=== PATIENT | female | born 1950 | race Caucasian/White ===

== ENCOUNTER 2016-10-21 06:43 | Day surgery (SDC) | payer BC ==
--- NOTE | 2016-10-07 09:40 | PAT Medication Instructions ---
Service Date Oct 07, 2016. Current Home Medication List Acetaminophen (Tylenol), 500 MG PO BID Albuterol Hfa (Ventolin Hfa), 2-4 PUFFS INH Q6H PRN for Shortness of Breath Aspirin (Aspirin Ec), 81 MG PO QAM Atorvastatin (Lipitor), 40 MG PO HS Brimonidine Tartrate (Alphagan P), 1 DROPS OP BID Carvedilol (Coreg), 25 MG PO BID Cholecalciferol (Vitamin D), 1 TAB PO QAM Glimepiride (Glimepiride), 1 TAB PO QPM Hydralazine Hcl (Apresoline), 100 MG PO TID Latanoprost (Xalatan 0.005% Oph Samanta), 1 DROPS OP HS Loratadine (Claritin), 10 MG PO HS Tramadol (Ultram), 50 MG PO Q8H PRN for Pain [Nasonex], 1 SPRAY NA DAILY PRN for PRN Medication Instructions For Your Scheduled Surgery - Check with surgeon/public policy manager for instructions: Aspirin (Aspirin Ec), 81 MG PO QAM - Hold the following medications the morning of surgery: Loratadine (Claritin), 10 MG PO HS Cholecalciferol (Vitamin D), 1 TAB PO QAM - Take the following medications the morning of surgery with a sip of water: [Nasonex], 1 SPRAY NA DAILY PRN for PRN Hydralazine Hcl (Apresoline), 100 MG PO TID Carvedilol (Coreg), 25 MG PO BID Brimonidine Tartrate (Alphagan P), 1 DROPS OP BID Acetaminophen (Tylenol), 500 MG PO BID Albuterol Hfa (Ventolin Hfa), 2-4 PUFFS INH Q6H PRN for Shortness of Breath ( bring with you hospital the morning of surgery) Tramadol (Ultram), 50 MG PO Q8H PRN for Pain (okay to take up to 4 hours prior to surgery if needed) - Take the following medications as scheduled the night before surgery: [Nasonex], 1 SPRAY NA DAILY PRN for PRN Latanoprost (Xalatan 0.005% Oph Samanta), 1 DROPS OP HS Hydralazine Hcl (Apresoline), 100 MG PO TID Glimepiride (Glimepiride), 1 TAB PO QPM Carvedilol (Coreg), 25 MG PO BID Brimonidine Tartrate (Alphagan P), 1 DROPS OP BID Atorvastatin (Lipitor), 40 MG PO HS Acetaminophen (Tylenol), 500 MG PO BID Albuterol Hfa (Ventolin Hfa), 2-4 PUFFS INH Q6H PRN for Shortness of Breath Tramadol (Ultram), 50 MG PO Q8H PRN for Pain If you have any questions please call us at [phone] (Natalie Atkinson PA-C) or [phone] or [phone]
[2016-10-07 10:17] LABS: BASO % 0.7 %; BASO ABS # 0.04 K/uL (0-0.2); COMPLETE YES; HEMATOCRIT 30.8 % (37-47); IG% 0.4 %; LYMPH % 28.3 %; MEAN CELL VOLUME 91.1 fL (80-100); MEAN CORPUSCULAR HEMOGLOBIN 30.2 pg (25-34); MEAN CORPUSCULAR HGB CONC 33.1 g/dl (32-36); MEAN PLATELET VOLUME 9.6 fL (7.4-10.4); MONO % 8.3 %; NEUT % 59.3 %; PLATELET COUNT 251 K/uL (130-400); RED BLOOD COUNT 3.38 M/uL (4.2-5.4); WHITE BLOOD COUNT 5.66 K/uL (4.8-10.8)
--- NOTE | 2016-10-07 10:36 | DIAGNOSTIC IMAGING REPORT ---
CHEST PREADMISSION(PA/LAT) CLINICAL HISTORY: Preoperative evaluation. COMPARISON STUDY: No previous studies for comparison. FINDINGS: There are median sternotomy wires and clips from bypass grafting. There is mild cardiomegaly without evidence of pulmonary edema. No consolidation is identified. There is no pneumothorax or pleural effusion. IMPRESSION: 1. No acute cardiopulmonary findings. 2. Mild cardiomegaly. Electronically signed by: Paul Membreno M.D. 10/07/2016 10:33 AM Dictated Date/Time: 10/07/2016 10:33 AM
[2016-10-07 10:49] LABS: PROTHROMBIN TIME (PATIENT) 10.7 SECONDS (9.0-12.0)
[2016-10-07 11:41] LABS: BUN/CREATININE RATIO 13.6 (10-20); CALCIUM 9.1 mg/dl (8.5-10.1); CREATININE 3.4 mg/dl (0.60-1.20); POTASSIUM 5.7 mmol/L (3.5-5.1)
[~2016-10-21] VITALS: Ht 160 cm; Wt 78.2 kg
--- NOTE | 2016-10-21 06:02 | History and Physical ---
History & Physical Date of Service Oct 21, 2016. History & Physical CC: End stage renal disease HPI: Ms. Lu states she is not yet on hemodialysis; however, she was advised that she will likely need it within the next 3-6 months. She says she has had progressively decreasing kidney function for a long period of time due to multiple problems. She denies any real complaints at this time including headaches, fevers, chills, dizziness, chest pain, shortness of breath, abdominal pain, nausea, vomiting, diarrhea, constipation, dysuria, hematuria, rest pain, claudication, nonhealing wounds or ulcers or other complaints. ALLERGIES: AUGMENTIN. HOME MEDICATIONS: Reconciled on the chart and include the following: Aspirin, atorvastatin, brimonidine, carvedilol, Drisdol, glimepiride, hydralazine, latanoprost, loratadine, Nasonex, ProAir HFA, tramadol, and Tylenol. PAST MEDICAL HISTORY: Positive for allergic rhinitis, chronic kidney disease, coronary artery disease, type 2 diabetes mellitus, osteoarthritis, glaucoma, hypertension, hyperlipidemia, pseudophakia of right eye and vitamin D deficiency. PAST SURGICAL HISTORY: Positive for cataract extractions, section and coronary artery bypass graft x3 in 2009. FAMILY HISTORY: Positive for diabetes in her father and mother and heart disease in her mother. SOCIAL HISTORY: Positive for a past history of tobacco use. She previously smoked #1-1/2 packs per day for about 30 years and stopped at age 59, which was 7 years ago. The patient denies alcohol or drug use. REVIEW OF SYSTEMS: Negative for fatigue, fevers, sweats, weight loss, exercise intolerance, abnormal moles or rashes, vision changes or photophobia, ear pain, sinus problems, sore throat, cough, shortness of breath, hemoptysis or wheezing , chest pain, palpitations or syncope. She does admit to some mild edema of her lower extremities which waxes and wanes depending on how much she is on them. She denies abdominal pain, nausea, vomiting, diarrhea, constipation, muscle weakness, headaches, dizziness, numbness or seizures. PHYSICAL EXAMINATION: Her vital signs are as follows: Blood pressure of 160/ 68 in the right arm, 168/60 in the left, heart rate 58, oxygen 97% on room air. The patient is 160.02 cm tall and weighs 78.5 kilograms. Constitutional: In general, patient is a mildly chronically ill-appearing middle-aged female in no acute distress. She ambulates without assistance and is active, alert and oriented x4 with normal recent and remote memory. Head is normocephalic, atraumatic. Eyes are EOMI. ENMT exam demonstrates no hearing loss, rhinorrhea or pharyngeal erythema. Neck is supple, nontender with midline trachea without masses or crepitus. Lung exam demonstrates no dyspnea. They are decreased somewhat throughout but clear bilaterally. Cardiovascular exam demonstrates nondisplaced apical impulse with a regular rate and rhythm without murmurs, lifts, heaves, thrills or gallops. Peripheral pulses are full and equal in all extremities unless otherwise noted, specifically they are normal in her carotid , brachial, radial and femoral pulses. Bilateral extremity distal pulses are + 2. She has brisk capillary refill and no signs of distal ischemia. The patient demonstrates no bruits in her carotid, abdominal or femoral area. Abdomen is soft, nontender with normoactive bowel sounds in all 4 quadrants without guarding or rebound. There is no flank or CVA tenderness. There are no pulsatile masses appreciable. Bilateral upper extremities demonstrate no cyanosis, edema, clubbing, varicosities or ulcers. The patient's bilateral lower extremities demonstrate trace to 1+ pitting edema. This appears to be chronic; there are no ulcerations or other discoloration noted. Neurologically : Patient has grossly intact cranial nerves and grossly intact sensation. ASSESSMENT AND PLAN: End-stage renal disease, not on hemodialysis. PLAN: Patient is admitted for a left wrist possible antecubital cephalic vein av fistula creation. I have discussed the risks options and benefits of the procedure with the patient. The patient understands the risks options and benefits and agrees to the procedure.
[~2016-10-21 06:43] MED LIST: ACET-1256 PO; ALPPOPS5 OP; ASPI81TA28 PO; ATOR-24 PO; CARV25TA2 PO; CHOL1TAB42 PO; CLINDAMYCIN 600 MG/54 ML D5W IV SCH; CLR10 PO; GLIM4TAB2 PO; HYDR100T12 PO; LATA0.5S OP; NASONEX; SODIUM CHLORIDE 0.9% 1000ML 1,000 ML IV SCH; TRAM-10 PO; VNTHFA/IN INH
[2016-10-21] MEDS ORDERED: MIDAZOLAM HCL 1 MG/ML 2ML VIAL ONE ×2 (06:46→08:24)
[2016-10-21] MEDS ORDERED: PROPOFOL IV EMULSION 10 MG/ML 20 ML VIAL IV ONE ×2 (06:48→08:57)
[2016-10-21] MEDS ORDERED: FENTANYL CITRATE INJ 50 MCG/1 ML 2 ML VIAL ONE (06:49)
[2016-10-21] MEDS ORDERED: THROMBIN FOR SOLN 20000 UNIT KIT ONE (07:05)
[2016-10-21] MEDS ORDERED: BUPIVACAINE/EPINEPHRINE 0.5% MPF 1:200,000 30 ML VIAL ONE (07:06)
[2016-10-21] MEDS ORDERED: GELATIN SPONGE 12-7MM ONE (07:06)
[2016-10-21] MEDS ORDERED: LIDOCAINE HCL 1% 20 ML VIAL ONE (07:06)
[2016-10-21] MEDS ORDERED: HEPARIN SOD (PORCINE) 1000 UNIT/ML 10 ML VIAL ONE (07:06)
[2016-10-21 07:14] VITALS: BP 183/73; PULSE 72; TEMP 36.7; O2SAT 98; Ht 160 cm; Wt 78.2 kg
[2016-10-21] MEDS ORDERED: EpHEDrine SULFATE INJ 50 MG/ML AMP IV PRN (07:30)
[2016-10-21] MEDS ORDERED: ATROPINE SULFATE 0.1 MG/ML 5ML SYR IV PRN (07:30)
[2016-10-21] MEDS ORDERED: ONDANSETRON INJ 2 MG/ML 2 ML VIAL IV PRN (07:30)
[2016-10-21] MEDS ORDERED: FENTANYL CITRATE INJ 50 MCG/1 ML 2 ML VIAL IV PRN (07:30)
[2016-10-21 07:41] LABS: BUN/CREATININE RATIO 14.5 (10-20); CALCIUM 8.8 mg/dl (8.5-10.1); CREATININE 4.3 mg/dl (0.60-1.20); POTASSIUM 4.5 mmol/L (3.5-5.1)
--- NOTE | 2016-10-21 07:41 | History & Physical Bridge Note ---
H&P Re-Evaluation Bridge Note: I have examined the patient, reviewed the History & Physical and in the interval since the performance of the History & Physical I have noted the following changes of clinical significance: No changes noted
[2016-10-21] MEDS ORDERED: [UNRECOGNIZED DRUG - OTHER] PO (07:45)
[2016-10-21] MEDS ORDERED: EpHEDrine SULFATE 50MG/5ML SYR ONE (09:01)
--- NOTE | 2016-10-21 09:42 | [facility] Post Operative Brief Note ---
Immediate Operative Summary Operative Date Oct 21, 2016. Pre-Operative Diagnosis End stage renal disease Post-Operative Diagnosis End stage renal disease Procedure(s) Performed Left Wrist, Antecubital Cephalic Vein Arteriovenous Fistula Surgeon Dr. Bradley Solorzano Free Lance Artist Surgeon(s) Katie Lundberg PA-C Estimated Blood Loss 15 Findings Good thrill with doppler Specimens None per surgeon Anesthesia MAC Complication(s) None Disposition Recovery Room / PACU
[2016-10-21] MEDS ORDERED: OXYC-57 PO (09:43)
--- NOTE | 2016-10-21 09:44 | Discharge Instructions ---
Discharge Instructions Date of Service Oct 21, 2016. Visit Reason for Visit: End Stage Renal Disease Discharge Discharge Diagnosis / Problem: End stage renal disease Discharge Goals Goal(s): Therapeutic intervention Activity Recommendations Activity Limitations: per Instructions/Follow-up section Anesthesia . Post Anesthesia Instructions: If you have had General Anesthesia or IV Sedation: * Do not drive today. * Resume driving when surgeon permits. * Do not make important decisions or sign legal documents today. * Call surgeon for: 1. Temperature elevations greater than 101 degrees F. 2. Uncontrollable pain. 3. Excessive bleeding. 4. Persistent nausea and vomiting. 5. Medication intolerance (nausea, vomiting or rash). * For nausea and vomiting use only clear liquids such as: tea, soda, bouillon until nausea subsides, then gradually increase diet as tolerated. * If you have any concerns or questions, call your surgeon's office. If physician is unavailable and it is an emergency, call 911 or go to the nearest emergency room. . Instructions / Follow-Up Instructions / Follow-Up Call [phone] to schedule a follow up appointment if one not already scheduled. ACTIVITY RECOMMENDATIONS: See Above SPECIAL CARE INSTRUCTIONS: Call your doctor if: * Temperature above 101 degrees * Pain not relieved by pain medicine ordered * There is increased drainage or redness from any incision * You have any unanswered questions or concerns. Diet Recommendations Recommended Home Diet: resume previous diet Procedures Procedures Performed: Left Wrist, Arteriovenous Fistula Creation Pending Studies Studies pending at discharge: no Medical Emergencies . Who to Call and When: Medical Emergencies: If at any time you feel your situation is an emergency, please call 911 immediately. . Non-Emergent Contact Non-Emergency issues call your: Surgeon . . "Provider Documentation" section prepared by Bradley Solorzano. .
--- NOTE | 2016-10-21 10:08 | OPERATIVE REPORT ---
DATE OF OPERATION: 10/21/2016 PREOPERATIVE DIAGNOSIS: End-stage renal disease on hemodialysis. POSTOPERATIVE DIAGNOSIS: Same. PROCEDURE: Left wrist radiocephalic fistula creation. SURGEON: Dr. Bradley Solorzano. SPRING INSPECTOR: Dr. Katie Conde. ANESTHESIA: Local plus conscious sedation. ESTIMATED BLOOD LOSS: 15. FLUIDS: 400 mL crystalloid. URINE OUTPUT: Not recorded. COMPLICATIONS: None apparent. CONDITION: Stable to PACU. INDICATIONS: Ms. Lu is a 66-year-old female with end-stage renal disease in need of senior living hemodialysis access. She was advised of the risks and benefits of undergoing an AV fistula placement and agreed to undergo above procedure. PROCEDURE: The patient was brought into the operative suite. She was prepped and draped in the usual fashion. A timeout occurred. Her cephalic vein and her radial artery were identified. Local anesthetic was instilled between the 2 vessels. A small longitudinal incision was made with a 15 blade. The cephalic vein was dissected and divided. Attention was then turned to the artery. This was dissected out. This was found to be soft. An appropriate length of the artery was dissected out for fistula placement. The attention was then turned to the vein. This was initially dissected and swung over to the radial artery. A large venous branch was ligated. Proximal and distal control of the radial artery was obtained with bulldog clamps. An 11 blade was used to make an arteriotomy and this was extended with Stephens scissors. The artery was found to be thick-walled with small lumen. This was serially dilated up to 2.5 mm. There did not appear to be great outflow vessel. Then, the vein was cut to size and anastomosis was performed in an end-to-side fashion using 7-0 Prolene. Once the clamps were removed there was not adequate flow through the fistula. An arteriotomy was made distally in the radial artery and 2 Sherry balloon was passed proximally and withdrawn. There was no clot but afterwards there was brisk flow. There was good signal dopplered throughout the fistula. At this time, the arteriotomy was closed with interrupted 7-0 Prolene. Hemostasis was obtained. The wound was closed using 3-0 and 4-0 Vicryl. The patient tolerated the procedure well. Dr. Bradley Solorzano was present and scrubbed for the entirety of this case. I attest to the content of the Intraoperative Record and any orders documented therein. Any exceptions are noted below. I, Dr. Solorzano was present and scurbbed for the entire procedure. LANEY
--- NOTE | 2016-10-21 10:12 | Anesthesiology Progress Note ---
Anesthesia Post Op Note Date & Time Oct 21, 2016 at 10:11 Vital Signs Pain Intensity: 0 Vital Signs Past 12 Hours Date Time Temp Pulse Resp B/P Pulse Ox O2 Delivery O2 Flow Rate FiO2 10/21/16 10:10 72 16 141/63 100 Nasal Cannula 2 10/21/16 10:00 72 20 123/73 100 Mask 5 10/21/16 09:53 36.2 74 20 123/69 100 Mask 10 10/21/16 07:14 36.7 72 18 183/73 98 Room Air Notes Mental Status: alert / awake / arousable, participated in evaluation Pt Amnestic to Procedure: Yes Nausea / Vomiting: adequately controlled Pain: adequately controlled Airway Patency, RR, SpO2: stable & adequate BP & HR: stable & adequate Hydration State: stable & adequate Anesthetic Complications: no major complications apparent
[2016-10-21 10:20] VITALS: BP 168/74; PULSE 66; TEMP 36.6; O2SAT 100
[2016-10-21 10:50] VITALS: BP 171/76; PULSE 66; TEMP 36.4; O2SAT 99
[2016-10-21 11:20] VITALS: BP 175/70; PULSE 68; O2SAT 99
[2017-03-13] MEDS ORDERED: LVQ250 PO (11:22)
[2017-03-13] MEDS ORDERED: FLUT50SP45 NAE (12:50)
[2017-03-23] MEDS ORDERED: [UNRECOGNIZED DRUG - OTHER] PO (07:20)
== END 2016-10-21 11:25 | disposition home or self-care (01) ==
LOC: C.ACU 06:43
PROVIDERS: ATTEND Surgery Vascular Surgery
DX: N18.6 End stage renal disease (principal); I12.0 Hypertensive chronic kidney disease with stage 5 chronic kidney disease or end stage renal disease; I25.10 Atherosclerotic heart disease of native coronary artery without angina pectoris; E11.9 Type 2 diabetes mellitus without complications; M19.90 Unspecified osteoarthritis, unspecified site; H40.9 Unspecified glaucoma; E78.5 Hyperlipidemia, unspecified; E55.9 Vitamin D deficiency, unspecified; Z95.1 Presence of aortocoronary bypass graft; Z87.891 Personal history of nicotine dependence

== ENCOUNTER 2017-03-10 12:45 | Inpatient (IN) | payer BC ==
[~2017-03-10] VITALS: Ht 160 cm; Wt 78.8 kg
[~2017-03-10 12:45] MED LIST changes: -CLINDAMYCIN 600 MG/54 ML D5W IV SCH; +OXYC-57 PO; -SODIUM CHLORIDE 0.9% 1000ML 1,000 ML IV SCH; +[UNRECOGNIZED DRUG - OTHER] PO
[2017-03-10] MEDS ORDERED: SODIUM CHLORIDE 0.9% 1000ML 1,000 ML IV STA (13:19)
[2017-03-10] MEDS ORDERED: ALBUT/IPRATROP 3MG/0.5MG NEB 3 ML VIAL INH STA (13:19)
[2017-03-10] MEDS ORDERED: ONDANSETRON INJ 2 MG/ML 2 ML VIAL IV STA (13:19)
[2017-03-10] MEDS ORDERED: SODIUM CHLORIDE 0.9% 1000ML 500 ML IV STA (13:19)
[2017-03-10] MEDS ORDERED: FLUT50SP45 NAE (13:39)
[2017-03-10 14:11] LABS: BASO % 0.2 %; BASO ABS # 0.02 K/uL (0-0.2); COMPLETE YES; EOS % 0.7 %; HEMATOCRIT 26.7 % (37-47); IG% 0.5 %; LYMPH % 11.8 %; LYMPH ABS # 0.95 K/uL (1.2-3.4); MEAN CORPUSCULAR HEMOGLOBIN 30.3 pg (25-34); MEAN CORPUSCULAR HGB CONC 34.8 g/dl (32-36); MEAN PLATELET VOLUME 9.1 fL (7.4-10.4); MONO % 7.2 %; NEUT % 79.6 %; PLATELET COUNT 302 K/uL (130-400); RED BLOOD COUNT 3.07 M/uL (4.2-5.4); WHITE BLOOD COUNT 8.03 K/uL (4.8-10.8)
[2017-03-10 14:19] LABS: PARTIAL THROMBOPLASTIN RATIO 1.1; PROTHROMBIN TIME (PATIENT) 11.1 SECONDS (9.0-12.0)
[2017-03-10 14:31] LABS: BUN/CREATININE RATIO 12.5 (10-20); CREATININE 3.2 mg/dl (0.60-1.20); MAGNESIUM 1.7 mg/dl (1.8-2.4); POTASSIUM 4.5 mmol/L (3.5-5.1)
[2017-03-10 14:40] LABS: ALB/GLOB RATIO 0.7 (0.9-2); CKMB/CK RATIO 2.3 (0-3.0)
--- NOTE | 2017-03-10 15:14 | DIAGNOSTIC IMAGING REPORT ---
CHEST 2 VIEWS ROUTINE CLINICAL HISTORY: Cough. Congestion. COMPARISON STUDY: Chest radiograph October 07, 2016. FINDINGS: There are median sternotomy wires and clips from bypass grafting. No pneumothorax or pleural effusion is present. There is no evidence of pulmonary edema. Moderate cardiomegaly is noted. No consolidation is identified. IMPRESSION: 1. No acute cardiopulmonary findings. 2. Moderate cardiomegaly. Electronically signed by: Paul Membreno M.D. 03/10/2017 3:13 PM Dictated Date/Time: 03/10/2017 3:12 PM
[2017-03-10 15:18] LABS: URINE APPEARANCE CLEAR (CLEAR); URINE BILIRUBIN NEG (NEG); URINE COLOR YELLOW; URINE NITRITE NEG (NEG); URINE PH 5.5 (4.5-7.5); URINE SPECIFIC GRAVITY 1.016 (1.000-1.030); UROBILINOGEN NEG (NEG)
[2017-03-10] MEDS ORDERED: LEVAQUIN 500MG / 100ML D5W IV ONE (15:30)
[2017-03-10 16:08] LABS: MANUAL MICROSCOPIC REQUIRED? NO; REVIEW REQ? YES
[2017-03-10 16:32] LABS: URINE PATH CASTS 0-3 GRANULAR CASTS /lpf (0)
[2017-03-10] MEDS ORDERED: CARVEDILOL 25 MG TAB PO STA (16:36)
[2017-03-10] MEDS ORDERED: DEXTROSE 50% 50 ML SYR IV PRN (16:45)
[2017-03-10] MEDS ORDERED: ONDANSETRON INJ 2 MG/ML 2 ML VIAL IV PRN (16:45)
[2017-03-10] MEDS ORDERED: GLUCOSE 10 TABS/TUBE PO PRN (16:45)
[2017-03-10] MEDS ORDERED: ACETAMINOPHEN 325 MG TAB PO PRN (16:45)
[2017-03-10] MEDS ORDERED: GLUCOSE 40% GEL 15 GM TUBE PO PRN (16:45)
[2017-03-10] MEDS ORDERED: GLUCAGON FOR INJ 1 MG VIAL SQ PRN (16:45)
[2017-03-10] MEDS ORDERED: ACET-1257 PO (16:52)
[2017-03-10] MEDS ORDERED: CALC0.2510 PO (16:52)
[2017-03-10] MEDS ORDERED: ASPIRIN 81 MG ECTAB PO STA (17:06)
[2017-03-10] MEDS ORDERED: ALBUT/IPRATROP 3MG/0.5MG NEB 3 ML VIAL INH PRN (17:15)
[2017-03-10 17:50] VITALS: BP 159/115; PULSE 95; TEMP 36.5; O2SAT 92
[2017-03-10 18:03] VITALS: BP 159/115; PULSE 95; TEMP 36.5; Ht 160 cm; Wt 78.8 kg
[2017-03-10 19:00] VITALS: BP 120/57; PULSE 71
[2017-03-10] MEDS ORDERED: LEVOFLOXACIN CONSULT ACTIVE PRN (19:30)
[2017-03-10] MEDS: CALCITRIOL 0.25 MCG CAP PO SCH (19:51)
[2017-03-10] MEDS: ALBUT/IPRATROP 3MG/0.5MG NEB 3 ML VIAL INH SCH (19:55)
[2017-03-10 19:57] VITALS: BP 116/55; PULSE 68; PULSE 70; TEMP 36.8; O2SAT 93
[2017-03-10] MEDS ORDERED: MAGNESIUM CHLORIDE 64MG DELAYED REL TAB PO ONE (20:00)
[2017-03-10 20:13] LABS: INFLUENZA A PCR Neg for Influ A (NEG); INFLUENZA B PCR Neg for Influ B (NEG)
--- NOTE | 2017-03-10 20:52 | History and Physical ---
History & Physical Date & Time of Service: Mar 10, 2017 at 17:07 Chief Complaint: Flu Like Sx, Dizzy, Vomiting Primary Care Physician: Alan Francois M.D. History of Present Illness Source: patient, clinic records This is a 66 y/o female with PMH of CAD s/p CABG x 3, HTN, DM, ESRD not on dialysis, asthma, and other problems listed below who presents to the ED with productive cough. Patient states 9 days ago she developed sore throat, rhinorrhea, initially dry cough now productive of white sputum, chills, backache , FELIPE. Pt was seen at urgent care 2 days ago, had CXR which was negative, and was started on doxycycline. After starting doxycycline, patient developed N/V and diarrhea, therefore stopped taking the doxycycline. Nausea is now resolved. Last diarrhea yesterday; no BM today. For past 2 days has poor PO intake "tea and crackers". She did not take her medications this morning. Has been using albuterol inhaler 4x per day which helps with cough. Prior to this illness, patient had not been using her albuterol on a regular basis. She reports having mild substernal non-radiating chest pressure 2 days ago while ambulating, which resolved. No chest pain today. States she had similar discomfort with prior bronchitis/ asthma exacerbation. She reports edema to bilateral LE over past few days- improving today. Has felt lightheaded and tired. Denies fever, diaphoresis, ear ache, SOB, abdominal pain, dysuria, frequency, itching. No influenza vaccination yet this season. No specific sick contact. No recent hospitalization. Has LUE fistula which is not mature yet per patient. Past Medical/Surgical History Medical Problems: (1) Asthma Status: Chronic (3) Athscl Heart Disease Of [place] Coronary Artery W/O Ang Pctrs Status: Chronic (5) CKD (chronic kidney disease), stage V Status: Chronic (7) DM type 2 (diabetes mellitus, type 2) Status: Chronic (9) HTN (hypertension) Status: Chronic (10) Hyperlipidemia Status: Chronic (12) Obesity (BMI 30.0-34.9) Status: Chronic (13) Osteoarthritis Status: Chronic (14) Osteoporosis Status: Chronic (16) Vitamin D Deficiency, Unspecified Status: Chronic Surgical Problems: (1) AV fistula Status: Chronic (2) History of cataract surgery Status: Chronic (4) S/P CABG x 3 Permanent Comment: 2009, Andie Nuñez Status: Chronic (5) S/P section Status: Chronic Family History Cardiac disorder MOTHER Diabetes mellitus MOTHER SISTER FATHER Hypertension SISTER Social History Smoking Status: Former Smoker (prior 1.5 ppd x approx 10 years, quit May 2010) Alcohol Use: none Drug Use: none Housing status: lives alone Immunizations History of Influenza Vaccine: No Multi-Drug Resistant Organisms History of MDRO: No Allergies Coded Allergies: Amoxicillin (Verified Allergy, Mild, LIGHTHEADED, DIZZY AND NAUSEA, ) Clavulanic Acid (Verified Allergy, Mild, LIGHTHEADED, DIZZY AND NAUSEA, ) Home Medications Scheduled Aspirin (Aspirin Ec), 81 MG PO QAM Atorvastatin (Lipitor), 40 MG PO DAILY Calcitriol (Rocaltrol Cap), 0.25 MCG PO MWF Carvedilol (Coreg), 25 MG PO BIDM Cholecalciferol (Vitamin D), 1 TAB PO QAM Fluticasone Propionate (Nasal) (Allergy Nasal [place] [address]), 2 SPRAY JOE DAILY Glimepiride (Glimepiride), 1 TAB PO QAM Hydralazine Hcl (Apresoline), 100 MG PO TID Loratadine (Claritin), 10 MG PO DAILY Scheduled PRN Acetaminophen (Tylenol Extra Strength), 1 TAB PO Q6 PRN for Pain Albuterol Hfa (Ventolin Hfa), 2 PUFFS INH Q4H PRN for Wheezing Review of Systems Ten systems reviewed and negative except for pertinent positives and negatives noted in HPI. Physical Exam Vital Signs Date Time Temp Pulse Resp B/P (MAP) Pulse Ox O2 Delivery O2 Flow Rate FiO2 03/10/17 17:00 71 18 173/86 96 Room Air 03/10/17 15:02 76 18 173/86 96 Room Air 03/10/17 14:39 77 16 190/76 93 03/10/17 13:45 77 03/10/17 12:48 36.5 76 18 217/71 97 Room Air General Appearance: WD/WN, no apparent distress Head: normocephalic, atraumatic Eyes: normal inspection, sclerae normal ENT: normal ENT inspection, hearing grossly normal, TMs normal, pharynx normal Neck: supple, trachea midline Respiratory/Chest: lungs clear, normal breath sounds, no respiratory distress, no accessory muscle use, + pertinent finding (no longer wheezing after Duoneb in ER. coughs during exam. ) Cardiovascular: regular rate, rhythm, no murmur Abdomen/GI: normal bowel sounds, non tender, soft Extremities/Musculoskelatal: no calf tenderness, + pertinent finding (1+ pitting pretibial edema bilaterally. LUE fistula with thrill.) Neurologic/Psych: alert, normal mood/affect, oriented x 3 Skin: normal color, warm/dry Diagnostics Laboratory Results Results Past 24 Hours Test 03/10/17 13:58 03/10/17 14:05 03/10/17 17:03 Range/Units White Blood Count 8.03 4.8-10.8 K/uL Red Blood Count 3.07 4.2-5.4 M/uL Hemoglobin 9.3 12.0-16.0 g/dL Hematocrit 26.7 37-47 % Mean Corpuscular Volume 87.0 80-100 fL Mean Corpuscular Hemoglobin 30.3 25-34 pg Mean Corpuscular Hemoglobin Concent 34.8 32-36 g/dl Platelet Count 302 130-400 K/uL Mean Platelet Volume 9.1 7.4-10.4 fL Neutrophils (%) (Auto) 79.6 % Lymphocytes (%) (Auto) 11.8 % Monocytes (%) (Auto) 7.2 % Eosinophils (%) (Auto) 0.7 % Basophils (%) (Auto) 0.2 % Neutrophils # (Auto) 6.38 1.4-6.5 K/uL Lymphocytes # (Auto) 0.95 1.2-3.4 K/uL Monocytes # (Auto) 0.58 0.11-0.59 K/uL Eosinophils # (Auto) 0.06 0-0.5 K/uL Basophils # (Auto) 0.02 0-0.2 K/uL RDW Standard Deviation 40.2 36.4-46.3 fL RDW Coefficient of Variation 12.5 11.5-14.5 % Immature Granulocyte % (Auto) 0.5 % Immature Granulocyte # (Auto) 0.04 0.00-0.02 K/uL Prothrombin Time 11.1 9.0-12.0 SECONDS Prothromb Time International Ratio 1.0 0.9-1.1 Activated Partial Thromboplast Time 28.2 21.0-31.0 SECONDS Partial Thromboplastin Ratio 1.1 Sodium Level 122 136-145 mmol/L Potassium Level 4.5 3.5-5.1 mmol/L Chloride Level 91 98-107 mmol/L Carbon Dioxide Level 23 21-32 mmol/L Anion Gap 8.0 3-11 mmol/L Blood Urea Nitrogen 40 7-18 mg/dl Creatinine 3.20 0.60-1.20 mg/dl Est Creatinine Clear Calc Drug Dose 17.5 ml/min Estimated GFR () 16.7 Estimated GFR (Non- 14.4 BUN/Creatinine Ratio 12.5 10-20 Random Glucose 137 70-99 mg/dl Calcium Level 8.0 8.5-10.1 mg/dl Magnesium Level 1.7 1.8-2.4 mg/dl Total Bilirubin 0.5 0.2-1 mg/dl Aspartate Amino Transf (AST/SGOT) 38 15-37 U/L Alanine Aminotransferase (ALT/SGPT) 37 12-78 U/L Alkaline Phosphatase 64 45-117 U/L Total Creatine Kinase 704 26-192 U/L Creatine Kinase MB 16.2 0.5-3.6 ng/ml Creatine Kinase MB Ratio 2.3 0-3.0 Troponin I 0.054 0-0.045 ng/ml Total Protein 5.6 6.4-8.2 gm/dl Albumin 2.3 3.4-5.0 gm/dl Globulin 3.3 2.5-4.0 gm/dl Albumin/Globulin Ratio 0.7 0.9-2 Lipase 357 73-393 U/L Urine Color YELLOW Urine Appearance CLEAR CLEAR Urine pH 5.5 4.5-7.5 Urine Specific [place] 1.016 1.000-1.030 Urine Protein 3+ NEG Urine Glucose (UA) TRACE NEG Urine Ketones NEG NEG Urine Occult Blood TRACE NEG Urine Nitrite NEG NEG Urine Bilirubin NEG NEG Urine Urobilinogen NEG NEG Urine Leukocyte Esterase NEG NEG Urine WBC (Auto) 1-5 0-5 /hpf Urine RBC (Auto) 0-4 0-4 /hpf Urine Hyaline Casts (Auto) 1-5 0-5 /lpf Urine Epithelial Cells (Auto) 10-20 0-5 /lpf Urine Bacteria (Auto) NEG NEG Urine Pathogenic Casts 0-3 GRANULAR CASTS 0 /lpf Diagnostic Radiology CHEST 2 VIEWS ROUTINE CLINICAL HISTORY: Cough. Congestion. COMPARISON STUDY: Chest radiograph October 07, 2016. FINDINGS: There are median sternotomy wires and clips from bypass grafting. No pneumothorax or pleural effusion is present. There is no evidence of pulmonary edema. Moderate cardiomegaly is noted. No consolidation is identified. IMPRESSION: 1. No acute cardiopulmonary findings. 2. Moderate cardiomegaly. EKG Normal sinus rhythm, Possible Left atrial enlargement, Right axis deviation, Non -specific intra-ventricular conduction block, possible old Inferior infarct ( cited on or before 09-MAY-2006), when compared to prior EKG October 07, 2016, T wave inversion now evident in Inferior leads, QRS axis has shifted to the right , as confirmed by cardiology Impression Assessment and Plan ASTHMATIC BRONCHITIS Did not tolerate outpatient treatment with doxycycline due to GI upset CXR- no infiltrate Influenza PCR negative Treated with Levaquin and Duoneb in ER Continue nebs and Levaquin (renally dosed) HYPERTENSION BP severely elevated in ER, given missed home meds, now normotensive Continue home carvedilol and hydralazine Monitor BP MILDLY ELEVATED TROPONIN Troponin is 0.054 Likely secondary to ESRD; no chest pain today Hx CAD with CABG x 3 in 2009; continue her aspirin, statin, beta stephenie Trend serial cardiac enzymes ACUTE HYPONATREMIA Likely due to decreased PO solute "tea and crackers" Sodium was 122 -> received 1500 mL NSS in ER -> repeat sodium 124 Check PRP in am HYPOMAGNESEMIA Replace and monitor DM TYPE 2 Hold glimepiride Novolog sliding scale ESRD Creat is 3.2, stable from baseline Not on dialysis yet, has LUE fistula (not matured per patient) Follows with Dr. Peralta DVT PROPHYLAXIS Heparin SQ CODE STATUS Full code per my discussion with the patient Patient seen in collaboration with Dr. Johnson. Please see his addendum. Attending Addendum: The patient was seen and examined in ER Recent URI on Doxy -progressed to Nausea ,Vomiting and dehydration Cough,wheezing and weakness O/E Hemodynamically stable HEENT-unremarkable Chest-decreased breath sound with wheezing anteriorly Heart-regular Abdomen-benign Labs and Imaging studies were reviewed Has Asthmatic Bronchitis Hyponatremia Agree with the assessment and plan Dr Em Johnson VTE Prophylaxis VTE Risk Assessment Done? Y/N: Yes Risk Level: Moderate Given or contraindicated: Unfractionated heparin SQ
[2017-03-10] MEDS: INSULIN ASPART 100 UNITS/ML 3 ML PEN SC SCH (21:14)
[2017-03-10] MEDS: HEPARIN SOD 5000 UNIT/0.5 ML CARP SQ SCH (21:15)
[2017-03-10 21:27] VITALS: BP 146/69; PULSE 90
--- NOTE | 2017-03-10 23:09 | EMERGENCY ROOM VISIT NOTE ---
History First contact with patient: 13:02 Chief Complaint: FLU LIKE SX Stated Complaint: FLU LIKE SX, DIZZY, VOMITING History of Present Illness Patient is a 66-year-old white female with past medical history significant for asthma, coronary artery disease status post CABG, hypertension, dyslipidemia, diabetes, chronic kidney disease/end-stage renal disease, who presents to the emergency department for evaluation of upper respiratory symptoms, cough, nausea and diarrhea 10 days. Her symptoms started a week and a half ago with "flulike symptoms." She reports she developed a sore throat, dry, nonproductive cough and sinus and nasal congestion. She subsequently developed a headache. She began to experience some pain in her ribs and her back from coughing. She tried using [id number] medications including Coricidin and Robitussin. Her symptoms persisted, and she went to a [facility] facility on Wednesday, 2 days ago. She reportedly had a chest x-ray, and was given a prescription for doxycycline. Patient states that she had a total of 3 doses of the doxycycline, but it made her sick to her stomach, and she subsequently started vomiting Wednesday evening. She reports a total of 6 episodes of vomiting and 3-4 episodes of yellow, watery, nonbloody diarrhea over the last 36 hours. Her last episode of vomiting was earlier this morning, last diarrhea was last evening. She's not been able to take her routine medications for over 24 hours. She has only been able to keep down some soda crackers and lemon tea at home. Her cough is productive of white sputum and she notes some chest congestion, but no lucia, constant chest pain and no palpitations. She feels a little bit dizzy and short of breath with exertion. Her ribs are sore from coughing. She states she cannot lay flat because it will cause her to cough. She denies any abdominal pain, just feels some cramping with her dry heaves. She does have an albuterol inhaler which she has been using 2 puffs roughly 4 times per day. She called her cushion cover inspector, Dr. Peralta, who directed her to the emergency department for further care and evaluation. There has been no melena, hematochezia or hematemesis. She denies any urinary symptoms. She notes some swelling of her ankles and lower legs Review of Systems Review of systems as per HPI. All other systems reviewed were negative. 10 systems reviewed. Past Medical/Surgical History Medical Problems: (1) Asthma (2) Asthma (3) Athscl Heart Disease Of [place] Coronary Artery W/O Ang Pctrs (4) AV fistula (5) Bronchitis (6) CAD (coronary artery disease) (7) CKD (chronic kidney disease), stage V (8) Diab Neli Wo Compl, Type Ii Or Unspec Type, Not Uncntrld (9) DM type 2 (diabetes mellitus, type 2) (10) End Stage Renal Disease (11) HTN (hypertension) (12) Hyperlipidemia (13) Hyperlipidemia, Unspecified (14) Hyponatremia (15) Obesity (BMI 30.0-34.9) (16) Osteoarthritis (17) Osteoporosis (18) Type 2 Diabetes Mellitus Without Complications (19) Vitamin D Deficiency, Unspecified Surgical Problems: (1) AV fistula (2) History of cataract surgery (3) Presence Of Aortocoronary Bypass Graft (4) S/P CABG x 3 (5) S/P section Electronic medical records are reviewed and summarized as above/below. See Problem List. Social History Smoking Status: Former Smoker Alcohol Use: none Housing Status: lives alone Occupation Status: employed Current/Historical Medications Scheduled Aspirin (Aspirin Ec), 81 MG PO QAM Atorvastatin (Lipitor), 40 MG PO DAILY Calcitriol (Rocaltrol Cap), 0.25 MCG PO MWF Carvedilol (Coreg), 25 MG PO BIDM Cholecalciferol (Vitamin D), 1 TAB PO QAM Fluticasone Propionate (Nasal) (Allergy Nasal [place] 24 Ho), 2 SPRAY JOE DAILY Glimepiride (Glimepiride), 1 TAB PO QAM Hydralazine Hcl (Apresoline), 100 MG PO TID Loratadine (Claritin), 10 MG PO DAILY Scheduled PRN Acetaminophen (Tylenol Extra Strength), 1 TAB PO Q6 PRN for Pain Albuterol Hfa (Ventolin Hfa), 2 PUFFS INH Q4H PRN for Wheezing Physical Exam Vital Signs Date Time Temp Pulse Resp B/P (MAP) Pulse Ox O2 Delivery O2 Flow Rate FiO2 03/10/17 15:02 76 18 173/86 96 Room Air 03/10/17 14:39 77 16 190/76 93 03/10/17 13:45 77 03/10/17 12:48 36.5 76 18 217/71 97 Room Air Physical Exam CONSTITUTIONAL: Patient is an ill although nontoxic appearing 66-year-old white female who is awake and alert and in no acute distress. She is noted be hypertensive in triage blood pressure 217/71, rechecked after exam was 190/76. She is afebrile, oxygen saturation 97% on room air. EYES: Pupils equal, round, reactive to light and accommodation. EOMs intact without nystagmus. Sclera are anicteric. ENT: Tympanic membranes intact, with normal landmarks. External canals are clear. Oral and nasopharynx are clear. Mucous membranes are moist, no lesions , tongue and gums appear normal. NECK: No bruits auscultated. Supple without lymphadenopathy. No thyromegaly. No meningeal signs. Full active range of motion without discomfort. CARDIOVASCULAR: Regular rate and rhythm, soft systolic ejection murmur noted. No carotid bruits auscultated. No JVD. Peripheral pulses easy to palpable. RESPIRATORY: Breath diminished bilaterally, with coarse expiratory wheezes throughout left worse than right. Full and equal chest expansion without accessory muscle use or retractions. GI: Bowel sounds are present. Well-healed surgical scars are noted. Abdomen is soft, nontender, nondistended. No organomegaly. No pulsatile masses. No guarding or rebound. MUSCULOSKELETAL: Full range of motion of extremities x 4 with good strength. 2 + pitting edema noted to the mid shins bilaterally. No cyanosis, joint tenderness or swelling. No deformity. INTEGUMENTARY: No lesions or rash, normal skin turgor. NEUROLOGICAL: Alert, oriented, and cooperative. Cranial nerves, sensation and strength grossly intact. Pupils round, equal, and react to light, EOMs are full. LYMPH: No lymphadenopathy. Medical Decision & Procedures ER Provider Diagnostic Interpretation: CHEST 2 VIEWS ROUTINE CLINICAL HISTORY: Cough. Congestion. COMPARISON STUDY: Chest radiograph October 07, 2016. FINDINGS: There are median sternotomy wires and clips from bypass grafting. No pneumothorax or pleural effusion is present. There is no evidence of pulmonary edema. Moderate cardiomegaly is noted. No consolidation is identified. IMPRESSION: 1. No acute cardiopulmonary findings. 2. Moderate cardiomegaly. Laboratory Results 03/10/17 13:58 Red Blood Count 3.07, Mean Corpuscular Volume 87.0, Mean Corpuscular Hemoglobin 30.3, Mean Corpuscular Hemoglobin Concent 34.8, Mean Platelet Volume 9.1, Neutrophils (%) (Auto) 79.6, Lymphocytes (%) (Auto) 11.8, Monocytes (%) (Auto) 7.2, Eosinophils (%) (Auto) 0.7, Basophils (%) (Auto) 0.2, Neutrophils # (Auto) 6.38, Lymphocytes # (Auto) 0.95, Monocytes # (Auto) 0.58, Eosinophils # (Auto) 0.06, Basophils # (Auto) 0.02 03/10/17 13:58 Test 03/10/17 13:58 03/10/17 14:05 White Blood Count 8.03 K/uL (4.8-10.8) Red Blood Count 3.07 M/uL (4.2-5.4) Hemoglobin 9.3 g/dL (12.0-16.0) Hematocrit 26.7 % (37-47) Mean Corpuscular Volume 87.0 fL (80-100) Mean Corpuscular Hemoglobin 30.3 pg (25-34) Mean Corpuscular Hemoglobin Concent 34.8 g/dl (32-36) Platelet Count 302 K/uL (130-400) Mean Platelet Volume 9.1 fL (7.4-10.4) Neutrophils (%) (Auto) 79.6 % Lymphocytes (%) (Auto) 11.8 % Monocytes (%) (Auto) 7.2 % Eosinophils (%) (Auto) 0.7 % Basophils (%) (Auto) 0.2 % Neutrophils # (Auto) 6.38 K/uL (1.4-6.5) Lymphocytes # (Auto) 0.95 K/uL (1.2-3.4) Monocytes # (Auto) 0.58 K/uL (0.11-0.59) Eosinophils # (Auto) 0.06 K/uL (0-0.5) Basophils # (Auto) 0.02 K/uL (0-0.2) RDW Standard Deviation 40.2 fL (36.4-46.3) RDW Coefficient of Variation 12.5 % (11.5-14.5) Immature Granulocyte % (Auto) 0.5 % Immature Granulocyte # (Auto) 0.04 K/uL (0.00-0.02) Prothrombin Time 11.1 SECONDS (9.0-12.0) Prothromb Time International Ratio 1.0 (0.9-1.1) Activated Partial Thromboplast Time 28.2 SECONDS (21.0-31.0) Partial Thromboplastin Ratio 1.1 Anion Gap 8.0 mmol/L (3-11) Est Creatinine Clear Calc Drug Dose 17.5 ml/min Estimated GFR () 16.7 Estimated GFR (Non- 14.4 BUN/Creatinine Ratio 12.5 (10-20) Calcium Level 8.0 mg/dl (8.5-10.1) Magnesium Level 1.7 mg/dl (1.8-2.4) Total Bilirubin 0.5 mg/dl (0.2-1) Aspartate Amino Transf (AST/SGOT) 38 U/L (15-37) Alanine Aminotransferase (ALT/SGPT) 37 U/L (12-78) Alkaline Phosphatase 64 U/L (45-117) Total Protein 5.6 gm/dl (6.4-8.2) Albumin 2.3 gm/dl (3.4-5.0) Globulin 3.3 gm/dl (2.5-4.0) Albumin/Globulin Ratio 0.7 (0.9-2) Lipase 357 U/L (73-393) Urine Color YELLOW Urine Appearance CLEAR (CLEAR) Urine pH 5.5 (4.5-7.5) Urine Specific [place] 1.016 (1.000-1.030) Urine Protein 3+ (NEG) Urine Glucose (UA) TRACE (NEG) Urine Ketones NEG (NEG) Urine Occult Blood TRACE (NEG) Urine Nitrite NEG (NEG) Urine Bilirubin NEG (NEG) Urine Urobilinogen NEG (NEG) Urine Leukocyte Esterase NEG (NEG) Urine WBC (Auto) 1-5 /hpf (0-5) Urine RBC (Auto) 0-4 /hpf (0-4) Urine Hyaline Casts (Auto) 1-5 /lpf (0-5) Urine Epithelial Cells (Auto) 10-20 /lpf (0-5) Urine Bacteria (Auto) NEG (NEG) Urine Pathogenic Casts 0-3 GRANULAR CASTS /lpf (0) Medications Administered Medications (Trade) Dose Ordered Sig/Ewelina Route Start Time Stop Time Status Last Admin Dose Admin Sodium Chloride 500 ml @ 999 mls/hr Q31M STAT IV 03/10/17 13:19 03/10/17 13:49 DC 03/10/17 14:15 999 MLS/HR Sodium Chloride 1,000 ml @ 200 mls/hr Q5H STAT IV 03/10/17 13:19 03/10/17 18:18 DC 03/10/17 13:19 200 MLS/HR Ondansetron HCl (Zofran Inj) 4 mg NOW STAT IV 03/10/17 13:19 03/10/17 13:25 DC 03/10/17 14:14 4 MG Albuterol/ Ipratropium (Duoneb) 3 ml NOW STAT INH 03/10/17 13:19 03/10/17 13:25 DC 03/10/17 14:14 3 ML Levofloxacin (Levaquin / D5W) 500 mg NOW ONCE IV 03/10/17 15:30 03/10/17 15:31 DC 03/10/17 15:22 500 MG ECG Indication: SOB/dyspnea Rate (beats per minute): 80 Rhythm: normal sinus Findings: other (old infarct) Change: no significant change ED Course The patient was seen and assessed as above. Her old records were reviewed. manager imaging was able to obtain recent laboratory studies performed at [facility] for comparison. IV lock was initiated. EKG was performed and patient was placed on cardiac rehab nurse. Laboratory studies were collected including CBC with differential, coags, CMP, lipase, magnesium, and cardiac enzymes. Patient was hydrated with normal saline solution, and medicated with Zofran 4 mg IV for nausea and given a DuoNeb treatment. Laboratory studies noted a normal white count at 8000, no left shift noted. H& H 9.3 and 26.7, which is chronic and appears stable for the patient. Coags are normal. Chemistries noted hyponatremia with a sodium of 122, potassium 4.5, chloride 91, BUN 40 and creatinine 3.2. Review of her outpatient laboratory studies performed recently noted a creatinine of 4.1. Magnesium slightly low at 1.7. She has a slight elevation of her troponin at 0.054, likely related to her ESRD. Lipase was not indicative of acute pancreatitis. Patient did not provide a urine sample while in the emergency department for analysis. Chest x- ray did not demonstrate any acute infiltrate or consolidation. No evidence for failure. All laboratory and diagnostic imaging studies were reviewed with attending physician. She was given Levaquin 500 mg IV. She was reassessed after her DuoNeb treatment and had some clearing of her wheezes. She otherwise remained hemodynamically stable while in the emergency department. Patient presents to the emergency department with asthmatic bronchitis, after poorly tolerating oral doxycycline for 48 hours. She has associated hyponatremia, and has an elevation of her cardiac enzymes. Patient was noted to be hypertensive in the emergency department, which is likely related to her inability to tolerate her antihypertensive medications at home, could also be precipitated by the illness and the [id number] cold medications that she has been taking of late. Given this and her other comorbidities, it was felt that further care in the hospital was warranted. Patient was reviewed with the [facility] service for further care and management. Please refer to their admission orders and H&P for further information. Differential diagnoses entertained included bronchitis, bronchial asthma exacerbation, pneumonia, CHF, ACS, acute ME, cardiomyopathy, medication side effect, gastroenteritis, infectious versus inflammatory colitis, hypertensive urgency, electrolyte imbalance, among others. Medical Decision See Emergency Department course. Medication Reconcilliation Current Medication List: was personally reviewed by me Blood Pressure Screening Patient's blood pressure: Elevated blood pressure Blood pressure disposition: Referred to PCP Impression Primary Impression: Asthmatic bronchitis Additional Impressions: Hyponatremia Elevated troponin Departure Information Referrals Alan Francois M.D. (PCP) Patient Instructions [facility] Problem Qualifiers
[2017-03-10 23:19] LABS: CKMB/CK RATIO 2.3 (0-3.0)
[2017-03-11] VITALS (14 sets, daily range): BP systolic 126–197; BP diastolic 50–74; PULSE 63–89; TEMP 36.4–36.8; O2SAT 91–96
[2017-03-11 04:17] LABS: MEAN CORPUSCULAR HEMOGLOBIN 31.2 pg (25-34); MEAN CORPUSCULAR HGB CONC 35.8 g/dl (32-36); PLATELET COUNT 261 K/uL (130-400); RED BLOOD COUNT 2.76 M/uL (4.2-5.4); WHITE BLOOD COUNT 8.36 K/uL (4.8-10.8)
[2017-03-11 04:34] LABS: BUN/CREATININE RATIO 11.4 (10-20); CALCIUM 7.7 mg/dl (8.5-10.1); CREATININE 3.4 mg/dl (0.60-1.20); MAGNESIUM 1.7 mg/dl (1.8-2.4); POTASSIUM 4.5 mmol/L (3.5-5.1)
[2017-03-11 04:44] LABS: CKMB/CK RATIO 2.4 (0-3.0); PHOSPHORUS 3.7 mg/dl (2.5-4.9)
[2017-03-11] MEDS: HEPARIN SOD 5000 UNIT/0.5 ML CARP SQ SCH ×3 (06:06→21:15)
[2017-03-11] MEDS: LORATADINE 10 MG TAB PO SCH (08:07)
[2017-03-11] MEDS: FLUTICASONE PROPIONATE NA SPR 16 GM BTL NAE SCH (08:07)
[2017-03-11] MEDS: CARVEDILOL 25 MG TAB PO SCH ×2 (08:07→17:44)
[2017-03-11] MEDS: ASPIRIN 81 MG ECTAB PO SCH (08:07)
[2017-03-11] MEDS: ATORVASTATIN 40 MG TAB PO SCH (08:07)
[2017-03-11] MEDS: CHOLECALCIFEROL 1000 INTER.UNIT TAB PO SCH (08:08)
[2017-03-11] MEDS: INSULIN ASPART 100 UNITS/ML 3 ML PEN SC SCH ×4 (08:11→21:15)
[2017-03-11] MEDS: ALBUT/IPRATROP 3MG/0.5MG NEB 3 ML VIAL INH SCH ×4 (08:13→20:00)
[2017-03-11 12:54] LABS: BUN/CREATININE RATIO 11.4 (10-20); CALCIUM 8.4 mg/dl (8.5-10.1); CREATININE 3.3 mg/dl (0.60-1.20); POTASSIUM 4.4 mmol/L (3.5-5.1)
--- NOTE | 2017-03-11 17:09 | Progress Note ---
Internal Med Progress Note Date of Service: Mar 11, 2017. Provider Documentation: SUBJECTIVE: The patient was seen and examined Still has cough Denies any Pain,no fever or chills OBJECTIVE: Vital Signs-as noted below Exam: General-no distress at rest Eyes-normal ENT-normal Neck-supple Lungs-Decreased breath sound bilaterally Occasional wheezing anteriorly Heart-Regular,no murmur Abdomen-Benign,no masses,bowel sound present Extremities-NO edema Neuro-AAox3 Lab data as noted below. ASSESSMENT & PLAN: ACUTE HYPONATREMIA Likely due to decreased PO solute "tea and crackers" Sodium was 122 -> received 1500 mL NSS in ER -> repeat sodium 124 Check PRP in am-remains low at 123 Will consult Legal Receptionist ASTHMATIC BRONCHITIS Did not tolerate outpatient treatment with doxycycline due to GI upset CXR- no infiltrate Influenza PCR negative Treated with Levaquin and Duoneb in ER Continue nebs and Levaquin (renally dosed) Clinically improved Continue current medications HYPERTENSION BP severely elevated in ER, given missed home meds, now normotensive Continue home carvedilol and hydralazine Remains higher side Will monitor MILDLY ELEVATED TROPONIN Troponin is 0.054 Likely secondary to ESRD; no chest pain today Hx CAD with CABG x 3 in 2009; continue her aspirin, statin, beta stephenie Trend serial cardiac enzymes-doubt any ACS HYPOMAGNESEMIA Replace and monitor DM TYPE 2 Hold glimepiride Novolog sliding scale ESRD Creat is 3.2, stable from baseline Not on dialysis yet, has LUE fistula (not matured per patient) Appreciate Nephrology input DVT PROPHYLAXIS Heparin SQ CODE STATUS Full code per my discussion with the patient Vital Signs: Date Time Temp Pulse Resp B/P (MAP) Pulse Ox O2 Delivery O2 Flow Rate FiO2 03/11/17 15:38 36.8 70 18 163/70 (101) 96 03/11/17 12:00 Room Air 03/11/17 11:27 36.8 63 18 169/68 (101) 91 Room Air 03/11/17 11:18 68 16 96 Room Air 03/11/17 08:13 68 16 93 Room Air 03/11/17 08:00 Room Air 03/11/17 07:39 36.4 67 16 163/66 (98) 93 Room Air 03/11/17 05:46 36.7 72 19 154/50 (84) 93 Room Air 03/11/17 04:00 Room Air 03/11/17 00:02 36.6 89 18 178/67 (104) 92 Room Air 03/11/17 00:00 Room Air 03/10/17 21:27 90 146/69 (94) 03/10/17 20:00 Room Air 03/10/17 19:57 68 16 93 Room Air 03/10/17 19:57 36.8 70 18 116/55 (75) 93 Room Air 03/10/17 19:00 71 120/57 (78) 03/10/17 18:03 36.5 95 20 159/115 Room Air 03/10/17 17:50 36.5 95 20 159/115 (130) 92 Room Air 03/10/17 17:00 71 18 173/86 96 Room Air Lab Results: Results Past 24 Hours Test 03/10/17 18:05 03/10/17 19:02 03/10/17 20:30 03/10/17 21:45 Range/Units Influenza Type A (RT-PCR) Neg for Influ A NEG Influenza Type B (RT-PCR) Neg for Influ B NEG Sodium Level 124 136-145 mmol/L Bedside Glucose 241 70-90 mg/dl Total Creatine Kinase 735 26-192 U/L Creatine Kinase MB 17.2 0.5-3.6 ng/ml Creatine Kinase MB Ratio 2.3 0-3.0 Troponin I 0.069 0-0.045 ng/ml Test 03/11/17 03:48 03/11/17 07:58 03/11/17 11:38 03/11/17 11:52 Range/Units White Blood Count 8.36 4.8-10.8 K/uL Red Blood Count 2.76 4.2-5.4 M/uL Hemoglobin 8.6 12.0-16.0 g/dL Hematocrit 24.0 37-47 % Mean Corpuscular Volume 87.0 80-100 fL Mean Corpuscular Hemoglobin 31.2 25-34 pg Mean Corpuscular Hemoglobin Concent 35.8 32-36 g/dl RDW Standard Deviation 40.6 36.4-46.3 fL RDW Coefficient of Variation 12.7 11.5-14.5 % Platelet Count 261 130-400 K/uL Mean Platelet Volume 9.0 7.4-10.4 fL Sodium Level 123 123 136-145 mmol/L Potassium Level 4.5 4.4 3.5-5.1 mmol/L Chloride Level 93 93 98-107 mmol/L Carbon Dioxide Level 24 23 21-32 mmol/L Anion Gap 6.0 7.0 3-11 mmol/L Blood Urea Nitrogen 39 38 7-18 mg/dl Creatinine 3.40 3.30 0.60-1.20 mg/dl Est Creatinine Clear Calc Drug Dose 16.5 17.0 ml/min Estimated GFR () 15.5 16.1 Estimated GFR (Non- 13.4 13.9 BUN/Creatinine Ratio 11.4 11.4 10-20 Random Glucose 100 120 70-99 mg/dl Calcium Level 7.7 8.4 8.5-10.1 mg/dl Phosphorus Level 3.7 2.5-4.9 mg/dl Magnesium Level 1.7 1.8-2.4 mg/dl Total Creatine Kinase 841 26-192 U/L Creatine Kinase MB 20.1 0.5-3.6 ng/ml Creatine Kinase MB Ratio 2.4 0-3.0 Troponin I 0.068 0-0.045 ng/ml Bedside Glucose 105 132 70-90 mg/dl Osmolality 264 280-300 mOsm/kg Iron Level 32 35-150 mcg/dl Total Iron Binding Capacity 244 250-450 mcg/dl Transferrin 182 200-360 mg/dl Transferrin % Saturation 13 15-50 % Test 03/11/17 16:13 03/11/17 16:20 Range/Units Bedside Glucose 168 70-90 mg/dl
--- NOTE | 2017-03-11 17:43 | Nephrology Consultation ---
Nephrology Consultation Date of Consultation: Mar 11, 2017. Attending Physician: Dr Johnson Requesting Physician: Dr Johnson Reason for Consultation: SOB w/ advanced CKD History of Present Illness 66 year old female w/ CKD 4/5, maturing AVF admitted yesterday after ER eval recommended by Dr Peralta d/t edema, n/v/d which developed after starting doxycycline for respiratory illness about 2 days prior to admission. She stopped abtc prior to presentation d/t GI concerns; had poor po intake throughout this period however. Also w/ productive cough, chills, backache and occasional mild substernal exertional chest pressure. Some LE edema which had recently improved just prior to admission. Concern prompting admission was whether pt needed to start HD or whether her sx related more to respiratory infection. her outpt creatinine has been running about 4 since December; most recent labs mid January also remarkable for K 5.8. Noted on admission here yesterday to have sodium 122 w/ BG 130s, creatinine 3.2, K 4.5. She was hypertensive on presentation w/ SBP in 210s on presentation, improved to 170s by later in day. the pt had missed her home bp meds prior to presentation and for a few days prior d/t her GI sx. Denies any recent falls but does state that she felt dizzy and light headed at home. She ate full meals last evening and this am w/o N/V/ metallic tastes. Past Medical/Surgical History Medical Problems: (1) Asthma Status: Chronic (2) Asthmatic bronchitis Status: Acute (3) Athscl Heart Disease Of [place] Coronary Artery W/O Ang Pctrs Status: Chronic (4) Diab Neli Wo Compl, Type Ii Or Unspec Type, Not Uncntrld Status: Chronic (5) Elevated troponin Status: Acute (6) End Stage Renal Disease Status: Chronic (7) Hyperlipidemia, Unspecified Status: Chronic (8) Type 2 Diabetes Mellitus Without Complications Status: Chronic (9) Vitamin D Deficiency, Unspecified Status: Chronic Surgical Problems: (1) AV fistula Status: Chronic (2) Presence Of Aortocoronary Bypass Graft Status: Chronic -ckd 5 not yet on dialysis w/ AVF maturing/ placed by Dr Solorzano; follows w/ Dr. Peralta -CAD s/p 2009 3VCABG -DM2 -HTN -HL -reformed tobacco abuse (quit 2009; 15 pk yr hx) -asthma -osteoporosis -s/p C section, cataract surgery Family History Cardiac disorder MOTHER Diabetes mellitus MOTHER SISTER FATHER Hypertension SISTER Social History Smoking Status: Former Smoker Alcohol Use: none Drug Use: none Housing Status: lives alone Occupation Status: employed Allergies Coded Allergies: Amoxicillin (Verified Allergy, Mild, LIGHTHEADED, DIZZY AND NAUSEA, ) Clavulanic Acid (Verified Allergy, Mild, LIGHTHEADED, DIZZY AND NAUSEA, ) Medications Current Inpatient Medications Medications (Trade) Dose Ordered Sig/Ewelina Route Start Time Stop Time Status Last Admin Dose Admin Heparin Sodium (Porcine) (Heparin Sq 5000 Unit/0.5ml) 5,000 unit Q8 SQ 03/10/17 22:00 04/09/17 21:59 03/11/17 06:06 5,000 UNIT Acetaminophen (Tylenol Tab) 650 mg Q4H PRN PO 03/10/17 16:45 04/09/17 16:44 Ondansetron HCl (Zofran Inj) 4 mg Q6H PRN IV 03/10/17 16:45 04/09/17 16:44 Albuterol/ Ipratropium (Duoneb) 3 ml QIDR INH 03/10/17 20:00 04/09/17 19:59 03/11/17 08:13 3 ML Insulin Aspart (novoLOG ASPART) SLIDING SCALE If C... ACHS SC 03/10/17 21:00 04/09/17 20:59 03/11/17 08:11 3 UNITS Glucose (Glucose 40% Gel) 15-30 GRAMS 15 GRAMS... UD PRN PO 03/10/17 16:45 04/09/17 16:44 Glucose (Glucose Chew Tab) 4-8 Tablets 4 Tabl... UD PRN PO 03/10/17 16:45 04/09/17 16:44 Dextrose (Dextrose 50% 50ML Syringe) 25-50ML OF 50% DW IV FOR... UD PRN IV 03/10/17 16:45 04/09/17 16:44 Glucagon (Glucagon Inj) 1 mg UD PRN SQ 03/10/17 16:45 04/09/17 16:44 Aspirin (Ecotrin Tab) 81 mg QAM PO 9/14/17 09:00 04/10/17 08:59 03/11/17 08:07 81 MG Atorvastatin Calcium (Lipitor Tab) 40 mg DAILY PO 03/11/17 09:00 04/10/17 08:59 03/11/17 08:07 40 MG Calcitriol (Rocaltrol Cap) 0.25 mcg MoWeFr@0900 PO 03/10/17 19:00 04/09/17 18:59 03/10/17 19:51 0.25 MCG Carvedilol (Coreg Tab) 25 mg BIDM PO 03/11/17 09:00 04/10/17 08:59 03/11/17 08:07 25 MG Fluticasone Propionate (Flonase Nasal [place]) 2 sprays DAILY JOE 03/11/17 09:00 04/10/17 08:59 03/11/17 08:07 2 SPRAYS Hydralazine HCl (Apresoline Tab) 100 mg TID PO 03/10/17 21:00 04/09/17 20:59 03/11/17 08:08 100 MG Loratadine (Claritin Tab) 10 mg DAILY PO 03/11/17 09:00 04/10/17 08:59 03/11/17 08:07 10 MG Cholecalciferol (Vitamin D Tab) 5,000 inter.unit QAM PO 03/11/17 09:00 04/10/17 08:59 03/11/17 08:08 5,000 INTER.UNIT Albuterol/ Ipratropium (Duoneb) 3 ml Q2H PRN INH 03/10/17 17:15 04/09/17 17:14 Levofloxacin 250 mg/Prmx 50 ml @ 50 mls/hr Q48H IV 03/12/17 09:00 03/19/17 08:59 Levofloxacin (Consult) 1 ea UD PRN N/A 03/10/17 19:30 04/09/17 19:29 Home Meds and Scripts Medications Dose Route/Sig Max Daily Dose Days Date Category Tylenol Extra Strength (Acetaminophen) 500 Mg Tab 1 Tab PO Q6 PRN 03/10/17 Reported Rocaltrol Cap (Calcitriol) 0.25 Mcg Cap 0.25 Mcg PO MWF 03/10/17 Reported Allergy Nasal [place] 24 Ho (Fluticasone Propionate (Nasal)) 50 Mcg/Act Spr 2 [place] JOE DAILY 03/10/17 Reported Aspirin Ec (Aspirin) 81 Mg Tab 81 Mg PO QAM 10/07/16 Reported Claritin (Loratadine) 10 Mg Tab 10 Mg PO DAILY 10/07/16 Reported Ventolin Hfa (Albuterol) 200 Puffs/[id number] Mcg Aers 2 Puffs INH Q4H PRN 10/07/16 Reported Glimepiride 4 Mg Tab 1 Tab PO QAM 10/07/16 Reported Lipitor (Atorvastatin Calcium) 40 Mg Tab 40 Mg PO DAILY 10/07/16 Reported Vitamin D (Cholecalciferol) 5,000 Unit Tab 1 Tab PO QAM 10/07/16 Reported Apresoline (Hydralazine Hcl) 100 Mg Tab 100 Mg PO TID 10/07/16 Reported Coreg (Carvedilol) 25 Mg Tab 25 Mg PO BIDM 10/07/16 Reported Review of Systems Constitutional: + weakness, + fatigue, No fever, No weight loss Eyes: No worsening of vision ENT: No hearing loss Respiratory: + see HPI, + cough, + sputum, No shortness of breath Cardiac: + see HPI, + chest pain, + edema, No orthopnea Abdomen: + see HPI, + nausea, + vomiting, + diarrhea, No pain Musculoskeletal: No joint pain, No muscle pain Female : + problem reported (no change to chronic voiding habits and no c/o) Neuro: + weakness, + balance problems, No memory loss Psych: No depression symptoms, No anxiety Heme: No abnormal bleeding/bruising Endo: + fatigue Skin: No rash, No new/changing skin lesions Physical Exam Date Time Temp Pulse Resp B/P (MAP) Pulse Ox O2 Delivery O2 Flow Rate FiO2 03/11/17 08:13 68 16 93 Room Air 03/11/17 08:00 Room Air 03/11/17 07:39 36.4 67 16 163/66 (98) 93 Room Air 03/11/17 05:46 36.7 72 19 154/50 (84) 93 Room Air 03/11/17 04:00 Room Air 03/11/17 00:02 36.6 89 18 178/67 (104) 92 Room Air 03/11/17 00:00 Room Air 03/10/17 21:27 90 146/69 (94) 03/10/17 20:00 Room Air 03/10/17 19:57 68 16 93 Room Air 03/10/17 19:57 36.8 70 18 116/55 (75) 93 Room Air 03/10/17 19:00 71 120/57 (78) 03/10/17 18:03 36.5 95 20 159/115 Room Air 03/10/17 17:50 36.5 95 20 159/115 (130) 92 Room Air 03/10/17 17:00 71 18 173/86 96 Room Air 03/10/17 15:02 76 18 173/86 96 Room Air 03/10/17 14:39 77 16 190/76 93 03/10/17 13:45 77 03/10/17 12:48 36.5 76 18 217/71 97 Room Air General Appearance: WD/WN, no apparent distress, + pertinent finding (on RA, maneuvers readily for exam, occasional hacking thick cough in exam) Eyes: EOMI ENT: normal ENT inspection Neck: supple Respiratory/Chest: no respiratory distress, + decreased breath sounds, + crackles (bibasilar, fine) Cardiovascular: regular rate, rhythm, no edema Abdomen: normal bowel sounds, non tender, soft (no dodson) Extremities: no pedal edema, + pertinent finding (AVF L r-c + t/b) Neurologic/Psych: alert, normal mood/affect, oriented x 3, + pertinent finding (jacobs, fluent speech) Skin: no jaundice, warm/dry, no rash, + pallor Diagnostics Last 24 Hours Test 03/10/17 13:58 03/10/17 14:05 03/10/17 18:05 03/10/17 19:02 White Blood Count 8.03 K/uL Red Blood Count 3.07 M/uL Hemoglobin 9.3 g/dL Hematocrit 26.7 % Mean Corpuscular Volume 87.0 fL Mean Corpuscular Hemoglobin 30.3 pg Mean Corpuscular Hemoglobin Concent 34.8 g/dl Platelet Count 302 K/uL Mean Platelet Volume 9.1 fL Neutrophils (%) (Auto) 79.6 % Lymphocytes (%) (Auto) 11.8 % Monocytes (%) (Auto) 7.2 % Eosinophils (%) (Auto) 0.7 % Basophils (%) (Auto) 0.2 % Neutrophils # (Auto) 6.38 K/uL Lymphocytes # (Auto) 0.95 K/uL Monocytes # (Auto) 0.58 K/uL Eosinophils # (Auto) 0.06 K/uL Basophils # (Auto) 0.02 K/uL RDW Standard Deviation 40.2 fL RDW Coefficient of Variation 12.5 % Immature Granulocyte % (Auto) 0.5 % Immature Granulocyte # (Auto) 0.04 K/uL Prothrombin Time 11.1 SECONDS Prothromb Time International Ratio 1.0 Activated Partial Thromboplast Time 28.2 SECONDS Partial Thromboplastin Ratio 1.1 Sodium Level 122 mmol/L 124 mmol/L Potassium Level 4.5 mmol/L Chloride Level 91 mmol/L Carbon Dioxide Level 23 mmol/L Anion Gap 8.0 mmol/L Blood Urea Nitrogen 40 mg/dl Creatinine 3.20 mg/dl Est Creatinine Clear Calc Drug Dose 17.5 ml/min Estimated GFR () 16.7 Estimated GFR (Non- 14.4 BUN/Creatinine Ratio 12.5 Random Glucose 137 mg/dl Calcium Level 8.0 mg/dl Magnesium Level 1.7 mg/dl Total Bilirubin 0.5 mg/dl Aspartate Amino Transf (AST/SGOT) 38 U/L Alanine Aminotransferase (ALT/SGPT) 37 U/L Alkaline Phosphatase 64 U/L Total Creatine Kinase 704 U/L Creatine Kinase MB 16.2 ng/ml Creatine Kinase MB Ratio 2.3 Troponin I 0.054 ng/ml Total Protein 5.6 gm/dl Albumin 2.3 gm/dl Globulin 3.3 gm/dl Albumin/Globulin Ratio 0.7 Lipase 357 U/L Urine Color YELLOW Urine Appearance CLEAR Urine pH 5.5 Urine Specific [place] 1.016 Urine Protein 3+ Urine Glucose (UA) TRACE Urine Ketones NEG Urine Occult Blood TRACE Urine Nitrite NEG Urine Bilirubin NEG Urine Urobilinogen NEG Urine Leukocyte Esterase NEG Urine WBC (Auto) 1-5 /hpf Urine RBC (Auto) 0-4 /hpf Urine Hyaline Casts (Auto) 1-5 /lpf Urine Epithelial Cells (Auto) 10-20 /lpf Urine Bacteria (Auto) NEG Urine Pathogenic Casts 0-3 GRANULAR CASTS /lpf Influenza Type A (RT-PCR) Neg for Influ A Influenza Type B (RT-PCR) Neg for Influ B Test 03/10/17 20:30 03/10/17 21:45 03/11/17 03:48 03/11/17 07:58 Bedside Glucose 241 mg/dl 105 mg/dl Total Creatine Kinase 735 U/L 841 U/L Creatine Kinase MB 17.2 ng/ml 20.1 ng/ml Creatine Kinase MB Ratio 2.3 2.4 Troponin I 0.069 ng/ml 0.068 ng/ml White Blood Count 8.36 K/uL Red Blood Count 2.76 M/uL Hemoglobin 8.6 g/dL Hematocrit 24.0 % Mean Corpuscular Volume 87.0 fL Mean Corpuscular Hemoglobin 31.2 pg Mean Corpuscular Hemoglobin Concent 35.8 g/dl RDW Standard Deviation 40.6 fL RDW Coefficient of Variation 12.7 % Platelet Count 261 K/uL Mean Platelet Volume 9.0 fL Sodium Level 123 mmol/L Potassium Level 4.5 mmol/L Chloride Level 93 mmol/L Carbon Dioxide Level 24 mmol/L Anion Gap 6.0 mmol/L Blood Urea Nitrogen 39 mg/dl Creatinine 3.40 mg/dl Est Creatinine Clear Calc Drug Dose 16.5 ml/min Estimated GFR () 15.5 Estimated GFR (Non- 13.4 BUN/Creatinine Ratio 11.4 Random Glucose 100 mg/dl Calcium Level 7.7 mg/dl Phosphorus Level 3.7 mg/dl Magnesium Level 1.7 mg/dl Diagnostic Radiology: CXR> no acute cardiopulm findings, moderate cardiomegaly; no pulm edema EKG: ECG >> NSR w/ new T wave inversion and R axis shift Assessment & Plan complex 66 y/o F admitted with asthmatic bronchitis, uncontrolled HTN, asymptomatic (ie no confusion, no seizures, no falls) hyponatremia in the setting of advanced CKD 5 nearing need for dialysis. Asymptomatic hypotonic hyponatremia, presumed chronic: sodium 122 on presentation and 124 last evening, 123 this am she had 1.5L NS in ER; some volume overload on exam (LE edema though chest clear ); poor diet recently -check bmp q 6h urgent ordered; will with next labs get serum osm and urine studies to better clarify goals of therapy >> serum osm low and midday Na unchanged urine studies suggest large fluid intake and low solute diet >> pt endorses large water intake prior to admission -will limit fluid intake to 1.5 L daily starting today -do recommend strict I/O -will start low dose lasix -labs in am and again repeat urine studies in am -ordered boost HTN SBP in 150-160s this am which is for now acceptable; pt remains on RA and is chest pain free. SBP as outpt range 120-150s recently. Goal SBP is 150-160s today; 140s-150s after tomorrow -cont coreg, hydralazine <<>> this is her home regimen -will also give lasix 20 mg IV x 1 this afternoon Anemia of esrd -iron studies ordered and started IV iron -may benefit from starting procrit> will hold on that until BP better -daily hgb ESRD not yet on dialysis -no urgent indication for dialysis but may yet need to consult Dr Solorzano for TDC placement and start of chronic dialysis -daily bmp while in house--no indication yet for dialysis diet cough per primary service; no evidence of volume overload; on levaquin Appreciate consult; will follow with you.
[2017-03-11] MEDS ORDERED: FUROSEMIDE INJ 20 MG in SYRINGE 0 ML IV SCH (18:15)
[2017-03-11 18:59] LABS: BUN/CREATININE RATIO 12.5 (10-20); CALCIUM 8.1 mg/dl (8.5-10.1); CREATININE 3.4 mg/dl (0.60-1.20); POTASSIUM 4.4 mmol/L (3.5-5.1)
[2017-03-11] MEDS: BOOST GLUCOSE CONTROL PO SCH (19:06)
[2017-03-12] VITALS (20 sets, daily range): BP systolic 122–195; BP diastolic 66–82; PULSE 62–77; TEMP 36.5–37.1; O2SAT 90–96
[2017-03-12] MEDS ORDERED: CARVEDILOL 25 MG TAB PO ONE (04:42)
[2017-03-12] MEDS: HEPARIN SOD 5000 UNIT/0.5 ML CARP SQ SCH ×3 (05:14→20:58)
[2017-03-12 06:21] LABS: BUN/CREATININE RATIO 12.4 (10-20); CALCIUM 8.2 mg/dl (8.5-10.1); CREATININE 3.6 mg/dl (0.60-1.20); POTASSIUM 4.3 mmol/L (3.5-5.1)
--- NOTE | 2017-03-12 06:47 | Clinical Documentation Query ---
CLINICAL DOCUMENTATION QUERY Query #1/3 The medical record is conflictual in regards to patient's renal disease. Both CKD stage 5 and ESRD not on dialysis is being documented. A patient with ESRD w/o dialysis would be immanent and end of life care would be expected if patient was refusing. This clinician does not see that type of care being documented or performed. In your clinical opinion is this patient being managed for: ( ) End stage renal disease ( + ) CKD stage 4-5 not requiring dialysis yet but does have a LUE fistula No mature 66-y/o female with n/v, dizziness, and flu like symptoms. Query #2/3 In your clinical opinion is this patient being managed for: ( + ) "Acute" asthmatic brochitis treated with IV Levaquin and Duonebs ( ) Not Agree ( ) Other explanation of clinical findings (Please Explain) ( ) Unable to determine (Please Define) ( ) Need to Discuss The medical record reflects the following clinical findings, treatment, and risk factors. Clinical Indicators: Course wheezes throughout lung todd. Treatment: IV Levaquin, Duoneb Risk Factors: Age, bronchitis, asthma Query #3/3 At 1907 of 03/11 this patient received 1 dose of IV Lasix for what nephrology described as some volume overload by exam. Lung exam by nephrology noted + decreased breath sounds, + crackles (bibasilar, fine) In your clinical opinion is this patient being managed for: ( ) Acute Preserved EF CHF ( ) Not Agree ( ) Other explanation of clinical findings (Please Explain) ( +) Unable to determine (Please Define) ( ) Need to Discuss Has Fluid Overload.Not sure to make it as CHF The medical record reflects the following clinical findings, treatment, and risk factors. Clinical Indicators: As above. Treatment: IV Lasix, daily weights, I/O's, telemetry Risk Factors: Age, CKD, CAD, HTN, and large dietary fluid intake per patient and nephrology. Please clarify and document your clinical opinion in the progress notes and discharge summary. Terms such as "probable", "suspected", "likely", "questionable", "possible", or "still to be ruled out" are acceptable. IF IN AGREEMENT, YOU MUST DOCUMENT ABOVE DIAGNOSTIC STATEMENT IN DAILY PROGRESS NOTES AND DISCHARGE SUMMARY. This document is not part of the patient's record. Thank You, Anthony Grey RN [phone]
[2017-03-12] MEDS: ALBUT/IPRATROP 3MG/0.5MG NEB 3 ML VIAL INH SCH ×4 (07:44→20:03)
[2017-03-12] MEDS: ATORVASTATIN 40 MG TAB PO SCH (08:27)
[2017-03-12] MEDS: ASPIRIN 81 MG ECTAB PO SCH (08:27)
[2017-03-12] MEDS: LORATADINE 10 MG TAB PO SCH (08:27)
[2017-03-12] MEDS: CALCITRIOL 0.25 MCG CAP PO SCH (08:28)
[2017-03-12] MEDS: CHOLECALCIFEROL 1000 INTER.UNIT TAB PO SCH (08:28)
[2017-03-12] MEDS: FLUTICASONE PROPIONATE NA SPR 16 GM BTL NAE SCH (08:28)
[2017-03-12] MEDS: BOOST GLUCOSE CONTROL PO SCH ×2 (08:35→18:02)
[2017-03-12] MEDS: INSULIN ASPART 100 UNITS/ML 3 ML PEN SC SCH ×4 (08:35→20:55)
[2017-03-12] MEDS ORDERED: IRON SUCROSE INJ 100 MG in SODIUM CHLORIDE 0.9% 100ML 100 ML IV SCH (09:00)
[2017-03-12] MEDS ORDERED: LEVOFLOXACIN 250MG / D5W IV SCH (09:00)
[2017-03-12] MEDS ORDERED: LEVOFLOXACIN / D5W 500 MG in PREMIXED IN D5W 100 ML IV SCH (09:00)
[2017-03-12] MEDS ORDERED: FUROSEMIDE INJ 20 MG in SYRINGE 0 ML IV SCH (09:15)
--- NOTE | 2017-03-12 10:49 | Nephrology Progress Note ---
Nephrology Progress Note Date of Service: Mar 12, 2017. Subjective N yesterday x 1; very anxious for d/c; eating ok mostly; wants to walk; no voiding or diarrhea c/o Objective Date Time Temp Pulse Resp B/P (MAP) Pulse Ox O2 Delivery O2 Flow Rate FiO2 03/12/17 09:00 36.8 67 18 129/70 (89) 93 Room Air 03/12/17 08:48 36.8 66 18 122/68 (86) 94 Room Air 03/12/17 08:00 Room Air 03/12/17 07:44 71 16 96 Room Air 03/12/17 07:39 36.6 62 16 136/77 (96) 95 Room Air 03/12/17 05:34 74 165/74 (104) 03/12/17 04:06 77 164/67 (99) 03/12/17 04:00 36.5 72 18 195/82 (119) 95 Room Air 03/12/17 04:00 Room Air 03/12/17 00:43 68 161/69 (99) 03/12/17 00:00 Room Air 03/11/17 23:15 36.6 72 18 182/74 (110) 95 Room Air 03/11/17 21:00 78 16 93 Room Air 03/11/17 20:16 36.8 70 18 126/52 (76) 95 Room Air 03/11/17 20:00 96 Room Air 03/11/17 19:06 69 157/69 (98) 03/11/17 17:38 68 197/72 (113) 03/11/17 16:00 96 Room Air 03/11/17 15:38 36.8 70 18 163/70 (101) 96 03/11/17 12:00 Room Air 03/11/17 11:27 36.8 63 18 169/68 (101) 91 Room Air 03/11/17 11:18 68 16 96 Room Air Physical Exam: General Appearance: WD/WN, no apparent distress, + pertinent finding (on RA, maneuvers readily for exam, today no cough in exam) Eyes: EOMI ENT: normal ENT inspection Neck: supple Respiratory/Chest: no respiratory distress, + decreased breath sounds, + crackles (bibasilar, fine, end insp) Cardiovascular: regular rate, rhythm, no edema Abdomen: normal bowel sounds, non tender, soft (no dodson) Extremities: no pedal edema, + pertinent finding (AVF L r-c + t/b) Neurologic/Psych: alert, normal mood/affect, oriented x 3, + pertinent finding (jacobs, fluent speech) Skin: no jaundice, warm/dry, no rash, + pallor Current Inpatient Medications Medications (Trade) Dose Ordered Sig/Ewelina Route Start Time Stop Time Status Last Admin Dose Admin Heparin Sodium (Porcine) (Heparin Sq 5000 Unit/0.5ml) 5,000 unit Q8 SQ 03/10/17 22:00 04/09/17 21:59 03/12/17 05:14 5,000 UNIT Acetaminophen (Tylenol Tab) 650 mg Q4H PRN PO 03/10/17 16:45 04/09/17 16:44 Ondansetron HCl (Zofran Inj) 4 mg Q6H PRN IV 03/10/17 16:45 04/09/17 16:44 03/11/17 17:41 4 MG Albuterol/ Ipratropium (Duoneb) 3 ml QIDR INH 03/10/17 20:00 04/09/17 19:59 03/12/17 07:44 3 ML Insulin Aspart (novoLOG ASPART) SLIDING SCALE If C... ACHS SC 03/10/17 21:00 04/09/17 20:59 03/12/17 08:35 4 UNITS Glucose (Glucose 40% Gel) 15-30 GRAMS 15 GRAMS... UD PRN PO 03/10/17 16:45 04/09/17 16:44 Glucose (Glucose Chew Tab) 4-8 Tablets 4 Tabl... UD PRN PO 03/10/17 16:45 04/09/17 16:44 Dextrose (Dextrose 50% 50ML Syringe) 25-50ML OF 50% DW IV FOR... UD PRN IV 03/10/17 16:45 04/09/17 16:44 Glucagon (Glucagon Inj) 1 mg UD PRN SQ 03/10/17 16:45 04/09/17 16:44 Aspirin (Ecotrin Tab) 81 mg QAM PO 03/11/17 09:00 04/10/17 08:59 03/12/17 08:27 81 MG Atorvastatin Calcium (Lipitor Tab) 40 mg DAILY PO 03/11/17 09:00 04/10/17 08:59 03/12/17 08:27 40 MG Calcitriol (Rocaltrol Cap) 0.25 mcg MoWeFr@0900 PO 03/10/17 19:00 04/09/17 18:59 03/12/17 08:28 0.25 MCG Fluticasone Propionate (Flonase Nasal [place]) 2 sprays DAILY JOE 03/11/17 09:00 04/10/17 08:59 03/12/17 08:28 2 SPRAYS Hydralazine HCl (Apresoline Tab) 100 mg TID PO 03/10/17 21:00 04/09/17 20:59 03/12/17 08:28 100 MG Loratadine (Claritin Tab) 10 mg DAILY PO 03/11/17 09:00 04/10/17 08:59 03/12/17 08:27 10 MG Cholecalciferol (Vitamin D Tab) 5,000 inter.unit QAM PO 03/11/17 09:00 04/10/17 08:59 03/12/17 08:28 5,000 INTER.UNIT Albuterol/ Ipratropium (Duoneb) 3 ml Q2H PRN INH 03/10/17 17:15 04/09/17 17:14 Levofloxacin 250 mg/Prmx 50 ml @ 50 mls/hr Q48H IV 03/12/17 09:00 03/19/17 08:59 03/12/17 09:12 50 MLS/HR Levofloxacin (Consult) 1 ea UD PRN N/A 03/10/17 19:30 04/09/17 19:29 Iron Sucrose 100 mg/Sodium Chloride 105 ml @ 420 mls/hr DAILY IV 03/12/17 09:00 03/16/17 09:14 03/12/17 08:35 420 MLS/HR Enteral Nutritional Formula (Boost Glucose Control) 1 can BIDPC PO 03/11/17 18:00 04/10/17 17:59 03/12/17 08:35 1 CAN Carvedilol (Coreg Tab) 25 mg BIDM PO 03/12/17 17:00 04/10/17 16:59 Last 24 Hours Test 03/11/17 11:38 03/11/17 11:52 03/11/17 16:13 03/11/17 16:20 Bedside Glucose 132 mg/dl 168 mg/dl Sodium Level 123 mmol/L Potassium Level 4.4 mmol/L Chloride Level 93 mmol/L Carbon Dioxide Level 23 mmol/L Anion Gap 7.0 mmol/L Blood Urea Nitrogen 38 mg/dl Creatinine 3.30 mg/dl Est Creatinine Clear Calc Drug Dose 17.0 ml/min Estimated GFR () 16.1 Estimated GFR (Non- 13.9 BUN/Creatinine Ratio 11.4 Random Glucose 120 mg/dl Osmolality 264 mOsm/kg Calcium Level 8.4 mg/dl Iron Level 32 mcg/dl Total Iron Binding Capacity 244 mcg/dl Transferrin 182 mg/dl Transferrin % Saturation 13 % Urine Osmolality 126 mOms/kg Urine Random Sodium 16 mEq/L Test 03/11/17 18:16 03/11/17 20:32 03/12/17 05:13 03/12/17 05:40 Sodium Level 121 mmol/L 126 mmol/L Potassium Level 4.4 mmol/L 4.3 mmol/L Chloride Level 92 mmol/L 94 mmol/L Carbon Dioxide Level 22 mmol/L 25 mmol/L Anion Gap 7.0 mmol/L 7.0 mmol/L Blood Urea Nitrogen 43 mg/dl 45 mg/dl Creatinine 3.40 mg/dl 3.60 mg/dl Est Creatinine Clear Calc Drug Dose 16.5 ml/min 15.5 ml/min Estimated GFR () 15.5 14.4 Estimated GFR (Non- 13.4 12.5 BUN/Creatinine Ratio 12.5 12.4 Random Glucose 168 mg/dl 122 mg/dl Calcium Level 8.1 mg/dl 8.2 mg/dl Bedside Glucose 218 mg/dl Urine Osmolality 156 mOms/kg Urine Random Sodium 46 mEq/L Test 03/12/17 06:58 Bedside Glucose 128 mg/dl Assessment & Plan complex 66 y/o F admitted with asthmatic bronchitis, uncontrolled HTN, asymptomatic (ie no confusion, no seizures, no falls) hyponatremia in the setting of advanced CKD 5 nearing need for dialysis. Asymptomatic hypotonic hyponatremia, presumed chronic: polydipsia and low solute diet; urine studies suggest large fluid intake and low solute diet >> pt endorses large water intake prior to admission sodium 122 on presentation and 126 this am -recheck bmp 1700 urgent ordered -cont to limit fluid intake to 1.5 L daily -do recommend strict I/O -give more low dose lasix at 1330 (delayed b/c bp lower side today) -labs in am and again repeat urine studies in am -ordered boost -d/c fall precautions unless sNa <126 HTN SBP in 130s this am which is acceptable; pt remains on RA and is chest pain free. SBP as outpt range 120-150s recently. Goal SBP is 130-140s -cont coreg, hydralazine <<>> this is her home regimen -will also give lasix 20 mg IV x 1 this afternoon Anemia of esrd -started IV iron -hold on epo for now unless hgb lower -daily hgb ESRD not yet on dialysis -no urgent indication for dialysis ; has appt w/ Dr Solorzano later this month for AVF angioplasty -daily bmp while in house--no indication yet for dialysis diet cough per primary service; no evidence of volume overload; on levaquin Appreciate consult; will follow with you.
[2017-03-12] MEDS ORDERED: IRON SUCROSE INJ 200 MG in SODIUM CHLORIDE 0.9% 100ML 100 ML IV SCH (11:30)
[2017-03-12] MEDS: CARVEDILOL 25 MG TAB PO SCH (17:06)
[2017-03-12 17:50] LABS: BUN/CREATININE RATIO 13.2 (10-20); CALCIUM 8.5 mg/dl (8.5-10.1); CREATININE 3.9 mg/dl (0.60-1.20); POTASSIUM 4.1 mmol/L (3.5-5.1)
--- NOTE | 2017-03-12 18:45 | Progress Note ---
Internal Med Progress Note Date of Service: Mar 12, 2017. Provider Documentation: SUBJECTIVE: The patient was seen and examined Still has cough -diminished Denies any Pain,no fever or chills Denies any symptoms OBJECTIVE: Vital Signs-as noted below Exam: General-no distress at rest Eyes-normal ENT-normal Neck-supple Lungs-Decreased breath sound bilaterally Occasional wheezing anteriorly Heart-Regular,no murmur Abdomen-Benign,no masses,bowel sound present Extremities-NO edema Neuro-AAox3 Lab data as noted below. ASSESSMENT & PLAN: ACUTE HYPONATREMIA Likely due to decreased PO solute "tea and crackers" Sodium was 122 -> received 1500 mL NSS in ER -> repeat sodium 124 Check PRP in am-remains low at 123 Will consult [employer] -appreciate input IVF and Lasix Fluid restriction to 1500 mls Sodium 128 this afternoon ASTHMATIC BRONCHITIS Did not tolerate outpatient treatment with doxycycline due to GI upset CXR- no infiltrate Influenza PCR negative Treated with Levaquin and Duoneb in ER Continue nebs and Levaquin (renally dosed) Clinically improved Continue current medications-improving HYPERTENSION BP severely elevated in ER, given missed home meds, now normotensive Continue home carvedilol and hydralazine Remains higher side Will monitor -controlled MILDLY ELEVATED TROPONIN Troponin is 0.054 Likely secondary to ESRD; no chest pain today Hx CAD with CABG x 3 in 2009; continue her aspirin, statin, beta stephenie Trend serial cardiac enzymes-doubt any ACS HYPOMAGNESEMIA Replace and monitor DM TYPE 2 Hold glimepiride Novolog sliding scale ESRD Creat is 3.2, stable from baseline Not on dialysis yet, has LUE fistula (not matured per patient) Appreciate Nephrology input DVT PROPHYLAXIS Heparin SQ CODE STATUS Full code per my discussion with the patient Likely to discharge tomorrow Vital Signs: Date Time Temp Pulse Resp B/P (MAP) Pulse Ox O2 Delivery O2 Flow Rate FiO2 03/12/17 17:05 75 171/68 (102) 03/12/17 16:00 93 Room Air 03/12/17 15:30 36.8 75 16 166/66 (99) 93 Room Air 03/12/17 15:17 77 18 90 Room Air 03/12/17 12:01 37.1 75 16 157/72 (100) 94 Room Air 03/12/17 12:00 Room Air 03/12/17 11:20 73 18 92 Room Air 03/12/17 09:00 36.8 67 18 129/70 (89) 93 Room Air 03/12/17 08:48 36.8 66 18 122/68 (86) 94 Room Air 03/12/17 08:00 Room Air 03/12/17 07:44 71 16 96 Room Air 03/12/17 07:39 36.6 62 16 136/77 (96) 95 Room Air 03/12/17 05:34 74 165/74 (104) 03/12/17 04:06 77 164/67 (99) 03/12/17 04:00 36.5 72 18 195/82 (119) 95 Room Air 03/12/17 04:00 Room Air 03/12/17 00:43 68 161/69 (99) 03/12/17 00:00 Room Air 03/11/17 23:15 36.6 72 18 182/74 (110) 95 Room Air 03/11/17 21:00 78 16 93 Room Air 03/11/17 20:16 36.8 70 18 126/52 (76) 95 Room Air 03/11/17 20:00 96 Room Air 03/11/17 19:06 69 157/69 (98) Lab Results: Results Past 24 Hours Test 03/11/17 20:32 03/12/17 05:13 03/12/17 05:40 03/12/17 06:58 Range/Units Bedside Glucose 218 128 70-90 mg/dl Sodium Level 126 136-145 mmol/L Potassium Level 4.3 3.5-5.1 mmol/L Chloride Level 94 98-107 mmol/L Carbon Dioxide Level 25 21-32 mmol/L Anion Gap 7.0 3-11 mmol/L Blood Urea Nitrogen 45 7-18 mg/dl Creatinine 3.60 0.60-1.20 mg/dl Est Creatinine Clear Calc Drug Dose 15.5 ml/min Estimated GFR () 14.4 Estimated GFR (Non- 12.5 BUN/Creatinine Ratio 12.4 10-20 Random Glucose 122 70-99 mg/dl Calcium Level 8.2 8.5-10.1 mg/dl Urine Osmolality 156 500-800 mOms/kg Urine Random Sodium 46 mEq/L Test 03/12/17 11:42 03/12/17 16:22 03/12/17 17:14 Range/Units Bedside Glucose 181 191 70-90 mg/dl Sodium Level 128 136-145 mmol/L Potassium Level 4.1 3.5-5.1 mmol/L Chloride Level 94 98-107 mmol/L Carbon Dioxide Level 26 21-32 mmol/L Anion Gap 8.0 3-11 mmol/L Blood Urea Nitrogen 51 7-18 mg/dl Creatinine 3.90 0.60-1.20 mg/dl Est Creatinine Clear Calc Drug Dose 14.3 ml/min Estimated GFR () 13.1 Estimated GFR (Non- 11.3 BUN/Creatinine Ratio 13.2 10-20 Random Glucose 147 70-99 mg/dl Calcium Level 8.5 8.5-10.1 mg/dl
[2017-03-13] VITALS (7 sets, daily range): BP systolic 158–187; BP diastolic 67–75; PULSE 70–78; TEMP 36.6–36.9; O2SAT 90–100
[2017-03-13 06:09] LABS: HEMATOCRIT 27.1 % (37-47); MEAN CELL VOLUME 89.4 fL (80-100); MEAN CORPUSCULAR HGB CONC 34.7 g/dl (32-36); MEAN PLATELET VOLUME 8.8 fL (7.4-10.4); PLATELET COUNT 291 K/uL (130-400); RED BLOOD COUNT 3.03 M/uL (4.2-5.4); WHITE BLOOD COUNT 7.45 K/uL (4.8-10.8)
[2017-03-13] MEDS: HEPARIN SOD 5000 UNIT/0.5 ML CARP SQ SCH ×2 (06:26→12:23)
[2017-03-13 06:54] LABS: BUN/CREATININE RATIO 12.9 (10-20); CREATININE 4.3 mg/dl (0.60-1.20); MAGNESIUM 1.9 mg/dl (1.8-2.4); POTASSIUM 4.4 mmol/L (3.5-5.1)
[2017-03-13] MEDS: ALBUT/IPRATROP 3MG/0.5MG NEB 3 ML VIAL INH SCH ×2 (07:19→11:10)
[2017-03-13] MEDS: INSULIN ASPART 100 UNITS/ML 3 ML PEN SC SCH ×2 (07:54→12:23)
[2017-03-13] MEDS: BOOST GLUCOSE CONTROL PO SCH (08:12)
[2017-03-13] MEDS: CHOLECALCIFEROL 1000 INTER.UNIT TAB PO SCH (08:12)
[2017-03-13] MEDS: LORATADINE 10 MG TAB PO SCH (08:13)
[2017-03-13] MEDS: ATORVASTATIN 40 MG TAB PO SCH (08:13)
[2017-03-13] MEDS: ASPIRIN 81 MG ECTAB PO SCH (08:13)
[2017-03-13] MEDS: CARVEDILOL 25 MG TAB PO SCH (08:13)
[2017-03-13] MEDS: FLUTICASONE PROPIONATE NA SPR 16 GM BTL NAE SCH (08:14)
[2017-03-13] MEDS ORDERED: IRON SUCROSE INJ 300 MG in SODIUM CHLORIDE 0.9% 100ML 100 ML IV SCH (09:00)
--- NOTE | 2017-03-13 10:01 | Progress Note ---
Internal Med Progress Note Date of Service: Mar 13, 2017. Provider Documentation: SUBJECTIVE: The patient was seen and examined Still has cough -diminished BP was noted to be very high -says it has been like that at home Denies any symptoms and ready to go home OBJECTIVE: Vital Signs-as noted below Exam: General-no distress at rest Eyes-normal ENT-normal Neck-supple Lungs-Decreased breath sound bilaterally Occasional wheezing anteriorly Heart-Regular,no murmur Abdomen-Benign,no masses,bowel sound present Extremities-NO edema Neuro-AAox3 Lab data as noted below. ASSESSMENT & PLAN: ACUTE HYPONATREMIA Likely due to decreased PO solute "tea and crackers" Sodium was 122 -> received 1500 mL NSS in ER -> repeat sodium 124 Check PRP in am-remains low at 123 Will consult House Father -appreciate input IVF and Lasix Fluid restriction to 1500 mls Sodium 128 this afternoon Sodium is improved to 131 Will continue with fluid restriction ASTHMATIC BRONCHITIS Did not tolerate outpatient treatment with doxycycline due to GI upset CXR- no infiltrate Influenza PCR negative Treated with Levaquin and Duoneb in ER Continue nebs and Levaquin (renally dosed) Clinically improved a lot and no more cough HYPERTENSION BP severely elevated in ER, given missed home meds, now normotensive Continue home carvedilol and hydralazine Remains higher side Very high this AM Not controlled at home with wide fluctuation getting her usual dose of Hydralazine If reasonable -will discharge MILDLY ELEVATED TROPONIN Troponin is 0.054 Likely secondary to ESRD; no chest pain today Hx CAD with CABG x 3 in 2009; continue her aspirin, statin, beta stephenie Trend serial cardiac enzymes-doubt any ACS HYPOMAGNESEMIA Replace and monitor DM TYPE 2 Hold glimepiride Novolog sliding scale ESRD Creat is 3.2, stable from baseline Not on dialysis yet, has LUE fistula (not matured per patient) Appreciate Nephrology input DVT PROPHYLAXIS Heparin SQ CODE STATUS Full code per my discussion with the patient Likely to discharge today if Pressure is controlled Vital Signs: Date Time Temp Pulse Resp B/P (MAP) Pulse Ox O2 Delivery O2 Flow Rate FiO2 03/13/17 08:00 Room Air 03/13/17 07:31 36.7 72 16 184/71 (108) 92 Room Air 03/13/17 07:20 78 18 92 Room Air 03/13/17 04:00 Room Air 03/13/17 03:53 36.6 77 18 187/70 (109) 93 Room Air 03/12/17 23:59 92 Room Air 03/12/17 23:13 36.6 74 18 161/70 (100) 92 Room Air 03/12/17 20:53 70 157/69 (98) 03/12/17 20:13 77 18 90 Room Air 03/12/17 20:00 94 Room Air 03/12/17 19:23 37.1 69 16 149/70 (96) 94 Room Air 03/12/17 17:05 75 171/68 (102) 03/12/17 16:00 93 Room Air 03/12/17 15:30 36.8 75 16 166/66 (99) 93 Room Air 03/12/17 15:17 77 18 90 Room Air 03/12/17 12:01 37.1 75 16 157/72 (100) 94 Room Air 03/12/17 12:00 Room Air 03/12/17 11:20 73 18 92 Room Air Lab Results: Results Past 24 Hours Test 03/12/17 11:42 03/12/17 16:22 03/12/17 17:14 03/12/17 20:24 Range/Units Bedside Glucose 181 191 154 70-90 mg/dl Sodium Level 128 136-145 mmol/L Potassium Level 4.1 3.5-5.1 mmol/L Chloride Level 94 98-107 mmol/L Carbon Dioxide Level 26 21-32 mmol/L Anion Gap 8.0 3-11 mmol/L Blood Urea Nitrogen 51 7-18 mg/dl Creatinine 3.90 0.60-1.20 mg/dl Est Creatinine Clear Calc Drug Dose 14.3 ml/min Estimated GFR () 13.1 Estimated GFR (Non- 11.3 BUN/Creatinine Ratio 13.2 10-20 Random Glucose 147 70-99 mg/dl Calcium Level 8.5 8.5-10.1 mg/dl Test 03/13/17 05:54 03/13/17 07:34 Range/Units White Blood Count 7.45 4.8-10.8 K/uL Red Blood Count 3.03 4.2-5.4 M/uL Hemoglobin 9.4 12.0-16.0 g/dL Hematocrit 27.1 37-47 % Mean Corpuscular Volume 89.4 80-100 fL Mean Corpuscular Hemoglobin 31.0 25-34 pg Mean Corpuscular Hemoglobin Concent 34.7 32-36 g/dl RDW Standard Deviation 41.6 36.4-46.3 fL RDW Coefficient of Variation 12.8 11.5-14.5 % Platelet Count 291 130-400 K/uL Mean Platelet Volume 8.8 7.4-10.4 fL Sodium Level 131 136-145 mmol/L Potassium Level 4.4 3.5-5.1 mmol/L Chloride Level 97 98-107 mmol/L Carbon Dioxide Level 26 21-32 mmol/L Anion Gap 8.0 3-11 mmol/L Blood Urea Nitrogen 55 7-18 mg/dl Creatinine 4.30 0.60-1.20 mg/dl Est Creatinine Clear Calc Drug Dose 13.0 ml/min Estimated GFR () 11.7 Estimated GFR (Non- 10.1 BUN/Creatinine Ratio 12.9 10-20 Random Glucose 131 70-99 mg/dl Calcium Level 9.0 8.5-10.1 mg/dl Magnesium Level 1.9 1.8-2.4 mg/dl Bedside Glucose 149 70-90 mg/dl
--- NOTE | 2017-03-13 10:06 | Nephrology Progress Note ---
Nephrology Progress Note Date of Service: Mar 13, 2017. Subjective remains anxious for d/c; eating ok mostly; ambulating well and w/o sx; no sanchez chest pain dyspnea focal numbness/weakness; no voiding or diarrhea c/o Objective Date Time Temp Pulse Resp B/P (MAP) Pulse Ox O2 Delivery O2 Flow Rate FiO2 03/13/17 08:00 Room Air 03/13/17 07:31 36.7 72 16 184/71 (108) 92 Room Air 03/13/17 07:20 78 18 92 Room Air 03/13/17 04:00 Room Air 03/13/17 03:53 36.6 77 18 187/70 (109) 93 Room Air 03/12/17 23:59 92 Room Air 03/12/17 23:13 36.6 74 18 161/70 (100) 92 Room Air 03/12/17 20:53 70 157/69 (98) 03/12/17 20:13 77 18 90 Room Air 03/12/17 20:00 94 Room Air 03/12/17 19:23 37.1 69 16 149/70 (96) 94 Room Air 03/12/17 17:05 75 171/68 (102) 03/12/17 16:00 93 Room Air 03/12/17 15:30 36.8 75 16 166/66 (99) 93 Room Air 03/12/17 15:17 77 18 90 Room Air 03/12/17 12:01 37.1 75 16 157/72 (100) 94 Room Air 03/12/17 12:00 Room Air 03/12/17 11:20 73 18 92 Room Air Physical Exam: General Appearance: WD/WN, no apparent distress, + pertinent finding (on RA, maneuvers readily for exam, today no cough in exam) Eyes: EOMI ENT: normal ENT inspection Neck: supple Respiratory/Chest: no respiratory distress, + decreased breath sounds, rhoncherous today Cardiovascular: regular rate, rhythm, no edema Abdomen: normal bowel sounds, non tender, soft (no dodson) Extremities: no pedal edema, + pertinent finding (AVF L r-c + t/b) Neurologic/Psych: alert, normal mood/affect, oriented x 3, + pertinent finding (jacobs, fluent speech) Skin: no jaundice, warm/dry, no rash, + pallor Current Inpatient Medications Medications (Trade) Dose Ordered Sig/Ewelina Route Start Time Stop Time Status Last Admin Dose Admin Heparin Sodium (Porcine) (Heparin Sq 5000 Unit/0.5ml) 5,000 unit Q8 SQ 03/10/17 22:00 04/09/17 21:59 03/13/17 06:26 5,000 UNIT Acetaminophen (Tylenol Tab) 650 mg Q4H PRN PO 03/10/17 16:45 04/09/17 16:44 Ondansetron HCl (Zofran Inj) 4 mg Q6H PRN IV 03/10/17 16:45 04/09/17 16:44 03/11/17 17:41 4 MG Albuterol/ Ipratropium (Duoneb) 3 ml QIDR INH 03/10/17 20:00 04/09/17 19:59 03/13/17 07:19 3 ML Insulin Aspart (novoLOG ASPART) SLIDING SCALE If C... ACHS SC 03/10/17 21:00 04/09/17 20:59 03/13/17 07:54 6 UNITS Glucose (Glucose 40% Gel) 15-30 GRAMS 15 GRAMS... UD PRN PO 03/10/17 16:45 04/09/17 16:44 Glucose (Glucose Chew Tab) 4-8 Tablets 4 Tabl... UD PRN PO 03/10/17 16:45 04/09/17 16:44 Dextrose (Dextrose 50% 50ML Syringe) 25-50ML OF 50% DW IV FOR... UD PRN IV 03/10/17 16:45 04/09/17 16:44 Glucagon (Glucagon Inj) 1 mg UD PRN SQ 03/10/17 16:45 04/09/17 16:44 Aspirin (Ecotrin Tab) 81 mg QAM PO 03/11/17 09:00 04/10/17 08:59 03/13/17 08:13 81 MG Atorvastatin Calcium (Lipitor Tab) 40 mg DAILY PO 03/11/17 09:00 04/10/17 08:59 03/13/17 08:13 40 MG Calcitriol (Rocaltrol Cap) 0.25 mcg MoWeFr@0900 PO 03/10/17 19:00 04/09/17 18:59 03/12/17 08:28 0.25 MCG Fluticasone Propionate (Flonase Nasal Antonito) 2 sprays DAILY JOE 03/11/17 09:00 04/10/17 08:59 03/12/17 08:28 2 SPRAYS Hydralazine HCl (Apresoline Tab) 100 mg TID PO 03/10/17 21:00 04/09/17 20:59 03/13/17 08:13 100 MG Loratadine (Claritin Tab) 10 mg DAILY PO 03/11/17 09:00 04/10/17 08:59 03/13/17 08:13 10 MG Cholecalciferol (Vitamin D Tab) 5,000 inter.unit QAM PO 03/11/17 09:00 04/10/17 08:59 03/13/17 08:12 5,000 INTER.UNIT Albuterol/ Ipratropium (Duoneb) 3 ml Q2H PRN INH 03/10/17 17:15 04/09/17 17:14 Levofloxacin 250 mg/Prmx 50 ml @ 50 mls/hr Q48H IV 03/12/17 09:00 03/19/17 08:59 03/12/17 09:12 50 MLS/HR Levofloxacin (Consult) 1 ea UD PRN N/A 03/10/17 19:30 04/09/17 19:29 Enteral Nutritional Formula (Boost Glucose Control) 1 can BIDPC PO 03/11/17 18:00 04/10/17 17:59 03/13/17 08:12 1 CAN Carvedilol (Coreg Tab) 25 mg BIDM PO 03/12/17 17:00 04/10/17 16:59 03/13/17 08:13 25 MG Iron Sucrose 300 mg/Sodium Chloride 115 ml @ 115 mls/hr DAILY IV 03/13/17 09:00 03/14/17 09:59 03/13/17 08:19 115 MLS/HR Hydralazine HCl (Apresoline Tab) 50 mg TID PO 03/13/17 14:00 04/12/17 13:59 UNV Last 24 Hours Test 03/12/17 11:42 03/12/17 16:22 03/12/17 17:14 03/12/17 20:24 Bedside Glucose 181 mg/dl 191 mg/dl 154 mg/dl Sodium Level 128 mmol/L Potassium Level 4.1 mmol/L Chloride Level 94 mmol/L Carbon Dioxide Level 26 mmol/L Anion Gap 8.0 mmol/L Blood Urea Nitrogen 51 mg/dl Creatinine 3.90 mg/dl Est Creatinine Clear Calc Drug Dose 14.3 ml/min Estimated GFR () 13.1 Estimated GFR (Non- 11.3 BUN/Creatinine Ratio 13.2 Random Glucose 147 mg/dl Calcium Level 8.5 mg/dl Test 03/13/17 05:54 03/13/17 07:34 White Blood Count 7.45 K/uL Red Blood Count 3.03 M/uL Hemoglobin 9.4 g/dL Hematocrit 27.1 % Mean Corpuscular Volume 89.4 fL Mean Corpuscular Hemoglobin 31.0 pg Mean Corpuscular Hemoglobin Concent 34.7 g/dl RDW Standard Deviation 41.6 fL RDW Coefficient of Variation 12.8 % Platelet Count 291 K/uL Mean Platelet Volume 8.8 fL Sodium Level 131 mmol/L Potassium Level 4.4 mmol/L Chloride Level 97 mmol/L Carbon Dioxide Level 26 mmol/L Anion Gap 8.0 mmol/L Blood Urea Nitrogen 55 mg/dl Creatinine 4.30 mg/dl Est Creatinine Clear Calc Drug Dose 13.0 ml/min Estimated GFR () 11.7 Estimated GFR (Non- 10.1 BUN/Creatinine Ratio 12.9 Random Glucose 131 mg/dl Calcium Level 9.0 mg/dl Magnesium Level 1.9 mg/dl Bedside Glucose 149 mg/dl Assessment & Plan complex 66 y/o F admitted with asthmatic bronchitis, uncontrolled HTN, asymptomatic (ie no confusion, no seizures, no falls) hyponatremia in the setting of advanced CKD 5 nearing need for dialysis. From a renal standpoint, if her bp is controlled and she remains asymptomatic she could leave next 24 hrs for home; if we can't control bp, may need to look more seriously at getting TDC/starting HD this admission Asymptomatic hypotonic hyponatremia, presumed chronic: polydipsia and low solute diet; urine studies suggest large fluid intake and low solute diet >> pt endorses large water intake prior to admission sodium 122 on presentation and has corrected nicely to 131 this am -no further lasix indicated -cont to limit fluid intake to 1.5 L daily -do recommend strict I/O HTN SBP was controlled yesterday AM then high from midday through this am w/o sx; pt remains on RA and is chest pain free. SBP as outpt range 120-150s recently. Goal SBP is 130-140s -cont coreg -she was on hydralazine as outpt > will restart at 1/2 outpt dose and titrate upward as needed, possibly rapidly; dr johnson aware Anemia of esrd -started IV iron -hold on epo for now unless hgb lower -daily hgb ESRD not yet on dialysis -no urgent indication for dialysis ; has appt w/ Dr Solorzano later this month for AVF angioplasty -daily bmp while in house--no indication yet for dialysis diet cough per primary service; no evidence of volume overload; on levaquin Appreciate consult; will follow with you. Care coordinated w/ Dr Johnson
[2017-03-13] MEDS ORDERED: LVQ250 PO (11:22)
--- NOTE | 2017-03-13 11:25 | Discharge Instructions ---
Discharge Instructions Date of Service Mar 13, 2017. Admission Reason for Admission: Bronchitis, Hyponatremia Discharge Discharge Diagnosis / Problem: Bronchitis,ESRD not on Dialysis Discharge Goals Goal(s): Prevent Disease Progression Activity Recommendations Activity Limitations: resume your previous activity . Instructions / Follow-Up Instructions / Follow-Up Dr Francois on 03/19/17 at 9:45 AM Current Hospital Diet Patient's current hospital diet: Diabetes Type 2 Diet, AHA Diet (Heart Healthy) Discharge Diet Recommended Diet: AHA Diet (Heart Healthy), Diabetes Type 2 Diet Fluid Restriction: 1500 ml (6 cups) Pending Studies Studies pending at discharge: no Medical Emergencies . Who to Call and When: Medical Emergencies: If at any time you feel your situation is an emergency, please call 911 immediately. . Non-Emergent Contact Non-Emergency issues call your: Primary Care Provider . Past History Medical & Surgical History: (1) Asthmatic bronchitis (2) CKD (chronic kidney disease), stage V (3) DM type 2 (diabetes mellitus, type 2) (4) HTN (hypertension) (5) CAD (coronary artery disease) (6) AV fistula (7) Hyponatremia (8) Hyperlipidemia (9) Asthma (10) S/P section (11) S/P CABG x 3 (12) History of cataract surgery . "Provider Documentation" section prepared by Jeanmarie Johnson. . VTE Core Measure Inpt VTE Proph given/why not?: Unfractionated heparin SQ
--- NOTE | 2017-03-13 11:31 | Discharge Summary ---
Discharge Summary Date of Service Mar 13, 2017. Discharge Summary Admission Date: Mar 10, 2017 at 16:12 Discharge Date: Mar 13, 2017 Discharge Disposition: Home Principal Diagnosis: Bronchitis,ESRD not on Dialysis,HTN Secondary Diagnoses/Problems: Please see H&P and Hospital Progress note Consultations: Nephrology Medication Reconciliation New Medications: Levofloxacin (Levofloxacin) 250 Mg Tab 250 MG PO Q48H, #3 Continued Medications: Acetaminophen (Tylenol Extra Strength) 500 Mg Tab 1 TAB PO Q6 PRN for Pain Albuterol Hfa (Ventolin Hfa) 200 Puffs/19454 Mcg Aers 2 PUFFS INH Q4H PRN for Wheezing, #1 INHALER Aspirin (Aspirin Ec) 81 Mg Tab 81 MG PO QAM Atorvastatin (Lipitor) 40 Mg Tab 40 MG PO DAILY, TAB Calcitriol (Rocaltrol Cap) 0.25 Mcg Cap 0.25 MCG PO MWF, CAP Carvedilol (Coreg) 25 Mg Tab 25 MG PO BIDM, TAB Cholecalciferol (Vitamin D) 5,000 Unit Tab 1 TAB PO QAM Fluticasone Propionate (Nasal) (Allergy Nasal [place] 24 Ho) 50 Mcg/Act Spr 2 SPRAY JOE DAILY Glimepiride (Glimepiride) 4 Mg Tab 1 TAB PO QAM, TAB 3 Refills Hydralazine Hcl (Apresoline) 100 Mg Tab 100 MG PO TID, TAB Loratadine (Claritin) 10 Mg Tab 10 MG PO DAILY, TAB Admission Information HPI (per Admitting provider): This is a 66 y/o female with PMH of CAD s/p CABG x 3, HTN, DM, ESRD not on dialysis, asthma, and other problems listed below who presents to the ED with productive cough. Patient states 9 days ago she developed sore throat, rhinorrhea, initially dry cough now productive of white sputum, chills, backache , FELIPE. Pt was seen at urgent care 2 days ago, had CXR which was negative, and was started on doxycycline. After starting doxycycline, patient developed N/V and diarrhea, therefore stopped taking the doxycycline. Nausea is now resolved. Last diarrhea yesterday; no BM today. For past 2 days has poor PO intake "tea and crackers". She did not take her medications this morning. Has been using albuterol inhaler 4x per day which helps with cough. Prior to this illness, patient had not been using her albuterol on a regular basis. She reports having mild substernal non-radiating chest pressure 2 days ago while ambulating, which resolved. No chest pain today. States she had similar discomfort with prior bronchitis/ asthma exacerbation. She reports edema to bilateral LE over past few days- improving today. Has felt lightheaded and tired. Denies fever, diaphoresis, ear ache, SOB, abdominal pain, dysuria, frequency, itching. No influenza vaccination yet this season. No specific sick contact. No recent hospitalization. Has LUE fistula which is not mature yet per patient. Past Medical/Surgical History Medical Problems: (1) Asthma Status: Chronic (3) Athscl Heart Disease Of [place] Coronary Artery W/O Ang Pctrs Status: Chronic (5) CKD (chronic kidney disease), stage V Status: Chronic (7) DM type 2 (diabetes mellitus, type 2) Status: Chronic (9) HTN (hypertension) Status: Chronic (10) Hyperlipidemia Status: Chronic (12) Obesity (BMI 30.0-34.9) Status: Chronic (13) Osteoarthritis Status: Chronic (14) Osteoporosis Status: Chronic (16) Vitamin D Deficiency, Unspecified Status: Chronic Surgical Problems: (1) AV fistula Status: Chronic (2) History of cataract surgery Status: Chronic (4) S/P CABG x 3 Permanent Comment: 2010, Andie Nuñez Status: Chronic (5) S/P section Status: Chronic Family History Cardiac disorder MOTHER Diabetes mellitus MOTHER SISTER FATHER Hypertension SISTER Social History Smoking Status: Former Smoker (prior 1.5 ppd x approx 10 years, quit May 2010) Alcohol Use: none Drug Use: none Housing status: lives alone Immunizations History of Influenza Vaccine: No Multi-Drug Resistant Organisms History of MDRO: No Allergies Coded Allergies: Amoxicillin (Verified Allergy, Mild, LIGHTHEADED, DIZZY AND NAUSEA, ) Clavulanic Acid (Verified Allergy, Mild, LIGHTHEADED, DIZZY AND NAUSEA, ) Home Medications Scheduled Aspirin (Aspirin Ec), 81 MG PO QAM Atorvastatin (Lipitor), 40 MG PO DAILY Calcitriol (Rocaltrol Cap), 0.25 MCG PO MWF Carvedilol (Coreg), 25 MG PO BIDM Cholecalciferol (Vitamin D), 1 TAB PO QAM Fluticasone Propionate (Nasal) (Allergy Nasal [place] 24 Ho), 2 SPRAY JOE DAILY Glimepiride (Glimepiride), 1 TAB PO QAM Hydralazine Hcl (Apresoline), 100 MG PO TID Loratadine (Claritin), 10 MG PO DAILY Scheduled PRN Acetaminophen (Tylenol Extra Strength), 1 TAB PO Q6 PRN for Pain Albuterol Hfa (Ventolin Hfa), 2 PUFFS INH Q4H PRN for Wheezing Review of Systems Ten systems reviewed and negative except for pertinent positives and negatives noted in HPI. Physical Ex - H&P Physical Exam Vital Signs Date Time Temp Pulse Resp B/P (MAP) Pulse Ox O2 Delivery O2 Flow Rate FiO2 03/10/17 17:00 71 18 173/86 96 Room Air 03/10/17 15:02 76 18 173/86 96 Room Air 03/10/17 14:39 77 16 190/76 93 03/10/17 13:45 77 03/10/17 12:48 36.5 76 18 217/71 97 Room Air General Appearance: WD/WN, no apparent distress Head: normocephalic, atraumatic Eyes: normal inspection, sclerae normal ENT: normal ENT inspection, hearing grossly normal, TMs normal, pharynx normal Neck: supple, trachea midline Respiratory/Chest: lungs clear, normal breath sounds, no respiratory distress, no accessory muscle use, + pertinent finding (no longer wheezing after Duoneb in ER. coughs during exam. ) Cardiovascular: regular rate, rhythm, no murmur Abdomen/GI: normal bowel sounds, non tender, soft Extremities/Musculoskelatal: no calf tenderness, + pertinent finding (1+ pitting pretibial edema bilaterally. LUE fistula with thrill.) Neurologic/Psych: alert, normal mood/affect, oriented x 3 Skin: normal color, warm/dry Diagnostics - H&P Diagnostics Laboratory Results Results Past 24 Hours Test 03/10/17 13:58 03/10/17 14:05 03/10/17 17:03 Range/Units White Blood Count 8.03 4.8-10.8 K/uL Red Blood Count 3.07 4.2-5.4 M/uL Hemoglobin 9.3 12.0-16.0 g/dL Hematocrit 26.7 37-47 % Mean Corpuscular Volume 87.0 80-100 fL Mean Corpuscular Hemoglobin 30.3 25-34 pg Mean Corpuscular Hemoglobin Concent 34.8 32-36 g/dl Platelet Count 302 130-400 K/uL Mean Platelet Volume 9.1 7.4-10.4 fL Neutrophils (%) (Auto) 79.6 % Lymphocytes (%) (Auto) 11.8 % Monocytes (%) (Auto) 7.2 % Eosinophils (%) (Auto) 0.7 % Basophils (%) (Auto) 0.2 % Neutrophils # (Auto) 6.38 1.4-6.5 K/uL Lymphocytes # (Auto) 0.95 1.2-3.4 K/uL Monocytes # (Auto) 0.58 0.11-0.59 K/uL Eosinophils # (Auto) 0.06 0-0.5 K/uL Basophils # (Auto) 0.02 0-0.2 K/uL RDW Standard Deviation 40.2 36.4-46.3 fL RDW Coefficient of Variation 12.5 11.5-14.5 % Immature Granulocyte % (Auto) 0.5 % Immature Granulocyte # (Auto) 0.04 0.00-0.02 K/uL Prothrombin Time 11.1 9.0-12.0 SECONDS Prothromb Time International Ratio 1.0 0.9-1.1 Activated Partial Thromboplast Time 28.2 21.0-31.0 SECONDS Partial Thromboplastin Ratio 1.1 Sodium Level 122 136-145 mmol/L Potassium Level 4.5 3.5-5.1 mmol/L Chloride Level 91 98-107 mmol/L Carbon Dioxide Level 23 21-32 mmol/L Anion Gap 8.0 3-11 mmol/L Blood Urea Nitrogen 40 7-18 mg/dl Creatinine 3.20 0.60-1.20 mg/dl Est Creatinine Clear Calc Drug Dose 17.5 ml/min Estimated GFR () 16.7 Estimated GFR (Non- 14.4 BUN/Creatinine Ratio 12.5 10-20 Random Glucose 137 70-99 mg/dl Calcium Level 8.0 8.5-10.1 mg/dl Magnesium Level 1.7 1.8-2.4 mg/dl Total Bilirubin 0.5 0.2-1 mg/dl Aspartate Amino Transf (AST/SGOT) 38 15-37 U/L Alanine Aminotransferase (ALT/SGPT) 37 12-78 U/L Alkaline Phosphatase 64 45-117 U/L Total Creatine Kinase 704 26-192 U/L Creatine Kinase MB 16.2 0.5-3.6 ng/ml Creatine Kinase MB Ratio 2.3 0-3.0 Troponin I 0.054 0-0.045 ng/ml Total Protein 5.6 6.4-8.2 gm/dl Albumin 2.3 3.4-5.0 gm/dl Globulin 3.3 2.5-4.0 gm/dl Albumin/Globulin Ratio 0.7 0.9-2 Lipase 357 73-393 U/L Urine Color YELLOW Urine Appearance CLEAR CLEAR Urine pH 5.5 4.5-7.5 Urine Specific [place] 1.016 1.000-1.030 Urine Protein 3+ NEG Urine Glucose (UA) TRACE NEG Urine Ketones NEG NEG Urine Occult Blood TRACE NEG Urine Nitrite NEG NEG Urine Bilirubin NEG NEG Urine Urobilinogen NEG NEG Urine Leukocyte Esterase NEG NEG Urine WBC (Auto) 1-5 0-5 /hpf Urine RBC (Auto) 0-4 0-4 /hpf Urine Hyaline Casts (Auto) 1-5 0-5 /lpf Urine Epithelial Cells (Auto) 10-20 0-5 /lpf Urine Bacteria (Auto) NEG NEG Urine Pathogenic Casts 0-3 GRANULAR CASTS 0 /lpf Diagnostic Radiology CHEST 2 VIEWS ROUTINE CLINICAL HISTORY: Cough. Congestion. COMPARISON STUDY: Chest radiograph October 07, 2016. FINDINGS: There are median sternotomy wires and clips from bypass grafting. No pneumothorax or pleural effusion is present. There is no evidence of pulmonary edema. Moderate cardiomegaly is noted. No consolidation is identified. IMPRESSION: 1. No acute cardiopulmonary findings. 2. Moderate cardiomegaly. EKG Normal sinus rhythm, Possible Left atrial enlargement, Right axis deviation, Non -specific intra-ventricular conduction block, possible old Inferior infarct ( cited on or before 09-MAY-2006), when compared to prior EKG October 07, 2016, T wave inversion now evident in Inferior leads, QRS axis has shifted to the right , as confirmed by cardiology Impression - H&P Impression Assessment and Plan ASTHMATIC BRONCHITIS Did not tolerate outpatient treatment with doxycycline due to GI upset CXR- no infiltrate Influenza PCR negative Treated with Levaquin and Duoneb in ER Continue nebs and Levaquin (renally dosed) HYPERTENSION BP severely elevated in ER, given missed home meds, now normotensive Continue home carvedilol and hydralazine Monitor BP MILDLY ELEVATED TROPONIN Troponin is 0.054 Likely secondary to ESRD; no chest pain today Hx CAD with CABG x 3 in 2009; continue her aspirin, statin, beta stephenie Trend serial cardiac enzymes ACUTE HYPONATREMIA Likely due to decreased PO solute "tea and crackers" Sodium was 122 -> received 1500 mL NSS in ER -> repeat sodium 124 Check PRP in am HYPOMAGNESEMIA Replace and monitor DM TYPE 2 Hold glimepiride Novolog sliding scale ESRD Creat is 3.2, stable from baseline Not on dialysis yet, has LUE fistula (not matured per patient) Follows with Dr. Peralta DVT PROPHYLAXIS Heparin SQ CODE STATUS Full code per my discussion with the patient Patient seen in collaboration with Dr. Johnson. Please see his addendum. Attending Addendum: The patient was seen and examined in ER Recent URI on Doxy -progressed to Nausea ,Vomiting and dehydration Cough,wheezing and weakness O/E Hemodynamically stable HEENT-unremarkable Chest-decreased breath sound with wheezing anteriorly Heart-regular Abdomen-benign Labs and Imaging studies were reviewed Has Asthmatic Bronchitis Hyponatremia Agree with the assessment and plan Dr Em Johnson VTE Prophylaxis VTE Risk Assessment Done? Y/N: Yes Risk Level: Moderate Given or contraindicated: Unfractionated heparin SQ Physical Exam (per Admitting): General Appearance: WD/WN, no apparent distress Head: normocephalic, atraumatic Eyes: normal inspection, sclerae normal ENT: normal ENT inspection, hearing grossly normal, TMs normal, pharynx normal Neck: supple, trachea midline Respiratory/Chest: lungs clear, normal breath sounds, no respiratory distress, no accessory muscle use, + pertinent finding (no longer wheezing after Duoneb in ER. coughs during exam. ) Cardiovascular: regular rate, rhythm, no murmur Abdomen/GI: normal bowel sounds, non tender, soft Extremities/Musculoskelatal: no calf tenderness, + pertinent finding (1+ pitting pretibial edema bilaterally. LUE fistula with thrill.) Neurologic/Psych: alert, normal mood/affect, oriented x 3 Skin: normal color, warm/dry Hospital Course ACUTE HYPONATREMIA Likely due to decreased PO solute "tea and crackers" Sodium was 122 -> received 1500 mL NSS in ER -> repeat sodium 124 Check PRP in am-remains low at 123 Will consult [facility] -appreciate input IVF and Lasix Fluid restriction to 1500 mls Sodium 128 this afternoon Sodium is improved to 131 Will continue with fluid restriction ASTHMATIC BRONCHITIS Did not tolerate outpatient treatment with doxycycline due to GI upset CXR- no infiltrate Influenza PCR negative Treated with Levaquin and Duoneb in ER Continue nebs and Levaquin (renally dosed) Clinically improved a lot and no more cough HYPERTENSION BP severely elevated in ER, given missed home meds, now normotensive Continue home carvedilol and hydralazine Remains higher side Very high this AM Not controlled at home with wide fluctuation getting her usual dose of Hydralazine If reasonable -will discharge MILDLY ELEVATED TROPONIN Troponin is 0.054 Likely secondary to ESRD; no chest pain today Hx CAD with CABG x 3 in 2009; continue her aspirin, statin, beta stephenie Trend serial cardiac enzymes-doubt any ACS HYPOMAGNESEMIA Replace and monitor DM TYPE 2 Hold glimepiride Novolog sliding scale ESRD Creat is 3.2, stable from baseline Not on dialysis yet, has LUE fistula (not matured per patient) Appreciate Nephrology input DVT PROPHYLAXIS Heparin SQ CODE STATUS Full code per my discussion with the patient Likely to discharge today if Pressure is controlled Total time spent on discharge = 35 minutes This includes examination of the patient, discharge planning, medication reconciliation, and communication with other providers. Discharge Instructions Date of Service Mar 13, 2017. Admission Reason for Admission: Bronchitis, Hyponatremia Discharge Discharge Diagnosis / Problem: Bronchitis,ESRD not on Dialysis Discharge Goals Goal(s): Prevent Disease Progression Activity Recommendations Activity Limitations: resume your previous activity . Instructions / Follow-Up Instructions / Follow-Up Dr Francois on 03/19/17 at 9:45 AM Current Hospital Diet Patient's current hospital diet: Diabetes Type 2 Diet, AHA Diet (Heart Healthy) Discharge Diet Recommended Diet: AHA Diet (Heart Healthy), Diabetes Type 2 Diet Fluid Restriction: 1500 ml (6 cups) Pending Studies Studies pending at discharge: no Medical Emergencies . Who to Call and When: Medical Emergencies: If at any time you feel your situation is an emergency, please call 911 immediately. . Non-Emergent Contact Non-Emergency issues call your: Primary Care Provider . Past History Medical & Surgical History: (1) Asthmatic bronchitis (2) CKD (chronic kidney disease), stage V (3) DM type 2 (diabetes mellitus, type 2) (4) HTN (hypertension) (5) CAD (coronary artery disease) (6) AV fistula (7) Hyponatremia (8) Hyperlipidemia (9) Asthma (10) S/P section (11) S/P CABG x 3 (12) History of cataract surgery . "Provider Documentation" section prepared by Jeanmarie Johnson. . VTE Core Measure Inpt VTE Proph given/why not?: Unfractionated heparin SQ <Electronically signed by Jeanmarie Johnson M.D.> Signed: 03/13/17 1125 Signed: The status of this report is Signed * If report status is Draft, the document has not been finalized by the responsible provider. Additional Copies To Alan Francois M.D.
[2017-03-13] MEDS ORDERED: FLUT50SP45 NAE (12:50)
[2017-03-23] MEDS ORDERED: [UNRECOGNIZED DRUG - OTHER] PO (07:20)
== END 2017-03-13 14:02 | disposition home or self-care (01) | DRG 202 ==
LOC: C.EDB 12:46 → C.MED 16:12 → ENRESERV 17:00
PROVIDERS: ADMIT Internal Medicine; ATTEND Internal Medicine
DX: J45.909 Unspecified asthma, uncomplicated (principal); N18.6 End stage renal disease; I12.0 Hypertensive chronic kidney disease with stage 5 chronic kidney disease or end stage renal disease; E87.1 Hypo-osmolality and hyponatremia; I25.10 Atherosclerotic heart disease of native coronary artery without angina pectoris; E11.9 Type 2 diabetes mellitus without complications; E78.5 Hyperlipidemia, unspecified; E55.9 Vitamin D deficiency, unspecified; E66.9 Obesity, unspecified; M81.0 Age-related osteoporosis without current pathological fracture; Z87.891 Personal history of nicotine dependence; Z95.1 Presence of aortocoronary bypass graft; Z79.82 Long term (current) use of aspirin; Z68.30 Body mass index [BMI] 30.0-30.9, adult

== ENCOUNTER → 2017-03-23 | Day surgery (SDC) | payer BC ==
[~2017-03-23] VITALS: Ht 160 cm; Wt 78.2 kg
[~2017-03-23] MED LIST changes: -ACET-1256 PO; +ACET-1257 PO; -ALPPOPS5 OP; +CALC0.2510 PO; +CLINDAMYCIN 600 MG/54 ML D5W IV SCH; +D5W AND 1/4NSS 1000 ML IV SCH; +FENTANYL CITRATE INJ 50 MCG/1 ML 2 ML VIAL IV ONE; +FENTANYL CITRATE INJ 50 MCG/1 ML 2 ML VIAL ONE; +FLUT50SP45 NAE; -LATA0.5S OP; +LIDOCAINE HCL 1% 20 ML VIAL INJ ONE; +LVQ250 PO; +MIDAZOLAM HCL 1 MG/ML 2ML VIAL IV ONE; +MIDAZOLAM HCL 1 MG/ML 2ML VIAL ONE; -NASONEX; -OXYC-57 PO; -TRAM-10 PO; +VISIPAQUE IV ONE; +[UNRECOGNIZED DRUG - OTHER] PO; -[UNRECOGNIZED DRUG - OTHER] PO
[2017-03-23 07:25] VITALS: BP 171/84; PULSE 69; TEMP 36.5; O2SAT 97; Ht 160 cm; Wt 78.2 kg
--- NOTE | 2017-03-23 07:50 | Procedure Note ---
Pre-Mod Sedation Assessment General Date of Moderate Sedation: Mar 23, 2017. Vital Signs: Vital Signs Past 12 Hours Date Time Temp Pulse Resp B/P (MAP) Pulse Ox O2 Delivery O2 Flow Rate FiO2 03/23/17 07:25 36.5 69 20 171/84 (113) 97 Room Air Pre-Sedation Airway Assessment Oral Cavity: WNL Hx of Sleep Apnea: No Smoking Status: Former Smoker Mallampati Classification: Class I ASA Classification: Class III Notes The planned sedation has been discussed with the patient and consent obtained. I have identified the patient, determined the appropriateness of sedation and have assessed the patient immediately prior to the procedure. All medicine(s) and interventions are by my order.
--- NOTE | 2017-03-23 07:50 | History and Physical ---
History & Physical Date of Service Mar 23, 2017. History & Physical CC: End stage renal disease, non maturing av fistula HPI: Ms. Lu states she is not yet on hemodialysis; however, she was advised that she will likely need it within the next 3-6 months. She says she has had progressively decreasing kidney function for a long period of time due to multiple problems. She had a left arm fistula placed which has not matured that well. She denies any real complaints at this time including headaches, fevers, chills, dizziness, chest pain, shortness of breath, abdominal pain, nausea, vomiting, diarrhea, constipation, dysuria, hematuria, rest pain, claudication, nonhealing wounds or ulcers or other complaints. ALLERGIES: AUGMENTIN. HOME MEDICATIONS: Reconciled on the chart and include the following: Aspirin, atorvastatin, brimonidine, carvedilol, Drisdol, glimepiride, hydralazine, latanoprost, loratadine, Nasonex, ProAir HFA, tramadol, and Tylenol. PAST MEDICAL HISTORY: Positive for allergic rhinitis, chronic kidney disease, coronary artery disease, type 2 diabetes mellitus, osteoarthritis, glaucoma, hypertension, hyperlipidemia, pseudophakia of right eye and vitamin D deficiency. PAST SURGICAL HISTORY: Positive for cataract extractions, section and coronary artery bypass graft x3 in 2009. FAMILY HISTORY: Positive for diabetes in her father and mother and heart disease in her mother. SOCIAL HISTORY: Positive for a past history of tobacco use. She previously smoked #1-1/2 packs per day for about 30 years and stopped at age 59, which was 7 years ago. The patient denies alcohol or drug use. REVIEW OF SYSTEMS: Negative for fatigue, fevers, sweats, weight loss, exercise intolerance, abnormal moles or rashes, vision changes or photophobia, ear pain, sinus problems, sore throat, cough, shortness of breath, hemoptysis or wheezing , chest pain, palpitations or syncope. She does admit to some mild edema of her lower extremities which waxes and wanes depending on how much she is on them. She denies abdominal pain, nausea, vomiting, diarrhea, constipation, muscle weakness, headaches, dizziness, numbness or seizures. PHYSICAL EXAMINATION: Her vital signs are as follows: Blood pressure of 160/ 68 in the right arm, 168/60 in the left, heart rate 58, oxygen 97% on room air. The patient is 160.02 cm tall and weighs 78.5 kilograms. Constitutional: In general, patient is a mildly chronically ill-appearing middle-aged female in no acute distress. She ambulates without assistance and is active, alert and oriented x4 with normal recent and remote memory. Head is normocephalic, atraumatic. Eyes are EOMI. ENMT exam demonstrates no hearing loss, rhinorrhea or pharyngeal erythema. Neck is supple, nontender with midline trachea without masses or crepitus. Lung exam demonstrates no dyspnea. They are decreased somewhat throughout but clear bilaterally. Cardiovascular exam demonstrates nondisplaced apical impulse with a regular rate and rhythm without murmurs, lifts, heaves, thrills or gallops. Peripheral pulses are full and equal in all extremities unless otherwise noted, specifically they are normal in her carotid , brachial, radial and femoral pulses. Bilateral extremity distal pulses are + 2. She has brisk capillary refill and no signs of distal ischemia. The patient demonstrates no bruits in her carotid, abdominal or femoral area. Abdomen is soft, nontender with normoactive bowel sounds in all 4 quadrants without guarding or rebound. There is no flank or CVA tenderness. There are no pulsatile masses appreciable. Bilateral upper extremities demonstrate no cyanosis, edema, clubbing, varicosities or ulcers. There is a good thrill in the fistula. There is a large side branch present. The patient's bilateral lower extremities demonstrate trace to 1+ pitting edema. This appears to be chronic; there are no ulcerations or other discoloration noted. Neurologically : Patient has grossly intact cranial nerves and grossly intact sensation. ASSESSMENT AND PLAN: End-stage renal disease, not on hemodialysis. Non maturing fistula PLAN: Patient is admitted for fistulogram and possible intervention with ligation of side branch. I have discussed the risks options and benefits of the procedure with the patient. The patient understands the risks options and benefits and agrees to the procedure.
[2017-03-23 08:16] LABS: BUN/CREATININE RATIO 16.4 (10-20); CREATININE 3.9 mg/dl (0.60-1.20)
[2017-03-23 08:48] VITALS: BP 171/84; PULSE 69; TEMP 36.5; O2SAT 97
--- NOTE | 2017-03-23 09:48 | Procedure Note ---
Post-Moderate Sedation Plan General Date of Moderate Sedation Mar 23, 2017. Vital Signs: Vital Signs Past 12 Hours Date Time Temp Pulse Resp B/P (MAP) Pulse Ox O2 Delivery O2 Flow Rate FiO2 03/23/17 08:48 36.5 69 20 171/84 97 Room Air 03/23/17 07:25 36.5 69 20 171/84 (113) 97 Room Air Review - Discharge Plan Post Moderate Sedation Plan: On clinical assessment, the patient appears to have tolerated the conscious sedation without complications. Patient is recovering as anticipated. Patient will continue to be monitored by nursing and may be discharged when conscious sedation discharge criteria are met.
--- NOTE | 2017-03-23 09:50 | [facility] Operative Report ---
Operative Report Operative Date Mar 23, 2017. Pre-Operative Diagnosis End-stage renal disease, not on hemodialysis. Non maturing fistula Post-Operative Diagnosis Same Procedure(s) Performed Fistulogram Embolization of side branch Moderate Sedation [id number] Surgeon Jeanine Cooker Sulfite Surgeon(s) Dr. Conde, Fellow Estimated Blood Loss 3 Findings good thrill Specimens None Anesthesia Local with sedation Disposition Indications This is 66-year-old female has a left wrist AV fistula which is not maturing well. There was a large branch seen on exam. She is here for a fistulogram and possible embolization of the branch. I have discussed the risks options and benefits of the procedure with the patient. The patient understands the risks options and benefits and agrees to the procedure. Description of Procedure The patient was taken to the angiogram suite and placed in the supine position. The left arm was then prepped and draped in a sterile manner. Local anesthetic was administered and a percutaneous puncture was then made of the proximal portion of the left radiocephalic AV fistula using micropuncture technique. Micropuncture wire and sheath were then inserted. A fistulogram was then performed. The proximal anastomosis was patent, without hemodynamically significant stenosis. There was a large branch coming off approximately 5 cm from the proximal anastomosis. The remainder of the fistula was patent, draining into antecubital fossa and filling both the basilic and cephalic veins. These are open. The subclavian vein is open without any central venous stenosis. An angled glide wire was placed in the fistula and the micropuncture sheath was exchanged for a 4 [place] sheath. An angled glide catheter was placed over the wire and the branch in the proximal fistula was cannulated. Two 6 mm coils were placed in the branch. Fistulagram was performed showing decreased flow through the branch and the radio-cephalic fistula was patent. The sheath was then pulled and pressure was applied. Adequate hemostasis was obtained. The patient left the angiogram suite in good condition and tolerated the procedure well. I attest to the content of the Intraoperative Record and any orders documented therein. Any exceptions are noted below.
--- NOTE | 2017-03-23 09:53 | Discharge Instructions ---
Discharge Instructions Date of Service Mar 23, 2017. Visit Reason for Visit: Left Arm Arteriovenous Fistula Stenosis Discharge Discharge Diagnosis / Problem: Non maturing fistula Discharge Goals Goal(s): Therapeutic intervention Activity Recommendations Activity Limitations: resume your previous activity Anesthesia . Post Anesthesia Instructions: If you have had General Anesthesia or IV Sedation: * Do not drive today. * Resume driving when surgeon permits. * Do not make important decisions or sign legal documents today. * Call surgeon for: 1. Temperature elevations greater than 101 degrees F. 2. Uncontrollable pain. 3. Excessive bleeding. 4. Persistent nausea and vomiting. 5. Medication intolerance (nausea, vomiting or rash). * For nausea and vomiting use only clear liquids such as: tea, soda, bouillon until nausea subsides, then gradually increase diet as tolerated. * If you have any concerns or questions, call your surgeon's office. If physician is unavailable and it is an emergency, call 911 or go to the nearest emergency room. . Instructions / Follow-Up Instructions / Follow-Up Call [phone] to schedule a follow up appointment if one not already scheduled. SPECIAL CARE INSTRUCTIONS: Medications: * Continue to take your medications as directed. If you have been given a prescription for Plavix, please fill it immediately and take as directed. Incision Care: * Your puncture site may have some bruising and minor swelling for about one week. * You will have a small dressing covering your puncture site. You may remove the dressing after 24 hours and shower. You may let the warm soapy water run over it, but be sure to dry the puncture site well and keep it dry. * DO NOT IMMERSE THE INCISION IN A TUB/POOL/etc. UNTIL HEALED. * Puncture sites should be kept covered with a band-aid until it begins to heal. Restrictions: * Depending on whether you leg or arm was punctured to access the arteries, you will be required to lay flat, hold your arm still, or both, for about 4 hours after the procedure to prevent bleeding. * Limit your activity for the first 48 hours. You may walk and go up and down steps. Avoid excessive bending or movement at the puncture site. Possible Complications: * Excessive Swelling - after blood flow is improved you may notice increased swelling in the lower legs. This is a normal response. This usually depends on the amount of blockages in the leg, how long they have been there prior to your procedure and how much blood flow was restored. Elevating your legs will help to improve this. Please notify our office ([phone] ) if the swelling does not go away after lying in bed overnight. * Infection/Drainage/Bleeding - Drainage or bleeding from the puncture site should be minimal. If you have excessive bleeding or drainage, call our office ([phone]) right away. * Pain - You may experience some mild pain or soreness at your puncture site. If your pain does not improve, please contact our office ([phone]). Call your doctor and seek emergent treatment if you develop: * Temperature above 101 degrees * Any fever or chills * Any redness or purulent drainage from the puncture site * Any new dusky/blue colored toes or feet with coolness or sharp or aching pain. SKIN IRRITATION: * You may experience some redness and/or swelling in the area where radiation was administered. If any skin irritation occurs, please contact your family physician. FOLLOW UP VISIT: Keep any scheduled doctor appointments. Diet Recommendations Recommended Home Diet: resume previous diet Procedures Procedures Performed: Fistulogram Embolization of side branch Moderate Sedation [id number] Pending Studies Studies pending at discharge: no Medical Emergencies . Who to Call and When: Medical Emergencies: If at any time you feel your situation is an emergency, please call 911 immediately. . Non-Emergent Contact Non-Emergency issues call your: Surgeon . . "Provider Documentation" section prepared by Bradley Solorzano. .
[2017-03-23 10:00] VITALS: BP 171/85; PULSE 75; TEMP 36.3; O2SAT 98
[2017-03-23 10:30] VITALS: BP 137/76; PULSE 72; TEMP 36.3; O2SAT 99
== END | disposition home or self-care (01) ==
LOC: C.ACU 06:44
PROVIDERS: ATTEND Surgery Vascular Surgery
DX: T82.590A Other mechanical complication of surgically created arteriovenous fistula, initial encounter (principal); Y83.2 Surgical operation with anastomosis, bypass or graft as the cause of abnormal reaction of the patient, or of later complication, without mention of misadventure at the time of the procedure; N18.6 End stage renal disease; I25.10 Atherosclerotic heart disease of native coronary artery without angina pectoris; E11.9 Type 2 diabetes mellitus without complications; M19.90 Unspecified osteoarthritis, unspecified site; H40.9 Unspecified glaucoma; I10 Essential (primary) hypertension; E78.5 Hyperlipidemia, unspecified; E55.9 Vitamin D deficiency, unspecified; Z87.891 Personal history of nicotine dependence; Z95.1 Presence of aortocoronary bypass graft

== ENCOUNTER 2018-01-05 18:15 | Inpatient (IN) | payer BC, OTHER ==
[~2018-01-05] VITALS: Ht 154.9 cm; Wt 70.4 kg
[~2018-01-05 18:15] MED LIST changes: -CLINDAMYCIN 600 MG/54 ML D5W IV SCH; -CLR10 PO; -D5W AND 1/4NSS 1000 ML IV SCH; -FENTANYL CITRATE INJ 50 MCG/1 ML 2 ML VIAL IV ONE; -FENTANYL CITRATE INJ 50 MCG/1 ML 2 ML VIAL ONE; -LIDOCAINE HCL 1% 20 ML VIAL INJ ONE; -LVQ250 PO; -MIDAZOLAM HCL 1 MG/ML 2ML VIAL IV ONE; -MIDAZOLAM HCL 1 MG/ML 2ML VIAL ONE; -VISIPAQUE IV ONE
[2018-01-06] VITALS (11 sets, daily range): BP systolic 114–196; BP diastolic 64–72; PULSE 55–73; TEMP 36.4–36.8; O2SAT 94–98; BMI 31.1; BMI 31.4
[2018-01-06] MEDS ORDERED: HYDR100T3 PO (04:45)
[2018-01-06] MEDS ORDERED: HYDR-4383 PO (04:45)
[2018-01-06] MEDS ORDERED: LATA0.5S OP (04:45)
[2018-01-06] MEDS ORDERED: IV FLUIDS COMPLETED PRN (04:45)
[2018-01-06] MEDS ORDERED: ALBU18002 INH (04:45)
[2018-01-06] MEDS ORDERED: CLOP1TAB15 PO (04:45)
[2018-01-06] MEDS ORDERED: CRG25 PO (04:45)
[2018-01-06] MEDS ORDERED: GLIP5TAB11 PO (04:45)
[2018-01-06 05:06] LABS: BASO % 0.5 %; BASO ABS # 0.04 K/uL (0-0.2); EOS ABS # 0.17 K/uL (0-0.5); HEMATOCRIT 23.8 % (37-47); HEMOGLOBIN 7.9 g/dL (12.0-16.0); IG# 0.05 K/uL (0.00-0.02); LYMPH % 15.5 %; MEAN CELL VOLUME 91.9 fL (80-100); MEAN CORPUSCULAR HEMOGLOBIN 30.5 pg (25-34); MEAN CORPUSCULAR HGB CONC 33.2 g/dl (32-36); MEAN PLATELET VOLUME 9.3 fL (7.4-10.4); MONO % 9.6 %; NEUT % 71.8 %; NEUT ABS # 6.01 K/uL (1.4-6.5); PLATELET COUNT 228 K/uL (130-400); RED CELL DISTRIBUTION WIDTH CV 14.6 % (11.5-14.5); RED CELL DISTRIBUTION WIDTH SD 48.3 fL (36.4-46.3); WHITE BLOOD COUNT 8.37 K/uL (4.8-10.8)
[2018-01-06] MEDS: CLONIDINE HCL 0.1 MG TAB PO PRN ×2 (05:20→23:50)
[2018-01-06 05:36] LABS: ALBUMIN 2.2 gm/dl (3.4-5.0); CREATININE 5.84 mg/dl (0.60-1.20); POTASSIUM 5.6 mmol/L (3.5-5.1); TOTAL PROTEIN 5.4 gm/dl (6.4-8.2)
[2018-01-06] MEDS ORDERED: GLUCOSE 40% GEL 15 GM TUBE PO PRN (05:45)
[2018-01-06] MEDS ORDERED: GLUCAGON FOR INJ 1 MG VIAL SQ PRN (05:45)
[2018-01-06] MEDS ORDERED: CARBOHYDRATES FOR HYPOGLYCEMIA PO PRN (05:45)
[2018-01-06] MEDS ORDERED: ALBUTEROL HFA 8 GM INHALER INH PRN (05:45)
[2018-01-06] MEDS ORDERED: GLUCOSE 10 TABS/TUBE PO PRN (05:45)
[2018-01-06] MEDS ORDERED: DEXTROSE 50% 50 ML SYR IV PRN (05:45)
--- NOTE | 2018-01-06 05:56 | History and Physical ---
History & Physical Date & Time of Service: Jan 06, 2018 at 05:46 Chief Complaint: Anemia Primary Care Physician: Alan Francois M.D. History of Present Illness Source: patient, clinic records, hospital records Patient is a very pleasant 67-year-old female with history of coronary artery disease/CABG, diabetes type 2, hypertension, dyslipidemia, CKD stage V, Peripheral artery disease, glaucoma and diabetic retinopathy presenting with elevated creatinine and anemia based on lab work done in [place]. Patient follows with Dr. Peter and management clinic for nephrology. 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 Patient follows with Dr. Peralta for CKD stage V, and AV fistula has been placed on the left upper extremity last year. 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 She also underwent a left lower extremity angioplasty for peripheral artery disease January 04, 2018 at the [facility]. Hematoma of the left thigh and tenderness on the left groin was noted after the procedure. Also patient reports dizziness on discharge day. Yesterday January 05, 2018 patient supposed to receive her second dose of IV antibiotic for the left great toe osteomyelitis but upon evaluation of blood work, Hemoglobin was found to be 5.2 and creatinine was found to be 5.7. Patient was then referred to [place] emergency room for evaluation and treatment. Patient also reports intermittent melena for the past few weeks and apparently had an episode of black tarry stools in [place] yesterday. Yesterday. She received 2 units of packed RBCs with [facility] emergency room and was given Lasix IV as well. She was then transferred to [facility] after discussion with [facility] rn palliative Dr. Stafford for further evaluation and management of acute and chronic kidney disease. On my exam the patient is sitting up in bed, not in distress, comfortable. States she feels less dizzy when standing after blood transfusion. Denies active chest pain, shortness of breath, palpitations headache. Denies pain on the left thigh, tenderness of the left groin improving. Denies abdominal pain or back pain No other symptoms. Past Medical/Surgical History Medical Problems: (1) Anemia (2) Asthma (3) Asthma (4) Asthmatic bronchitis (5) [place]scl [facility] Disease [place] Coronary Artery W/O Ang Pctrs (6) AV fistula (7) Bronchitis (8) CAD (coronary artery disease) (9) CKD (chronic kidney disease), stage V (10) Diab Neli Wo Compl, Type Ii Or Unspec Type, Not Uncntrld (11) DM type 2 (diabetes mellitus, type 2) (12) Elevated troponin (13) End Stage Renal Disease (14) HTN (hypertension) (15) Hyperlipidemia (16) Hyperlipidemia, Unspecified (17) Hyponatremia (18) Obesity (BMI 30.0-34.9) (19) Osteoarthritis (20) Osteoporosis (21) Type 2 Diabetes Mellitus Without Complications (22) Vitamin D Deficiency, Unspecified Surgical Problems: (1) AV fistula (2) History of cataract surgery (3) Presence Of Aortocoronary Bypass Graft (4) S/P CABG x 3 (5) S/P section Family History Cardiac disorder MOTHER Diabetes mellitus MOTHER SISTER FATHER Hypertension SISTER Social History Smoking Status: Former Smoker Drug Use: none Housing status: lives alone Occupational Status: employed Immunizations History of Influenza Vaccine: No Allergies Coded Allergies: Amoxicillin (Verified Allergy, Mild, LIGHTHEADED, DIZZY AND NAUSEA, ) Clavulanic Acid (Verified Allergy, Mild, LIGHTHEADED, DIZZY AND NAUSEA, ) Home Medications Scheduled Albuterol Sulfate (Proair Respiclick), 90 MCG INH Q4H Aspirin (Aspirin Ec), 81 MG PO QAM Atorvastatin (Lipitor), 40 MG PO DAILY Calcitriol (Rocaltrol Cap), 0.25 MCG PO MWF Carvedilol (Carvedilol), PO DAILY Cholecalciferol (Vitamin D), 1 TAB PO QAM Clopidogrel (Plavix), 75 MG PO DAILY Fluticasone Propionate (Nasal) (Allergy Nasal [place] [address]), 2 SPRAY JOE DAILY Glimepiride (Glimepiride), 1 TAB PO QAM Glipizide (Glucotrol), 5 MG PO BID Hydralazine HCl (Hydralazine HCl), PO BID Latanoprost (Xalatan 0.005% Oph [place]), 1 DROPS OP HS [valtessa], 8.4 MG PO HS Scheduled PRN Acetaminophen (Tylenol Extra Strength), 1 TAB PO Q6 PRN for Pain Albuterol Hfa (Ventolin Hfa), 2 PUFFS INH Q4H PRN for Wheezing Hydrocodone/Acetaminophen ([place] 10/325 Tab), 1 TAB PO Q12 PRN for Pain Review of Systems Constitutional- no fever; no weight loss Eyes- no acute visual changes ENT- no sinus drainage; no pharyngitis Pulmonary- no cough, no wheezing, no shortness of breath Cardiac- no chest pain, no palpitations, no orthopnea, no dependent edema GI-positive melena as noted above - no dysuria, no hematuria Musculoskeletal- no arthralgias, no myalgias Derm- no rashes, no new skin lesions, no changing skin lesions Hematologic- no unusual bruising, no unusual bleeding Lymphatics- no adenopathy Endocrine- no polyuria or polydipsia; no heat or cold intolerance Neuro- no headaches, no focal neurologic symptoms Psych- no anxiety, no depression Physical Exam Vital Signs Date Time Temp Pulse Resp B/P (MAP) Pulse Ox O2 Delivery O2 Flow Rate FiO2 01/06/18 04:15 36.8 73 16 196/68 Room Air General Appearance: WD/WN, no apparent distress Head: normocephalic, atraumatic Eyes: normal inspection, PERRL, EOMI, sclerae normal, + pertinent finding ( Pale conjunctivae) ENT: normal ENT inspection, hearing grossly normal, pharynx normal Neck: supple, no adenopathy, thyroid normal, no JVD, trachea midline Respiratory/Chest: chest non-tender, lungs clear, normal breath sounds, no respiratory distress, no accessory muscle use Cardiovascular: regular rate, rhythm, no edema, no JVD, no murmur Abdomen/GI: normal bowel sounds, non tender, soft, + pertinent finding ( Positive tenderness on the left groin, mild edema of the left groin, no active bleeding in the insertion site of the catheter) Back: normal inspection, no CVA tenderness Extremities/Musculoskelatal: + pertinent finding (Positive for significant ecchymosis on the left thigh region extending to the lateral aspect of the left buttock) Neurologic/Psych: manager financial II-XII nml as tested, no motor/sensory deficits, alert, normal mood/affect, normal reflexes, oriented x 3 Skin: normal color, warm/dry, no rash Lymphatic: no adenopathy Diagnostics Laboratory Results Results Past 24 Hours Test 01/06/18 04:51 01/06/18 05:25 01/06/18 05:32 01/06/18 05:39 Range/Units White Blood Count 8.37 4.8-10.8 K/uL Red Blood Count 2.59 4.2-5.4 M/uL Hemoglobin 7.9 12.0-16.0 g/dL Hematocrit 23.8 37-47 % Mean Corpuscular Volume 91.9 80-100 fL Mean Corpuscular Hemoglobin 30.5 25-34 pg Mean Corpuscular Hemoglobin Concent 33.2 32-36 g/dl Platelet Count 228 130-400 K/uL Mean Platelet Volume 9.3 7.4-10.4 fL Neutrophils (%) (Auto) 71.8 % Lymphocytes (%) (Auto) 15.5 % Monocytes (%) (Auto) 9.6 % Eosinophils (%) (Auto) 2.0 % Basophils (%) (Auto) 0.5 % Neutrophils # (Auto) 6.01 1.4-6.5 K/uL Lymphocytes # (Auto) 1.30 1.2-3.4 K/uL Monocytes # (Auto) 0.80 0.11-0.59 K/uL Eosinophils # (Auto) 0.17 0-0.5 K/uL Basophils # (Auto) 0.04 0-0.2 K/uL RDW Standard Deviation 48.3 36.4-46.3 fL RDW Coefficient of Variation 14.6 11.5-14.5 % Immature Granulocyte % (Auto) 0.6 % Immature Granulocyte # (Auto) 0.05 0.00-0.02 K/uL Red Blood Cell Morphology Unremarkable Sodium Level 138 136-145 mmol/L Potassium Level 5.6 3.5-5.1 mmol/L Chloride Level 113 98-107 mmol/L Carbon Dioxide Level 17 21-32 mmol/L Anion Gap 8.0 3-11 mmol/L Blood Urea Nitrogen 63 7-18 mg/dl Creatinine 5.84 0.60-1.20 mg/dl Est Creatinine Clear Calc Drug Dose 8.6 ml/min Estimated GFR () 8.0 Estimated GFR (Non- 6.9 BUN/Creatinine Ratio 10.7 10-20 Random Glucose 110 70-99 mg/dl Calcium Level 8.0 8.5-10.1 mg/dl Phosphorus Level 5.0 2.5-4.9 mg/dl Magnesium Level 1.9 1.8-2.4 mg/dl Total Bilirubin 1.2 0.2-1 mg/dl Direct Bilirubin 0.3 0-0.2 mg/dl Aspartate Amino Transf (AST/SGOT) 20 15-37 U/L Alanine Aminotransferase (ALT/SGPT) 25 12-78 U/L Alkaline Phosphatase 54 45-117 U/L Total Protein 5.4 6.4-8.2 gm/dl Albumin 2.2 3.4-5.0 gm/dl Transferrin % Saturation 15-50 % Diagnostic Radiology Chest x-ray pending EKG EKG pending Impression Assessment and Plan Patient is a very pleasant 67-year-old female with history of coronary artery disease/CABG, diabetes type 2, hypertension, dyslipidemia, CKD stage V, Peripheral artery disease, glaucoma and diabetic retinopathy presenting with elevated creatinine and anemia based on lab work done in [place]. Profound, symptomatic anemia Possibly multifactorial from Significant ecchymosis of the left thigh, status post left lower extremity angioplasty Check CT scan of the abdomen and pelvis and left thigh to rule out hemorrhage /fluid collection Hold aspirin and Plavix at this time, but reevaluate closely due to history of CAD and PA Melena, rule out upper GI bleed Will place patient on Protonix drip N.p.o. for now GI consulted Acute on chronic kidney disease stage V Management as noted below Possible acute blood loss anemia on chronic anemia secondary to above Also has iron deficiency Baseline hemoglobin around 9, hemoglobin upon checked yesterday was 5. 2 Status post 2 units of packed RBCs at [place] Hemoglobin improved 7.9 1 more unit of packed RBCs ordered, hemoglobin goal above 8 Iron level checked at [facility] was 24 We will start p.o. iron supplement Anemia panel ordered Acute on chronic kidney disease stage V Status post AV fistula placement left upper extremity No signs of overt volume overload or uremia at this time Nephrology consulted Left big toe osteomyelitis Follows at [place] wound care center and podiatry Apparently diagnosed with osteomyelitis last week and has been started on IV antibiotics Records being obtained from [place] We will consult ID for antibiotic recommendations Peripheral artery disease Status post left lower extremity extremity angioplasty January 04, 2018 Hold aspirin Plavix at this time but reevaluate closely Records being obtained from [facility] CAD/CABG No cardiac symptoms Aspirin and Plavix on hold but reevaluate once active bleeding ruled out Continue atorvastatin and carvedilol Diabetes type 2 Hold glipizide Insulin sliding scale for now Hypertension BP elevated, but asymptomatic Patient missed evening blood pressure medications Start as needed clonidine Continue usual carvedilol and hydralazine Glaucoma Continue latanoprost DVT prophylaxis Anticoagulation contraindicated because of possible GI bleed, significant left hematoma SCDs contraindicated because of peripheral artery disease We will encourage early ambulation Full code as per patient Disposition Pending Lives at home We will order PT OT evaluation Advanced Directives Existing Living Will: No Existing Power of Pulley Mortiser Operator: No Resuscitation Status VTE Prophylaxis Will order VTE Prophylaxis: Yes Reason for no VTE drug order: Contraindicated Reason no Mechanical VTE Order: Contraindicated
[2018-01-06] MEDS ORDERED: PANTOprazole INJ 80 MG in DEXTROSE 5% 100ML IV SCH (06:00)
[2018-01-06 06:32] LABS: HEMOGLOBIN A1C 5.9 % (4.5-5.6)
[2018-01-06] MEDS: PANTOprazole INJ 40 MG in DEXTROSE 5% 100ML IV SCH ×4 (06:35→19:54)
--- NOTE | 2018-01-06 06:52 | DIAGNOSTIC IMAGING REPORT ---
L LOWER EXTREMITY WITHOUT CT DOSE: 1037.19 mGy.cm HISTORY: Pain. Edema. R/O BLOOD COLLECTION LEFT THIGH/GROIN TECHNIQUE: Multiaxial CT images of the left thigh were performed and reformatted in the sagittal and coronal plane without the use of contrast. A dose lowering technique was utilized adhering to the principles of ALARA. COMPARISON: None. FINDINGS: Diffuse generalized soft tissue edematous change throughout the left thigh. Considerable subcutaneous soft tissue edematous change. Moderate skin thickening. No evidence for a drainable collection or hematoma is no evidence for acute bony abnormality. IMPRESSION: 1. Diffuse soft tissue edematous change throughout the left thigh extending from the left inguinal region to the left knee. 2. No evidence for focal drainable abscess or collection. 3. No well-defined focal hematoma The above report was generated using voice recognition software. It may contain grammatical, syntax or spelling errors. Electronically signed by: Joaquin Lara M.D. 01/06/2018 6:51 AM Dictated Date/Time: 01/06/2018 6:47 AM
[2018-01-06] MEDS: INSULIN ASPART 100 UNITS/ML 3 ML PEN SC SCH ×4 (07:00→20:05)
[2018-01-06] MEDS ORDERED: SODIUM POLYST. SULF SUSP 15G/60ML PO STA (07:14)
--- NOTE | 2018-01-06 07:23 | DIAGNOSTIC IMAGING REPORT ---
CT SCAN OF THE ABDOMEN AND PELVIS WITHOUT IV CONTRAST CLINICAL HISTORY: Left groin bruising. Status post left lower extremity angioplasty. COMPARISON STUDY: No priors. TECHNIQUE: CT scan of the abdomen and pelvis is performed from the lung bases to the proximal femora. Images are reviewed in the axial, sagittal, and coronal planes. IV contrast was not administered for this examination as per the referring clinician. Note that the examination was performed in suboptimal fashion without IV contrast.. A dose lowering technique was utilized adhering to the principles of ALARA. FINDINGS: Lung bases: The patient is status post midline sternotomy. The heart is top normal in size and without pericardial effusion. The coronary arteries, mitral annulus, and aortic valve leaflets are densely calcified. There is elevation of the right hemidiaphragm. There is a trace left pleural effusion. The lung bases are otherwise clear noting minimal bibasilar atelectasis. A tiny hiatal hernia is noted. Liver: The unenhanced liver is normal in size, contour, and attenuation. There is no intrahepatic biliary ductal dilatation. Gallbladder: There are numerous calcified gallstones. There is no CT evidence of acute cholecystitis. Spleen: Normal in size and attenuation. Pancreas: The unenhanced pancreas is grossly unremarkable. Adrenal glands: Unremarkable. Kidneys: The unenhanced kidneys are atrophic and without hydronephrosis. There are renovascular calcifications. No renal calculi are identified. There is no evidence of contour deforming renal mass lesion. Abdominal vasculature: The abdominal aorta is normal in course and caliber noting advanced atherosclerotic calcification. Bowel: There is moderate sigmoid diverticulosis without CT evidence of acute diverticulitis. Mild/moderate colonic fecal retention is observed. No bowel obstruction is seen. The appendix is well-visualized and normal. Peritoneum: There is no intraperitoneal free air or abdominal ascites. Lymphadenopathy: None. Pelvic viscera: The bladder, uterus, and adnexa are normal as visualized. Skeletal structures: The skeletal structures are osteopenic. There is mild to moderate lumbosacral spondylosis. Large posterior disc osteophyte complexes are seen at L3-L4, L4-L5, and L5-S1. No lytic or blastic lesions are seen. Healed left-sided rib fractures are noted. Soft tissues: There is diffuse subcutaneous soft tissue edema identified throughout the lower back, the buttocks, and overlying the hips. This is greater on the left than the right. There is trace hyperdense fluid identified in the soft tissues of the anterior left upper thigh seen on image #[id number]. This likely represents hematoma, and this measures up to 4 x 1.5 cm in maximum dimension. No intramuscular or intrapelvic hematoma is identified. IMPRESSION: 1. There are no acute infectious or inflammatory findings in the abdomen or pelvis. 2. There is significant subcutaneous soft tissue edema identified in the lower back, the buttocks, and the upper thighs. This is greater on the left than the right. 3. There are blood products/a small hematoma identified in the anterior left upper thigh superficial to the quadriceps musculature as detailed above. If there is concern for a pseudoaneurysm then ultrasound should be considered. 4. Cholelithiasis. 5. Moderate sigmoid diverticulosis without CT evidence of acute diverticulitis. 6. Trace left pleural effusion. 7. Additional findings as above. Electronically signed by: Marito Khoury M.D. 01/06/2018 7:22 AM Dictated Date/Time: 01/06/2018 7:14 AM
--- NOTE | 2018-01-06 07:23 | DIAGNOSTIC IMAGING REPORT ---
CHEST ONE VIEW PORTABLE HISTORY: 67 years-old Female R/O CHF acute shortness of breath COMPARISON: Chest radiograph 03/10/2017 TECHNIQUE: Portable AP view of the chest FINDINGS: The cardiac silhouette is mildly enlarged. Prior median sternotomy. The two Inferior sternotomy wires are fractured. No evidence of sternal dehiscence. Surgical clips project over the left heart border suggesting prior CABG. Atherosclerosis of the aorta. There is no pneumothorax, large pleural effusion or overt pulmonary edema. Mild right hemidiaphragmatic elevation. Subsegmental left basilar opacities suggest atelectasis. Degenerative changes of the shoulders and spine. IMPRESSION: 1. Cardiomegaly without overt pulmonary edema. 2. Mild right hemidiaphragmatic elevation with subsegmental left basilar atelectasis. The above report was generated using voice recognition software. It may contain grammatical, syntax or spelling errors. Electronically signed by: Williams Walsh M.D. 01/06/2018 7:22 AM Dictated Date/Time: 01/06/2018 7:20 AM
[2018-01-06] MEDS: FERROUS SULFATE 325 MG TAB PO SCH ×2 (07:30→16:45)
[2018-01-06] MEDS: FLUTICASONE PROPIONATE NA SPR 16 GM BTL NAE SCH (08:29)
[2018-01-06] MEDS: CARVEDILOL 25 MG TAB PO SCH ×2 (08:30→19:54)
[2018-01-06] MEDS ORDERED: FUROSEMIDE INJ 40 MG in SYRINGE 0 ML IV ONE (08:30)
[2018-01-06 08:49] LABS: HEMATOCRIT 22.4 % (37-47); HEMOGLOBIN 7.5 g/dL (12.0-16.0)
[2018-01-06] MEDS: ATORVASTATIN 20 MG TAB PO SCH (09:00)
[2018-01-06] MEDS: CHOLECALCIFEROL 1000 INTER.UNIT TAB PO SCH (09:00)
[2018-01-06] MEDS: HYDROCODONE/ACETAMI 10/325 TAB PO PRN ×2 (09:14→19:53)
--- NOTE | 2018-01-06 09:59 | Gastrointestinal Consultation ---
Gastrointestinal Consultation Date of Consultation: Jan 06, 2018 Attending Physician: Reba Fernandez MD Consulting Physician: Zelda Landeros MD Reason for Consultation: severe anemia History of Present Illness Patient is a 67 year old female with a hx of DM, HTN, CAD, PAD, Osteomyelitis, Asthma, CKD-V, on Plavix, s/p LLE angioplasty on 01/04/[address] [facility]. She was sent to the ED at [facility] due to a low blood count of 5.2, found on outpatient labs. She was transfused 2 units of pRBCs, and sent here for further work up/admission. On arrival, blood work shows a Hgb of 7.9, repeated at 7.[address] scan was non-acute, but did show significant soft tissue edema of the low back, buttocks and upper thighs. Cholelithiasis and diverticulosis were noted as well. She has a large hematoma in the left groin area. She does report a few week hx of intermittent melena, occurring about once weekly. Bowels move about once every other day. She denies any abdominal pain, n/v. She does have occasional heartburn based on diet, using TUMS as needed. She has never had endoscopic evaluation. Denies NSAID use. Past Medical/Surgical History Medical Problems: (1) Asthma Status: Chronic (2) Asthmatic bronchitis Status: Acute (3) Athscl Heart Disease Of [place] Coronary Artery W/O Ang Pctrs Status: Chronic (4) Diab Neli Wo Compl, Type Ii Or Unspec Type, Not Uncntrld Status: Chronic (5) Elevated troponin Status: Acute (6) End Stage Renal Disease Status: Chronic (7) Hyperlipidemia, Unspecified Status: Chronic (8) Type 2 Diabetes Mellitus Without Complications Status: Chronic (9) Vitamin D Deficiency, Unspecified Status: Chronic Surgical Problems: (1) AV fistula Status: Chronic (2) Presence Of Aortocoronary Bypass Graft Status: Chronic Past Medical History: CAD, DM, HTN, Dyslipidemia, CKD-V, PAD, Glaucoma, Osteomyelitis, Asthma Past Surgical History: Fistula, Cataract removal, CABG, Family History Cardiac disorder MOTHER Diabetes mellitus MOTHER SISTER FATHER Hypertension SISTER Social History Smoking Status: Former Smoker Alcohol Use: none Drug Use: none Housing Status: lives alone Occupation Status: employed Allergies Coded Allergies: Amoxicillin (Verified Allergy, Mild, LIGHTHEADED, DIZZY AND NAUSEA, 9/26/ 17) Clavulanic Acid (Verified Allergy, Mild, LIGHTHEADED, DIZZY AND NAUSEA, ) Current Medications Home Meds and Scripts Medications Dose Route/Sig Max Daily Dose Days Date Category Proair Respiclick (Albuterol Sulfate) 108 Mcg/Act Aer 90 Mcg INH Q4H 01/06/18 Reported Xalatan 0.005% Oph Samanta (Latanoprost) 0.005 % Samanta 1 Drops OP HS 01/06/18 Reported Plavix (Clopidogrel Bisulfate) 75 Mg Tab 75 Mg PO DAILY 01/06/18 Reported [place] 10/325 Tab (Acetaminophen/Hydrocodone Bitart) 1 Tab Tab 1 Tab PO Q12 PRN 01/06/18 Reported Glucotrol (Glipizide) 5 Mg Tab 5 Mg PO BID 01/06/18 Reported Carvedilol 25 Mg Tab PO DAILY 01/06/18 Reported Hydralazine HCl 100 Mg Tab PO BID 01/06/18 Reported [valtessa] 8.4 Mg PO HS 03/23/17 Reported Allergy Nasal [place] 24 Ho (Fluticasone Propionate (Nasal)) 50 Mcg/Act Spr 2 [place] JOE DAILY 30 03/13/17 Rx Tylenol Extra Strength (Acetaminophen) 500 Mg Tab 1 Tab PO Q6 PRN 03/10/17 Reported Rocaltrol Cap (Calcitriol) 0.25 Mcg Cap 0.25 Mcg PO MWF 03/10/17 Reported Aspirin Ec (Aspirin) 81 Mg Tab 81 Mg PO QAM 10/07/16 Reported Ventolin Hfa (Albuterol) 200 Puffs/62453 Mcg Aers 2 Puffs INH Q4H PRN 10/07/16 Reported Glimepiride 4 Mg Tab 1 Tab PO QAM 10/07/16 Reported Lipitor (Atorvastatin Calcium) 40 Mg Tab 40 Mg PO DAILY 10/07/16 Reported Vitamin D (Cholecalciferol) 5,000 Unit Tab 1 Tab PO QAM 10/07/16 Reported Review of Systems Constitutional: No fever, No chills Eyes: No worsening of vision ENT: No hearing loss, No sore throat Respiratory: No cough, No wheezing, No shortness of breath Cardiac: No chest pain Abdomen: + see HPI Musculoskeletal: + problem reported (left groin pain) Female : No dysuria Neuro: No problem reported Psych: No problem reported Heme: + see HPI Endo: No excessive thirst, No excessive urination Skin: No rash, No itch Physical Exam Date Time Temp Pulse Resp B/P (MAP) Pulse Ox O2 Delivery O2 Flow Rate FiO2 01/06/18 07:30 Room Air 01/06/18 07:11 36.6 66 18 150/65 (93) 97 Room Air 01/06/18 04:15 36.8 73 16 196/68 Room Air General Appearance: no apparent distress Eyes: normal inspection ENT: hearing grossly normal Neck: supple Respiratory/Chest: lungs clear, normal breath sounds, no respiratory distress Cardiovascular: regular rate, rhythm, no edema Abdomen: normal bowel sounds, non tender, soft, no organomegaly Extremities: non-tender, + pertinent finding (Left great toe discoloration/ ulceration) Neurologic/Psych: alert Skin: normal color Laboratory Results Last 24 Hours Test 01/06/18 04:51 01/06/18 05:39 01/06/18 07:15 01/06/18 08:37 White Blood Count 8.37 K/uL Red Blood Count 2.59 M/uL Hemoglobin 7.9 g/dL 7.5 g/dL Hematocrit 23.8 % 22.4 % Mean Corpuscular Volume 91.9 fL Mean Corpuscular Hemoglobin 30.5 pg Mean Corpuscular Hemoglobin Concent 33.2 g/dl Platelet Count 228 K/uL Mean Platelet Volume 9.3 fL Neutrophils (%) (Auto) 71.8 % Lymphocytes (%) (Auto) 15.5 % Monocytes (%) (Auto) 9.6 % Eosinophils (%) (Auto) 2.0 % Basophils (%) (Auto) 0.5 % Neutrophils # (Auto) 6.01 K/uL Lymphocytes # (Auto) 1.30 K/uL Monocytes # (Auto) 0.80 K/uL Eosinophils # (Auto) 0.17 K/uL Basophils # (Auto) 0.04 K/uL RDW Standard Deviation 48.3 fL RDW Coefficient of Variation 14.6 % Immature Granulocyte % (Auto) 0.6 % Immature Granulocyte # (Auto) 0.05 K/uL Red Blood Cell Morphology Unremarkable Sodium Level 138 mmol/L Potassium Level 5.6 mmol/L Chloride Level 113 mmol/L Carbon Dioxide Level 17 mmol/L Anion Gap 8.0 mmol/L Blood Urea Nitrogen 63 mg/dl Creatinine 5.84 mg/dl Est Creatinine Clear Calc Drug Dose 8.6 ml/min Estimated GFR () 8.0 Estimated GFR (Non- 6.9 BUN/Creatinine Ratio 10.7 Random Glucose 110 mg/dl Calcium Level 8.0 mg/dl Phosphorus Level 5.0 mg/dl Magnesium Level 1.9 mg/dl Total Bilirubin 1.2 mg/dl Direct Bilirubin 0.3 mg/dl Aspartate Amino Transf (AST/SGOT) 20 U/L Alanine Aminotransferase (ALT/SGPT) 25 U/L Alkaline Phosphatase 54 U/L Total Protein 5.4 gm/dl Albumin 2.2 gm/dl Estimated Average Glucose 123 mg/dl Hemoglobin A1c 5.9 % Iron Level 224 mcg/dl Transferrin 178 mg/dl Transferrin % Saturation 89 % Ferritin 65.1 ng/ml Folate 5.38 ng/mL Bedside Glucose 133 mg/dl Impression Patient is a 67 year old female with a hx of CAD/PAD/CABG s/p recent angioplasty /on Plavix, admitted with severe anemia Plan -Keep NPO -Plan for EGD today to rule out a possible upper GI source of blood loss Attg add: I interviewed and examined pt, reviewed chart and labs. Pt with anemia, large groin hematoma, ? dark stool. Suspect anemia related to hematoma , will proceed with EGD to r/o UGI source of bleed.
--- NOTE | 2018-01-06 10:54 | Medical Consult ---
Consultation Date of Consultation: Jan 06, 2018. Attending Physician: Reba Fernandez D.O. Reason for Consultation: Left great toe osteomyelitis History of Present Illness 67-year-old female with diabetes mellitus associated with severe peripheral arterial disease, who has been followed at [facility] for left great toe osteomyelitis in the setting of arterial insufficiency. She has recently been started on IV dalvabancin, and tolerated her 1st dose without apparent difficulty. She recently underwent vascular intervention involving her left leg , and now admitted with severe anemia and marked ecchymoses involving her left thigh and groin. She has had CT scan of the abdomen and leg showing evidence soft tissue blood, but no discrete hematoma or other drainable collection. She has not had recent fever or chills. No obvious change in her left great toe infection. Has had low-grade fevers. Past Medical/Surgical History Medical Problems: (1) Asthma Status: Chronic (2) Asthmatic bronchitis Status: Acute (3) Athscl Heart Disease Of [place] Coronary Artery W/O Ang Pctrs Status: Chronic (4) Diab Neli Wo Compl, Type Ii Or Unspec Type, Not Uncntrld Status: Chronic (5) Elevated troponin Status: Acute (6) End Stage Renal Disease Status: Chronic (7) Hyperlipidemia, Unspecified Status: Chronic (8) Type 2 Diabetes Mellitus Without Complications Status: Chronic (9) Vitamin D Deficiency, Unspecified Status: Chronic Surgical Problems: (1) AV fistula Status: Chronic (2) Presence Of Aortocoronary Bypass Graft Status: Chronic Medical Problems: (1) Anemia (2) Asthma (3) Asthma (4) Athscl Heart Disease Of [place] Coronary Artery W/O Ang Pctrs (5) AV fistula (6) Bronchitis (7) CAD (coronary artery disease) (8) CKD (chronic kidney disease), stage V (9) Diab Neli Wo Compl, Type Ii Or Unspec Type, Not Uncntrld (10) DM type 2 (diabetes mellitus, type 2) (11) End Stage Renal Disease (12) HTN (hypertension) (13) Hyperlipidemia (14) Hyperlipidemia, Unspecified (15) Hyponatremia (16) Obesity (BMI 30.0-34.9) (17) Osteoarthritis (18) Osteoporosis (19) Type 2 Diabetes Mellitus Without Complications (20) Vitamin D Deficiency, Unspecified Surgical Problems: (1) AV fistula (2) History of cataract surgery (3) Presence Of Aortocoronary Bypass Graft (4) S/P CABG x 3 (5) S/P section Family History Cardiac disorder MOTHER Diabetes mellitus MOTHER SISTER FATHER Hypertension SISTER Social History Smoking Status: Former Smoker Drug Use: none Housing Status: lives alone Occupation Status: employed Allergies Coded Allergies: Amoxicillin (Verified Allergy, Mild, LIGHTHEADED, DIZZY AND NAUSEA, ) Clavulanic Acid (Verified Allergy, Mild, LIGHTHEADED, DIZZY AND NAUSEA, ) Current Inpatient Medications Current Inpatient Medications Medications (Trade) Dose Ordered Sig/[place] Route Start Time Stop Time Status Last Admin Dose Admin Acetaminophen (Tylenol Tab) 650 mg Q4H PRN PO 01/06/18 04:45 02/05/18 04:44 Miscellaneous (Iv Fluids Completed) 1 ea PRN PRN N/A 01/06/18 04:45 01/06/19 04:44 Clonidine HCl (Catapres Tab) 0.1 mg Q6H PRN PO 01/06/18 05:00 02/05/18 04:59 01/06/18 05:20 0.1 MG Ferrous Sulfate (Feosol Tab) 325 mg BIDM PO 01/06/18 07:30 02/05/18 07:29 Insulin Aspart (novoLOG ASPART) SLIDING SCALE If C... ACHS SC 01/06/18 07:00 02/05/18 06:59 Glucose (Glucose 40% Gel) 15-30 GRAMS 15 GRAMS... UD PRN PO 01/06/18 05:45 02/05/18 05:44 Glucose (Glucose Chew Tab) 4-8 Tablets 4 Tabl... UD PRN PO 01/06/18 05:45 02/05/18 05:44 Dextrose (Dextrose 50% 50ML Syringe) 25-50ML 25ML FOR ... UD PRN IV 01/06/18 05:45 02/05/18 05:44 Glucagon (Glucagon Inj) 1 mg UD PRN SQ 01/06/18 05:45 02/05/18 05:44 Carbohydrates (Carbohydrates For Hypoglycemia) 15-30 GRAMS 15 grams if BSG 54-69... UD PRN PO 01/06/18 05:45 02/05/18 05:44 Albuterol (Ventolin Hfa Inhaler) 2 puffs Q4H PRN INH 01/06/18 05:45 02/05/18 05:44 Atorvastatin Calcium (Lipitor Tab) 40 mg DAILY PO 01/06/18 09:00 02/05/18 08:59 Calcitriol (Rocaltrol Cap) 0.25 mcg MoWeFr@0900 PO 01/07/18 09:00 02/06/18 08:59 Carvedilol (Coreg Tab) 25 mg BID PO 01/06/18 09:00 02/05/18 08:59 01/06/18 08:30 25 MG Fluticasone Propionate (Flonase Nasal [place]) 1 sprays DAILY JOE 01/06/18 09:00 02/05/18 08:59 01/06/18 08:29 1 SPRAYS Latanoprost (Xalatan Oph Soln) 1 drops HS OP 01/06/18 21:00 02/05/18 20:59 Cholecalciferol (Vitamin D Tab) 5,000 inter.unit QAM PO 01/06/18 09:00 02/05/18 08:59 Hydralazine HCl (Apresoline Tab) 100 mg BID PO 01/06/18 09:00 02/05/18 08:59 01/06/18 08:30 100 MG Miscellaneous Information (Order Awaiting Action) 1 ea QS N/A 01/06/18 08:00 02/05/18 07:59 01/06/18 08:27 1 EA Pantoprazole Sodium 40 mg/ Dextrose 100 ml @ 20 mls/hr Q5H IV 01/06/18 06:15 02/05/18 06:14 01/06/18 06:35 20 MLS/HR Acetaminophen/ Hydrocodone Bitart ([place] 10/325 Tab) 1 tab Q12 PRN PO 01/06/18 09:00 01/20/18 08:59 01/06/18 09:14 1 TAB Review of Systems All systems were reviewed and are negative except as per HPI Physical Exam Date Time Temp Pulse Resp B/P (MAP) Pulse Ox O2 Delivery O2 Flow Rate FiO2 01/06/18 10:47 36.6 60 20 116/67 97 01/06/18 10:13 36.8 55 20 114/72 97 01/06/18 09:56 36.7 55 20 116/66 94 01/06/18 09:47 36.5 56 20 120/64 96 0.0 01/06/18 07:30 Room Air 01/06/18 07:11 36.6 66 18 150/65 (93) 97 Room Air 01/06/18 04:15 36.8 73 16 196/68 Room Air General Appearance: WD/WN, no apparent distress Head: normocephalic, atraumatic Eyes: normal inspection, EOMI, sclerae normal ENT: normal ENT inspection, hearing grossly normal, pharynx normal Neck: supple, no adenopathy, thyroid normal, trachea midline Respiratory/Chest: chest non-tender, lungs clear, normal breath sounds, no respiratory distress Cardiovascular: regular rate, rhythm, no gallop, no murmur Abdomen/GI: normal bowel sounds, non tender, soft, no organomegaly Back: normal inspection, no CVA tenderness Extremities/Musculoskelatal: no calf tenderness, + slow capillary refill, + pertinent finding (Significant ecchymoses of the left thigh and groin) Neurologic/Psych: alert, normal mood/affect, oriented x 3 Skin: normal color, no rash, + pertinent finding (Left great toe ulceration, minimal erythema and swelling of the toe, ecchymoses left upper leg and groin) Lymphatic: no adenopathy Laboratory Results Last 24 Hours Test 01/06/18 04:51 01/06/18 05:39 01/06/18 07:15 01/06/18 08:37 White Blood Count 8.37 K/uL Red Blood Count 2.59 M/uL Hemoglobin 7.9 g/dL 7.5 g/dL Hematocrit 23.8 % 22.4 % Mean Corpuscular Volume 91.9 fL Mean Corpuscular Hemoglobin 30.5 pg Mean Corpuscular Hemoglobin Concent 33.2 g/dl Platelet Count 228 K/uL Mean Platelet Volume 9.3 fL Neutrophils (%) (Auto) 71.8 % Lymphocytes (%) (Auto) 15.5 % Monocytes (%) (Auto) 9.6 % Eosinophils (%) (Auto) 2.0 % Basophils (%) (Auto) 0.5 % Neutrophils # (Auto) 6.01 K/uL Lymphocytes # (Auto) 1.30 K/uL Monocytes # (Auto) 0.80 K/uL Eosinophils # (Auto) 0.17 K/uL Basophils # (Auto) 0.04 K/uL RDW Standard Deviation 48.3 fL RDW Coefficient of Variation 14.6 % Immature Granulocyte % (Auto) 0.6 % Immature Granulocyte # (Auto) 0.05 K/uL Red Blood Cell Morphology Unremarkable Sodium Level 138 mmol/L Potassium Level 5.6 mmol/L Chloride Level 113 mmol/L Carbon Dioxide Level 17 mmol/L Anion Gap 8.0 mmol/L Blood Urea Nitrogen 63 mg/dl Creatinine 5.84 mg/dl Est Creatinine Clear Calc Drug Dose 8.6 ml/min Estimated GFR () 8.0 Estimated GFR (Non- 6.9 BUN/Creatinine Ratio 10.7 Random Glucose 110 mg/dl Calcium Level 8.0 mg/dl Phosphorus Level 5.0 mg/dl Magnesium Level 1.9 mg/dl Total Bilirubin 1.2 mg/dl Direct Bilirubin 0.3 mg/dl Aspartate Amino Transf (AST/SGOT) 20 U/L Alanine Aminotransferase (ALT/SGPT) 25 U/L Alkaline Phosphatase 54 U/L Total Protein 5.4 gm/dl Albumin 2.2 gm/dl Estimated Average Glucose 123 mg/dl Hemoglobin A1c 5.9 % Iron Level 224 mcg/dl Transferrin 178 mg/dl Transferrin % Saturation 89 % Ferritin 65.1 ng/ml Folate 5.38 ng/mL Bedside Glucose 133 mg/dl Patient Name: VIDHYA PERRY Unit Number: [id number] Dictated: 01/06/18713 Transcribed: 01/06/18713 EV Printed Date/Time: [~ rep prt dt]/[~ rep prt tm] [~ rep ct labl] - [~ rep ct ivnm] [facility] [place] [address] Dictated: 01/06/18713 Transcribed: 01/06/18713 EV Printed Date/Time: [~ rep prt dt]/[~ rep prt tm] [~ rep ct labl] - [~ rep ct ivnm] [~ rep ct add3]] CT SCAN OF THE ABDOMEN AND PELVIS WITHOUT IV CONTRAST CLINICAL HISTORY: Left groin bruising. Status post left lower extremity angioplasty. COMPARISON STUDY: No priors. TECHNIQUE: CT scan of the abdomen and pelvis is performed from the lung bases to the proximal femora. Images are reviewed in the axial, sagittal, and coronal planes. IV contrast was not administered for this examination as per the referring clinician. Note that the examination was performed in suboptimal fashion without IV contrast.. A dose lowering technique was utilized adhering to the principles of ALARA. FINDINGS: Lung bases: The patient is status post midline sternotomy. The heart is top normal in size and without pericardial effusion. The coronary arteries, mitral annulus, and aortic valve leaflets are densely calcified. There is elevation of the right hemidiaphragm. There is a trace left pleural effusion. The lung bases are otherwise clear noting minimal bibasilar atelectasis. A tiny hiatal hernia is noted. Liver: The unenhanced liver is normal in size, contour, and attenuation. There is no intrahepatic biliary ductal dilatation. Gallbladder: There are numerous calcified gallstones. There is no CT evidence of acute cholecystitis. Spleen: Normal in size and attenuation. Pancreas: The unenhanced pancreas is grossly unremarkable. Adrenal glands: Unremarkable. Kidneys: The unenhanced kidneys are atrophic and without hydronephrosis. There are renovascular calcifications. No renal calculi are identified. There is no evidence of contour deforming renal mass lesion. Abdominal vasculature: The abdominal aorta is normal in course and caliber noting advanced atherosclerotic calcification. Bowel: There is moderate sigmoid diverticulosis without CT evidence of acute diverticulitis. Mild/moderate colonic fecal retention is observed. No bowel obstruction is seen. The appendix is well-visualized and normal. Peritoneum: There is no intraperitoneal free air or abdominal ascites. Lymphadenopathy: None. Pelvic viscera: The bladder, uterus, and adnexa are normal as visualized. Skeletal structures: The skeletal structures are osteopenic. There is mild to moderate lumbosacral spondylosis. Large posterior disc osteophyte complexes are seen at L3-L4, L4-L5, and L5-S1. No lytic or blastic lesions are seen. Healed left-sided rib fractures are noted. Soft tissues: There is diffuse subcutaneous soft tissue edema identified throughout the lower back, the buttocks, and overlying the hips. This is greater on the left than the right. There is trace hyperdense fluid identified in the soft tissues of the anterior left upper thigh seen on image #[id number]. This likely represents hematoma, and this measures up to 4 x 1.5 cm in maximum dimension. No intramuscular or intrapelvic hematoma is identified. IMPRESSION: 1. There are no acute infectious or inflammatory findings in the abdomen or pelvis. 2. There is significant subcutaneous soft tissue edema identified in the lower back, the buttocks, and the upper thighs. This is greater on the left than the right. 3. There are blood products/a small hematoma identified in the anterior left upper thigh superficial to the quadriceps musculature as detailed above. If there is concern for a pseudoaneurysm then ultrasound should be considered. 4. Cholelithiasis. 5. Moderate sigmoid diverticulosis without CT evidence of acute diverticulitis. 6. Trace left pleural effusion. 7. Additional findings as above. Electronically signed by: Marito Khoury M.D. 01/06/2018 7:22 AM Dictated Date/Time: 01/06/2018 7:14 AM The status of this report is Signed. Draft = Not yet reviewed or approved by Radiologist. Signed = Reviewed and approved by Radiologist. <AttendingPhy>Unruly Olsen M.D.</AttendingPhy> <FamilyPhy>Alan Francois M.D.</FamilyPhy> <PrimaryPhy>Alan Francois M.D.</PrimaryPhy> <UnitNumber> [id number]</UnitNumber> <VisitNumber>[id number]</VisitNumber> <PatientName> VIDHYA PERRY</PatientName> <DateOfBirth>1950</DateOfBirth> <Location>[facility] </Location> <ServiceDate></ServiceDate> <MNE>ESINDI</MNE> <OrderingPhy>Sebastian Cortez MD</OrderingPhy> <OrderingPhyMNE>f rep ord dr dinh</OrderingPhyMNE> < DictatingPhyMNE>f rep dict dr dinh</DictatingPhyMNE> <CCListMNE>f rep ct fabrizio</ CCListMNE> <AdmittingPhyMNE>f pt admit dr dinh</AdmittingPhyMNE> <AttendingPhyMNE >f pt attend dr dinh</AttendingPhyMNE> <ConsultingPhyMNE>f pt consult dr dinh</ConsultingPhyMNE> <FamilyPhyMNE>f pt fam dr dinh</FamilyPhyMNE> <OtherPhyMNE>f pt other dr dinh</OtherPhyMNE> < PrimaryPhyMNE>f pt prim care dr dinh</PrimaryPhyMNE> <ReferringPhyMNE>f pt referring dr dinh</ReferringPhyMNE> Assessment & Plan 67-year-old female with diabetes, peripheral arterial disease, renal failure on dialysis, with chronic osteomyelitis of the left great toe, currently under treatment with IV dalvabancin. Patient should be treated with vancomycin while in hospital, will try to obtain culture results from her [facility]. Suspect she will need partial amputation of the toe in the near future for control of infection. Will discuss with all involved. Will follow.
--- NOTE | 2018-01-06 13:33 | DIAGNOSTIC IMAGING REPORT ---
L ART DOP DUPLEX LWR EXT UNI CLINICAL HISTORY: Rule out pseudoaneurysm, recent angioplasty pain TECHNIQUE: Ultrasound COMPARISON STUDY: None FINDINGS: No evidence for pseudoaneurysm. Hematoma within the left inguinal region measuring 3.5 x 2.0 x 4.0 cm. Moderate soft tissue edematous change. No evidence for drainable abscess or collection. IMPRESSION: 1. No evidence for pseudoaneurysm. 2. Left groin hematoma with dimensions as noted. 3. Mild generalized local soft tissue edematous change 4. No evidence for drainable abscess or collection. The above report was generated using voice recognition software. It may contain grammatical, syntax or spelling errors. Electronically signed by: Joaquin Lara M.D. 01/06/2018 1:32 PM Dictated Date/Time: 01/06/2018 1:30 PM
[2018-01-06 14:02] LABS: HEMATOCRIT 26.8 % (37-47); HEMOGLOBIN 8.9 g/dL (12.0-16.0)
[2018-01-06 14:53] LABS: CALCIUM 8.3 mg/dl (8.5-10.1); POTASSIUM 5.6 mmol/L (3.5-5.1)
[2018-01-06] MEDS ORDERED: LIDOCAINE HCL 2% 2 ML VIAL (20MG/ML) ONE (15:29)
[2018-01-06] MEDS ORDERED: PROPOFOL IV EMULSION 10 MG/ML 20 ML VIAL ONE (15:29)
[2018-01-06] MEDS ORDERED: CONSULT PHARMACY STA (15:52)
[2018-01-06] MEDS ORDERED: PATI1POW PO (16:21)
--- NOTE | 2018-01-06 16:27 | Anesthesiology Progress Note ---
Anesthesia Post Op Note Date & Time Jan 06, 2018 at 16:27 Vital Signs Pain Intensity: 0.0 Vital Signs Past 12 Hours Date Time Temp Pulse Resp B/P (MAP) Pulse Ox O2 Delivery O2 Flow Rate FiO2 01/06/18 16:21 36.0 59 16 108/45 (66) 100 Room Air 01/06/18 16:01 36.4 60 18 156/66 (96) 98 Room Air 01/06/18 15:41 36.4 65 18 170/77 (108) 99 Room Air 01/06/18 15:00 Room Air 01/06/18 11:30 36.8 62 20 114/68 96 01/06/18 10:47 36.6 60 20 116/67 97 01/06/18 10:13 36.8 55 20 114/72 97 01/06/18 09:56 36.7 55 20 116/66 94 01/06/18 09:47 36.5 56 20 120/64 96 0.0 01/06/18 07:30 Room Air 01/06/18 07:11 36.6 66 18 150/65 (93) 97 Room Air Notes Mental Status: alert / awake / arousable, participated in evaluation Pt Amnestic to Procedure: Yes Nausea / Vomiting: adequately controlled Pain: adequately controlled Airway Patency, RR, SpO2: stable & adequate BP & HR: stable & adequate Hydration State: stable & adequate Anesthetic Complications: no major complications apparent
[2018-01-06] MEDS ORDERED: VANCOMYCIN IV 1,750 MG in SODIUM CHLORIDE 0.9% 500ML 500 ML IV ONE (16:30)
[2018-01-06] MEDS ORDERED: VANCOMYCIN TROUGH ONE (16:30)
[2018-01-06] MEDS ORDERED: VANCOMYCIN CONSULT ACTIVE PRN (17:30)
--- NOTE | 2018-01-06 17:39 | Nephrology Consultation ---
Nephrology Consultation Date of Consultation: Jan 06, 2018. Attending Physician: Dr Olsen Requesting Physician: Dr Cortez Reason for Consultation: TRU on CKD5 History of Present Illness 67 year old female transferred from [facility] yesterday w/ concerns about worsening renal function and melena, acute anemia. She had been sent there from wound clinic d/t hgb 5.2 after she presented w/ presyncopal sx and hypotension. Follows in wound clinic for mgt of recently diagnosed L great toe osteomyelitis; has been receiving unspecified abtx for this IV. Also s/p LLE angioplasty [facility] 01/04/18 c/b L thigh hematoma and groin tenderness. Her baseline creatinine is about 5 since late 2016; on presentation yesterday was 5.7 to OSH per ER physician w/ whom I spoke yesterday; also w/ hgb 5.5 and melena. She had 2 units pRBC in ER at [place]; for another unit here. On arrival here, hgb 7.9, K 5.6, creatinine 5.8. She recently had work done on her AVF at [facility]. Past Medical/Surgical History Medical Problems: see below -ckd 5 not yet on dialysis w/ baseline creatinine about 5; 9 gm proteinuria; has AVF placed by Dr Solorzano; followed in past w/ Dr. Peralta (now w/ me) -s/p recent AVF intervention 11/2017 [facility]-further details unavailable -PAD s/p LLE angioplasty 01/04/18 at [facility] -CAD s/p 2009 3VCABG -DM2 > 30 years -HTN -HL -reformed tobacco abuse (quit 2009; 15 pk yr hx) -asthma -osteoporosis -s/p C section, cataract surgery -L great toe osteomyelitis; h/o toe infection 06/2017; follows w/ wound center in [place] Family History Cardiac disorder MOTHER Diabetes mellitus MOTHER SISTER FATHER Hypertension SISTER Social History Smoking Status: Former Smoker Alcohol Use: none Drug Use: none Housing Status: lives alone Occupation Status: employed Allergies Coded Allergies: Amoxicillin (Verified Allergy, Mild, LIGHTHEADED, DIZZY AND NAUSEA, ) Clavulanic Acid (Verified Allergy, Mild, LIGHTHEADED, DIZZY AND NAUSEA, ) Medications Current Inpatient Medications Medications (Trade) Dose Ordered Sig/Ewelina Route Start Time Stop Time Status Last Admin Dose Admin Acetaminophen (Tylenol Tab) 650 mg Q4H PRN PO 01/06/18 04:45 02/05/18 04:44 Miscellaneous (Iv Fluids Completed) 1 ea PRN PRN N/A 01/06/18 04:45 01/06/19 04:44 Clonidine HCl (Catapres Tab) 0.1 mg Q6H PRN PO 01/06/18 05:00 02/05/18 04:59 01/06/18 05:20 0.1 MG Ferrous Sulfate (Feosol Tab) 325 mg BIDM PO 01/06/18 07:30 02/05/18 07:29 Insulin Aspart (novoLOG ASPART) SLIDING SCALE If C... ACHS SC 01/06/18 07:00 02/05/18 06:59 Glucose (Glucose 40% Gel) 15-30 GRAMS 15 GRAMS... UD PRN PO 01/06/18 05:45 02/05/18 05:44 Glucose (Glucose Chew Tab) 4-8 Tablets 4 Tabl... UD PRN PO 01/06/18 05:45 02/05/18 05:44 Dextrose (Dextrose 50% 50ML Syringe) 25-50ML 25ML FOR ... UD PRN IV 01/06/18 05:45 02/05/18 05:44 Glucagon (Glucagon Inj) 1 mg UD PRN SQ 01/06/18 05:45 02/05/18 05:44 Carbohydrates (Carbohydrates For Hypoglycemia) 15-30 GRAMS 15 grams if BSG 54-69... UD PRN PO 01/06/18 05:45 02/05/18 05:44 Albuterol (Ventolin Hfa Inhaler) 2 puffs Q4H PRN INH 01/06/18 05:45 02/05/18 05:44 Atorvastatin Calcium (Lipitor Tab) 40 mg DAILY PO 01/06/18 09:00 02/05/18 08:59 Calcitriol (Rocaltrol Cap) 0.25 mcg MoWeFr@0900 PO 01/07/18 09:00 02/06/18 08:59 Carvedilol (Coreg Tab) 25 mg BID PO 01/06/18 09:00 02/05/18 08:59 Fluticasone Propionate (Flonase Nasal [place]) 1 sprays DAILY JOE 01/06/18 09:00 02/05/18 08:59 Latanoprost (Xalatan Oph Soln) 1 drops HS OP 01/06/18 21:00 02/05/18 20:59 Cholecalciferol (Vitamin D Tab) 5,000 inter.unit QAM PO 01/06/18 09:00 02/05/18 08:59 Hydralazine HCl (Apresoline Tab) 100 mg BID PO 01/06/18 09:00 02/05/18 08:59 Miscellaneous Information (Order Awaiting Action) 1 ea QS N/A 01/06/18 08:00 02/05/18 07:59 Pantoprazole Sodium 40 mg/ Dextrose 100 ml @ 20 mls/hr Q5H IV 01/06/18 06:15 02/05/18 06:14 01/06/18 06:35 20 MLS/HR Home Meds and Scripts Medications Dose Route/Sig Max Daily Dose Days Date Category Proair Respiclick (Albuterol Sulfate) 108 Mcg/Act Aer 90 Mcg INH Q4H 01/06/18 Reported Xalatan 0.005% Oph Samanta (Latanoprost) 0.005 % Samanta 1 Drops OP HS 01/06/18 Reported Plavix (Clopidogrel Bisulfate) 75 Mg Tab 75 Mg PO DAILY 01/06/18 Reported Mcdaniel 10/325 Tab (Acetaminophen/Hydrocodone Bitart) 1 Tab Tab 1 Tab PO Q12 PRN 01/06/18 Reported Glucotrol (Glipizide) 5 Mg Tab 5 Mg PO BID 01/06/18 Reported Carvedilol 25 Mg Tab PO DAILY 01/06/18 Reported Hydralazine HCl 100 Mg Tab PO BID 01/06/18 Reported [valtessa] 8.4 Mg PO HS 03/23/17 Reported Allergy Nasal Maple 24 Ho (Fluticasone Propionate (Nasal)) 50 Mcg/Act Spr 2 Maple JOE DAILY 30 03/13/17 Rx Tylenol Extra Strength (Acetaminophen) 500 Mg Tab 1 Tab PO Q6 PRN 03/10/17 Reported Rocaltrol Cap (Calcitriol) 0.25 Mcg Cap 0.25 Mcg PO MWF 03/10/17 Reported Aspirin Ec (Aspirin) 81 Mg Tab 81 Mg PO QAM 10/07/16 Reported Ventolin Hfa (Albuterol) 200 Puffs/32232 Mcg Aers 2 Puffs INH Q4H PRN 10/07/16 Reported Glimepiride 4 Mg Tab 1 Tab PO QAM 10/07/16 Reported Lipitor (Atorvastatin Calcium) 40 Mg Tab 40 Mg PO DAILY 10/07/16 Reported Vitamin D (Cholecalciferol) 5,000 Unit Tab 1 Tab PO QAM 10/07/16 Reported Review of Systems Constitutional: + weakness, + fatigue, No fever, No chills Eyes: No worsening of vision ENT: No hearing loss Respiratory: No cough, No shortness of breath Cardiac: No chest pain, No edema, No palpitations Abdomen: No pain, No nausea, No vomiting, No diarrhea, No constipation Musculoskeletal: + muscle pain (L thigh), + swelling (L thigh), No joint pain Neuro: + weakness, + balance problems, No memory loss Psych: + anxiety, No depression symptoms Heme: + abnormal bleeding/bruising Endo: + fatigue Skin: No rash, No itch Physical Exam Date Time Temp Pulse Resp B/P (MAP) Pulse Ox O2 Delivery O2 Flow Rate FiO2 01/06/18 07:11 36.6 66 18 150/65 (93) 97 Room Air 01/06/18 04:15 36.8 73 16 196/68 Room Air General Appearance: WD/WN, no apparent distress, + pertinent finding (on ra, maneuvers readily for exam) Eyes: EOMI ENT: hearing grossly normal Neck: supple Respiratory/Chest: lungs clear Cardiovascular: regular rate, rhythm, no edema Abdomen: normal bowel sounds, non tender, soft, + pertinent finding (no dodson) Extremities: + swelling (L thigh/groin) Neurologic/Psych: alert, normal mood/affect, oriented x 3 Skin: + pertinent finding (extensive L groin ecchymosis) Diagnostics Last 24 Hours Test 01/06/18 04:51 01/06/18 05:39 01/06/18 07:15 White Blood Count 8.37 K/uL Red Blood Count 2.59 M/uL Hemoglobin 7.9 g/dL Hematocrit 23.8 % Mean Corpuscular Volume 91.9 fL Mean Corpuscular Hemoglobin 30.5 pg Mean Corpuscular Hemoglobin Concent 33.2 g/dl Platelet Count 228 K/uL Mean Platelet Volume 9.3 fL Neutrophils (%) (Auto) 71.8 % Lymphocytes (%) (Auto) 15.5 % Monocytes (%) (Auto) 9.6 % Eosinophils (%) (Auto) 2.0 % Basophils (%) (Auto) 0.5 % Neutrophils # (Auto) 6.01 K/uL Lymphocytes # (Auto) 1.30 K/uL Monocytes # (Auto) 0.80 K/uL Eosinophils # (Auto) 0.17 K/uL Basophils # (Auto) 0.04 K/uL RDW Standard Deviation 48.3 fL RDW Coefficient of Variation 14.6 % Immature Granulocyte % (Auto) 0.6 % Immature Granulocyte # (Auto) 0.05 K/uL Red Blood Cell Morphology Unremarkable Sodium Level 138 mmol/L Potassium Level 5.6 mmol/L Chloride Level 113 mmol/L Carbon Dioxide Level 17 mmol/L Anion Gap 8.0 mmol/L Blood Urea Nitrogen 63 mg/dl Creatinine 5.84 mg/dl Est Creatinine Clear Calc Drug Dose 8.6 ml/min Estimated GFR () 8.0 Estimated GFR (Non- 6.9 BUN/Creatinine Ratio 10.7 Random Glucose 110 mg/dl Calcium Level 8.0 mg/dl Phosphorus Level 5.0 mg/dl Magnesium Level 1.9 mg/dl Total Bilirubin 1.2 mg/dl Direct Bilirubin 0.3 mg/dl Aspartate Amino Transf (AST/SGOT) 20 U/L Alanine Aminotransferase (ALT/SGPT) 25 U/L Alkaline Phosphatase 54 U/L Total Protein 5.4 gm/dl Albumin 2.2 gm/dl Estimated Average Glucose 123 mg/dl Hemoglobin A1c 5.9 % Iron Level 224 mcg/dl Transferrin 178 mg/dl Transferrin % Saturation 89 % Ferritin 65.1 ng/ml Bedside Glucose 133 mg/dl Diagnostic Radiology: cxr>1. Cardiomegaly without overt pulmonary edema. 2. Mild right hemidiaphragmatic elevation with subsegmental left basilar atelectasis. CT abd/pelvis non con 1. There are no acute infectious or inflammatory findings in the abdomen or pelvis. 2. There is significant subcutaneous soft tissue edema identified in the lower back, the buttocks, and the upper thighs. This is greater on the left than the right. 3. There are blood products/a small hematoma identified in the anterior left upper thigh superficial to the quadriceps musculature as detailed above. If there is concern for a pseudoaneurysm then ultrasound should be considered. 4. Cholelithiasis. 5. Moderate sigmoid diverticulosis without CT evidence of acute diverticulitis. 6. Trace left pleural effusion. CT LLE non con 1. Diffuse soft tissue edematous change throughout the left thigh extending from the left inguinal region to the left knee. 2. No evidence for focal drainable abscess or collection. 3. No well-defined focal hematoma EKG: NSR w/ no acute changes Assessment & Plan 67 y/o F w/ CKD 5 not on dialysis, 01/04/18 LLE angioplasty at OSH, DM, CAD, HTN , on IV abtx for L great toe ostemyelitis transferred 01/06 from [facility] ER where she presented w/ hgb 5.2 and creatinine 5.7. She is receiving 3rd unit pRBC; she has a L groin hematoma and c/o few weeks of intermittent [employer] melena. ESRD not on dialysis w/ recently worsened renal function>> had previously had creatinine about 5 since late 2016 -will ask dialysis nurses to check AVF for readiness to use>>nurses feel they could use this access w/ very small needles; that is hopeful but no guarantee of functional access -so far volume status acceptable though could change very suddenly; no indication for emergent dialysis; has historically refused to start -cont D3/calcitriol -? role for osteomyelitis and recent iv abtx Hyperkalemia -likely multifactorial >> esrd, transfusions, ? abtcs -low K diet even if on liquids -continuous cardiac monitoring -will give lasix 40 mg IV x 1; recheck at 1400 >> still high >> doubled her veltassa dose; gave more lasix HTN -pls ensure her meds have hold parameters Acute anemia -f/u GI recs; on protonix gtt -iron studies difficult to interpret after recent pRBC Recent LLE angioplasty -r/o aneurysm > consider u/s per imaging report; consider vasc surgery consult appreciate consult; will follow with you
--- NOTE | 2018-01-06 17:49 | Progress Note ---
Medicine Progress Note Date & Time of Visit: Jan 06, 2018 at 17:47. Subjective Please refer to H&P from this AM for more details. Patient was seen and examined this AM. Was scheduled to undergo EGD this afternoon. Complains of some tenderness and soreness of the left thigh and groin but not feeling as tight/restricted as it did a couple days ago. Complains she did not sleep well last night. No events on tele. Objective Last 8 Hrs Date Time Temp Pulse Resp B/P (MAP) Pulse Ox O2 Delivery O2 Flow Rate FiO2 01/06/18 17:00 Room Air 01/06/18 16:36 62 18 161/85 (110) 98 Room Air 01/06/18 16:21 36.0 59 16 108/45 (66) 100 Room Air 01/06/18 16:01 36.4 60 18 156/66 (96) 98 Room Air 01/06/18 15:41 36.4 65 18 170/77 (108) 99 Room Air 01/06/18 15:00 Room Air 01/06/18 11:30 36.8 62 20 114/68 96 01/06/18 10:47 36.6 60 20 116/67 97 01/06/18 10:13 36.8 55 20 114/72 97 01/06/18 09:56 36.7 55 20 116/66 94 Physical Exam: GENERAL: Patient is in no acute distress. HEENT: No acute trauma, normocephalic, mucous membranes moist, no nasal congestion, no scleral icterus. NECK: No stridor, trachea is midline. LUNGS: CTA bilaterally, no wheeze, no rhonchi, breath sounds equal. HEART: Without murmurs gallops or rubs, regular rate and rhythm. ABDOMEN: Soft, nontender, bowel sounds positive, no hernias, no peritonitis. EXTREMITIES: No cyanosis; B/L LE edema, able to move all extremities without pain or difficulty, large ecchymosis on left thigh, hip, buttock NEUROLOGIC: Oriented x 3, no acute motor or sensory deficits, no focal weakness. SKIN: No rash, no jaundice, no diaphoresis. Laboratory Results: Last 24 Hours Test 01/06/18 04:51 01/06/18 05:39 01/06/18 07:15 01/06/18 08:37 White Blood Count 8.37 K/uL Red Blood Count 2.59 M/uL Hemoglobin 7.9 g/dL 7.5 g/dL Hematocrit 23.8 % 22.4 % Mean Corpuscular Volume 91.9 fL Mean Corpuscular Hemoglobin 30.5 pg Mean Corpuscular Hemoglobin Concent 33.2 g/dl Platelet Count 228 K/uL Mean Platelet Volume 9.3 fL Neutrophils (%) (Auto) 71.8 % Lymphocytes (%) (Auto) 15.5 % Monocytes (%) (Auto) 9.6 % Eosinophils (%) (Auto) 2.0 % Basophils (%) (Auto) 0.5 % Neutrophils # (Auto) 6.01 K/uL Lymphocytes # (Auto) 1.30 K/uL Monocytes # (Auto) 0.80 K/uL Eosinophils # (Auto) 0.17 K/uL Basophils # (Auto) 0.04 K/uL RDW Standard Deviation 48.3 fL RDW Coefficient of Variation 14.6 % Immature Granulocyte % (Auto) 0.6 % Immature Granulocyte # (Auto) 0.05 K/uL Red Blood Cell Morphology Unremarkable Sodium Level 138 mmol/L Potassium Level 5.6 mmol/L Chloride Level 113 mmol/L Carbon Dioxide Level 17 mmol/L Anion Gap 8.0 mmol/L Blood Urea Nitrogen 63 mg/dl Creatinine 5.84 mg/dl Est Creatinine Clear Calc Drug Dose 8.6 ml/min Estimated GFR () 8.0 Estimated GFR (Non- 6.9 BUN/Creatinine Ratio 10.7 Random Glucose 110 mg/dl Calcium Level 8.0 mg/dl Phosphorus Level 5.0 mg/dl Magnesium Level 1.9 mg/dl Total Bilirubin 1.2 mg/dl Direct Bilirubin 0.3 mg/dl Aspartate Amino Transf (AST/SGOT) 20 U/L Alanine Aminotransferase (ALT/SGPT) 25 U/L Alkaline Phosphatase 54 U/L Total Protein 5.4 gm/dl Albumin 2.2 gm/dl Estimated Average Glucose 123 mg/dl Hemoglobin A1c 5.9 % Iron Level 224 mcg/dl Transferrin 178 mg/dl Transferrin % Saturation 89 % Ferritin 65.1 ng/ml Folate 5.38 ng/mL Bedside Glucose 133 mg/dl Test 01/06/18 11:18 01/06/18 13:48 01/06/18 17:08 Bedside Glucose 138 mg/dl 149 mg/dl Hemoglobin 8.9 g/dL Hematocrit 26.8 % Sodium Level 139 mmol/L Potassium Level 5.6 mmol/L Chloride Level 112 mmol/L Carbon Dioxide Level 20 mmol/L Anion Gap 8.0 mmol/L Blood Urea Nitrogen 64 mg/dl Creatinine 6.00 mg/dl Est Creatinine Clear Calc Drug Dose 8.4 ml/min Estimated GFR () 7.7 Estimated GFR (Non- 6.7 BUN/Creatinine Ratio 10.6 Random Glucose 115 mg/dl Calcium Level 8.3 mg/dl Assessment & Plan From H&P this AM by Dr. Cortez Profound, symptomatic anemia Possibly multifactorial from Significant ecchymosis of the left thigh, status post left lower extremity angioplasty Check CT scan of the abdomen and pelvis and left thigh to rule out hemorrhage /fluid collection Hold aspirin and Plavix at this time, but reevaluate closely due to history of CAD and PA Melena, rule out upper GI bleed Will place patient on Protonix drip N.p.o. for now GI consulted Acute on chronic kidney disease stage V Management as noted below Possible acute blood loss anemia on chronic anemia secondary to above Also has iron deficiency Baseline hemoglobin around 9, hemoglobin upon checked yesterday was 5. 2 Status post 2 units of packed RBCs at [facility] Hemoglobin improved 7.9 1 more unit of packed RBCs ordered, hemoglobin goal above 8 Iron level checked at [facility] was 24 We will start p.o. iron supplement Anemia panel ordered Acute on chronic kidney disease stage V Status post AV fistula placement left upper extremity No signs of overt volume overload or uremia at this time Nephrology consulted Left big toe osteomyelitis Follows at [place] [facility] and podiatry Apparently diagnosed with osteomyelitis last week and has been started on IV antibiotics Records being obtained from [facility] We will consult ID for antibiotic recommendations Peripheral artery disease Status post left lower extremity extremity angioplasty January 04, 2018 Hold aspirin Plavix at this time but reevaluate closely Records being obtained from [facility] CAD/CABG No cardiac symptoms Aspirin and Plavix on hold but reevaluate once active bleeding ruled out Continue atorvastatin and carvedilol Diabetes type 2 Hold glipizide Insulin sliding scale for now Hypertension BP elevated, but asymptomatic Patient missed evening blood pressure medications Start as needed clonidine Continue usual carvedilol and hydralazine Glaucoma Continue latanoprost Current Inpatient Medications: Current Inpatient Medications Medications (Trade) Dose Ordered Sig/Ewelina Route Start Time Stop Time Status Last Admin Dose Admin Acetaminophen (Tylenol Tab) 650 mg Q4H PRN PO 01/06/18 04:45 02/05/18 04:44 Miscellaneous (Iv Fluids Completed) 1 ea PRN PRN N/A 01/06/18 04:45 01/06/19 04:44 Clonidine HCl (Catapres Tab) 0.1 mg Q6H PRN PO 01/06/18 05:00 02/05/18 04:59 01/06/18 05:20 0.1 MG Ferrous Sulfate (Feosol Tab) 325 mg BIDM PO 01/06/18 07:30 02/05/18 07:29 Insulin Aspart (novoLOG ASPART) SLIDING SCALE If C... ACHS SC 01/06/18 07:00 02/05/18 06:59 Glucose (Glucose 40% Gel) 15-30 GRAMS 15 GRAMS... UD PRN PO 01/06/18 05:45 02/05/18 05:44 Glucose (Glucose Chew Tab) 4-8 Tablets 4 Tabl... UD PRN PO 01/06/18 05:45 02/05/18 05:44 Dextrose (Dextrose 50% 50ML Syringe) 25-50ML 25ML FOR ... UD PRN IV 01/06/18 05:45 02/05/18 05:44 Glucagon (Glucagon Inj) 1 mg UD PRN SQ 01/06/18 05:45 02/05/18 05:44 Carbohydrates (Carbohydrates For Hypoglycemia) 15-30 GRAMS 15 grams if BSG 54-69... UD PRN PO 01/06/18 05:45 02/05/18 05:44 Albuterol (Ventolin Hfa Inhaler) 2 puffs Q4H PRN INH 01/06/18 05:45 02/05/18 05:44 Atorvastatin Calcium (Lipitor Tab) 40 mg DAILY PO 01/06/18 09:00 02/05/18 08:59 Calcitriol (Rocaltrol Cap) 0.25 mcg MoWeFr@0900 PO 01/07/18 09:00 02/06/18 08:59 Carvedilol (Coreg Tab) 25 mg BID PO 01/06/18 09:00 02/05/18 08:59 7/12/18 08:30 25 MG Fluticasone Propionate (Flonase Nasal [place]) 1 sprays DAILY JOE 01/06/18 09:00 02/05/18 08:59 01/06/18 08:29 1 SPRAYS Latanoprost (Xalatan Oph Soln) 1 drops HS OP 01/06/18 21:00 02/05/18 20:59 Cholecalciferol (Vitamin D Tab) 5,000 inter.unit QAM PO 01/06/18 09:00 02/05/18 08:59 Hydralazine HCl (Apresoline Tab) 100 mg BID PO 01/06/18 09:00 02/05/18 08:59 01/06/18 08:30 100 MG Pantoprazole Sodium 40 mg/ Dextrose 100 ml @ 20 mls/hr Q5H IV 01/06/18 06:15 02/05/18 06:14 01/06/18 17:32 20 MLS/HR Acetaminophen/ Hydrocodone Bitart (Ferriday 10/325 Tab) 1 tab Q12 PRN PO 01/06/18 09:00 01/20/18 08:59 01/06/18 09:14 1 TAB Vancomycin HCl 1750 mg/Sodium Chloride 535 ml @ 200 mls/hr TODAY@1630 ONCE IV 01/06/18 16:30 01/06/18 19:10 01/06/18 17:33 200 MLS/HR Patiromer (Veltassa) 16.8 gm BID PO 01/06/18 21:00 02/05/18 20:59 UNV Vancomycin HCl (Consult) 1 ea UD PRN N/A 01/06/18 17:30 02/05/18 17:29 Furosemide 20 mg/ Syringe 2 ml @ 4 mls/min ONE IV 01/06/18 17:45 02/05/18 17:44 UNV
[2018-01-06] MEDS ORDERED: FUROSEMIDE INJ 20 MG in SYRINGE 0 ML IV ONE (18:30)
[2018-01-06] MEDS: PATIROMER PO SCH (19:51)
[2018-01-06] MEDS: LATANOPROST 0.005% OP SOLN 2.5 ML BTL OP SCH (19:52)
[2018-01-06] MEDS ORDERED: PATIROMER PO SCH (21:00)
[2018-01-06 21:43] LABS: HEMATOCRIT 25.3 % (37-47); HEMOGLOBIN 8.4 g/dL (12.0-16.0)
[2018-01-06] MEDS: ACETAMINOPHEN 325 MG TAB PO PRN (23:52)
[2018-01-07] VITALS (9 sets, daily range): BP systolic 134–189; BP diastolic 62–72; PULSE 56–66; TEMP 36.6–37.1; O2SAT 95–98
[2018-01-07] MEDS: PANTOprazole INJ 40 MG in DEXTROSE 5% 100ML IV SCH ×4 (02:58→17:01)
[2018-01-07 03:24] LABS: BASO % 0.3 %; BASO ABS # 0.02 K/uL (0-0.2); EOS % 2.7 %; EOS ABS # 0.18 K/uL (0-0.5); HEMATOCRIT 24.9 % (37-47); HEMOGLOBIN 8.3 g/dL (12.0-16.0); IG# 0.03 K/uL (0.00-0.02); LYMPH % 17.1 %; LYMPH ABS # 1.15 K/uL (1.2-3.4); MEAN CELL VOLUME 90.9 fL (80-100); MEAN CORPUSCULAR HEMOGLOBIN 30.3 pg (25-34); MEAN CORPUSCULAR HGB CONC 33.3 g/dl (32-36); MEAN PLATELET VOLUME 9.4 fL (7.4-10.4); MONO % 13.7 %; MONO ABS # 0.92 K/uL (0.11-0.59); NEUT % 65.8 %; NEUT ABS # 4.43 K/uL (1.4-6.5); PLATELET COUNT 198 K/uL (130-400); RED CELL DISTRIBUTION WIDTH CV 16.3 % (11.5-14.5); RED CELL DISTRIBUTION WIDTH SD 53.1 fL (36.4-46.3); WHITE BLOOD COUNT 6.73 K/uL (4.8-10.8)
[2018-01-07 04:11] LABS: CALCIUM 7.8 mg/dl (8.5-10.1); CREATININE 6.53 mg/dl (0.60-1.20); PHOSPHORUS 5.4 mg/dl (2.5-4.9); POTASSIUM 5.2 mmol/L (3.5-5.1)
[2018-01-07] MEDS: PATIROMER PO SCH ×2 (08:29→16:56)
[2018-01-07] MEDS: FLUTICASONE PROPIONATE NA SPR 16 GM BTL NAE SCH (08:31)
[2018-01-07] MEDS: ATORVASTATIN 20 MG TAB PO SCH (08:32)
[2018-01-07] MEDS: CALCITRIOL 0.25 MCG CAP PO SCH (08:32)
[2018-01-07] MEDS: FERROUS SULFATE 325 MG TAB PO SCH ×2 (08:32→16:45)
[2018-01-07] MEDS: CARVEDILOL 25 MG TAB PO SCH ×2 (08:33→20:53)
[2018-01-07] MEDS: CHOLECALCIFEROL 1000 INTER.UNIT TAB PO SCH (08:33)
[2018-01-07] MEDS: INSULIN ASPART 100 UNITS/ML 3 ML PEN SC SCH ×4 (08:37→20:54)
--- NOTE | 2018-01-07 09:13 | GI REPORT ---
Patient Name: Tayla Lu Procedure Date: 01/06/2018 3:42 PM Date of : 1950 Admit Type: Inpatient Age: 67 Gender: Female Attending MD: Zelda Landeros MD Procedure: Upper GI endoscopy Providers: Zelda Landeros MD Referring MD: Reba Fernandez Indications: Acute post hemorrhagic anemia Medicines: See the Anesthesia note for documentation of the administered medications Complications: No immediate complications. Estimated Blood Loss: Estimated blood loss: none. Procedure: Pre-Anesthesia Assessment: - ASA Grade Assessment: IV - A patient with severe systemic disease that is a constant threat to life. After obtaining informed consent, the endoscope was passed under direct vision. Throughout the procedure, the patient's blood pressure, pulse, and oxygen saturations were monitored continuously. The scope was introduced through the mouth, and advanced to the second part of duodenum. The upper GI endoscopy was accomplished without difficulty. The patient tolerated the procedure well. Findings: The examined esophagus was normal. Few small erosions in antrum; otherwise the stomach was normal. The examined duodenum was normal. Impression: - Normal esophagus. - Mild antral gastritis. - - Normal examined duodenum. - No specimens collected. Recommendation: - Discharge patient to floor. Anemia is likely due to groin hematoma; would not pursue further GI w/u. Diet as tolerated. Will sign off, please call with questions. Zelda Landeros M.D. Zelda Landeros MD 01/06/2018 4:25:23 PM This report has been signed electronically. Note Initiated On: 01/06/2018 3:42 PM Number of Addenda: 0 I attest to the content of the Intraoperative Record and orders documented therein, exceptions below {[id number]}
--- NOTE | 2018-01-07 10:02 | Clinical Documentation Query ---
Dr. RENE,SANDY : CLINICAL DOCUMENTATION QUERIES QUERY 1 OF 2 Patient is a 67 year old female accepted in transfer from [facility] for evaluation of elevated creatinine and anemia. Noted to have undergone a LLE angioplasty 01/04/18 at [facility]. Hematoma of the left thigh and tenderness on the left groin was noted after the procedure. She received 2 units of packed RBCs with [facility] emergency [facility] and has been transfused an additional unit here as well. In your clinical opinion is this patient being managed for: ( x ) Postprocedural hematoma of left thigh with profound anemia requiring readmission and transfusion, a complication of care ( ) Not Agree ( ) Other explanation of clinical findings (No explanation is considered a No Response) ( ) Unable to determine ( ) Need to Discuss (Phone CDS or qliq) (No discussion is considered a No Response) The medical record reflects the following clinical findings, treatment, and risk factors. Clinical Indicators: As above Treatment: Transfusion of PRBC's, telemetry, radiology, hold ASA and Plavix Risk Factors: Angioplasty 01/04/18 QUERY 2 OF 2 Documentation includes "Acute on chronic kidney disease stage V". This literally translates to acute kidney disease on chronic kidney disease stage V. The former of which indexes to an unspecified disorder of the kidney, and is not synonymous in coding language with TRU/acute renal failure. If this was the intent of this statement, please clarify as suggested below. Thank you. In your clinical opinion is this patient being managed for: ( ) TRU on CKD stage V ( x ) Not Agree ( ) Other explanation of clinical findings (No explanation is considered a No Response) ( ) Unable to determine ( ) Need to Discuss (Phone CDS or qliq) (No discussion is considered a No Response) The medical record reflects the following clinical findings, treatment, and risk factors. Clinical Indicators: As above Treatment: Serial chemistries, nephrology consultation Risk Factors: Age, PVD, DM type 2, hypertension Please clarify and document your clinical opinion in the progress notes and discharge summary. Terms such as "probable", "suspected", "likely", "questionable", "possible", or "still to be ruled out" are acceptable. IF IN AGREEMENT, YOU MUST DOCUMENT ABOVE DIAGNOSTIC STATEMENT IN DAILY PROGRESS NOTES AND DISCHARGE SUMMARY. This document is not part of the patient's record. Thank You, Van Aidan, RN [phone]
--- NOTE | 2018-01-07 13:28 | NEPHROLOGY PROGRESS NOTE ---
DATE: 01/07/2018 REASON FOR CONSULT: Acute renal failure on CKD stage V with severe anemia. HISTORY OF PRESENT ILLNESS: Patient feels overall better. She had multiple units of blood transfusion yesterday. Endoscopy was done and did not reveal a source of severe anemia. No new symptoms. PHYSICAL EXAMINATION: VITAL SIGNS: Blood pressure 134/66, 96% on room air, pulse rate 56, temperature 36.7. HEENT: Mucous membranes are moist. NECK: Supple. No jugular venous distension. CHEST: Bilateral clear to auscultation. CARDIOVASCULAR: S1 and S2 regular. ABDOMEN: Soft and nontender. EXTREMITIES: Show trace edema. SKIN: She has a big hematoma/bruise in her left upper thigh which is most likely the source of her anemia. LABORATORY TESTS: From this morning, hemoglobin is up to 8.3, WBC count 6.7, platelet count 198, BUN 65, creatinine 6.53, sodium 137, potassium 5.2. Creatinine yesterday was 5.84. ASSESSMENT AND PLAN: A 67-year-old female with chronic kidney disease stage V, not on dialysis, peripheral vascular disease who had a left lower extremity angioplasty on 01/04/2018 and then developed big hematoma in her left groin which caused her to have significant anemia. 1. Acute renal failure on background chronic kidney disease V, creatinine still rising and is now up to 6.5. She already has an arteriovenous fistula. When asked about dialysis, she says she is very, very hesitant to do dialysis but if she is absolutely emergent and she has to have dialysis, she will agree to it. At this point of time, she does not have an indication for emergent dialysis, although the creatinine is still rising. 2. Hyperkalemia. This is not unusual for her. She is already taking Veltassa at home. She is currently getting Veltassa twice daily, which I will continue. Will use Lasix as needed if the potassium gets more than 5.5. 3. Anemia, gastrointestinal bleeding has been ruled out so at this time we have to assume this is from severe hematoma. LANEY
[2018-01-07] MEDS ORDERED: VANCOMYCIN IV 1,000 MG in SODIUM CHLORIDE 0.9% 250ML 250 ML IV ONE (14:00)
--- NOTE | 2018-01-07 14:13 | Pharmacy Progress Note ---
Pharmacy Abx Initial Consult Date of Service Jan 07, 2018. Pharmacy Dosing Scope Date of Consult: 01/07/18 Consultation requested by: Dr. Fernandez Pharmacy is consulted to initiate Vancomycin IV dosing therapy, order appropriate labs and adjust drug dose/frequency. Subjective The patient is a 67 year old female admitted on Jan 06, 2018 at 07:31. Objective Height (Feet): 5 Height (Inches): 1.00 Weight (Kilograms): 74.900 Vital Signs (Past 12Hrs) Vital Signs Past 12 Hours Date Time Temp Pulse Resp B/P (MAP) Pulse Ox O2 Delivery O2 Flow Rate FiO2 01/07/18 12:00 36.7 56 18 134/66 (88) 96 Room Air 01/07/18 08:00 Room Air 01/07/18 07:01 36.6 59 15 165/67 (99) 97 Room Air 01/07/18 02:59 36.8 61 19 153/64 (93) 96 Room Air Lab Results (24Hrs) Laboratory Tests (24 Hours) Item Value Date Time Creatinine 6.53 mg/dl *H # 01/07/18 0257 Est Creatinine Clear Calc Drug Dose 7.8 ml/min 01/07/18 0257 Creatinine 6.00 mg/dl *H 01/06/18 1348 Est Creatinine Clear Calc Drug Dose 8.4 ml/min 01/06/18 1348 Test 01/07/18 02:57 White Blood Count 6.73 K/uL (4.8-10.8) Red Blood Count 2.74 M/uL (4.2-5.4) L Hemoglobin 8.3 g/dL (12.0-16.0) L Hematocrit 24.9 % (37-47) L Mean Corpuscular Volume 90.9 fL (80-100) Mean Corpuscular Hemoglobin 30.3 pg (25-34) Mean Corpuscular Hemoglobin Concent 33.3 g/dl (32-36) Platelet Count 198 K/uL (130-400) Mean Platelet Volume 9.4 fL (7.4-10.4) Neutrophils (%) (Auto) 65.8 % Lymphocytes (%) (Auto) 17.1 % Monocytes (%) (Auto) 13.7 % Eosinophils (%) (Auto) 2.7 % Basophils (%) (Auto) 0.3 % Neutrophils # (Auto) 4.43 K/uL (1.4-6.5) Lymphocytes # (Auto) 1.15 K/uL (1.2-3.4) L Monocytes # (Auto) 0.92 K/uL (0.11-0.59) H Eosinophils # (Auto) 0.18 K/uL (0-0.5) Basophils # (Auto) 0.02 K/uL (0-0.2) Risk Factors for Resistance * Antimicrobial use within the last 90 days: patient received one dose of Dalbavancin IV one week ago Assessment & Plan Assessment 67 year old female presenting yesterday with Hgb of 5.2 and SCr of 5.7. A week ago, patient was found to have osteomyelitis of the left great toe by wound care in [facility], and was started on IV Dalbavancin prescribed once a week. When she showed up yesterday for her second dose of antibiotic, she was found to have a low Hgb and a high SCr. Patient will have a scope done to look for the source of her bleed, and will be treated with Vancomycin for her osteomyelitis. Patient has CKD stage V, with continuously worsening renal function. She currently has AV fistula placed on left upper extremity. At this time, patient does not want dialysis, but has agreed to do it if emergent. Current SCr is 6.53. ID is consulted. Plan Vancomycin for treatment of Osteomyelitis in toe. Vancomycin IV * Loading dose: 1750 mg (23.2 mg/kg) * Maintenance dose: 1000 mg IV (13 mg/kg) X 1 dose * Dosing according to levels, due to patient's worsening kidney function * Goal trough level for Osteomyelitis : 15 to 20 mcg/mL * Random level ordered for 01/08/18 with AM labs Pharmacy will continue to follow and will adjust dose/frequency as necessary. Thank you.
[2018-01-07] MEDS: HYDROCODONE/ACETAMI 10/325 TAB PO PRN ×2 (14:19→23:16)
[2018-01-07 16:54] LABS: HEMATOCRIT 23.2 % (37-47); HEMOGLOBIN 7.6 g/dL (12.0-16.0)
[2018-01-07] MEDS ORDERED: NURSING VERBAL MED ORDER ONE (17:30)
[2018-01-07] MEDS ORDERED: ACETAMINOPHEN 325 MG TAB PO STA (19:45)
--- NOTE | 2018-01-07 20:01 | Progress Note ---
Medicine Progress Note Date & Time of Visit: Jan 07, 2018 at 19:43. Subjective Patient feels better overall, states her thigh pain is decreasing and does not feel as swollen or tense as it did before. No other complaints noted. No overnight events. Tolerating PO. States she does not have any melena or blood in stool. Objective Last 8 Hrs Date Time Temp Pulse Resp B/P (MAP) Pulse Ox O2 Delivery O2 Flow Rate FiO2 01/07/18 19:13 36.6 66 18 152/68 (96) 95 Room Air 01/07/18 16:00 Room Air 01/07/18 15:13 36.6 65 18 178/71 (106) 98 01/07/18 12:00 36.7 56 18 134/66 (88) 96 Room Air Physical Exam: GENERAL: Patient is in no acute distress. HEENT: No acute trauma, normocephalic, mucous membranes moist, no nasal congestion, no scleral icterus. NECK: No stridor, trachea is midline. LUNGS: CTA bilaterally, no wheeze, no rhonchi, breath sounds equal. HEART: Without murmurs gallops or rubs, regular rate and rhythm. ABDOMEN: Soft, nontender, bowel sounds positive EXTREMITIES: No cyanosis; B/L LE edema, able to move all extremities without pain or difficulty, large ecchymosis on left thigh, hip, buttock NEUROLOGIC: Oriented x 3, no acute motor or sensory deficits, no focal weakness. SKIN: No rash, no jaundice, no diaphoresis. Laboratory Results: Last 24 Hours Test 01/06/18 19:56 01/06/18 21:09 01/07/18 02:57 01/07/18 07:31 Bedside Glucose 147 mg/dl 132 mg/dl Hemoglobin 8.4 g/dL 8.3 g/dL Hematocrit 25.3 % 24.9 % White Blood Count 6.73 K/uL Red Blood Count 2.74 M/uL Mean Corpuscular Volume 90.9 fL Mean Corpuscular Hemoglobin 30.3 pg Mean Corpuscular Hemoglobin Concent 33.3 g/dl Platelet Count 198 K/uL Mean Platelet Volume 9.4 fL Neutrophils (%) (Auto) 65.8 % Lymphocytes (%) (Auto) 17.1 % Monocytes (%) (Auto) 13.7 % Eosinophils (%) (Auto) 2.7 % Basophils (%) (Auto) 0.3 % Neutrophils # (Auto) 4.43 K/uL Lymphocytes # (Auto) 1.15 K/uL Monocytes # (Auto) 0.92 K/uL Eosinophils # (Auto) 0.18 K/uL Basophils # (Auto) 0.02 K/uL RDW Standard Deviation 53.1 fL RDW Coefficient of Variation 16.3 % Immature Granulocyte % (Auto) 0.4 % Immature Granulocyte # (Auto) 0.03 K/uL Red Blood Cell Morphology Unremarkable Sodium Level 137 mmol/L Potassium Level 5.2 mmol/L Chloride Level 111 mmol/L Carbon Dioxide Level 19 mmol/L Anion Gap 7.0 mmol/L Blood Urea Nitrogen 65 mg/dl Creatinine 6.53 mg/dl Est Creatinine Clear Calc Drug Dose 7.8 ml/min Estimated GFR () 7.0 Estimated GFR (Non- 6.0 BUN/Creatinine Ratio 9.9 Random Glucose 137 mg/dl Calcium Level 7.8 mg/dl Phosphorus Level 5.4 mg/dl Magnesium Level 1.7 mg/dl Vitamin B12 Level 368 pg/mL Random Vancomycin Level 23.6 mcg/ml Test 01/07/18 11:20 01/07/18 11:51 01/07/18 16:00 01/07/18 16:42 Bedside Glucose 161 mg/dl 150 mg/dl Random Vancomycin Level 19.0 mcg/ml Hemoglobin 7.6 g/dL Hematocrit 23.2 % Assessment & Plan ACUTE BLOOD LOSS ANEMIA: likely secondary to left groin hematoma and underlying chronic anemia from ESRD and iron deficiency -symptomatic anemia -anemia profile unlikely reliable given multiple blood transfusions Baseline hemoglobin around 9; was 5.2 at [facility] the night of admission -has significant ecchymosis of the left thigh, status post left lower extremity angioplasty -CT scan of the abdomen and pelvis and left thigh did not reveal a large or drainable hematoma or fluid collection -continue to hold aspirin and Plavix at this time, but reevaluate closely due to history of CAD and PAD -Melena, GI consulted, EGD done and no source of bleeding, Protonix drip stopped -monitor H&H -patient has received transfusion with 3 units thus far, will transfuse with an additional unit tonight as Hb 7.3 TRU ON CKD STAGE V: -has a dialysis fistula LUE -Nephrology consulted -avoid nephrotoxins when able -no signs of overt volume overload or uremia at this time LEFT BIG TOE OSTEOMYELITIS: -was followed at [facility] and podiatry -diagnosed with osteomyelitis 2 weeks ago -was started on IV antibiotics as an outpatient; abx switched to vanco on admission -Records being obtained from [facility] -ID consulted, recommendations appreciated; continue vanco and referral for toe amputation in near future PAD/CAD: -prior hx of CABG -s/p left lower extremity extremity angioplasty January 04, 2018 -holding aspirin & Plavix at this time but reevaluate daily given extensive vascular hx -records obtained from [facility] -no cardiac symptoms -continue atorvastatin and carvedilol DM TYPE II: -hold glipizide while admitted -Insulin sliding scale for now HTN: -BP elevated, but asymptomatic -as needed clonidine -continue usual carvedilol and hydralazine GLAUCOMA: Continue latanoprost Current Inpatient Medications: Current Inpatient Medications Medications (Trade) Dose Ordered Sig/Ewelina Route Start Time Stop Time Status Last Admin Dose Admin Acetaminophen (Tylenol Tab) 650 mg Q4H PRN PO 01/06/18 04:45 02/05/18 04:44 01/06/18 23:52 650 MG Miscellaneous (Iv Fluids Completed) 1 ea PRN PRN N/A 01/06/18 04:45 01/06/19 04:44 Clonidine HCl (Catapres Tab) 0.1 mg Q6H PRN PO 01/06/18 05:00 02/05/18 04:59 01/06/18 23:50 0.1 MG Ferrous Sulfate (Feosol Tab) 325 mg BIDM PO 01/06/18 07:30 02/05/18 07:29 01/07/18 08:32 325 MG Insulin Aspart (novoLOG ASPART) SLIDING SCALE If C... ACHS SC 01/06/18 07:00 02/05/18 06:59 01/07/18 16:59 2 UNITS Glucose (Glucose 40% Gel) 15-30 GRAMS 15 GRAMS... UD PRN PO 01/06/18 05:45 02/05/18 05:44 Glucose (Glucose Chew Tab) 4-8 Tablets 4 Tabl... UD PRN PO 01/06/18 05:45 02/05/18 05:44 Dextrose (Dextrose 50% 50ML Syringe) 25-50ML 25ML FOR ... UD PRN IV 01/06/18 05:45 02/05/18 05:44 Glucagon (Glucagon Inj) 1 mg UD PRN SQ 01/06/18 05:45 02/05/18 05:44 Carbohydrates (Carbohydrates For Hypoglycemia) 15-30 GRAMS 15 grams if BSG 54-69... UD PRN PO 01/06/18 05:45 02/05/18 05:44 Albuterol (Ventolin Hfa Inhaler) 2 puffs Q4H PRN INH 01/06/18 05:45 02/05/18 05:44 Atorvastatin Calcium (Lipitor Tab) 40 mg DAILY PO 01/06/18 09:00 02/05/18 08:59 01/07/18 08:32 40 MG Calcitriol (Rocaltrol Cap) 0.25 mcg MoWeFr@0900 PO 01/07/18 09:00 02/06/18 08:59 01/07/18 08:32 0.25 MCG Carvedilol (Coreg Tab) 25 mg BID PO 01/06/18 09:00 02/05/18 08:59 01/07/18 08:33 25 MG Fluticasone Propionate (Flonase Nasal [place]) 1 sprays DAILY JOE 01/06/18 09:00 02/05/18 08:59 01/07/18 08:31 1 SPRAYS Latanoprost (Xalatan Oph Soln) 1 drops HS OP 01/06/18 21:00 02/05/18 20:59 01/06/18 19:52 1 DROPS Cholecalciferol (Vitamin D Tab) 5,000 inter.unit QAM PO 01/06/18 09:00 02/05/18 08:59 01/07/18 08:33 5,000 INTER.UNIT Hydralazine HCl (Apresoline Tab) 100 mg BID PO 01/06/18 09:00 02/05/18 08:59 01/07/18 08:32 100 MG Acetaminophen/ Hydrocodone Bitart ([place] 10/325 Tab) 1 tab Q12 PRN PO 01/06/18 09:00 01/20/18 08:59 01/07/18 14:19 1 TAB Patiromer (Veltassa) 16.8 gm BID PO 01/06/18 21:00 02/05/18 20:59 01/07/18 16:56 16.8 GM Vancomycin HCl (Consult) 1 ea UD PRN N/A 01/06/18 17:30 02/05/18 17:29
--- NOTE | 2018-01-07 20:31 | Infectious Disease Progress Nt ---
Progress Note Date of Service Jan 07, 2018. Subjective Pt evaluation today including: conversation w/ patient, physical exam, chart review, lab review, review of studies, conversation w/ wallpaper consultant, review of inpatient medication list Patient feeling better today with less pain in her left leg. Remains afebrile. Offers no new complaints. All Other Systems: Reviewed and Negative Medications Current Inpatient Medications Medications (Trade) Dose Ordered Sig/Ewelina Route Start Time Stop Time Status Last Admin Dose Admin Acetaminophen (Tylenol Tab) 650 mg Q4H PRN PO 01/06/18 04:45 02/05/18 04:44 01/06/18 23:52 650 MG Miscellaneous (Iv Fluids Completed) 1 ea PRN PRN N/A 01/06/18 04:45 01/06/19 04:44 Clonidine HCl (Catapres Tab) 0.1 mg Q6H PRN PO 01/06/18 05:00 02/05/18 04:59 01/06/18 23:50 0.1 MG Ferrous Sulfate (Feosol Tab) 325 mg BIDM PO 01/06/18 07:30 02/05/18 07:29 01/07/18 08:32 325 MG Insulin Aspart (novoLOG ASPART) SLIDING SCALE If C... ACHS SC 01/06/18 07:00 02/05/18 06:59 01/07/18 16:59 2 UNITS Glucose (Glucose 40% Gel) 15-30 GRAMS 15 GRAMS... UD PRN PO 01/06/18 05:45 02/05/18 05:44 Glucose (Glucose Chew Tab) 4-8 Tablets 4 Tabl... UD PRN PO 01/06/18 05:45 02/05/18 05:44 Dextrose (Dextrose 50% 50ML Syringe) 25-50ML 25ML FOR ... UD PRN IV 01/06/18 05:45 02/05/18 05:44 Glucagon (Glucagon Inj) 1 mg UD PRN SQ 01/06/18 05:45 02/05/18 05:44 Carbohydrates (Carbohydrates For Hypoglycemia) 15-30 GRAMS 15 grams if BSG 54-69... UD PRN PO 01/06/18 05:45 02/05/18 05:44 Albuterol (Ventolin Hfa Inhaler) 2 puffs Q4H PRN INH 01/06/18 05:45 02/05/18 05:44 Atorvastatin Calcium (Lipitor Tab) 40 mg DAILY PO 01/06/18 09:00 02/05/18 08:59 01/07/18 08:32 40 MG Calcitriol (Rocaltrol Cap) 0.25 mcg MoWeFr@0900 PO 01/07/18 09:00 02/06/18 08:59 01/07/18 08:32 0.25 MCG Carvedilol (Coreg Tab) 25 mg BID PO 01/06/18 09:00 02/05/18 08:59 01/07/18 08:33 25 MG Fluticasone Propionate (Flonase Nasal Mildred) 1 sprays DAILY JOE 01/06/18 09:00 02/05/18 08:59 01/07/18 08:31 1 SPRAYS Latanoprost (Xalatan Oph Soln) 1 drops HS OP 01/06/18 21:00 02/05/18 20:59 01/06/18 19:52 1 DROPS Cholecalciferol (Vitamin D Tab) 5,000 inter.unit QAM PO 01/06/18 09:00 02/05/18 08:59 01/07/18 08:33 5,000 INTER.UNIT Hydralazine HCl (Apresoline Tab) 100 mg BID PO 01/06/18 09:00 02/05/18 08:59 01/07/18 08:32 100 MG Acetaminophen/ Hydrocodone Bitart ([place] 10/325 Tab) 1 tab Q12 PRN PO 01/06/18 09:00 01/20/18 08:59 01/07/18 14:19 1 TAB Patiromer (Veltassa) 16.8 gm BID PO 01/06/18 21:00 02/05/18 20:59 01/07/18 16:56 16.8 GM Vancomycin HCl (Consult) 1 ea UD PRN N/A 01/06/18 17:30 02/05/18 17:29 Furosemide 20 mg/ Syringe 2 ml @ 4 mls/min ONE ONCE IV 01/08/18 07:00 01/08/18 07:01 Objective Vital Signs Date Time Temp Pulse Resp B/P (MAP) Pulse Ox O2 Delivery O2 Flow Rate FiO2 01/07/18 19:13 36.6 66 18 152/68 (96) 95 Room Air 01/07/18 16:00 Room Air 01/07/18 15:13 36.6 65 18 178/71 (106) 98 01/07/18 12:00 36.7 56 18 134/66 (88) 96 Room Air 01/07/18 08:00 Room Air 01/07/18 07:01 36.6 59 15 165/67 (99) 97 Room Air 01/07/18 02:59 36.8 61 19 153/64 (93) 96 Room Air 01/06/18 23:46 36.7 67 21 169/68 (101) 96 Room Air Physical Exam General Appearance: WD/WN, no apparent distress Eyes: normal inspection, EOMI, sclerae normal ENT: normal ENT inspection, pharynx normal Neck: supple, no adenopathy, thyroid normal, trachea midline Respiratory/Chest: chest non-tender, lungs clear, normal breath sounds, no respiratory distress Cardiovascular: regular rate, rhythm, no gallop, no murmur Abdomen: normal bowel sounds, non tender Extremities: no calf tenderness, + pertinent finding (Left upper leg ecchymosis ) Neurologic/Psychiatric: alert, oriented x 3 Skin: normal color, no rash, + pertinent finding (Left leg ecchymosis likely in ) Lymphatic: no adenopathy Laboratory Results Last 24 Hours Test 01/06/18 21:09 01/07/18 02:57 01/07/18 07:31 01/07/18 11:20 Hemoglobin 8.4 g/dL 8.3 g/dL Hematocrit 25.3 % 24.9 % White Blood Count 6.73 K/uL Red Blood Count 2.74 M/uL Mean Corpuscular Volume 90.9 fL Mean Corpuscular Hemoglobin 30.3 pg Mean Corpuscular Hemoglobin Concent 33.3 g/dl Platelet Count 198 K/uL Mean Platelet Volume 9.4 fL Neutrophils (%) (Auto) 65.8 % Lymphocytes (%) (Auto) 17.1 % Monocytes (%) (Auto) 13.7 % Eosinophils (%) (Auto) 2.7 % Basophils (%) (Auto) 0.3 % Neutrophils # (Auto) 4.43 K/uL Lymphocytes # (Auto) 1.15 K/uL Monocytes # (Auto) 0.92 K/uL Eosinophils # (Auto) 0.18 K/uL Basophils # (Auto) 0.02 K/uL RDW Standard Deviation 53.1 fL RDW Coefficient of Variation 16.3 % Immature Granulocyte % (Auto) 0.4 % Immature Granulocyte # (Auto) 0.03 K/uL Red Blood Cell Morphology Unremarkable Sodium Level 137 mmol/L Potassium Level 5.2 mmol/L Chloride Level 111 mmol/L Carbon Dioxide Level 19 mmol/L Anion Gap 7.0 mmol/L Blood Urea Nitrogen 65 mg/dl Creatinine 6.53 mg/dl Est Creatinine Clear Calc Drug Dose 7.8 ml/min Estimated GFR () 7.0 Estimated GFR (Non- 6.0 BUN/Creatinine Ratio 9.9 Random Glucose 137 mg/dl Calcium Level 7.8 mg/dl Phosphorus Level 5.4 mg/dl Magnesium Level 1.7 mg/dl Vitamin B12 Level 368 pg/mL Random Vancomycin Level 23.6 mcg/ml Bedside Glucose 132 mg/dl 161 mg/dl Test 01/07/18 11:51 01/07/18 16:00 01/07/18 16:42 01/07/18 20:07 Random Vancomycin Level 19.0 mcg/ml Bedside Glucose 150 mg/dl 129 mg/dl Hemoglobin 7.6 g/dL Hematocrit 23.2 % Assessment and Plan 67-year-old female with diabetes, peripheral arterial disease, renal failure on dialysis, with chronic osteomyelitis of the left great toe, currently under treatment with IV dalvabancin. Patient should be treated with vancomycin while in hospital, Will follow.
[2018-01-07] MEDS: LATANOPROST 0.005% OP SOLN 2.5 ML BTL OP SCH (20:52)
[2018-01-08] VITALS (7 sets, daily range): BP systolic 115–193; BP diastolic 63–71; PULSE 60–68; TEMP 36.4–37.3; O2SAT 91–98
[2018-01-08 06:52] LABS: BASO % 0.3 %; BASO ABS # 0.02 K/uL (0-0.2); EOS ABS # 0.13 K/uL (0-0.5); HEMATOCRIT 28.6 % (37-47); HEMOGLOBIN 9.5 g/dL (12.0-16.0); IG# 0.03 K/uL (0.00-0.02); LYMPH % 18.7 %; MEAN CELL VOLUME 91.1 fL (80-100); MEAN CORPUSCULAR HEMOGLOBIN 30.3 pg (25-34); MEAN CORPUSCULAR HGB CONC 33.2 g/dl (32-36); MEAN PLATELET VOLUME 9.4 fL (7.4-10.4); MONO % 14.5 %; MONO ABS # 0.93 K/uL (0.11-0.59); PLATELET COUNT 191 K/uL (130-400); RED CELL DISTRIBUTION WIDTH CV 15.4 % (11.5-14.5); RED CELL DISTRIBUTION WIDTH SD 50.6 fL (36.4-46.3); WHITE BLOOD COUNT 6.41 K/uL (4.8-10.8)
[2018-01-08] MEDS ORDERED: FUROSEMIDE INJ 20 MG in SYRINGE 0 ML IV ONE (07:00)
[2018-01-08] MEDS: FERROUS SULFATE 325 MG TAB PO SCH ×2 (07:30→16:45)
[2018-01-08 07:36] LABS: CALCIUM 8.2 mg/dl (8.5-10.1); CREATININE 6.52 mg/dl (0.60-1.20); PHOSPHORUS 5.2 mg/dl (2.5-4.9); POTASSIUM 4.9 mmol/L (3.5-5.1)
[2018-01-08] MEDS: INSULIN ASPART 100 UNITS/ML 3 ML PEN SC SCH ×4 (07:53→20:43)
[2018-01-08] MEDS: CARVEDILOL 25 MG TAB PO SCH ×2 (07:54→20:43)
[2018-01-08] MEDS: FLUTICASONE PROPIONATE NA SPR 16 GM BTL NAE SCH (07:54)
[2018-01-08] MEDS: ATORVASTATIN 20 MG TAB PO SCH (07:55)
[2018-01-08] MEDS: CHOLECALCIFEROL 1000 INTER.UNIT TAB PO SCH (07:56)
[2018-01-08] MEDS: PATIROMER PO SCH ×2 (09:00→17:13)
[2018-01-08] MEDS: HYDROCODONE/ACETAMI 10/325 TAB PO PRN ×2 (09:23→22:50)
[2018-01-08] MEDS ORDERED: DAPTOMYCIN CONSULT ACTIVE PRN (10:15)
--- NOTE | 2018-01-08 10:41 | Orthopedic Consultation ---
Orthopedic Consultation Date of Consultation: Jan 08, 2018. Attending Physician: Reba Fernandez D.O. Reason for Consultation: Left great toe osteomyelitis History of Present Illness Ms. Lu is a 67-year-old female with a history of coronary artery disease, peripheral vascular disease, diabetes, and chronic kidney disease who developed a necrotic area in the tip of her left great toe. She is followed by wound care at the [facility]. About 2 weeks ago, she said that she had an ingrown toenail and he an infection spread from there. It sounds like he started her on oral antibiotics roughly 2 weeks ago, and then switched her to IV antibiotics. She says that she was diagnosed with osteomyelitis by x-ray at the [facility], but no x-rays are available here. She also recently underwent a left lower extremity angioplasty on January 04 at [facility]. It sounds like this procedure went awry, and she developed a large hematoma in the left groin and thigh, with significant resultant swelling and ecchymosis. She was admitted here to [facility] after routine blood work prior to an IV antibiotic administration dose revealed a hemoglobin of 5.2 and creatinine of 5.7. She says that over the past 2 weeks, her toe is looked progressively worse. She has a black area on the tip of her toe, and the lateral side of the great toe is quite painful. She has not noticed any drainage from the area. Past Medical/Surgical History Medical Problems: (1) Asthma Status: Chronic (2) Asthmatic bronchitis Status: Acute (3) Athscl Heart Disease Of [place] Coronary Artery W/O Ang Pctrs Status: Chronic (4) Diab Neli Wo Compl, Type Ii Or Unspec Type, Not Uncntrld Status: Chronic (5) Elevated troponin Status: Acute (6) End Stage Renal Disease Status: Chronic (7) Hyperlipidemia, Unspecified Status: Chronic (8) Type 2 Diabetes Mellitus Without Complications Status: Chronic (9) Vitamin D Deficiency, Unspecified Status: Chronic Surgical Problems: (1) AV fistula Status: Chronic (2) Presence Of Aortocoronary Bypass Graft Status: Chronic Family History Cardiac disorder MOTHER Diabetes mellitus MOTHER SISTER FATHER Hypertension SISTER Social History Smoking Status: Former Smoker Drug Use: none Housing Status: lives alone Occupation Status: employed Allergies Coded Allergies: Amoxicillin (Verified Allergy, Mild, LIGHTHEADED, DIZZY AND NAUSEA, ) Clavulanic Acid (Verified Allergy, Mild, LIGHTHEADED, DIZZY AND NAUSEA, ) Home Medications Scheduled Albuterol Sulfate (Proair Respiclick), 90 MCG INH Q4H Aspirin (Aspirin Ec), 81 MG PO QAM Atorvastatin (Lipitor), 40 MG PO DAILY Calcitriol (Rocaltrol Cap), 0.25 MCG PO MWF Carvedilol (Carvedilol), PO DAILY Cholecalciferol (Vitamin D), 1 TAB PO QAM Clopidogrel (Plavix), 75 MG PO DAILY Fluticasone Propionate (Nasal) (Allergy Nasal [place] [address] Ho), 2 SPRAY JOE DAILY Glimepiride (Glimepiride), 1 TAB PO QAM Glipizide (Glucotrol), 5 MG PO BID Hydralazine HCl (Hydralazine HCl), PO BID Latanoprost (Xalatan 0.005% Oph [place]), 1 DROPS OP HS Patiromer Sorbitex Calcium (Veltassa), 8.4 GM PO BID Scheduled PRN Acetaminophen (Tylenol Extra Strength), 1 TAB PO Q6 PRN for Pain Albuterol Hfa (Ventolin Hfa), 2 PUFFS INH Q4H PRN for Wheezing Hydrocodone/Acetaminophen ([place] 10/325 Tab), 1 TAB PO Q12 PRN for Pain Current Inpatient Medications Current Inpatient Medications Medications (Trade) Dose Ordered Sig/Ewelina Route Start Time Stop Time Status Last Admin Dose Admin Acetaminophen (Tylenol Tab) 650 mg Q4H PRN PO 01/06/18 04:45 02/05/18 04:44 01/06/18 23:52 650 MG Miscellaneous (Iv Fluids Completed) 1 ea PRN PRN N/A 01/06/18 04:45 01/06/19 04:44 Clonidine HCl (Catapres Tab) 0.1 mg Q6H PRN PO 01/06/18 05:00 02/05/18 04:59 01/06/18 23:50 0.1 MG Ferrous Sulfate (Feosol Tab) 325 mg BIDM PO 01/06/18 07:30 02/05/18 07:29 01/07/18 08:32 325 MG Insulin Aspart (novoLOG ASPART) SLIDING SCALE If C... ACHS SC 01/06/18 07:00 02/05/18 06:59 01/08/18 07:53 1 UNITS Glucose (Glucose 40% Gel) 15-30 GRAMS 15 GRAMS... UD PRN PO 01/06/18 05:45 02/05/18 05:44 Glucose (Glucose Chew Tab) 4-8 Tablets 4 Tabl... UD PRN PO 01/06/18 05:45 02/05/18 05:44 Dextrose (Dextrose 50% 50ML Syringe) 25-50ML 25ML FOR ... UD PRN IV 01/06/18 05:45 02/05/18 05:44 Glucagon (Glucagon Inj) 1 mg UD PRN SQ 01/06/18 05:45 02/05/18 05:44 Carbohydrates (Carbohydrates For Hypoglycemia) 15-30 GRAMS 15 grams if BSG 54-69... UD PRN PO 01/06/18 05:45 02/05/18 05:44 Albuterol (Ventolin Hfa Inhaler) 2 puffs Q4H PRN INH 01/06/18 05:45 02/05/18 05:44 Atorvastatin Calcium (Lipitor Tab) 40 mg DAILY PO 01/06/18 09:00 02/05/18 08:59 01/08/18 07:55 40 MG Calcitriol (Rocaltrol Cap) 0.25 mcg MoWeFr@0900 PO 01/07/18 09:00 02/06/18 08:59 01/07/18 08:32 0.25 MCG Carvedilol (Coreg Tab) 25 mg BID PO 01/06/18 09:00 02/05/18 08:59 01/08/18 07:54 25 MG Fluticasone Propionate (Flonase Nasal [place]) 1 sprays DAILY JOE 01/06/18 09:00 02/05/18 08:59 01/08/18 07:54 1 SPRAYS Latanoprost (Xalatan Oph Soln) 1 drops HS OP 01/06/18 21:00 02/05/18 20:59 01/06/18 19:52 1 DROPS Cholecalciferol (Vitamin D Tab) 5,000 inter.unit QAM PO 01/06/18 09:00 02/05/18 08:59 01/08/18 07:56 5,000 INTER.UNIT Hydralazine HCl (Apresoline Tab) 100 mg BID PO 01/06/18 09:00 02/05/18 08:59 01/08/18 07:55 100 MG Acetaminophen/ Hydrocodone Bitart ([place] 10/325 Tab) 1 tab Q12 PRN PO 01/06/18 09:00 01/20/18 08:59 01/08/18 09:23 1 TAB Patiromer (Veltassa) 16.8 gm BID PO 01/06/18 21:00 02/05/18 20:59 01/07/18 16:56 16.8 GM Vancomycin HCl (Consult) 1 ea UD PRN N/A 01/06/18 17:30 02/05/18 17:29 Physical Exam Date Time Temp Pulse Resp B/P (MAP) Pulse Ox O2 Delivery O2 Flow Rate FiO2 01/08/18 08:23 Room Air 01/08/18 04:00 36.5 68 22 148/63 (91) 96 Room Air 01/08/18 00:11 36.6 62 20 183/69 97 01/07/18 22:51 37.1 61 186/72 97 01/07/18 22:13 36.8 62 18 179/62 96 01/07/18 21:50 36.8 62 16 189/64 98 01/07/18 20:34 98 Room Air 01/07/18 19:13 36.6 66 18 152/68 (96) 95 Room Air 01/07/18 16:00 Room Air 01/07/18 15:13 36.6 65 18 178/71 (106) 98 01/07/18 12:00 36.7 56 18 134/66 (88) 96 Room Air Left leg: Examination of her left foot reveals an approximately 1.5 cm diameter black necrotic area at the tip of the great toe. It is tender to palpation, mostly along the medial side distally. She has surrounding erythema extending to about the level of the IP joint. No erythema spreading past the MTP joint into the foot. No drainage from the wound. Her foot and lesser toes feel warm, but the entire great toe feels cool. I cannot palpate any dorsalis pedis or posterior tibial pulse, but these are faintly dopplerable. Sensation is intact to light touch all around her foot, including the great toe out to the necrotic tip. Laboratory Results Last 24 Hours Test 7/13/18 11:20 01/07/18 11:51 01/07/18 16:00 01/07/18 16:42 Bedside Glucose 161 mg/dl 150 mg/dl Random Vancomycin Level 19.0 mcg/ml Hemoglobin 7.6 g/dL Hematocrit 23.2 % Test 01/07/18 20:07 01/08/18 06:06 01/08/18 07:11 Bedside Glucose 129 mg/dl 115 mg/dl White Blood Count 6.41 K/uL Red Blood Count 3.14 M/uL Hemoglobin 9.5 g/dL Hematocrit 28.6 % Mean Corpuscular Volume 91.1 fL Mean Corpuscular Hemoglobin 30.3 pg Mean Corpuscular Hemoglobin Concent 33.2 g/dl Platelet Count 191 K/uL Mean Platelet Volume 9.4 fL Neutrophils (%) (Auto) 64.0 % Lymphocytes (%) (Auto) 18.7 % Monocytes (%) (Auto) 14.5 % Eosinophils (%) (Auto) 2.0 % Basophils (%) (Auto) 0.3 % Neutrophils # (Auto) 4.10 K/uL Lymphocytes # (Auto) 1.20 K/uL Monocytes # (Auto) 0.93 K/uL Eosinophils # (Auto) 0.13 K/uL Basophils # (Auto) 0.02 K/uL RDW Standard Deviation 50.6 fL RDW Coefficient of Variation 15.4 % Immature Granulocyte % (Auto) 0.5 % Immature Granulocyte # (Auto) 0.03 K/uL Sodium Level 136 mmol/L Potassium Level 4.9 mmol/L Chloride Level 106 mmol/L Carbon Dioxide Level 19 mmol/L Anion Gap 11.0 mmol/L Blood Urea Nitrogen 76 mg/dl Creatinine 6.52 mg/dl Est Creatinine Clear Calc Drug Dose 7.8 ml/min Estimated GFR () 7.0 Estimated GFR (Non- 6.0 BUN/Creatinine Ratio 11.6 Random Glucose 111 mg/dl Calcium Level 8.2 mg/dl Phosphorus Level 5.2 mg/dl Magnesium Level 1.7 mg/dl Random Vancomycin Level 23.9 mcg/ml Radiology: No foot x-rays are available for review in our system. Assessment & Plan (1) Necrosis of toe Assessment & Plan: She has a 1.5 cm black necrotic eschar on the tip of her left great toe. She reportedly had evidence of osteomyelitis on x-ray at an outside facility, but no x-rays are available here. I will order new foot x- rays today. She just recently had a left lower extremity angioplasty 4 days ago at the [facility], but reportedly went awry, resulting in a significant left thigh hematoma, swelling, and ecchymosis. She does not have any palpable pulses in her foot, and her pulses are only faintly dopplerable. Her great toe feels quite cool. Fortunately, she does not have significant evidence of spread of any infection more proximal than about the great toe IP joint. At this point, I do not think urgent orthopedic surgical intervention is required. I would recommend a vascular surgery consultation to see if her lower leg can be reperfused; this may assist with healing of this great toe wound, or at least assist with healing of an amputation wound if required in the future. I would also recommend wound care for the necrotic area on the tip of her toe. I am covering Orthopedic Surgery call for Dr. Verduzco, who is unavailable. Deejay Canas MD
[2018-01-08] MEDS: DAPTOmycin IV 300 MG in SYRINGE 0 ML IV SCH (10:48)
--- NOTE | 2018-01-08 11:46 | DIAGNOSTIC IMAGING REPORT ---
L FOOT MIN 3 VIEWS ROUTINE CLINICAL HISTORY: 67 years-old Female presenting with Left great toe wound/ulcer, clinical concern for osteomyelitis. TECHNIQUE: Frontal, oblique, and lateral views of the left foot were obtained. COMPARISON: None. FINDINGS: Osteopenia. This limits evaluation for nondisplaced fracture and osteomyelitis. Soft tissue defect at the distal aspect of the left first toe. There is no convincing evidence of osseous erosion of the tuft of the distal phalanx of the first toe. No acute fracture or malalignment. Prominent enthesophyte at the origin of the plantar fascia. Atherosclerosis. No soft tissue emphysema. IMPRESSION: 1. Allowing for osteopenia, no evidence of acute osseous injury or radiographic evidence of osteomyelitis. 2. Soft tissue defect at the distal left first toe consistent with the given history of ulcer. Electronically signed by: Adelso Douglas M.D. 01/08/2018 11:45 AM Dictated Date/Time: 01/08/2018 11:43 AM
[2018-01-08] MEDS: ACETAMINOPHEN 325 MG TAB PO PRN (15:54)
--- NOTE | 2018-01-08 19:37 | Progress Note ---
Medicine Progress Note Date & Time of Visit: Jan 08, 2018 at 19:37. Subjective Patient reports feeling better overall; her left thigh is less tender; she has been ambulating more. She denies any CP or SOB. No overnight events noted. Received the blood transfusion late last night. States she continues to produce adequate urine. No other complaints at this time. Objective Last 8 Hrs Date Time Temp Pulse Resp B/P (MAP) Pulse Ox O2 Delivery O2 Flow Rate FiO2 01/08/18 19:24 36.7 62 20 193/71 (111) 96 Room Air 01/08/18 16:00 Room Air 01/08/18 15:25 36.6 61 20 178/71 (106) 96 Room Air 01/08/18 11:48 36.4 60 18 162/68 (99) 96 Room Air Physical Exam: GENERAL: Patient is in no acute distress. HEENT: No acute trauma, normocephalic, mucous membranes moist, no nasal congestion, no scleral icterus. NECK: No stridor, trachea is midline. LUNGS: CTA bilaterally, no wheeze, no rhonchi, breath sounds equal. HEART: Without murmurs gallops or rubs, regular rate and rhythm. ABDOMEN: Soft, nontender, bowel sounds positive EXTREMITIES: No cyanosis; B/L LE edema, able to move all extremities without pain or difficulty, large ecchymosis on left thigh, hip, buttock NEUROLOGIC: Oriented x 3, no acute motor or sensory deficits, no focal weakness. SKIN: No rash, no jaundice, no diaphoresis. Laboratory Results: Last 24 Hours Test 01/07/18 20:07 01/08/18 06:06 01/08/18 07:11 01/08/18 11:36 Bedside Glucose 129 mg/dl 115 mg/dl 173 mg/dl White Blood Count 6.41 K/uL Red Blood Count 3.14 M/uL Hemoglobin 9.5 g/dL Hematocrit 28.6 % Mean Corpuscular Volume 91.1 fL Mean Corpuscular Hemoglobin 30.3 pg Mean Corpuscular Hemoglobin Concent 33.2 g/dl Platelet Count 191 K/uL Mean Platelet Volume 9.4 fL Neutrophils (%) (Auto) 64.0 % Lymphocytes (%) (Auto) 18.7 % Monocytes (%) (Auto) 14.5 % Eosinophils (%) (Auto) 2.0 % Basophils (%) (Auto) 0.3 % Neutrophils # (Auto) 4.10 K/uL Lymphocytes # (Auto) 1.20 K/uL Monocytes # (Auto) 0.93 K/uL Eosinophils # (Auto) 0.13 K/uL Basophils # (Auto) 0.02 K/uL RDW Standard Deviation 50.6 fL RDW Coefficient of Variation 15.4 % Immature Granulocyte % (Auto) 0.5 % Immature Granulocyte # (Auto) 0.03 K/uL Erythrocyte Sedimentation Rate 26 mm/hr Sodium Level 136 mmol/L Potassium Level 4.9 mmol/L Chloride Level 106 mmol/L Carbon Dioxide Level 19 mmol/L Anion Gap 11.0 mmol/L Blood Urea Nitrogen 76 mg/dl Creatinine 6.52 mg/dl Est Creatinine Clear Calc Drug Dose 7.8 ml/min Estimated GFR () 7.0 Estimated GFR (Non- 6.0 BUN/Creatinine Ratio 11.6 Random Glucose 111 mg/dl Calcium Level 8.2 mg/dl Phosphorus Level 5.2 mg/dl Magnesium Level 1.7 mg/dl C-Reactive Protein 2.81 mg/dl Random Vancomycin Level 23.9 mcg/ml Test 01/08/18 16:36 Bedside Glucose 137 mg/dl Assessment & Plan ACUTE BLOOD LOSS ANEMIA: likely secondary to left groin hematoma and underlying chronic anemia from ESRD and iron deficiency -symptomatic anemia -anemia profile unlikely reliable given multiple blood transfusions Baseline hemoglobin around 9; was 5.2 at [facility] the night of admission -has significant ecchymosis of the left thigh, status post left lower extremity angioplasty -CT scan of the abdomen and pelvis and left thigh did not reveal a large or drainable hematoma or fluid collection -continue to hold aspirin and Plavix at this time, but reevaluate closely due to history of CAD and PAD -Melena, GI consulted, EGD done and no source of bleeding, Protonix drip stopped -monitor H&H -patient has received transfusion with 4 units thus far, Hb now 9.5 TRU ON CKD STAGE V: -has a dialysis fistula LUE -Nephrology consulted -avoid nephrotoxins when able -no signs of overt volume overload or uremia at this time LEFT BIG TOE OSTEOMYELITIS: -was followed at [facility] and podiatry -diagnosed with osteomyelitis 2 weeks ago -was started on IV antibiotics as an outpatient; abx switched to vanco on admission -Records being obtained from [facility] -ID consulted, recommendations appreciated; continue vanco and referral for toe amputation in near future -consult to Ortho regarding the big toe wound/amputation in future -Vascular consulted regarding reperfusion PAD/CAD: -prior hx of CABG -s/p left lower extremity extremity angioplasty January 04, 2018 -holding aspirin & Plavix at this time but reevaluate daily given extensive vascular hx -records obtained from [facility] -no cardiac symptoms -continue atorvastatin and carvedilol -resume ASA and plavix once Hb stabilizes DM TYPE II: -hold glipizide while admitted -Insulin sliding scale for now HTN: -BP elevated, but asymptomatic -as needed clonidine -continue usual carvedilol and hydralazine GLAUCOMA: -continue latanoprost Current Inpatient Medications: Current Inpatient Medications Medications (Trade) Dose Ordered Sig/Ewelina Route Start Time Stop Time Status Last Admin Dose Admin Acetaminophen (Tylenol Tab) 650 mg Q4H PRN PO 01/06/18 04:45 02/05/18 04:44 01/08/18 15:54 650 MG Miscellaneous (Iv Fluids Completed) 1 ea PRN PRN N/A 01/06/18 04:45 01/06/19 04:44 Clonidine HCl (Catapres Tab) 0.1 mg Q6H PRN PO 01/06/18 05:00 02/05/18 04:59 01/06/18 23:50 0.1 MG Insulin Aspart (novoLOG ASPART) SLIDING SCALE If C... ACHS SC 01/06/18 07:00 02/05/18 06:59 01/08/18 17:18 1 UNITS Glucose (Glucose 40% Gel) 15-30 GRAMS 15 GRAMS... UD PRN PO 01/06/18 05:45 02/05/18 05:44 Glucose (Glucose Chew Tab) 4-8 Tablets 4 Tabl... UD PRN PO 01/06/18 05:45 02/05/18 05:44 Dextrose (Dextrose 50% 50ML Syringe) 25-50ML 25ML FOR ... UD PRN IV 01/06/18 05:45 02/05/18 05:44 Glucagon (Glucagon Inj) 1 mg UD PRN SQ 01/06/18 05:45 02/05/18 05:44 Carbohydrates (Carbohydrates For Hypoglycemia) 15-30 GRAMS 15 grams if BSG 54-69... UD PRN PO 01/06/18 05:45 02/05/18 05:44 Albuterol (Ventolin Hfa Inhaler) 2 puffs Q4H PRN INH 01/06/18 05:45 02/05/18 05:44 Atorvastatin Calcium (Lipitor Tab) 40 mg DAILY PO 01/06/18 09:00 02/05/18 08:59 01/08/18 07:55 40 MG Calcitriol (Rocaltrol Cap) 0.25 mcg MoWeFr@0900 PO 01/07/18 09:00 02/06/18 08:59 01/07/18 08:32 0.25 MCG Carvedilol (Coreg Tab) 25 mg BID PO 01/06/18 09:00 02/05/18 08:59 01/08/18 07:54 25 MG Fluticasone Propionate (Flonase Nasal [place]) 1 sprays DAILY JOE 01/06/18 09:00 02/05/18 08:59 01/08/18 07:54 1 SPRAYS Latanoprost (Xalatan Oph Soln) 1 drops HS OP 01/06/18 21:00 02/05/18 20:59 01/06/18 19:52 1 DROPS Cholecalciferol (Vitamin D Tab) 5,000 inter.unit QAM PO 01/06/18 09:00 02/05/18 08:59 01/08/18 07:56 5,000 INTER.UNIT Hydralazine HCl (Apresoline Tab) 100 mg BID PO 01/06/18 09:00 02/05/18 08:59 01/08/18 07:55 100 MG Acetaminophen/ Hydrocodone Bitart ([place] 10/325 Tab) 1 tab Q12 PRN PO 01/06/18 09:00 01/20/18 08:59 01/08/18 09:23 1 TAB Patiromer (Veltassa) 16.8 gm BID PO 01/06/18 21:00 02/05/18 20:59 01/08/18 17:13 8.4 GM Daptomycin 300 mg/ Syringe 6 ml @ 3 mls/min Q48H IV 01/08/18 10:30 8/25/18 10:29 01/08/18 10:48 3 MLS/MIN Daptomycin (Consult) 1 ea UD PRN N/A 01/08/18 10:15 02/07/18 10:14 Polyethylene (Miralax Powder Packet) 17 gm BID PO 01/08/18 21:00 02/07/18 20:59 Docusate Sodium (coLACE CAP) 100 mg BID PO 01/08/18 21:00 02/07/18 20:59 Ferrous Gluconate (Ferrous Gluconate Tab) 324 mg BIDM PO 01/09/18 07:30 02/08/18 07:29
[2018-01-08] MEDS: LATANOPROST 0.005% OP SOLN 2.5 ML BTL OP SCH (20:42)
[2018-01-08] MEDS: POLYETHYLENE (MIRALAX) 17 GM PACK PO SCH (20:43)
[2018-01-08] MEDS: DOCUSATE SODIUM 100 MG CAP PO SCH (20:43)
[2018-01-09] VITALS (7 sets, daily range): BP systolic 145–178; BP diastolic 57–71; PULSE 58–69; TEMP 36.5–37.1; O2SAT 94–96
[2018-01-09 06:41] LABS: BASO % 0.5 %; BASO ABS # 0.03 K/uL (0-0.2); EOS % 2.3 %; EOS ABS # 0.15 K/uL (0-0.5); HEMATOCRIT 29.3 % (37-47); HEMOGLOBIN 9.9 g/dL (12.0-16.0); IG# 0.02 K/uL (0.00-0.02); LYMPH % 16.9 %; MEAN CELL VOLUME 90.7 fL (80-100); MEAN CORPUSCULAR HEMOGLOBIN 30.7 pg (25-34); MEAN CORPUSCULAR HGB CONC 33.8 g/dl (32-36); MEAN PLATELET VOLUME 9.5 fL (7.4-10.4); MONO % 16.2 %; MONO ABS # 1.05 K/uL (0.11-0.59); NEUT % 63.8 %; NEUT ABS # 4.14 K/uL (1.4-6.5); PLATELET COUNT 205 K/uL (130-400); RED CELL DISTRIBUTION WIDTH SD 49.3 fL (36.4-46.3); WHITE BLOOD COUNT 6.49 K/uL (4.8-10.8)
[2018-01-09 07:26] LABS: CALCIUM 8.6 mg/dl (8.5-10.1); CREATININE 6.96 mg/dl (0.60-1.20); PHOSPHORUS 5.7 mg/dl (2.5-4.9); POTASSIUM 4.8 mmol/L (3.5-5.1)
[2018-01-09] MEDS: CHOLECALCIFEROL 1000 INTER.UNIT TAB PO SCH (08:33)
[2018-01-09] MEDS: CARVEDILOL 25 MG TAB PO SCH ×2 (08:34→21:51)
[2018-01-09] MEDS: FERROUS GLUCONATE 324 MG TAB PO SCH ×2 (08:34→16:55)
[2018-01-09] MEDS: DOCUSATE SODIUM 100 MG CAP PO SCH ×2 (08:34→21:00)
[2018-01-09] MEDS: FLUTICASONE PROPIONATE NA SPR 16 GM BTL NAE SCH (08:35)
[2018-01-09] MEDS: POLYETHYLENE (MIRALAX) 17 GM PACK PO SCH ×2 (08:36→21:00)
[2018-01-09] MEDS: PATIROMER PO SCH ×2 (08:36→16:54)
[2018-01-09] MEDS: ATORVASTATIN 20 MG TAB PO SCH (08:36)
[2018-01-09] MEDS: ACETAMINOPHEN 325 MG TAB PO PRN ×2 (08:38→21:53)
[2018-01-09] MEDS: INSULIN ASPART 100 UNITS/ML 3 ML PEN SC SCH ×4 (08:40→21:00)
--- NOTE | 2018-01-09 09:09 | Orthopedic Progress Note ---
Orthopedic Progress Note Date of Service Jan 09, 2018. Subjective Additional Notes: Patient had an ingrown toenail on the left medial great toe which was excised by podiatry in [place], [place]. She states after the procedure, the wound did not heal and she has been being treated for a left great toe ulceration/ nonhealing wound since that time. She recently had a procedure in [place] by a vascular surgeon and subsequently had bleeding into her left thigh which resulted in acute blood loss anemia and an admission to [facility] before being transferred to [facility]. Overall, the great toe is stable but the distal tip of the great toe still will not heal. Objective calves soft nontender, A&O x3, toes mobile Left foot: Examination of her left foot reveals an approximately 1.5 cm diameter black necrotic area at the tip of the great toe. It is tender to palpation, mostly along the medial side distally. She has surrounding erythema extending to about the level of the IP joint. No erythema spreading past the MTP joint into the foot. No drainage from the wound. Her foot and lesser toes feel warm, but the entire great toe feels cool. I cannot palpate any dorsalis pedis or posterior tibial pulse, but these are faintly dopplerable. Sensation is intact to light touch all around her foot, including the great toe out to the necrotic tip. Overall no change since yesterday. Radiology: Left foot X-rays reviewed: Soft tissue changes at the tip of the great toe. No obvious bony destruction or evidence of chronic osteomyelitis. Date Time Temp Pulse Resp B/P (MAP) Pulse Ox O2 Delivery O2 Flow Rate FiO2 01/09/18 07:58 36.6 64 18 173/67 (102) 94 Room Air 01/09/18 05:01 37.0 64 18 171/69 (103) 94 Room Air 01/09/18 00:31 37.1 69 19 170/69 (102) 94 Room Air 01/08/18 20:14 98 Room Air 01/08/18 19:24 36.7 62 20 193/71 (111) 96 Room Air 01/08/18 16:00 Room Air 01/08/18 15:25 36.6 61 20 178/71 (106) 96 Room Air 01/08/18 11:48 36.4 60 18 162/68 (99) 96 Room Air Laboratory Results 24 Hours: Test 01/09/18 06:27 White Blood Count 6.49 K/uL Red Blood Count 3.23 M/uL Hemoglobin 9.9 g/dL Hematocrit 29.3 % Mean Corpuscular Volume 90.7 fL Mean Corpuscular Hemoglobin 30.7 pg Mean Corpuscular Hemoglobin Concent 33.8 g/dl Platelet Count 205 K/uL Mean Platelet Volume 9.5 fL Neutrophils (%) (Auto) 63.8 % Lymphocytes (%) (Auto) 16.9 % Monocytes (%) (Auto) 16.2 % Eosinophils (%) (Auto) 2.3 % Basophils (%) (Auto) 0.5 % Neutrophils # (Auto) 4.14 K/uL Lymphocytes # (Auto) 1.10 K/uL Monocytes # (Auto) 1.05 K/uL Eosinophils # (Auto) 0.15 K/uL Basophils # (Auto) 0.03 K/uL Assessment & Plan Assessment: left great toe ischemia, r/o osteomyelitis distal phalanx great toe. LLE PVD Plan: Foot Xrays reassuring, but will order a left foot MRI to eval for early osteomyelitis of the great toe distal phalanx. Will await vascular input for possible improvement in the blood flow to the patient's left foot prior to any possible surgical procedure. (1) Necrosis of toe She has a 1.5 cm black necrotic eschar on the tip of her left great toe. She reportedly had evidence of osteomyelitis on x-ray at an outside facility, but x- rays here are unremarkable. We will order an MRI to eval for early osteomyelitis not evident on Xray. She just recently had a left lower extremity angioplasty 5 days ago at the [facility], but reportedly went awry, resulting in a significant left thigh hematoma, swelling, and ecchymosis. She does not have any palpable pulses in her foot, and her pulses are only faintly dopplerable. Her great toe feels quite cool. Fortunately, she does not have significant evidence of spread of any infection more proximal than about the great toe IP joint. No change in the appearance of the toe over the last 24 hours. At this point, I do not think urgent orthopedic surgical intervention is required. I would recommend a vascular surgery consultation to see if her lower leg can be reperfused; this may assist with healing of this great toe wound, or at least assist with healing of an amputation wound if required in the future. I would also recommend wound care for the necrotic area on the tip of her toe. I have seen and examined the patient, and agree with GRACIE Heard's assessment and plan. I am covering Orthopedic Surgery call for Dr. Verduzco, who is unavailable. Deejay Canas MD
--- NOTE | 2018-01-09 12:58 | DIAGNOSTIC IMAGING REPORT ---
LOWER EXT NONJOINT WITHOUT CLINICAL HISTORY: left great to ulceration pain. Edema. TECHNIQUE: Multiaxial MRI acquisition COMPARISON STUDY: None FINDINGS: Findings consistent with soft tissue cellulitis-type change throughout the mid and distal aspect of the foot. Bone marrow signal characteristics are in general unremarkable. There is suggestion of early bone marrow replacement involving the distal aspect distal phalanx right great toe. This shows a moderate increase in signal on the inversion recovery sequence. No evidence for drainable abscess or collection. Moderate degenerative change of the joint spaces throughout. No evidence for drainable abscess or collection. IMPRESSION: 1. Somewhat limited study due to the absence of contrast enhanced sequences. 2. Mild generalized cellulitis. 3. A potential early osteomyelitis tuft distal phalanx great toe. 4. No evidence for drainable abscess or collection. The above report was generated using voice recognition software. It may contain grammatical, syntax or spelling errors. Electronically signed by: Joaquin Lara M.D. 01/09/2018 12:56 PM Dictated Date/Time: 01/09/2018 12:52 PM
[2018-01-09] MEDS: HYDROCODONE/ACETAMI 10/325 TAB PO PRN ×2 (13:05→23:38)
[2018-01-09] MEDS: CLONIDINE HCL 0.1 MG TAB PO PRN ×2 (13:26→21:53)
--- NOTE | 2018-01-09 19:43 | Progress Note ---
Medicine Progress Note Date & Time of Visit: Jan 09, 2018 at 19:43. Subjective Patient is feeling ok, states that her pain is not well controlled and that her big toe wound is where most of the pain is; she denies any left thigh pain and states she has been ambulating without difficulty. No overnight events noted. Tolerating PO. Patient is getting frustrated about everything and is stressed about being on the verge of starting dialysis, and close to having a toe amputated, and concern for her PAD. Objective Last 8 Hrs Date Time Temp Pulse Resp B/P (MAP) Pulse Ox O2 Delivery O2 Flow Rate FiO2 01/09/18 16:00 Room Air 01/09/18 15:06 36.5 58 16 145/57 (86) 96 Room Air Physical Exam: GENERAL: Patient is in no acute distress. HEENT: No acute trauma, normocephalic, mucous membranes moist, no nasal congestion, no scleral icterus. NECK: No stridor, trachea is midline. LUNGS: CTA bilaterally, no wheeze, no rhonchi, breath sounds equal. HEART: Without murmurs gallops or rubs, regular rate and rhythm. ABDOMEN: Soft, nontender, bowel sounds positive EXTREMITIES: No cyanosis; mild B/L LE edema, able to move all extremities without pain or difficulty, large ecchymosis on left thigh, hip, buttock resolving NEUROLOGIC: Oriented x 3, no acute motor or sensory deficits, no focal weakness. SKIN: No rash, no jaundice, no diaphoresis. Laboratory Results: Last 24 Hours Test 01/08/18 20:23 01/08/18 21:58 01/09/18 06:27 01/09/18 07:24 Bedside Glucose 150 mg/dl 119 mg/dl Stool Occult Blood NEGATIVE White Blood Count 6.49 K/uL Red Blood Count 3.23 M/uL Hemoglobin 9.9 g/dL Hematocrit 29.3 % Mean Corpuscular Volume 90.7 fL Mean Corpuscular Hemoglobin 30.7 pg Mean Corpuscular Hemoglobin Concent 33.8 g/dl Platelet Count 205 K/uL Mean Platelet Volume 9.5 fL Neutrophils (%) (Auto) 63.8 % Lymphocytes (%) (Auto) 16.9 % Monocytes (%) (Auto) 16.2 % Eosinophils (%) (Auto) 2.3 % Basophils (%) (Auto) 0.5 % Neutrophils # (Auto) 4.14 K/uL Lymphocytes # (Auto) 1.10 K/uL Monocytes # (Auto) 1.05 K/uL Eosinophils # (Auto) 0.15 K/uL Basophils # (Auto) 0.03 K/uL RDW Standard Deviation 49.3 fL RDW Coefficient of Variation 15.0 % Immature Granulocyte % (Auto) 0.3 % Immature Granulocyte # (Auto) 0.02 K/uL Sodium Level 136 mmol/L Potassium Level 4.8 mmol/L Chloride Level 106 mmol/L Carbon Dioxide Level 19 mmol/L Anion Gap 11.0 mmol/L Blood Urea Nitrogen 88 mg/dl Creatinine 6.96 mg/dl Est Creatinine Clear Calc Drug Dose 7.3 ml/min Estimated GFR () 6.5 Estimated GFR (Non- 5.6 BUN/Creatinine Ratio 12.5 Random Glucose 124 mg/dl Calcium Level 8.6 mg/dl Phosphorus Level 5.7 mg/dl Magnesium Level 1.9 mg/dl Test 01/09/18 11:21 01/09/18 16:11 Bedside Glucose 182 mg/dl 132 mg/dl Assessment & Plan ACUTE BLOOD LOSS ANEMIA: likely secondary to left groin hematoma and underlying chronic anemia from ESRD and iron deficiency -symptomatic anemia -anemia profile unlikely reliable given multiple blood transfusions Baseline hemoglobin around 9; was 5.2 at [facility] the night of admission -has significant ecchymosis of the left thigh, status post left lower extremity angioplasty -CT scan of the abdomen and pelvis and left thigh did not reveal a large or drainable hematoma or fluid collection -continue to hold aspirin and Plavix at this time, but reevaluate closely due to history of CAD and PAD -Melena, GI consulted, EGD done and no source of bleeding, Protonix drip stopped -monitor H&H -patient has received transfusion with 4 units thus far, Hb post transfusion was 9.5-->9.9 today TRU ON CKD STAGE V: -has a dialysis fistula LUE -Nephrology consulted -avoid nephrotoxins when able -no signs of overt volume overload or uremia at this time LEFT BIG TOE OSTEOMYELITIS: -was followed at [facility] and podiatry -diagnosed with osteomyelitis 2 weeks ago -was started on IV antibiotics as an outpatient; abx switched to vanco on admission -Records obtained from [facility] -ID consulted, recommendations appreciated; continue vanco and referral for toe amputation in near future -consult to Ortho regarding the big toe wound/amputation in future -Vascular surgery consulted regarding reperfusion possibility PAD/CAD: -prior hx of CABG -s/p left lower extremity extremity angioplasty January 04, 2018 -holding aspirin & Plavix at this time but reevaluate daily given extensive vascular hx -records obtained from [facility] -no cardiac symptoms -continue atorvastatin and carvedilol -resume ASA and plavix once Hb stabilizes DM TYPE II: -hold glipizide while admitted -Insulin sliding scale for now HTN: -BP elevated, but asymptomatic -as needed clonidine -continue usual carvedilol and hydralazine GLAUCOMA: -continue latanoprost Current Inpatient Medications: Current Inpatient Medications Medications (Trade) Dose Ordered Sig/Ewelina Route Start Time Stop Time Status Last Admin Dose Admin Acetaminophen (Tylenol Tab) 650 mg Q4H PRN PO 01/06/18 04:45 02/05/18 04:44 01/09/18 08:38 650 MG Miscellaneous (Iv Fluids Completed) 1 ea PRN PRN N/A 01/06/18 04:45 01/06/19 04:44 Clonidine HCl (Catapres Tab) 0.1 mg Q6H PRN PO 01/06/18 05:00 02/05/18 04:59 01/09/18 13:26 0.1 MG Insulin Aspart (novoLOG ASPART) SLIDING SCALE If C... ACHS SC 01/06/18 07:00 02/05/18 06:59 01/09/18 13:28 3 UNITS Glucose (Glucose 40% Gel) 15-30 GRAMS 15 GRAMS... UD PRN PO 01/06/18 05:45 02/05/18 05:44 Glucose (Glucose Chew Tab) 4-8 Tablets 4 Tabl... UD PRN PO 01/06/18 05:45 02/05/18 05:44 Dextrose (Dextrose 50% 50ML Syringe) 25-50ML 25ML FOR ... UD PRN IV 01/06/18 05:45 02/05/18 05:44 Glucagon (Glucagon Inj) 1 mg UD PRN SQ 01/06/18 05:45 02/05/18 05:44 Carbohydrates (Carbohydrates For Hypoglycemia) 15-30 GRAMS 15 grams if BSG 54-69... UD PRN PO 01/06/18 05:45 02/05/18 05:44 Albuterol (Ventolin Hfa Inhaler) 2 puffs Q4H PRN INH 01/06/18 05:45 02/05/18 05:44 Atorvastatin Calcium (Lipitor Tab) 40 mg DAILY PO 01/06/18 09:00 02/05/18 08:59 01/09/18 08:36 40 MG Calcitriol (Rocaltrol Cap) 0.25 mcg MoWeFr@0900 PO 01/07/18 09:00 02/06/18 08:59 01/07/18 08:32 0.25 MCG Carvedilol (Coreg Tab) 25 mg BID PO 01/06/18 09:00 02/05/18 08:59 01/09/18 08:34 25 MG Fluticasone Propionate (Flonase Nasal [place]) 1 sprays DAILY JOE 01/06/18 09:00 02/05/18 08:59 01/09/18 08:35 1 SPRAYS Latanoprost (Xalatan Oph Soln) 1 drops HS OP 01/06/18 21:00 02/05/18 20:59 01/06/18 19:52 1 DROPS Cholecalciferol (Vitamin D Tab) 5,000 inter.unit QAM PO 01/06/18 09:00 02/05/18 08:59 01/09/18 08:33 5,000 INTER.UNIT Hydralazine HCl (Apresoline Tab) 100 mg BID PO 01/06/18 09:00 02/05/18 08:59 01/09/18 08:34 100 MG Acetaminophen/ Hydrocodone Bitart ([place] 10/325 Tab) 1 tab Q12 PRN PO 01/06/18 09:00 01/20/18 08:59 01/09/18 13:05 1 TAB Patiromer (Veltassa) 16.8 gm BID PO 01/06/18 21:00 02/05/18 20:59 01/09/18 16:54 8.4 GM Daptomycin 300 mg/ Syringe 6 ml @ 3 mls/min Q48H IV 01/08/18 10:30 02/19/18 10:29 01/08/18 10:48 3 MLS/MIN Daptomycin (Consult) 1 ea UD PRN N/A 01/08/18 10:15 02/07/18 10:14 Polyethylene (Miralax Powder Packet) 17 gm BID PO 01/08/18 21:00 02/07/18 20:59 Docusate Sodium (coLACE CAP) 100 mg BID PO 01/08/18 21:00 02/07/18 20:59 01/09/18 08:34 100 MG Ferrous Gluconate (Ferrous Gluconate Tab) 324 mg BIDM PO 01/09/18 07:30 02/08/18 07:29 01/09/18 16:55 324 MG
--- NOTE | 2018-01-09 19:52 | PROGRESS NOTE ---
DATE: 01/09/2018 REASON FOR CONSULT: Acute renal failure and chronic kidney disease stage V with severe anemia. SUBJECTIVE: The patient feels overall better. She denies having any nausea, vomiting, chest pain, shortness of breath, orthopnea, PND. She does have some lower extremity edema. She is not having any drop in her hemoglobin. Most recent hemoglobin this morning was actually much better at 9.9. However, her kidney labs are getting worse every day. PHYSICAL EXAMINATION: VITAL SIGNS: Blood pressure 145/57, 96% on room air, pulse rate 58, temperature 36.5. HEENT: Mucous membrane is moist. NECK: Supple. No jugular venous distention. CHEST: Bilateral clear to auscultation. CARDIOVASCULAR: S1 and S2, regular. ABDOMEN: Soft, nontender. EXTREMITIES: Shows 1+ edema bilaterally. SKIN: She has a big hematoma bruise in her left upper thigh, which is most likely the source of her anemia. LABORATORY TESTS: From this morning shows BUN is now up to 88, creatinine 6.96. Both BUN and creatinine has been going up steadily for the last four days. Sodium 136, potassium 4.8. ASSESSMENT AND PLAN: A 67-year-old female with chronic kidney disease stage V, not on dialysis, peripheral vascular disease who had a left lower extremity angioplasty on 01/04/2018 and then developed big hematoma in her left groin, which caused her to have significant anemia. 1. Acute renal failure and background chronic kidney disease V. At this time, both BUN and creatinine are still rising, which is not unexpected as she has a big hematoma and had severe anemia. Both these things can cause BUN and creatinine to rise. She is not ready yet for dialysis, although she says she would agree to dialysis if it is absolutely emergent. I did tell her that when the BUN gets close to 100 and creatinine is more than 7, it is time to do dialysis. She did not give me answers one way or other. 2. Hyperkalemia. Potassium now is normal. Continue Veltassa. We will use Lasix if the potassium is more than 5.5. Ideally, she needs to be on some Lasix for both edema control as well as potassium control. 3 anemia. This has been much better now at 9.9 hemoglobin. GI bleeding has been ruled out, so at this time, we have to assume the anemia was from the severe hematoma. [facility]
[2018-01-09] MEDS: LATANOPROST 0.005% OP SOLN 2.5 ML BTL OP SCH ×2 (21:00→21:50)
[2018-01-10] VITALS (8 sets, daily range): BP systolic 148–196; BP diastolic 54–73; PULSE 53–94; TEMP 36.4–36.7; O2SAT 95–99
[2018-01-10 07:00] LABS: BASO % 0.3 %; BASO ABS # 0.02 K/uL (0-0.2); EOS % 3.1 %; EOS ABS # 0.19 K/uL (0-0.5); HEMATOCRIT 29.4 % (37-47); HEMOGLOBIN 9.7 g/dL (12.0-16.0); IG# 0.02 K/uL (0.00-0.02); LYMPH % 22.6 %; LYMPH ABS # 1.37 K/uL (1.2-3.4); MEAN PLATELET VOLUME 9.6 fL (7.4-10.4); MONO % 12.9 %; MONO ABS # 0.78 K/uL (0.11-0.59); NEUT % 60.8 %; NEUT ABS # 3.69 K/uL (1.4-6.5); PLATELET COUNT 220 K/uL (130-400); RED CELL DISTRIBUTION WIDTH CV 14.7 % (11.5-14.5); RED CELL DISTRIBUTION WIDTH SD 48.5 fL (36.4-46.3); WHITE BLOOD COUNT 6.07 K/uL (4.8-10.8)
[2018-01-10 08:00] LABS: CALCIUM 8.7 mg/dl (8.5-10.1); CREATININE 7.26 mg/dl (0.60-1.20); PHOSPHORUS 5.5 mg/dl (2.5-4.9); POTASSIUM 5.1 mmol/L (3.5-5.1)
[2018-01-10] MEDS: INSULIN ASPART 100 UNITS/ML 3 ML PEN SC SCH ×4 (08:18→21:00)
[2018-01-10] MEDS: FERROUS GLUCONATE 324 MG TAB PO SCH ×2 (08:20→17:15)
[2018-01-10] MEDS: FLUTICASONE PROPIONATE NA SPR 16 GM BTL NAE SCH (08:20)
[2018-01-10] MEDS: DOCUSATE SODIUM 100 MG CAP PO SCH ×2 (08:21→20:18)
[2018-01-10] MEDS: CARVEDILOL 25 MG TAB PO SCH ×2 (08:22→20:19)
[2018-01-10] MEDS: ATORVASTATIN 20 MG TAB PO SCH (08:22)
[2018-01-10] MEDS: CALCITRIOL 0.25 MCG CAP PO SCH (08:23)
[2018-01-10] MEDS: POLYETHYLENE (MIRALAX) 17 GM PACK PO SCH ×2 (08:23→20:20)
[2018-01-10] MEDS: CHOLECALCIFEROL 1000 INTER.UNIT TAB PO SCH (08:24)
[2018-01-10] MEDS: PATIROMER PO SCH ×2 (09:00→20:20)
[2018-01-10] MEDS: HYDROCODONE/ACETAMI 10/325 TAB PO PRN ×2 (09:10→20:19)
--- NOTE | 2018-01-10 09:30 | Surgery Consultation ---
Consultation Date of Service Jan 10, 2018. Chief Complaint PAD, L toe ulcer History of Present Illness The patient is a 67 year old female with multiple medical problems, including ESRD, HTN, PAD, known to Dr Solorzano for L radiocephalic AVF creation in past, seen in consultation today for PAD. Pt states she has had L toe ulceration since an ingrown toenail in 06/2017, and it just continued to get worse. 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 Pt also c/o severely limiting RLE calf claudication, but no ulcerations or wounds. Has not yet started HD. Transferred here from [facility] d/t severe anemia and possible need to start HD. Pt admits severe pain in L great toe, but states it is no longer a sharp pain, just a dull ache. Denies FELIPE, fever, chills, chest pain, SOB, abd pain, N/V, other complaints. No arterial US results available. No imaging of HD access available. MRI indicates possible osteomyelitis of L great toe tuft. Information not yet available from [facility] regarding her procedure. Vitals Vital Signs Past 12 Hours Date Time Temp Pulse Resp B/P (MAP) Pulse Ox O2 Delivery O2 Flow Rate FiO2 01/10/18 07:59 36.6 55 18 158/69 (98) 95 Room Air 01/10/18 03:52 36.5 94 20 149/67 (94) 97 Room Air 01/09/18 22:59 36.7 59 20 161/67 (98) 95 Room Air Allergies Coded Allergies: Amoxicillin (Verified Allergy, Mild, LIGHTHEADED, DIZZY AND NAUSEA, ) Clavulanic Acid (Verified Allergy, Mild, LIGHTHEADED, DIZZY AND NAUSEA, ) Home Medications Scheduled Albuterol Sulfate (Proair Respiclick), 90 MCG INH Q4H Aspirin (Aspirin Ec), 81 MG PO QAM Atorvastatin (Lipitor), 40 MG PO DAILY Calcitriol (Rocaltrol Cap), 0.25 MCG PO MWF Carvedilol (Carvedilol), PO DAILY Cholecalciferol (Vitamin D), 1 TAB PO QAM Clopidogrel (Plavix), 75 MG PO DAILY Fluticasone Propionate (Nasal) (Allergy Nasal [place] [address] Ho), 2 SPRAY JOE DAILY Glimepiride (Glimepiride), 1 TAB PO QAM Glipizide (Glucotrol), 5 MG PO BID Hydralazine HCl (Hydralazine HCl), PO BID Latanoprost (Xalatan 0.005% Oph [place]), 1 DROPS OP HS Patiromer Sorbitex Calcium (Veltassa), 8.4 GM PO BID Scheduled PRN Acetaminophen (Tylenol Extra Strength), 1 TAB PO Q6 PRN for Pain Albuterol Hfa (Ventolin Hfa), 2 PUFFS INH Q4H PRN for Wheezing Hydrocodone/Acetaminophen ([place] 10/325 Tab), 1 TAB PO Q12 PRN for Pain Problem List Medical Problems: (1) Anemia (2) Asthma (3) Asthma (4) [place] [place] Coronary Artery W/O Ang Pctrs (5) AV fistula (6) Bronchitis (7) CAD (coronary artery disease) (8) CKD (chronic kidney disease), stage V (9) Diab Neli Wo Compl, Type Ii Or Unspec Type, Not Uncntrld (10) DM type 2 (diabetes mellitus, type 2) (11) End Stage Renal Disease (12) HTN (hypertension) (13) Hyperlipidemia (14) Hyperlipidemia, Unspecified (15) Hyponatremia (16) Obesity (BMI 30.0-34.9) (17) Osteoarthritis (18) Osteoporosis (19) Type 2 Diabetes Mellitus Without Complications (20) Vitamin D Deficiency, Unspecified Surgical Problems: (1) AV fistula (2) History of cataract surgery (3) Presence Of Aortocoronary Bypass Graft (4) S/P CABG x 3 (5) S/P section Surgical / Medical History Hx Cardiac Surgery: Yes Hx Abdominal Surgery: No Hx Cancer Surgery: No Hx Thoracic Surgery: No Hx Orthopedic: No Hx Urinary Tract Surgery: No HX Other Surgery: Yes (catarac) Past Medical/Surgical History: Diabetes, High Cholesterol, Hypertension, Kidney Disease Family History Cardiac disorder MOTHER Diabetes mellitus MOTHER SISTER FATHER Hypertension SISTER Social History Smoking Status: Former Smoker Hx Tobacco Use In Past Year?: No (QUIT 2009) Hx Alcohol Use - Type & Amnt: No Hx Substance Use -Type & Amnt: No Review of Systems Constitutional: No chills, No fever, No malaise Eyes: No visual changes ENMT: No sore throat Respiratory: No cough, No MASTERS, No short of breath Cardiovascular: + intermittent claudication, No chest pain, No palpitations, No syncope, No edema Gastrointestinal: No abdominal pain, No nausea, No vomiting Genitourinary - Female: No dysuria, No hematuria Neurologic: No dizziness, No headache, No numbness, No tingling Physical Exam Constitutional: General Apperance: well-nourished, well-developed Level of Distress: NAD, chronically ill Psychiatric: Mental Status: active & alert, normal mood, normal affect Orientation: oriented except where noted, to time, to place, to person Memory: recent memory normal, remote memory normal Head: normocephalic, atraumatic Eyes: EOM: EOMI ENMT: normal ENT inspection, hearing grossly normal Neck: supple, trachea midline Lungs: Respiratory effort: no dyspnea Auscultation: no rales/crackles, no rhonchi Cardiovascular: Apical Impulse: not displaced Heart Auscultation: RRR, no rubs, no gallops Peripheral Pulses: Pulses: full and equal, in all extremities except if noted Bruits: none appreciated Carotid Pulse: normal on the left, normal on the right Brachial Pulses: normal on the left, normal on the right Radial Pulse: normal on the right, pertinent finding (LUE radiocephalic AVF with + thrill/bruit, weaker distally. ) Femoral Pulse: normal on the left, normal on the right Posterior Tibialis Pulse: doppler (LLE good signal, RLE no signal) Dorsalis Pedis Pulse: doppler (LLE faint signal, RLE no signal), pertinent finding (RLE peroneal good signal) Abdomen: Bowel Sounds: normal Inspection & Palpation: soft, non-distended, no tenderness, guarding & rebound Musculoskeletal: normal strength (5/5 throughout), normal tone Extremities: Upper Right: no cyanosis, no edema, no varicosities Upper Left: no cyanosis, no edema, pertinent finding (AVF) Lower Right: no cyanosis, no edema, no varicosities Lower Left: ulcers (L great toe tip, + erythema and tenderness. Dry black eschar noted. ) Neurologic: Cranial Nerves: grossly intact Sensation: grossly intact Assessment and Plan ASSESSMENT and PLAN: PAD with LLE nonhealing ulcer and RLE claudication ESRD Pt's LUE may benefit from US eval to determine whether blood flow is adequate for HD. LLE toe ulceration only 6 days post op from angioplasty, would recommend local care, unless definite osteo identified. RLE will likely require angio d/t severe claudication, however, pt not yet on HD, so would recommend keeping dye load to minimum. Attempting to obtain records from [facility] to see exactly what was done.
[2018-01-10] MEDS: DAPTOmycin IV 300 MG in SYRINGE 0 ML IV SCH (11:58)
--- NOTE | 2018-01-10 12:51 | Orthopedic Progress Note ---
Orthopedic Progress Note Date of Service Jan 10, 2018. Subjective Reports: feeling well, pain controlled w PO medications, Denies: complaints, chest pain, SOB, nausea / vomiting, light headedness, calf pain Objective calves soft nontender, capillary refill less than 2 sec., dressing C/D/I, A&O x3 Left great toe w necrotic looking skin, dorsal pedal pulse faint. No drainage, + tenderness, little ROM. Date Time Temp Pulse Resp B/P (MAP) Pulse Ox O2 Delivery O2 Flow Rate FiO2 01/10/18 11:46 36.4 55 18 150/66 (94) 99 Room Air 01/10/18 08:00 95 Room Air 01/10/18 07:59 36.6 55 18 158/69 (98) 95 Room Air 01/10/18 03:52 36.5 94 20 149/67 (94) 97 Room Air 01/09/18 22:59 36.7 59 20 161/67 (98) 95 Room Air 01/09/18 20:04 Room Air 01/09/18 19:35 36.8 64 20 170/63 (98) 94 Room Air 01/09/18 16:00 Room Air 01/09/18 15:06 36.5 58 16 145/57 (86) 96 Room Air Laboratory Results 24 Hours: Test 01/10/18 06:18 White Blood Count 6.07 K/uL Red Blood Count 3.23 M/uL Hemoglobin 9.7 g/dL Hematocrit 29.4 % Mean Corpuscular Volume 91.0 fL Mean Corpuscular Hemoglobin 30.0 pg Mean Corpuscular Hemoglobin Concent 33.0 g/dl Platelet Count 220 K/uL Mean Platelet Volume 9.6 fL Neutrophils (%) (Auto) 60.8 % Lymphocytes (%) (Auto) 22.6 % Monocytes (%) (Auto) 12.9 % Eosinophils (%) (Auto) 3.1 % Basophils (%) (Auto) 0.3 % Neutrophils # (Auto) 3.69 K/uL Lymphocytes # (Auto) 1.37 K/uL Monocytes # (Auto) 0.78 K/uL Eosinophils # (Auto) 0.19 K/uL Basophils # (Auto) 0.02 K/uL Assessment & Plan Assessment: left great toe ischemia- MRI no fluid or abscess, poss osteo. LLE PVD Plan: Will await vascular input for possible improvement in the blood flow to the patient's left foot prior to any possible surgical procedure. Will have Dr. Kelsi julian for potential amputation in conjunction with vascular recommendation. (1) Necrosis of toe
--- NOTE | 2018-01-10 13:41 | DIAGNOSTIC IMAGING REPORT ---
ADDENDUM DUPLEX HEMODIALYSIS ACCESS CLINICAL HISTORY: 67 years-old Female presenting with LUE AVF. TECHNIQUE: Real-time grayscale Doppler ultrasound imaging of the left upper extremity fistula was performed for a focused evaluation at the site of clinical concern. Color and spectral Doppler ultrasound imaging was also performed. COMPARISON: 01/06/2018. FINDINGS: As mentioned on yesterday's report, the left upper extremity arteriovenous fistula located at the level of the patient's distal forearm is patent. Arterial inflow is normal with low resistance high flow waveforms. The arterial inflow has a peak systolic velocity of 181 cm/s and end-diastolic velocity of 77 cm/s. The fistula itself is mildly ectatic, which is expected, and patent. The venous outflow is also patent with low resistance high velocity waveforms. The venous outflow has a peak systolic velocity of 232 cm/s and end diastolic velocity of 77 cm/s. More superiorly, the veins of the left forearm, antecubital fossa, and upper arm were evaluated including the cephalic vein and basilic vein. The superficial veins are patent with a minimum diameter of the cephalic vein below the elbow measuring 4 mm and maximum diameter of 6 mm. Above the elbow minimum cephalic diameter is 4 mm and maximum 4 mm. The basilic vein above the elbow has a minimum diameter of 5 mm and maximum diameter of 6 mm. These are all less than 1 cm from the surface of the skin. IMPRESSION: 1. Patent arteriovenous fistula with expected low resistance high velocity waveforms both at the arterial inflow and venous outflow. 2. Draining veins in the forearm, elbow, and upper arm were evaluated and are patent. Maximum and minimum diameters as above. Electronically signed by: Adelso Douglas M.D. 01/11/2018 3:52 PM Dictated Date/Time: 01/11/2018 3:46 PM ORIGINAL REPORT DUPLEX HEMODIALYSIS ACCESS HISTORY: 67 years-old Female LUE AVF 80 fistula of the left upper extremity. COMPARISON: None available TECHNIQUE: Multiple real-time significant images of the left upper extremity vascular structures were obtained assessing grayscale appearance, color and spectral flow FINDINGS: Arterial venous fistula of the left mid forearm is noted interposed between the cephalic vein and ulnar artery which appears patent without thrombus. Phasic flow is noted within the fistula with peak systolic velocities measuring up to 207 cm/s. IMPRESSION: Patent arteriovenous fistula. The above report was generated using voice recognition software. It may contain grammatical, syntax or spelling errors. Electronically signed by: Williams Walsh M.D. 01/10/2018 1:40 PM Dictated Date/Time: 01/10/2018 1:37 PM
--- NOTE | 2018-01-10 17:26 | Nephrology Progress Note ---
Nephrology Progress Note Date of Service: Jan 10, 2018. Subjective Patient feels well today denied any shortness of breath or lower extremity edema. She reported occasional skin itching. Appetite is good. She denied metallic taste on nausea. Objective Date Time Temp Pulse Resp B/P (MAP) Pulse Ox O2 Delivery O2 Flow Rate FiO2 01/10/18 15:12 36.6 53 19 148/64 (92) 96 Room Air 01/10/18 11:46 36.4 55 18 150/66 (94) 99 Room Air 01/10/18 08:00 95 Room Air 01/10/18 07:59 36.6 55 18 158/69 (98) 95 Room Air 01/10/18 03:52 36.5 94 20 149/67 (94) 97 Room Air 01/09/18 22:59 36.7 59 20 161/67 (98) 95 Room Air 01/09/18 20:04 Room Air 01/09/18 19:35 36.8 64 20 170/63 (98) 94 Room Air Physical Exam: [id number], no acute distress Eyes-pupils equal and reactive to light ENT-throat is normal on inspection Neck-neck is supple no JVD Lungs-bilateral crackles Heart-S1 and S2 regular rate and rhythm, no murmurs Abdomen-soft nondistended bowel sounds are present Extremities-1+ edema, left forearm AV fistula with good thrill and bruit Neuro-oriented 3, no focal neurological deficits Current Inpatient Medications Medications (Trade) Dose Ordered Sig/Ewelina Route Start Time Stop Time Status Last Admin Dose Admin Acetaminophen (Tylenol Tab) 650 mg Q4H PRN PO 01/06/18 04:45 02/05/18 04:44 01/09/18 21:53 650 MG Miscellaneous (Iv Fluids Completed) 1 ea PRN PRN N/A 01/06/18 04:45 01/06/19 04:44 Clonidine HCl (Catapres Tab) 0.1 mg Q6H PRN PO 01/06/18 05:00 02/05/18 04:59 01/09/18 21:53 0.1 MG Insulin Aspart (novoLOG ASPART) SLIDING SCALE If C... ACHS SC 01/06/18 07:00 02/05/18 06:59 01/10/18 17:15 1 UNITS Glucose (Glucose 40% Gel) 15-30 GRAMS 15 GRAMS... UD PRN PO 01/06/18 05:45 02/05/18 05:44 Glucose (Glucose Chew Tab) 4-8 Tablets 4 Tabl... UD PRN PO 01/06/18 05:45 02/05/18 05:44 Dextrose (Dextrose 50% 50ML Syringe) 25-50ML 25ML FOR ... UD PRN IV 01/06/18 05:45 02/05/18 05:44 Glucagon (Glucagon Inj) 1 mg UD PRN SQ 01/06/18 05:45 02/05/18 05:44 Carbohydrates (Carbohydrates For Hypoglycemia) 15-30 GRAMS 15 grams if BSG 54-69... UD PRN PO 01/06/18 05:45 02/05/18 05:44 Albuterol (Ventolin Hfa Inhaler) 2 puffs Q4H PRN INH 01/06/18 05:45 02/05/18 05:44 Atorvastatin Calcium (Lipitor Tab) 40 mg DAILY PO 01/06/18 09:00 02/05/18 08:59 01/10/18 08:22 40 MG Calcitriol (Rocaltrol Cap) 0.25 mcg MoWeFr@0900 PO 01/07/18 09:00 02/06/18 08:59 01/10/18 08:23 0.25 MCG Carvedilol (Coreg Tab) 25 mg BID PO 01/06/18 09:00 02/05/18 08:59 01/10/18 08:22 25 MG Fluticasone Propionate (Flonase Nasal [place]) 1 sprays DAILY JOE 01/06/18 09:00 02/05/18 08:59 01/10/18 08:20 1 SPRAYS Latanoprost (Xalatan Oph Soln) 1 drops HS OP 01/06/18 21:00 02/05/18 20:59 01/06/18 19:52 1 DROPS Cholecalciferol (Vitamin D Tab) 5,000 inter.unit QAM PO 01/06/18 09:00 02/05/18 08:59 01/10/18 08:24 5,000 INTER.UNIT Hydralazine HCl (Apresoline Tab) 100 mg BID PO 01/06/18 09:00 02/05/18 08:59 01/10/18 08:21 100 MG Patiromer (Veltassa) 16.8 gm BID PO 01/06/18 21:00 02/05/18 20:59 01/09/18 16:54 8.4 GM Daptomycin 300 mg/ Syringe 6 ml @ 3 mls/min Q48H IV 01/08/18 10:30 02/19/18 10:29 01/10/18 11:58 3 MLS/MIN Daptomycin (Consult) 1 ea UD PRN N/A 01/08/18 10:15 02/07/18 10:14 Polyethylene (Miralax Powder Packet) 17 gm BID PO 01/08/18 21:00 02/07/18 20:59 01/10/18 08:23 17 GM Docusate Sodium (coLACE CAP) 100 mg BID PO 01/08/18 21:00 02/07/18 20:59 01/10/18 08:21 100 MG Ferrous Gluconate (Ferrous Gluconate Tab) 324 mg BIDM PO 01/09/18 07:30 02/08/18 07:29 01/10/18 17:15 324 MG Acetaminophen/ Hydrocodone Bitart ([place] 10/325 Tab) 1 tab Q8H PRN PO 01/09/18 23:15 01/20/18 08:59 01/10/18 09:10 1 TAB Last 24 Hours Test 01/09/18 20:29 01/10/18 06:18 01/10/18 07:13 01/10/18 11:42 Bedside Glucose 155 mg/dl 124 mg/dl 142 mg/dl White Blood Count 6.07 K/uL Red Blood Count 3.23 M/uL Hemoglobin 9.7 g/dL Hematocrit 29.4 % Mean Corpuscular Volume 91.0 fL Mean Corpuscular Hemoglobin 30.0 pg Mean Corpuscular Hemoglobin Concent 33.0 g/dl Platelet Count 220 K/uL Mean Platelet Volume 9.6 fL Neutrophils (%) (Auto) 60.8 % Lymphocytes (%) (Auto) 22.6 % Monocytes (%) (Auto) 12.9 % Eosinophils (%) (Auto) 3.1 % Basophils (%) (Auto) 0.3 % Neutrophils # (Auto) 3.69 K/uL Lymphocytes # (Auto) 1.37 K/uL Monocytes # (Auto) 0.78 K/uL Eosinophils # (Auto) 0.19 K/uL Basophils # (Auto) 0.02 K/uL RDW Standard Deviation 48.5 fL RDW Coefficient of Variation 14.7 % Immature Granulocyte % (Auto) 0.3 % Immature Granulocyte # (Auto) 0.02 K/uL Sodium Level 137 mmol/L Potassium Level 5.1 mmol/L Chloride Level 108 mmol/L Carbon Dioxide Level 19 mmol/L Anion Gap 10.0 mmol/L Blood Urea Nitrogen 97 mg/dl Creatinine 7.26 mg/dl Est Creatinine Clear Calc Drug Dose 6.9 ml/min Estimated GFR () 6.1 Estimated GFR (Non- 5.3 BUN/Creatinine Ratio 13.3 Random Glucose 113 mg/dl Calcium Level 8.7 mg/dl Phosphorus Level 5.5 mg/dl Magnesium Level 1.9 mg/dl Test 01/10/18 16:12 Bedside Glucose 139 mg/dl Assessment & Plan This is a 67-year-old female with CKD stage V, peripheral vascular disease who was admitted with acute blood loss anemia secondary to left groin hematoma. 1. CKD stage V: Patient has a functional left forearm AV fistula but has not needed dialysis at this point. Her renal function is worsening with a creatinine up to 7.2 today. There is no indication for urgent hemodialysis but does not is close to needing dialysis. I discussed with the patient that she is very close to needing dialysis. Patient's main concern is that she continues to walk 4 days a week and starting dialysis might be a lifestyle change for her which might make her lose her job. She would like to be discharged and continue dialysis planning as an outpatient. I think this is reasonable unless hyperkalemia gets worse which I do not anticipate. If I hemoglobin is stable I think she can be discharged and will do dialysis planning as an outpatient. 2. Hyperkalemia continue Patiromer and ensure patient is on a low potassium diet. 3. Anemia: Multifactorial including chronic kidney disease and acute blood loss in setting of hematoma. Monitor and transfuse as needed. She will likely need Neupogen as an outpatient.
--- NOTE | 2018-01-10 20:09 | Progress Note ---
Medicine Progress Note Date & Time of Visit: Jan 10, 2018 at 20:09. Subjective Patient reports she is worried about everything and is tired of "waiting for everything to start", referring to HD and plan for her left toe wound. No overnight changes. Tolerating PO. Ambulates in her room but not further due to claudication symptoms. Objective Last 8 Hrs Date Time Temp Pulse Resp B/P (MAP) Pulse Ox O2 Delivery O2 Flow Rate FiO2 01/10/18 19:26 36.7 60 19 196/73 (114) 96 Room Air 01/10/18 15:12 36.6 53 19 148/64 (92) 96 Room Air Physical Exam: GENERAL: Patient is in no acute distress. HEENT: No acute trauma, normocephalic, mucous membranes moist, no nasal congestion, no scleral icterus. NECK: No stridor, trachea is midline. LUNGS: CTA bilaterally, no wheeze, no rhonchi, breath sounds equal. HEART: Without murmurs gallops or rubs, regular rate and rhythm. ABDOMEN: Soft, nontender, bowel sounds positive EXTREMITIES: No cyanosis; mild B/L LE edema, able to move all extremities without pain or difficulty, large ecchymosis on left thigh, hip, buttock resolving NEUROLOGIC: Oriented x 3, no acute motor or sensory deficits, no focal weakness. SKIN: No rash, no jaundice, no diaphoresis. Left big toe distal portion with a necrotic wound Laboratory Results: Last 24 Hours Test 01/09/18 20:29 01/10/18 06:18 01/10/18 07:13 01/10/18 11:42 Bedside Glucose 155 mg/dl 124 mg/dl 142 mg/dl White Blood Count 6.07 K/uL Red Blood Count 3.23 M/uL Hemoglobin 9.7 g/dL Hematocrit 29.4 % Mean Corpuscular Volume 91.0 fL Mean Corpuscular Hemoglobin 30.0 pg Mean Corpuscular Hemoglobin Concent 33.0 g/dl Platelet Count 220 K/uL Mean Platelet Volume 9.6 fL Neutrophils (%) (Auto) 60.8 % Lymphocytes (%) (Auto) 22.6 % Monocytes (%) (Auto) 12.9 % Eosinophils (%) (Auto) 3.1 % Basophils (%) (Auto) 0.3 % Neutrophils # (Auto) 3.69 K/uL Lymphocytes # (Auto) 1.37 K/uL Monocytes # (Auto) 0.78 K/uL Eosinophils # (Auto) 0.19 K/uL Basophils # (Auto) 0.02 K/uL RDW Standard Deviation 48.5 fL RDW Coefficient of Variation 14.7 % Immature Granulocyte % (Auto) 0.3 % Immature Granulocyte # (Auto) 0.02 K/uL Sodium Level 137 mmol/L Potassium Level 5.1 mmol/L Chloride Level 108 mmol/L Carbon Dioxide Level 19 mmol/L Anion Gap 10.0 mmol/L Blood Urea Nitrogen 97 mg/dl Creatinine 7.26 mg/dl Est Creatinine Clear Calc Drug Dose 6.9 ml/min Estimated GFR () 6.1 Estimated GFR (Non- 5.3 BUN/Creatinine Ratio 13.3 Random Glucose 113 mg/dl Calcium Level 8.7 mg/dl Phosphorus Level 5.5 mg/dl Magnesium Level 1.9 mg/dl Test 01/10/18 16:12 Bedside Glucose 139 mg/dl Assessment & Plan ACUTE BLOOD LOSS ANEMIA: likely secondary to left groin hematoma and underlying chronic anemia from ESRD and iron deficiency -symptomatic anemia -anemia profile unlikely reliable given multiple blood transfusions Baseline hemoglobin around 9; was 5.2 at [facility] the night of admission -has significant ecchymosis of the left thigh, status post left lower extremity angioplasty -CT scan of the abdomen and pelvis and left thigh did not reveal a large or drainable hematoma or fluid collection -continue to hold aspirin and Plavix at this time, but reevaluate closely due to history of CAD and PAD -Melena, GI consulted, EGD done and no source of bleeding, Protonix drip stopped -monitor H&H -patient has received transfusion with 4 units thus far, Hb post transfusion was 9.5-->9.9-->9.7 today TRU ON CKD STAGE V: -has a dialysis fistula LUE; Vascular ordered US today which shows a patent AV fistula -Nephrology consulted, monitoring, no urgent need for dialysis -avoid nephrotoxins when able -no signs of overt volume overload or uremia at this time LEFT BIG TOE OSTEOMYELITIS: -was followed at [facility] and podiatry -diagnosed with osteomyelitis 2 weeks ago -was started on IV antibiotics as an outpatient; abx switched to vanco on admission -Records obtained from [facility] -ID consulted, recommendations appreciated; continue vanco and referral for toe amputation in near future -consult to Ortho regarding the big toe wound/amputation in future -Vascular surgery consulted regarding reperfusion possibility, records from [facility] were requested PAD/CAD: -prior hx of CABG -s/p left lower extremity extremity angioplasty January 04, 2018 -holding aspirin & Plavix at this time but reevaluate daily given extensive vascular hx -records obtained from [facility] -no cardiac symptoms -continue atorvastatin and carvedilol -resume ASA and plavix once Hb stabilizes DM TYPE II: -hold glipizide while admitted -Insulin sliding scale for now HTN: -BP elevated, but asymptomatic -as needed clonidine -continue usual carvedilol and hydralazine GLAUCOMA: -continue latanoprost Current Inpatient Medications: Current Inpatient Medications Medications (Trade) Dose Ordered Sig/Ewelina Route Start Time Stop Time Status Last Admin Dose Admin Acetaminophen (Tylenol Tab) 650 mg Q4H PRN PO 01/06/18 04:45 02/05/18 04:44 01/09/18 21:53 650 MG Miscellaneous (Iv Fluids Completed) 1 ea PRN PRN N/A 01/06/18 04:45 01/06/19 04:44 Clonidine HCl (Catapres Tab) 0.1 mg Q6H PRN PO 01/06/18 05:00 02/05/18 04:59 01/09/18 21:53 0.1 MG Insulin Aspart (novoLOG ASPART) SLIDING SCALE If C... ACHS SC 01/06/18 07:00 02/05/18 06:59 01/10/18 17:15 1 UNITS Glucose (Glucose 40% Gel) 15-30 GRAMS 15 GRAMS... UD PRN PO 01/06/18 05:45 02/05/18 05:44 Glucose (Glucose Chew Tab) 4-8 Tablets 4 Tabl... UD PRN PO 01/06/18 05:45 02/05/18 05:44 Dextrose (Dextrose 50% 50ML Syringe) 25-50ML 25ML FOR ... UD PRN IV 01/06/18 05:45 02/05/18 05:44 Glucagon (Glucagon Inj) 1 mg UD PRN SQ 01/06/18 05:45 02/05/18 05:44 Carbohydrates (Carbohydrates For Hypoglycemia) 15-30 GRAMS 15 grams if BSG 54-69... UD PRN PO 01/06/18 05:45 02/05/18 05:44 Albuterol (Ventolin Hfa Inhaler) 2 puffs Q4H PRN INH 01/06/18 05:45 02/05/18 05:44 Atorvastatin Calcium (Lipitor Tab) 40 mg DAILY PO 01/06/18 09:00 02/05/18 08:59 01/10/18 08:22 40 MG Calcitriol (Rocaltrol Cap) 0.25 mcg MoWeFr@0900 PO 01/07/18 09:00 02/06/18 08:59 01/10/18 08:23 0.25 MCG Carvedilol (Coreg Tab) 25 mg BID PO 01/06/18 09:00 02/05/18 08:59 01/10/18 08:22 25 MG Fluticasone Propionate (Flonase Nasal [place]) 1 sprays DAILY JOE 01/06/18 09:00 02/05/18 08:59 01/10/18 08:20 1 SPRAYS Latanoprost (Xalatan Oph Soln) 1 drops HS OP 01/06/18 21:00 02/05/18 20:59 01/06/18 19:52 1 DROPS Cholecalciferol (Vitamin D Tab) 5,000 inter.unit QAM PO 01/06/18 09:00 02/05/18 08:59 01/10/18 08:24 5,000 INTER.UNIT Hydralazine HCl (Apresoline Tab) 100 mg BID PO 01/06/18 09:00 02/05/18 08:59 01/10/18 08:21 100 MG Patiromer (Veltassa) 16.8 gm BID PO 01/06/18 21:00 02/05/18 20:59 01/09/18 16:54 8.4 GM Daptomycin 300 mg/ Syringe 6 ml @ 3 mls/min Q48H IV 01/08/18 10:30 02/19/18 10:29 01/10/18 11:58 3 MLS/MIN Daptomycin (Consult) 1 ea UD PRN N/A 01/08/18 10:15 02/07/18 10:14 Polyethylene (Miralax Powder Packet) 17 gm BID PO 01/08/18 21:00 02/07/18 20:59 01/10/18 08:23 17 GM Docusate Sodium (coLACE CAP) 100 mg BID PO 01/08/18 21:00 02/07/18 20:59 01/10/18 08:21 100 MG Ferrous Gluconate (Ferrous Gluconate Tab) 324 mg BIDM PO 01/09/18 07:30 02/08/18 07:29 01/10/18 17:15 324 MG Acetaminophen/ Hydrocodone Bitart ([place] 10/325 Tab) 1 tab Q8H PRN PO 01/09/18 23:15 01/20/18 08:59 01/10/18 09:10 1 TAB
[2018-01-10] MEDS: LATANOPROST 0.005% OP SOLN 2.5 ML BTL OP SCH (20:19)
--- NOTE | 2018-01-10 20:41 | Infectious Disease Progress Nt ---
Progress Note Date of Service Jan 10, 2018. Subjective Pt evaluation today including: conversation w/ patient, physical exam, chart review, lab review, review of studies, conversation w/ internal control consultant, review of inpatient medication list Patient offering no new complaints today. Pain in left leg has improved. Remains afebrile. Vascular consultation noted. All Other Systems: Reviewed and Negative Medications Current Inpatient Medications Medications (Trade) Dose Ordered Sig/Ewelina Route Start Time Stop Time Status Last Admin Dose Admin Acetaminophen (Tylenol Tab) 650 mg Q4H PRN PO 01/06/18 04:45 02/05/18 04:44 01/09/18 21:53 650 MG Miscellaneous (Iv Fluids Completed) 1 ea PRN PRN N/A 01/06/18 04:45 01/06/19 04:44 Clonidine HCl (Catapres Tab) 0.1 mg Q6H PRN PO 01/06/18 05:00 02/05/18 04:59 01/09/18 21:53 0.1 MG Insulin Aspart (novoLOG ASPART) SLIDING SCALE If C... ACHS SC 01/06/18 07:00 02/05/18 06:59 01/10/18 17:15 1 UNITS Glucose (Glucose 40% Gel) 15-30 GRAMS 15 GRAMS... UD PRN PO 01/06/18 05:45 02/05/18 05:44 Glucose (Glucose Chew Tab) 4-8 Tablets 4 Tabl... UD PRN PO 01/06/18 05:45 02/05/18 05:44 Dextrose (Dextrose 50% 50ML Syringe) 25-50ML 25ML FOR ... UD PRN IV 01/06/18 05:45 02/05/18 05:44 Glucagon (Glucagon Inj) 1 mg UD PRN SQ 01/06/18 05:45 02/05/18 05:44 Carbohydrates (Carbohydrates For Hypoglycemia) 15-30 GRAMS 15 grams if BSG 54-69... UD PRN PO 01/06/18 05:45 02/05/18 05:44 Albuterol (Ventolin Hfa Inhaler) 2 puffs Q4H PRN INH 01/06/18 05:45 02/05/18 05:44 Atorvastatin Calcium (Lipitor Tab) 40 mg DAILY PO 01/06/18 09:00 02/05/18 08:59 01/10/18 08:22 40 MG Calcitriol (Rocaltrol Cap) 0.25 mcg MoWeFr@0900 PO 01/07/18 09:00 02/06/18 08:59 01/10/18 08:23 0.25 MCG Carvedilol (Coreg Tab) 25 mg BID PO 01/06/18 09:00 02/05/18 08:59 01/10/18 20:19 25 MG Fluticasone Propionate (Flonase Nasal [place]) 1 sprays DAILY JOE 01/06/18 09:00 02/05/18 08:59 01/10/18 08:20 1 SPRAYS Latanoprost (Xalatan Oph Soln) 1 drops HS OP 01/06/18 21:00 02/05/18 20:59 01/10/18 20:19 1 DROPS Cholecalciferol (Vitamin D Tab) 5,000 inter.unit QAM PO 01/06/18 09:00 02/05/18 08:59 01/10/18 08:24 5,000 INTER.UNIT Hydralazine HCl (Apresoline Tab) 100 mg BID PO 01/06/18 09:00 02/05/18 08:59 01/10/18 20:18 100 MG Patiromer (Veltassa) 16.8 gm BID PO 01/06/18 21:00 02/05/18 20:59 01/09/18 16:54 8.4 GM Daptomycin 300 mg/ Syringe 6 ml @ 3 mls/min Q48H IV 01/08/18 10:30 02/19/18 10:29 01/10/18 11:58 3 MLS/MIN Daptomycin (Consult) 1 ea UD PRN N/A 01/08/18 10:15 02/07/18 10:14 Polyethylene (Miralax Powder Packet) 17 gm BID PO 01/08/18 21:00 02/07/18 20:59 01/10/18 08:23 17 GM Docusate Sodium (coLACE CAP) 100 mg BID PO 01/08/18 21:00 02/07/18 20:59 01/10/18 20:18 100 MG Ferrous Gluconate (Ferrous Gluconate Tab) 324 mg BIDM PO 01/09/18 07:30 02/08/18 07:29 01/10/18 17:15 324 MG Acetaminophen/ Hydrocodone Bitart ([place] 10/325 Tab) 1 tab Q8H PRN PO 01/09/18 23:15 01/20/18 08:59 01/10/18 20:19 1 TAB Objective Vital Signs Date Time Temp Pulse Resp B/P (MAP) Pulse Ox O2 Delivery O2 Flow Rate FiO2 01/10/18 19:26 36.7 60 19 196/73 (114) 96 Room Air 01/10/18 15:12 36.6 53 19 148/64 (92) 96 Room Air 01/10/18 11:46 36.4 55 18 150/66 (94) 99 Room Air 01/10/18 08:00 95 Room Air 01/10/18 07:59 36.6 55 18 158/69 (98) 95 Room Air 01/10/18 03:52 36.5 94 20 149/67 (94) 97 Room Air 01/09/18 22:59 36.7 59 20 161/67 (98) 95 Room Air Physical Exam General Appearance: WD/WN, no apparent distress Eyes: normal inspection, EOMI, sclerae normal ENT: normal ENT inspection, hearing grossly normal, pharynx normal Neck: supple, no adenopathy, thyroid normal, trachea midline Respiratory/Chest: chest non-tender, lungs clear, normal breath sounds, no respiratory distress Cardiovascular: regular rate, rhythm, no gallop, no murmur Abdomen: normal bowel sounds, non tender, soft, no organomegaly Extremities: non-tender, no calf tenderness, + pertinent finding ( Improving left leg ecchymosis) Neurologic/Psychiatric: alert, normal mood/affect, oriented x 3 Skin: normal color, no rash, + pertinent finding ( improving left leg ecchymosis, no change in left great toe) Lymphatic: no adenopathy Laboratory Results Last 24 Hours Test 01/10/18 06:18 01/10/18 07:13 01/10/18 11:42 01/10/18 16:12 White Blood Count 6.07 K/uL Red Blood Count 3.23 M/uL Hemoglobin 9.7 g/dL Hematocrit 29.4 % Mean Corpuscular Volume 91.0 fL Mean Corpuscular Hemoglobin 30.0 pg Mean Corpuscular Hemoglobin Concent 33.0 g/dl Platelet Count 220 K/uL Mean Platelet Volume 9.6 fL Neutrophils (%) (Auto) 60.8 % Lymphocytes (%) (Auto) 22.6 % Monocytes (%) (Auto) 12.9 % Eosinophils (%) (Auto) 3.1 % Basophils (%) (Auto) 0.3 % Neutrophils # (Auto) 3.69 K/uL Lymphocytes # (Auto) 1.37 K/uL Monocytes # (Auto) 0.78 K/uL Eosinophils # (Auto) 0.19 K/uL Basophils # (Auto) 0.02 K/uL RDW Standard Deviation 48.5 fL RDW Coefficient of Variation 14.7 % Immature Granulocyte % (Auto) 0.3 % Immature Granulocyte # (Auto) 0.02 K/uL Sodium Level 137 mmol/L Potassium Level 5.1 mmol/L Chloride Level 108 mmol/L Carbon Dioxide Level 19 mmol/L Anion Gap 10.0 mmol/L Blood Urea Nitrogen 97 mg/dl Creatinine 7.26 mg/dl Est Creatinine Clear Calc Drug Dose 6.9 ml/min Estimated GFR () 6.1 Estimated GFR (Non- 5.3 BUN/Creatinine Ratio 13.3 Random Glucose 113 mg/dl Calcium Level 8.7 mg/dl Phosphorus Level 5.5 mg/dl Magnesium Level 1.9 mg/dl Bedside Glucose 124 mg/dl 142 mg/dl 139 mg/dl Assessment and Plan (1) Necrosis of toe Status: Acute 67-year-old female with diabetes, peripheral arterial disease, renal failure on dialysis, with chronic osteomyelitis of the left great toe, currently under treatment with IV dalvabancin. Patient should be treated with vancomycin while in hospital, we will arrange outpatient therapy prior to discharge.Will follow.
[2018-01-10] MEDS ORDERED: NURSING DECISION MEDICATION ORDER SCH (21:30)
[2018-01-10] MEDS ORDERED: COUGH DROP (SUGAR FREE) LOZ 24 LOZ/1 BOX LOZ PRN (22:00)
[2018-01-11] VITALS (9 sets, daily range): BP systolic 151–192; BP diastolic 60–92; PULSE 51–69; TEMP 36.6–37; O2SAT 94–96
[2018-01-11] MEDS: ACETAMINOPHEN 325 MG TAB PO PRN (02:02)
[2018-01-11] MEDS: HYDROCODONE/ACETAMI 10/325 TAB PO PRN ×3 (06:21→21:12)
[2018-01-11 07:05] LABS: BASO % 0.6 %; BASO ABS # 0.04 K/uL (0-0.2); EOS % 2.8 %; EOS ABS # 0.19 K/uL (0-0.5); HEMATOCRIT 31.2 % (37-47); HEMOGLOBIN 10.3 g/dL (12.0-16.0); IG# 0.01 K/uL (0.00-0.02); LYMPH % 17.6 %; LYMPH ABS # 1.19 K/uL (1.2-3.4); MEAN CELL VOLUME 91.8 fL (80-100); MEAN CORPUSCULAR HEMOGLOBIN 30.3 pg (25-34); MEAN PLATELET VOLUME 9.9 fL (7.4-10.4); MONO % 13.4 %; MONO ABS # 0.91 K/uL (0.11-0.59); NEUT % 65.5 %; NEUT ABS # 4.43 K/uL (1.4-6.5); PLATELET COUNT 253 K/uL (130-400); RED CELL DISTRIBUTION WIDTH CV 14.6 % (11.5-14.5); WHITE BLOOD COUNT 6.77 K/uL (4.8-10.8)
[2018-01-11] MEDS: CHOLECALCIFEROL 1000 INTER.UNIT TAB PO SCH (07:36)
[2018-01-11] MEDS: FERROUS GLUCONATE 324 MG TAB PO SCH ×2 (07:36→17:02)
[2018-01-11] MEDS: CARVEDILOL 25 MG TAB PO SCH ×2 (07:36→20:50)
[2018-01-11] MEDS: ATORVASTATIN 20 MG TAB PO SCH (07:36)
[2018-01-11] MEDS: DOCUSATE SODIUM 100 MG CAP PO SCH ×2 (07:36→20:50)
[2018-01-11] MEDS: FLUTICASONE PROPIONATE NA SPR 16 GM BTL NAE SCH (07:37)
[2018-01-11] MEDS: POLYETHYLENE (MIRALAX) 17 GM PACK PO SCH ×2 (07:37→20:49)
[2018-01-11] MEDS: INSULIN ASPART 100 UNITS/ML 3 ML PEN SC SCH ×4 (07:41→20:43)
[2018-01-11] MEDS: PATIROMER PO SCH ×2 (07:42→17:02)
[2018-01-11 08:06] LABS: CALCIUM 8.4 mg/dl (8.5-10.1); CREATININE 7.13 mg/dl (0.60-1.20); POTASSIUM 5.1 mmol/L (3.5-5.1)
--- NOTE | 2018-01-11 12:31 | Progress Note ---
Progress Note Date of Service Jan 11, 2018. Progress Note Discussed pt with Dr Solorzano and reviewed imaging demonstrating osteomyelitis of L great toe tuft, recommends L great toe amputation to be done in OR. Tentatively planning on next week d/t scheduling. Can set up as outpt if discharged prior to that. HD access US unable to be reviewed d/t incomplete testing done, discussed with US, they will redo.
--- NOTE | 2018-01-11 13:36 | Nephrology Progress Note ---
Nephrology Progress Note Date of Service: Jan 11, 2018. Subjective Patient developed cough last night which was uncomfortable. She denied any shortness of breath. She has mild lower extremity edema. She reported occasional skin itching. Appetite is good. She denied metallic taste on nausea. Objective Date Time Temp Pulse Resp B/P (MAP) Pulse Ox O2 Delivery O2 Flow Rate FiO2 01/11/18 12:00 36.6 51 18 151/92 (111) 96 01/11/18 08:00 Room Air 01/11/18 06:53 36.6 56 16 161/64 (96) 95 Room Air 01/11/18 03:01 36.6 60 18 167/64 (98) 96 Room Air 01/10/18 23:59 36.7 64 18 163/54 (90) 95 Room Air 01/10/18 20:15 96 Room Air 01/10/18 19:26 36.7 60 19 196/73 (114) 96 Room Air 01/10/18 15:12 36.6 53 19 148/64 (92) 96 Room Air Physical Exam: [id number], no acute distress Eyes-pupils equal and reactive to light ENT-throat is normal on inspection Neck-neck is supple no JVD Lungs-bilateral crackles Heart-S1 and S2 regular rate and rhythm, no murmurs Abdomen-soft nondistended bowel sounds are present Extremities-1+ edema, left forearm AV fistula with good thrill and bruit. Has bruising on left thigh Neuro-oriented 3, no focal neurological deficits Current Inpatient Medications Medications (Trade) Dose Ordered Sig/Ewelina Route Start Time Stop Time Status Last Admin Dose Admin Acetaminophen (Tylenol Tab) 650 mg Q4H PRN PO 01/06/18 04:45 02/05/18 04:44 01/11/18 02:02 650 MG Miscellaneous (Iv Fluids Completed) 1 ea PRN PRN N/A 01/06/18 04:45 01/06/19 04:44 Clonidine HCl (Catapres Tab) 0.1 mg Q6H PRN PO 01/06/18 05:00 02/05/18 04:59 01/09/18 21:53 0.1 MG Insulin Aspart (novoLOG ASPART) SLIDING SCALE If C... ACHS SC 01/06/18 07:00 02/05/18 06:59 01/11/18 12:02 2 UNITS Glucose (Glucose 40% Gel) 15-30 GRAMS 15 GRAMS... UD PRN PO 01/06/18 05:45 02/05/18 05:44 Glucose (Glucose Chew Tab) 4-8 Tablets 4 Tabl... UD PRN PO 01/06/18 05:45 02/05/18 05:44 Dextrose (Dextrose 50% 50ML Syringe) 25-50ML 25ML FOR ... UD PRN IV 01/06/18 05:45 02/05/18 05:44 Glucagon (Glucagon Inj) 1 mg UD PRN SQ 01/06/18 05:45 02/05/18 05:44 Carbohydrates (Carbohydrates For Hypoglycemia) 15-30 GRAMS 15 grams if BSG 54-69... UD PRN PO 01/06/18 05:45 02/05/18 05:44 Albuterol (Ventolin Hfa Inhaler) 2 puffs Q4H PRN INH 01/06/18 05:45 02/05/18 05:44 Atorvastatin Calcium (Lipitor Tab) 40 mg DAILY PO 01/06/18 09:00 02/05/18 08:59 01/11/18 07:36 40 MG Calcitriol (Rocaltrol Cap) 0.25 mcg MoWeFr@0900 PO 01/07/18 09:00 02/06/18 08:59 01/10/18 08:23 0.25 MCG Carvedilol (Coreg Tab) 25 mg BID PO 01/06/18 09:00 02/05/18 08:59 01/11/18 07:36 25 MG Fluticasone Propionate (Flonase Nasal [place]) 1 sprays DAILY JOE 01/06/18 09:00 02/05/18 08:59 01/10/18 08:20 1 SPRAYS Latanoprost (Xalatan Oph Soln) 1 drops HS OP 01/06/18 21:00 02/05/18 20:59 01/10/18 20:19 1 DROPS Cholecalciferol (Vitamin D Tab) 5,000 inter.unit QAM PO 01/06/18 09:00 02/05/18 08:59 01/11/18 07:36 5,000 INTER.UNIT Hydralazine HCl (Apresoline Tab) 100 mg BID PO 01/06/18 09:00 02/05/18 08:59 01/11/18 07:36 100 MG Patiromer (Veltassa) 16.8 gm BID PO 01/06/18 21:00 02/05/18 20:59 01/09/18 16:54 8.4 GM Daptomycin 300 mg/ Syringe 6 ml @ 3 mls/min Q48H IV 01/08/18 10:30 02/19/18 10:29 01/10/18 11:58 3 MLS/MIN Daptomycin (Consult) 1 ea UD PRN N/A 01/08/18 10:15 02/07/18 10:14 Polyethylene (Miralax Powder Packet) 17 gm BID PO 01/08/18 21:00 02/07/18 20:59 01/10/18 08:23 17 GM Docusate Sodium (coLACE CAP) 100 mg BID PO 01/08/18 21:00 02/07/18 20:59 01/11/18 07:36 100 MG Ferrous Gluconate (Ferrous Gluconate Tab) 324 mg BIDM PO 01/09/18 07:30 02/08/18 07:29 01/11/18 07:36 324 MG Acetaminophen/ Hydrocodone Bitart ([place] 10/325 Tab) 1 tab Q8H PRN PO 01/09/18 23:15 01/20/18 08:59 01/11/18 06:21 1 TAB Menthol (Nice Alejandrina) 1 alejandrina PRN PRN ALEJANDRINA 01/10/18 22:00 02/09/18 21:59 Last 24 Hours Test 01/10/18 16:12 01/10/18 20:43 01/11/18 06:23 01/11/18 07:07 Bedside Glucose 139 mg/dl 155 mg/dl 121 mg/dl White Blood Count 6.77 K/uL Red Blood Count 3.40 M/uL Hemoglobin 10.3 g/dL Hematocrit 31.2 % Mean Corpuscular Volume 91.8 fL Mean Corpuscular Hemoglobin 30.3 pg Mean Corpuscular Hemoglobin Concent 33.0 g/dl Platelet Count 253 K/uL Mean Platelet Volume 9.9 fL Neutrophils (%) (Auto) 65.5 % Lymphocytes (%) (Auto) 17.6 % Monocytes (%) (Auto) 13.4 % Eosinophils (%) (Auto) 2.8 % Basophils (%) (Auto) 0.6 % Neutrophils # (Auto) 4.43 K/uL Lymphocytes # (Auto) 1.19 K/uL Monocytes # (Auto) 0.91 K/uL Eosinophils # (Auto) 0.19 K/uL Basophils # (Auto) 0.04 K/uL RDW Standard Deviation 48.0 fL RDW Coefficient of Variation 14.6 % Immature Granulocyte % (Auto) 0.1 % Immature Granulocyte # (Auto) 0.01 K/uL Sodium Level 134 mmol/L Potassium Level 5.1 mmol/L Chloride Level 106 mmol/L Carbon Dioxide Level 19 mmol/L Anion Gap 9.0 mmol/L Blood Urea Nitrogen 96 mg/dl Creatinine 7.13 mg/dl Est Creatinine Clear Calc Drug Dose 7.1 ml/min Estimated GFR () 6.3 Estimated GFR (Non- 5.4 BUN/Creatinine Ratio 13.7 Random Glucose 112 mg/dl Calcium Level 8.4 mg/dl Phosphorus Level 5.0 mg/dl Magnesium Level 1.8 mg/dl Total Creatine Kinase 169 U/L Test 01/11/18 11:10 Bedside Glucose 147 mg/dl Assessment & Plan This is a 67-year-old female with CKD stage V, peripheral vascular disease who was admitted with acute blood loss anemia secondary to left groin hematoma. 1. CKD stage V: Patient has a functional left forearm AV fistula but has not needed dialysis at this point. Her renal function is worsening with a creatinine stabilizing around 7. There is no indication for urgent hemodialysis but She is certainly close to needing dialysis. Patient maintains She would like to be discharged and continue dialysis planning as an outpatient. Our team will continue dialysis planning as an out patient. If hemoglobin is stable I think she can be discharged and will do dialysis planning as an outpatient. 2. Hyperkalemia: She will continue Patiromer and ensure patient is on a low potassium diet. Suggest starting a diuretic to increase kaliuresis. Torsemide 40mg po daily would be a good starting point. 3. Anemia: Multifactorial including chronic kidney disease and acute blood loss in setting of hematoma. Monitor and transfuse as needed. She will likely need epogen as an outpatient. 4. Hypertension: Her BP is above target. Recommend torsemide 40mg po daily to help with volume control, HTN and hyperkalemia Angelica Dominguez MD
--- NOTE | 2018-01-11 14:09 | Infectious Disease Progress Nt ---
Progress Note Date of Service Jan 11, 2018. Subjective Pt evaluation today including: conversation w/ patient, physical exam, chart review, lab review, review of studies, conversation w/ recruiting consultant, review of inpatient medication list Vascular follow-up of plans for left great toe amputation noted. Patient offering no new complaints. Remains afebrile. All Other Systems: Reviewed and Negative Medications Reported Home Medications Medications Dose Route/Sig Max Daily Dose Days Date Category Veltassa (Patiromer Sorbitex Calcium) 8.4 Gm Pow 8.4 Gm PO BID 01/06/18 Reported Proair Respiclick (Albuterol Sulfate) 108 Mcg/Act Aer 90 Mcg INH Q4H 01/06/18 Reported Xalatan 0.005% Oph Sam[place] (Latanoprost) 0.005 % Sam[place] 1 Drops OP HS 01/06/18 Reported Plavix (Clopidogrel Bisulfate) 75 Mg Tab 75 Mg PO DAILY 01/06/18 Reported [place] 10/325 Tab (Acetaminophen/Hydrocodone Bitart) 1 Tab Tab 1 Tab PO Q12 PRN 01/06/18 Reported Glucotrol (Glipizide) 5 Mg Tab 5 Mg PO BID 01/06/18 Reported Carvedilol 25 Mg Tab PO DAILY 01/06/18 Reported Hydralazine HCl 100 Mg Tab PO BID 01/06/18 Reported Allergy Nasal [place] 24 Ho (Fluticasone Propionate (Nasal)) 50 Mcg/Act Spr 2 [place] JOE DAILY 30 03/13/17 Rx Tylenol Extra Strength (Acetaminophen) 500 Mg Tab 1 Tab PO Q6 PRN 03/10/17 Reported Rocaltrol Cap (Calcitriol) 0.25 Mcg Cap 0.25 Mcg PO MWF 03/10/17 Reported Aspirin Ec (Aspirin) 81 Mg Tab 81 Mg PO QAM 10/07/16 Reported Ventolin Hfa (Albuterol) 200 Puffs/48358 Mcg Aers 2 Puffs INH Q4H PRN 10/07/16 Reported Glimepiride 4 Mg Tab 1 Tab PO QAM 10/07/16 Reported Lipitor (Atorvastatin Calcium) 40 Mg Tab 40 Mg PO DAILY 10/07/16 Reported Vitamin D (Cholecalciferol) 5,000 Unit Tab 1 Tab PO QAM 10/07/16 Reported Objective Vital Signs Date Time Temp Pulse Resp B/P (MAP) Pulse Ox O2 Delivery O2 Flow Rate FiO2 01/11/18 12:00 36.6 51 18 151/92 (111) 96 01/11/18 08:00 Room Air 01/11/18 06:53 36.6 56 16 161/64 (96) 95 Room Air 01/11/18 03:01 36.6 60 18 167/64 (98) 96 Room Air 01/10/18 23:59 36.7 64 18 163/54 (90) 95 Room Air 01/10/18 20:15 96 Room Air 01/10/18 19:26 36.7 60 19 196/73 (114) 96 Room Air 01/10/18 15:12 36.6 53 19 148/64 (92) 96 Room Air Physical Exam General Appearance: WD/WN, no apparent distress Eyes: normal inspection, EOMI, sclerae normal ENT: normal ENT inspection, hearing grossly normal, pharynx normal Neck: supple, no adenopathy, thyroid normal, trachea midline Respiratory/Chest: chest non-tender, lungs clear, normal breath sounds, no respiratory distress Cardiovascular: regular rate, rhythm, no gallop, no murmur Abdomen: normal bowel sounds, non tender, soft, no organomegaly Extremities: non-tender, no calf tenderness, + slow capillary refill Neurologic/Psychiatric: alert, oriented x 3 Skin: normal color, no rash, + pertinent finding (Ecchymosis left thigh improved. No change left great toe) Lymphatic: no adenopathy Laboratory Results Last 24 Hours Test 01/10/18 16:12 01/10/18 20:43 01/11/18 06:23 01/11/18 07:07 Bedside Glucose 139 mg/dl 155 mg/dl 121 mg/dl White Blood Count 6.77 K/uL Red Blood Count 3.40 M/uL Hemoglobin 10.3 g/dL Hematocrit 31.2 % Mean Corpuscular Volume 91.8 fL Mean Corpuscular Hemoglobin 30.3 pg Mean Corpuscular Hemoglobin Concent 33.0 g/dl Platelet Count 253 K/uL Mean Platelet Volume 9.9 fL Neutrophils (%) (Auto) 65.5 % Lymphocytes (%) (Auto) 17.6 % Monocytes (%) (Auto) 13.4 % Eosinophils (%) (Auto) 2.8 % Basophils (%) (Auto) 0.6 % Neutrophils # (Auto) 4.43 K/uL Lymphocytes # (Auto) 1.19 K/uL Monocytes # (Auto) 0.91 K/uL Eosinophils # (Auto) 0.19 K/uL Basophils # (Auto) 0.04 K/uL RDW Standard Deviation 48.0 fL RDW Coefficient of Variation 14.6 % Immature Granulocyte % (Auto) 0.1 % Immature Granulocyte # (Auto) 0.01 K/uL Sodium Level 134 mmol/L Potassium Level 5.1 mmol/L Chloride Level 106 mmol/L Carbon Dioxide Level 19 mmol/L Anion Gap 9.0 mmol/L Blood Urea Nitrogen 96 mg/dl Creatinine 7.13 mg/dl Est Creatinine Clear Calc Drug Dose 7.1 ml/min Estimated GFR () 6.3 Estimated GFR (Non- 5.4 BUN/Creatinine Ratio 13.7 Random Glucose 112 mg/dl Calcium Level 8.4 mg/dl Phosphorus Level 5.0 mg/dl Magnesium Level 1.8 mg/dl Total Creatine Kinase 169 U/L Test 01/11/18 11:10 Bedside Glucose 147 mg/dl Assessment and Plan (1) Necrosis of toe Status: Acute 67-year-old female with diabetes, peripheral arterial disease, renal failure on dialysis, with chronic osteomyelitis of the left great toe previously on IV dalvabancin. Patient for amputation next week. Patient should continue on vancomycin pending above procedure. Will follow.
--- NOTE | 2018-01-11 16:37 | Progress Note ---
Medicine Progress Note Date & Time of Visit: Jan 11, 2018 at 16:36 . Subjective CC: Follow-up visit for anemia, kidney disease, osteomyelitis, and other problems. HPI: Has some discomfort of her left lower extremity. No fever or chills. No chest pain. No cough or shortness of breath. No nausea, vomiting, diarrhea, melena, hematochezia. No dysuria. Upset earlier today regarding the challenges that she is facing. ROS: as noted above in HPI . Objective Last 8 Hrs Date Time Temp Pulse Resp B/P (MAP) Pulse Ox O2 Delivery O2 Flow Rate FiO2 01/11/18 16:00 Room Air 01/11/18 15:49 36.6 58 18 175/60 (98) 94 Room Air 01/11/18 12:00 36.6 51 18 151/92 (111) 96 Physical Exam: General- lying in bed, no distress Lungs- few basilar rales, otherwise clear to auscultation; no respiratory distress Cardiovascular- RRR; no gallop appreciated; trace pretibial edema Abdomen- + bowel sounds, soft, nontender Extremities- no cyanosis; no calf tenderness; hematoma/ecchymoses extending down left lateral thigh; gangrenous changes tip of left great toe; capillary refill left toes about 2 seconds Neuro- alert, oriented Skin- warm & dry . Laboratory Results: Last 24 Hours Test 01/10/18 20:43 01/11/18 06:23 01/11/18 07:07 01/11/18 11:10 Bedside Glucose 155 mg/dl 121 mg/dl 147 mg/dl White Blood Count 6.77 K/uL Red Blood Count 3.40 M/uL Hemoglobin 10.3 g/dL Hematocrit 31.2 % Mean Corpuscular Volume 91.8 fL Mean Corpuscular Hemoglobin 30.3 pg Mean Corpuscular Hemoglobin Concent 33.0 g/dl Platelet Count 253 K/uL Mean Platelet Volume 9.9 fL Neutrophils (%) (Auto) 65.5 % Lymphocytes (%) (Auto) 17.6 % Monocytes (%) (Auto) 13.4 % Eosinophils (%) (Auto) 2.8 % Basophils (%) (Auto) 0.6 % Neutrophils # (Auto) 4.43 K/uL Lymphocytes # (Auto) 1.19 K/uL Monocytes # (Auto) 0.91 K/uL Eosinophils # (Auto) 0.19 K/uL Basophils # (Auto) 0.04 K/uL RDW Standard Deviation 48.0 fL RDW Coefficient of Variation 14.6 % Immature Granulocyte % (Auto) 0.1 % Immature Granulocyte # (Auto) 0.01 K/uL Sodium Level 134 mmol/L Potassium Level 5.1 mmol/L Chloride Level 106 mmol/L Carbon Dioxide Level 19 mmol/L Anion Gap 9.0 mmol/L Blood Urea Nitrogen 96 mg/dl Creatinine 7.13 mg/dl Est Creatinine Clear Calc Drug Dose 7.1 ml/min Estimated GFR () 6.3 Estimated GFR (Non- 5.4 BUN/Creatinine Ratio 13.7 Random Glucose 112 mg/dl Calcium Level 8.4 mg/dl Phosphorus Level 5.0 mg/dl Magnesium Level 1.8 mg/dl Total Creatine Kinase 169 U/L Assessment & Plan ACUTE BLOOD LOSS ANEMIA Hemoglobin 5 at [facility]. Recent angioplasty of left lower extremity with associated hematoma/blood loss. Has received 4 units of packed RBCs thus far. Hemoglobin this morning = 10.3. ACUTE KIDNEY INJURY / CKD V CKD 5 with baseline creatinine around 5. Creatinine at time of admission was 5.4 and mesfin as high as 7.26. Nephrology consulted. No indications for dialysis at this time. Creatinine today = 7.13. GANGRENE / OSTEOMYELITIS LEFT GREAT TOE Seen in consultation by Vascular Surgery and ID. Plain films of left foot did not show any radiographic evidence of osteomyelitis. However, MRI performed on 01/09 demonstrated suspected osteomyelitis involving the distal phalanx of the left great toe. Receiving IV daptomycin. Amputation of left great toe recommended pending OR availability. Continue IV daptomycin until amputation performed. CORONARY ARTERY DISEASE No anginal symptoms. Aspirin and clopidogrel on hold due to left thigh hematoma; resume antiplatelet therapy when able. Currently receiving carvedilol. PERIPHERAL VASCULAR DISEASE Status post recent angioplasty left lower extremity. HYPERTENSION Continue carvedilol and hydralazine. DM TYPE 2 Hold oral agents during hospital stay. Insulin coverage as needed. VTE PROPHYLAXIS Anticoagulants contraindicated due to large hematoma left thigh. SCDs contraindicated due to severe peripheral vascular disease. Ambulate. DISPOSITION To be determined. Family Medicine follow-up with Dr. Francois. . Current Inpatient Medications: Current Inpatient Medications Medications (Trade) Dose Ordered Sig/Ewelina Route Start Time Stop Time Status Last Admin Dose Admin Acetaminophen (Tylenol Tab) 650 mg Q4H PRN PO 01/06/18 04:45 02/05/18 04:44 01/11/18 02:02 650 MG Miscellaneous (Iv Fluids Completed) 1 ea PRN PRN N/A 01/06/18 04:45 01/06/19 04:44 Clonidine HCl (Catapres Tab) 0.1 mg Q6H PRN PO 01/06/18 05:00 02/05/18 04:59 01/09/18 21:53 0.1 MG Insulin Aspart (novoLOG ASPART) SLIDING SCALE If C... ACHS SC 01/06/18 07:00 02/05/18 06:59 01/11/18 12:02 2 UNITS Glucose (Glucose 40% Gel) 15-30 GRAMS 15 GRAMS... UD PRN PO 01/06/18 05:45 02/05/18 05:44 Glucose (Glucose Chew Tab) 4-8 Tablets 4 Tabl... UD PRN PO 01/06/18 05:45 02/05/18 05:44 Dextrose (Dextrose 50% 50ML Syringe) 25-50ML 25ML FOR ... UD PRN IV 01/06/18 05:45 02/05/18 05:44 Glucagon (Glucagon Inj) 1 mg UD PRN SQ 01/06/18 05:45 02/05/18 05:44 Carbohydrates (Carbohydrates For Hypoglycemia) 15-30 GRAMS 15 grams if BSG 54-69... UD PRN PO 01/06/18 05:45 02/05/18 05:44 Albuterol (Ventolin Hfa Inhaler) 2 puffs Q4H PRN INH 01/06/18 05:45 02/05/18 05:44 Atorvastatin Calcium (Lipitor Tab) 40 mg DAILY PO 01/06/18 09:00 02/05/18 08:59 01/11/18 07:36 40 MG Calcitriol (Rocaltrol Cap) 0.25 mcg MoWeFr@0900 PO 01/07/18 09:00 02/06/18 08:59 01/10/18 08:23 0.25 MCG Carvedilol (Coreg Tab) 25 mg BID PO 01/06/18 09:00 8/11/18 08:59 01/11/18 07:36 25 MG Fluticasone Propionate (Flonase Nasal [place]) 1 sprays DAILY JOE 01/06/18 09:00 02/05/18 08:59 01/10/18 08:20 1 SPRAYS Latanoprost (Xalatan Oph Soln) 1 drops HS OP 01/06/18 21:00 02/05/18 20:59 01/10/18 20:19 1 DROPS Cholecalciferol (Vitamin D Tab) 5,000 inter.unit QAM PO 01/06/18 09:00 02/05/18 08:59 01/11/18 07:36 5,000 INTER.UNIT Hydralazine HCl (Apresoline Tab) 100 mg BID PO 01/06/18 09:00 02/05/18 08:59 01/11/18 07:36 100 MG Patiromer (Veltassa) 16.8 gm BID PO 01/06/18 21:00 02/05/18 20:59 01/09/18 16:54 8.4 GM Daptomycin 300 mg/ Syringe 6 ml @ 3 mls/min Q48H IV 01/08/18 10:30 02/19/18 10:29 01/10/18 11:58 3 MLS/MIN Daptomycin (Consult) 1 ea UD PRN N/A 01/08/18 10:15 02/07/18 10:14 Polyethylene (Miralax Powder Packet) 17 gm BID PO 01/08/18 21:00 02/07/18 20:59 01/10/18 08:23 17 GM Docusate Sodium (coLACE CAP) 100 mg BID PO 01/08/18 21:00 02/07/18 20:59 01/11/18 07:36 100 MG Ferrous Gluconate (Ferrous Gluconate Tab) 324 mg BIDM PO 01/09/18 07:30 02/08/18 07:29 01/11/18 07:36 324 MG Acetaminophen/ Hydrocodone Bitart ([place] 10/325 Tab) 1 tab Q8H PRN PO 01/09/18 23:15 01/20/18 08:59 01/11/18 14:11 1 TAB Menthol (Nice Alejandrina) 1 alejandrina PRN PRN ALEJANDRINA 01/10/18 22:00 02/09/18 21:59
[2018-01-11] MEDS: LATANOPROST 0.005% OP SOLN 2.5 ML BTL OP SCH (20:50)
[2018-01-12] VITALS (7 sets, daily range): BP systolic 167–188; BP diastolic 65–74; PULSE 60–69; TEMP 36.5–36.7; O2SAT 94–95
[2018-01-12] MEDS: HYDROCODONE/ACETAMI 10/325 TAB PO PRN ×3 (04:57→20:56)
[2018-01-12 06:43] LABS: HEMATOCRIT 29.9 % (37-47); MEAN CELL VOLUME 91.2 fL (80-100); MEAN CORPUSCULAR HEMOGLOBIN 30.5 pg (25-34); MEAN CORPUSCULAR HGB CONC 33.4 g/dl (32-36); MEAN PLATELET VOLUME 9.5 fL (7.4-10.4); PLATELET COUNT 242 K/uL (130-400); RED CELL DISTRIBUTION WIDTH CV 14.3 % (11.5-14.5); RED CELL DISTRIBUTION WIDTH SD 47.3 fL (36.4-46.3); WHITE BLOOD COUNT 6.27 K/uL (4.8-10.8)
[2018-01-12 07:24] LABS: CALCIUM 8.8 mg/dl (8.5-10.1); CREATININE 7.57 mg/dl (0.60-1.20); POTASSIUM 5.1 mmol/L (3.5-5.1)
[2018-01-12] MEDS: DOCUSATE SODIUM 100 MG CAP PO SCH ×2 (08:11→20:58)
[2018-01-12] MEDS: CARVEDILOL 25 MG TAB PO SCH ×2 (08:11→20:58)
[2018-01-12] MEDS: ATORVASTATIN 20 MG TAB PO SCH (08:11)
[2018-01-12] MEDS: FERROUS GLUCONATE 324 MG TAB PO SCH ×2 (08:11→17:41)
[2018-01-12] MEDS: CALCITRIOL 0.25 MCG CAP PO SCH (08:12)
[2018-01-12] MEDS: CHOLECALCIFEROL 1000 INTER.UNIT TAB PO SCH (08:12)
[2018-01-12] MEDS: FLUTICASONE PROPIONATE NA SPR 16 GM BTL NAE SCH (08:13)
[2018-01-12] MEDS: POLYETHYLENE (MIRALAX) 17 GM PACK PO SCH ×2 (08:14→20:57)
[2018-01-12] MEDS: INSULIN ASPART 100 UNITS/ML 3 ML PEN SC SCH ×4 (08:16→20:57)
[2018-01-12] MEDS: PATIROMER PO SCH ×2 (09:00→20:59)
--- NOTE | 2018-01-12 09:46 | Nephrology Progress Note ---
Nephrology Progress Note Date of Service: Jan 12, 2018. Subjective Patient complains of cough. She denied any shortness of breath. She has mild lower extremity edema. She reported occasional skin itching. Appetite is good. Objective Date Time Temp Pulse Resp B/P (MAP) Pulse Ox O2 Delivery O2 Flow Rate FiO2 01/12/18 07:33 36.5 60 18 167/65 (99) 94 Room Air 01/12/18 00:00 Room Air 01/11/18 23:31 36.7 67 20 159/67 (97) 94 Room Air 01/11/18 19:08 176/67 (103) 01/11/18 18:17 37.0 69 20 192/68 (109) 94 Room Air 01/11/18 18:10 94 Room Air 01/11/18 18:02 36.6 58 18 94 0.0 01/11/18 16:00 Room Air 01/11/18 15:49 36.6 58 18 175/60 (98) 94 Room Air 01/11/18 12:00 36.6 51 18 151/92 (111) 96 Physical Exam: [id number], no acute distress Eyes-pupils equal and reactive to light ENT-throat is normal on inspection Neck-neck is supple no JVD Lungs-bilateral crackles Heart-S1 and S2 regular rate and rhythm, no murmurs Abdomen-soft nondistended bowel sounds are present Extremities-1+ edema, left forearm AV fistula with good thrill and bruit. Has bruising on left thigh. left big toe with gangrene Neuro-oriented 3, no focal neurological deficits Current Inpatient Medications Medications (Trade) Dose Ordered Sig/Ewelina Route Start Time Stop Time Status Last Admin Dose Admin Acetaminophen (Tylenol Tab) 650 mg Q4H PRN PO 01/06/18 04:45 02/05/18 04:44 01/11/18 02:02 650 MG Miscellaneous (Iv Fluids Completed) 1 ea PRN PRN N/A 01/06/18 04:45 01/06/19 04:44 Clonidine HCl (Catapres Tab) 0.1 mg Q6H PRN PO 01/06/18 05:00 02/05/18 04:59 01/09/18 21:53 0.1 MG Insulin Aspart (novoLOG ASPART) SLIDING SCALE If C... ACHS SC 01/06/18 07:00 02/05/18 06:59 01/12/18 08:16 1 UNITS Glucose (Glucose 40% Gel) 15-30 GRAMS 15 GRAMS... UD PRN PO 01/06/18 05:45 02/05/18 05:44 Glucose (Glucose Chew Tab) 4-8 Tablets 4 Tabl... UD PRN PO 01/06/18 05:45 02/05/18 05:44 Dextrose (Dextrose 50% 50ML Syringe) 25-50ML 25ML FOR ... UD PRN IV 01/06/18 05:45 02/05/18 05:44 Glucagon (Glucagon Inj) 1 mg UD PRN SQ 01/06/18 05:45 02/05/18 05:44 Carbohydrates (Carbohydrates For Hypoglycemia) 15-30 GRAMS 15 grams if BSG 54-69... UD PRN PO 01/06/18 05:45 02/05/18 05:44 Albuterol (Ventolin Hfa Inhaler) 2 puffs Q4H PRN INH 01/06/18 05:45 02/05/18 05:44 Atorvastatin Calcium (Lipitor Tab) 40 mg DAILY PO 01/06/18 09:00 02/05/18 08:59 01/12/18 08:11 40 MG Calcitriol (Rocaltrol Cap) 0.25 mcg MoWeFr@0900 PO 01/07/18 09:00 02/06/18 08:59 01/12/18 08:12 0.25 MCG Carvedilol (Coreg Tab) 25 mg BID PO 01/06/18 09:00 02/05/18 08:59 01/12/18 08:11 25 MG Fluticasone Propionate (Flonase Nasal [place]) 1 sprays DAILY JOE 01/06/18 09:00 02/05/18 08:59 01/12/18 08:13 1 SPRAYS Latanoprost (Xalatan Oph Soln) 1 drops HS OP 01/06/18 21:00 02/05/18 20:59 01/11/18 20:50 1 DROPS Cholecalciferol (Vitamin D Tab) 5,000 inter.unit QAM PO 01/06/18 09:00 02/05/18 08:59 01/12/18 08:12 5,000 INTER.UNIT Hydralazine HCl (Apresoline Tab) 100 mg BID PO 01/06/18 09:00 02/05/18 08:59 01/12/18 08:13 100 MG Patiromer (Veltassa) 16.8 gm BID PO 01/06/18 21:00 02/05/18 20:59 01/11/18 17:02 8.4 GM Daptomycin 300 mg/ Syringe 6 ml @ 3 mls/min Q48H IV 01/08/18 10:30 02/19/18 10:29 01/10/18 11:58 3 MLS/MIN Daptomycin (Consult) 1 ea UD PRN N/A 01/08/18 10:15 02/07/18 10:14 Polyethylene (Miralax Powder Packet) 17 gm BID PO 01/08/18 21:00 02/07/18 20:59 01/10/18 08:23 17 GM Docusate Sodium (coLACE CAP) 100 mg BID PO 01/08/18 21:00 02/07/18 20:59 01/12/18 08:11 100 MG Ferrous Gluconate (Ferrous Gluconate Tab) 324 mg BIDM PO 01/09/18 07:30 02/08/18 07:29 01/12/18 08:11 324 MG Acetaminophen/ Hydrocodone Bitart ([place] 10/325 Tab) 1 tab Q8H PRN PO 01/09/18 23:15 01/20/18 08:59 01/12/18 04:57 1 TAB Menthol (Nice Alejandrina) 1 alejandrina PRN PRN ALEJANDRINA 01/10/18 22:00 02/09/18 21:59 Last 24 Hours Test 01/11/18 11:10 01/11/18 16:33 01/11/18 20:26 01/12/18 06:23 Bedside Glucose 147 mg/dl 154 mg/dl 151 mg/dl White Blood Count 6.27 K/uL Red Blood Count 3.28 M/uL Hemoglobin 10.0 g/dL Hematocrit 29.9 % Mean Corpuscular Volume 91.2 fL Mean Corpuscular Hemoglobin 30.5 pg Mean Corpuscular Hemoglobin Concent 33.4 g/dl RDW Standard Deviation 47.3 fL RDW Coefficient of Variation 14.3 % Platelet Count 242 K/uL Mean Platelet Volume 9.5 fL Sodium Level 137 mmol/L Potassium Level 5.1 mmol/L Chloride Level 108 mmol/L Carbon Dioxide Level 19 mmol/L Anion Gap 10.0 mmol/L Blood Urea Nitrogen 110 mg/dl Creatinine 7.57 mg/dl Est Creatinine Clear Calc Drug Dose 6.7 ml/min Estimated GFR () 5.8 Estimated GFR (Non- 5.0 BUN/Creatinine Ratio 14.6 Random Glucose 111 mg/dl Calcium Level 8.8 mg/dl Test 01/12/18 07:37 Bedside Glucose 115 mg/dl Assessment & Plan This is a 67-year-old female with CKD stage V, peripheral vascular disease who was admitted with acute blood loss anemia secondary to left groin hematoma. 1. CKD stage V: Patient has a functional left forearm AV fistula but has not needed dialysis at this point. Her renal function is worsening with a creatinine at 7.5 today. There is no indication for urgent hemodialysis but She is certainly close to needing dialysis. Patient maintains She would like to be discharged and continue dialysis planning as an outpatient. Our team will continue dialysis planning as an out patient. She is planned for toe amputation. Suggest lasix 40mg iv bid for volume management. Monitor input/output 2. Hyperkalemia: She will continue Patiromer. Suggest starting a diuretic to increase kaliuresis. IV lasix 40mg bid would be a good starting point. 3. Anemia: Multifactorial including chronic kidney disease and acute blood loss in setting of hematoma. Monitor and transfuse as needed. She will likely need epogen as an outpatient. 4. Hypertension: Her BP is above target. Anticipate improvement with diuresis. Lasix can be up titrated if no response. Discussed plan with Medicine Attending Angelica Dominguez MD
[2018-01-12] MEDS: DAPTOmycin IV 300 MG in SYRINGE 0 ML IV SCH (11:04)
[2018-01-12] MEDS: FUROSEMIDE INJ 40 MG in SYRINGE 0 ML IV SCH (15:25)
--- NOTE | 2018-01-12 15:25 | DIAGNOSTIC IMAGING REPORT ---
CHEST 2 VIEWS ROUTINE HISTORY: 67 years-old Female cough acute cough COMPARISON: Chest radiograph 01/06/2018 TECHNIQUE: PA and lateral views of the chest FINDINGS: Cardiac silhouette is enlarged, unchanged. Prior median sternotomy with probable CABG. Mild right hemidiaphragmatic elevation persists. There is no pneumothorax, pleural effusion, focal airspace consolidation or overt pulmonary edema. Subsegmental left basilar atelectasis/scarring. The lungs are mildly hyperinflated. Degenerative changes of the shoulders and spine. IMPRESSION: No acute process. The above report was generated using voice recognition software. It may contain grammatical, syntax or spelling errors. Electronically signed by: Williams Walsh M.D. 01/12/2018 3:24 PM Dictated Date/Time: 01/12/2018 3:22 PM
--- NOTE | 2018-01-12 16:20 | Infectious Disease Progress Nt ---
Progress Note Date of Service Jan 12, 2018. Subjective Pt evaluation today including: conversation w/ patient, physical exam, chart review, lab review, review of studies, conversation w/ [employer] sales consultant, review of inpatient medication list Offers no new complaints today. Pain controlled. Remains afebrile. Awaiting amputation. All Other Systems: Reviewed and Negative Medications Current Inpatient Medications Medications (Trade) Dose Ordered Sig/Ewelina Route Start Time Stop Time Status Last Admin Dose Admin Acetaminophen (Tylenol Tab) 650 mg Q4H PRN PO 01/06/18 04:45 02/05/18 04:44 01/11/18 02:02 650 MG Miscellaneous (Iv Fluids Completed) 1 ea PRN PRN N/A 01/06/18 04:45 01/06/19 04:44 Clonidine HCl (Catapres Tab) 0.1 mg Q6H PRN PO 01/06/18 05:00 02/05/18 04:59 01/09/18 21:53 0.1 MG Insulin Aspart (novoLOG ASPART) SLIDING SCALE If C... ACHS SC 01/06/18 07:00 02/05/18 06:59 01/12/18 08:16 1 UNITS Glucose (Glucose 40% Gel) 15-30 GRAMS 15 GRAMS... UD PRN PO 01/06/18 05:45 02/05/18 05:44 Glucose (Glucose Chew Tab) 4-8 Tablets 4 Tabl... UD PRN PO 01/06/18 05:45 02/05/18 05:44 Dextrose (Dextrose 50% 50ML Syringe) 25-50ML 25ML FOR ... UD PRN IV 01/06/18 05:45 02/05/18 05:44 Glucagon (Glucagon Inj) 1 mg UD PRN SQ 01/06/18 05:45 02/05/18 05:44 Carbohydrates (Carbohydrates For Hypoglycemia) 15-30 GRAMS 15 grams if BSG 54-69... UD PRN PO 01/06/18 05:45 02/05/18 05:44 Albuterol (Ventolin Hfa Inhaler) 2 puffs Q4H PRN INH 01/06/18 05:45 02/05/18 05:44 Atorvastatin Calcium (Lipitor Tab) 40 mg DAILY PO 01/06/18 09:00 02/05/18 08:59 01/12/18 08:11 40 MG Calcitriol (Rocaltrol Cap) 0.25 mcg MoWeFr@0900 PO 01/07/18 09:00 02/06/18 08:59 01/12/18 08:12 0.25 MCG Carvedilol (Coreg Tab) 25 mg BID PO 01/06/18 09:00 02/05/18 08:59 01/12/18 08:11 25 MG Fluticasone Propionate (Flonase Nasal [place]) 1 sprays DAILY JOE 01/06/18 09:00 02/05/18 08:59 01/12/18 08:13 1 SPRAYS Latanoprost (Xalatan Oph Soln) 1 drops HS OP 01/06/18 21:00 02/05/18 20:59 01/11/18 20:50 1 DROPS Cholecalciferol (Vitamin D Tab) 5,000 inter.unit QAM PO 01/06/18 09:00 02/05/18 08:59 01/12/18 08:12 5,000 INTER.UNIT Hydralazine HCl (Apresoline Tab) 100 mg BID PO 01/06/18 09:00 02/05/18 08:59 01/12/18 08:13 100 MG Patiromer (Veltassa) 16.8 gm BID PO 01/06/18 21:00 02/05/18 20:59 01/11/18 17:02 8.4 GM Daptomycin 300 mg/ Syringe 6 ml @ 3 mls/min Q48H IV 01/08/18 10:30 02/19/18 10:29 01/12/18 11:04 3 MLS/MIN Daptomycin (Consult) 1 ea UD PRN N/A 01/08/18 10:15 02/07/18 10:14 Polyethylene (Miralax Powder Packet) 17 gm BID PO 01/08/18 21:00 02/07/18 20:59 01/10/18 08:23 17 GM Docusate Sodium (coLACE CAP) 100 mg BID PO 01/08/18 21:00 02/07/18 20:59 01/12/18 08:11 100 MG Ferrous Gluconate (Ferrous Gluconate Tab) 324 mg BIDM PO 01/09/18 07:30 02/08/18 07:29 01/12/18 08:11 324 MG Menthol (Nice Alejandrina) 1 alejandrina PRN PRN ALEJANDRINA 01/10/18 22:00 02/09/18 21:59 Furosemide 40 mg/ Syringe 4 ml @ 4 mls/min BID@0900,1600 IV 01/12/18 16:00 02/11/18 15:59 01/12/18 15:25 4 MLS/MIN Acetaminophen/ Hydrocodone Bitart ([place] 10/325 Tab) 1 tab Q4H PRN PO 01/12/18 14:00 01/20/18 08:59 01/12/18 14:44 1 TAB Objective Vital Signs Date Time Temp Pulse Resp B/P (MAP) Pulse Ox O2 Delivery O2 Flow Rate FiO2 01/12/18 15:13 36.6 62 16 177/74 (108) 94 Room Air 01/12/18 08:00 94 Room Air 0.0 01/12/18 07:33 36.5 60 18 167/65 (99) 94 Room Air 01/12/18 00:00 Room Air 01/11/18 23:31 36.7 67 20 159/67 (97) 94 Room Air 01/11/18 19:08 176/67 (103) 01/11/18 18:17 37.0 69 20 192/68 (109) 94 Room Air 01/11/18 18:10 94 Room Air 01/11/18 18:02 36.6 58 18 94 0.0 Physical Exam General Appearance: WD/WN, no apparent distress Eyes: normal inspection, EOMI, sclerae normal ENT: normal ENT inspection, pharynx normal Neck: supple, no adenopathy, thyroid normal, trachea midline Respiratory/Chest: chest non-tender, lungs clear, normal breath sounds, no respiratory distress Cardiovascular: regular rate, rhythm, no gallop, no murmur Abdomen: normal bowel sounds, non tender, soft, no organomegaly Extremities: non-tender, no calf tenderness, + slow capillary refill, + pertinent finding (Gangrenous tip of left great toe) Neurologic/Psychiatric: alert, oriented x 3 Skin: normal color, no rash, + pertinent finding (Ecchymosis left leg improving ) Lymphatic: no adenopathy Laboratory Results Last 24 Hours Test 01/11/18 16:33 01/11/18 20:26 01/12/18 06:23 01/12/18 07:37 Bedside Glucose 154 mg/dl 151 mg/dl 115 mg/dl White Blood Count 6.27 K/uL Red Blood Count 3.28 M/uL Hemoglobin 10.0 g/dL Hematocrit 29.9 % Mean Corpuscular Volume 91.2 fL Mean Corpuscular Hemoglobin 30.5 pg Mean Corpuscular Hemoglobin Concent 33.4 g/dl RDW Standard Deviation 47.3 fL RDW Coefficient of Variation 14.3 % Platelet Count 242 K/uL Mean Platelet Volume 9.5 fL Sodium Level 137 mmol/L Potassium Level 5.1 mmol/L Chloride Level 108 mmol/L Carbon Dioxide Level 19 mmol/L Anion Gap 10.0 mmol/L Blood Urea Nitrogen 110 mg/dl Creatinine 7.57 mg/dl Est Creatinine Clear Calc Drug Dose 6.7 ml/min Estimated GFR () 5.8 Estimated GFR (Non- 5.0 BUN/Creatinine Ratio 14.6 Random Glucose 111 mg/dl Calcium Level 8.8 mg/dl Test 01/12/18 11:38 Bedside Glucose 153 mg/dl Assessment and Plan (1) Necrosis of toe Status: Acute 67-year-old female with diabetes, peripheral arterial disease, renal failure on dialysis, with chronic osteomyelitis of the left great toe previously on IV dalvabancin. Patient for amputation next week. Patient should continue on vancomycin pending above procedure. Will follow.
--- NOTE | 2018-01-12 17:48 | Progress Note ---
Medicine Progress Note Date & Time of Visit: Jan 12, 2018 at 13:45 . Subjective CC: Follow-up visit for anemia, kidney disease, osteomyelitis, and other problems. HPI: No fever or chills. Experiencing left lower extremity pain-hydrocodone/acetaminophen offers relief for a few hours. ROS: General- no fever, no chills Resp- occasional cough, sometimes productive of white or yellow sputum; no shortness of breath Cardiac- no chest pain, no edema GI- no nausea, no vomiting, no diarrhea, no constipation - no dysuria, no difficulty voiding . Objective Last 8 Hrs Date Time Temp Pulse Resp B/P (MAP) Pulse Ox O2 Delivery O2 Flow Rate FiO2 01/12/18 15:13 36.6 62 16 177/74 (108) 94 Room Air Physical Exam: General- lying in bed, no distress Lungs- few basilar rales, otherwise clear to auscultation; no respiratory distress Cardiovascular- RRR; II/ systolic murmur LSB; no gallop appreciated; 1+ pretibial edema Abdomen- + bowel sounds, soft, nontender Extremities- no cyanosis; no calf tenderness; hematoma/ecchymoses extending down left lateral thigh; gangrenous changes tip of left great toe; erythema distal phalanx; capillary refill left toes 1-2 seconds Neuro- alert, oriented Skin- warm & dry . Laboratory Results: Last 24 Hours Test 01/11/18 20:26 01/12/18 06:23 01/12/18 07:37 01/12/18 11:38 Bedside Glucose 151 mg/dl 115 mg/dl 153 mg/dl White Blood Count 6.27 K/uL Red Blood Count 3.28 M/uL Hemoglobin 10.0 g/dL Hematocrit 29.9 % Mean Corpuscular Volume 91.2 fL Mean Corpuscular Hemoglobin 30.5 pg Mean Corpuscular Hemoglobin Concent 33.4 g/dl RDW Standard Deviation 47.3 fL RDW Coefficient of Variation 14.3 % Platelet Count 242 K/uL Mean Platelet Volume 9.5 fL Sodium Level 137 mmol/L Potassium Level 5.1 mmol/L Chloride Level 108 mmol/L Carbon Dioxide Level 19 mmol/L Anion Gap 10.0 mmol/L Blood Urea Nitrogen 110 mg/dl Creatinine 7.57 mg/dl Est Creatinine Clear Calc Drug Dose 6.7 ml/min Estimated GFR () 5.8 Estimated GFR (Non- 5.0 BUN/Creatinine Ratio 14.6 Random Glucose 111 mg/dl Calcium Level 8.8 mg/dl Assessment & Plan ACUTE BLOOD LOSS ANEMIA Hemoglobin 5 at [facility]. Recent angioplasty of left lower extremity with associated hematoma/blood loss. Has received 4 units of packed RBCs thus far. Hemoglobin this morning = 10.0. ACUTE KIDNEY INJURY / CKD V CKD 5 with baseline creatinine around 5. Creatinine at time of admission was 5.4 and mesfin as high as 7.26. Nephrology consulted. No indications for dialysis at this time. Creatinine today = 7.57. Furosemide 40 mg IV BID initiated. GANGRENE / OSTEOMYELITIS LEFT GREAT TOE Seen in consultation by Vascular Surgery and ID. Plain films of left foot did not show any radiographic evidence of osteomyelitis. However, MRI performed on 01/09 demonstrated suspected osteomyelitis involving the distal phalanx of the left great toe. Receiving IV daptomycin. Amputation of left great toe recommended and scheduled for Wednesday. Continue IV daptomycin until amputation performed. CORONARY ARTERY DISEASE No anginal symptoms. Aspirin and clopidogrel on hold due to left thigh hematoma; resume antiplatelet therapy when able. Currently receiving carvedilol. PERIPHERAL VASCULAR DISEASE Status post recent angioplasty left lower extremity. HYPERTENSION Continue carvedilol and hydralazine. DM TYPE 2 Hold oral agents during hospital stay. Insulin coverage as needed. FBS = 115. COUGH Check chest x-ray. VTE PROPHYLAXIS Anticoagulants contraindicated due to large hematoma left thigh. SCDs contraindicated due to severe peripheral vascular disease. Ambulate. DISPOSITION To be determined. Family Medicine follow-up with Dr. Francois. . Current Inpatient Medications: Current Inpatient Medications Medications (Trade) Dose Ordered Sig/Ewelina Route Start Time Stop Time Status Last Admin Dose Admin Acetaminophen (Tylenol Tab) 650 mg Q4H PRN PO 01/06/18 04:45 02/05/18 04:44 01/11/18 02:02 650 MG Miscellaneous (Iv Fluids Completed) 1 ea PRN PRN N/A 01/06/18 04:45 01/06/19 04:44 Clonidine HCl (Catapres Tab) 0.1 mg Q6H PRN PO 01/06/18 05:00 02/05/18 04:59 01/09/18 21:53 0.1 MG Insulin Aspart (novoLOG ASPART) SLIDING SCALE If C... ACHS SC 01/06/18 07:00 02/05/18 06:59 01/12/18 08:16 1 UNITS Glucose (Glucose 40% Gel) 15-30 GRAMS 15 GRAMS... UD PRN PO 01/06/18 05:45 02/05/18 05:44 Glucose (Glucose Chew Tab) 4-8 Tablets 4 Tabl... UD PRN PO 01/06/18 05:45 02/05/18 05:44 Dextrose (Dextrose 50% 50ML Syringe) 25-50ML 25ML FOR ... UD PRN IV 01/06/18 05:45 02/05/18 05:44 Glucagon (Glucagon Inj) 1 mg UD PRN SQ 01/06/18 05:45 02/05/18 05:44 Carbohydrates (Carbohydrates For Hypoglycemia) 15-30 GRAMS 15 grams if BSG 54-69... UD PRN PO 01/06/18 05:45 02/05/18 05:44 Albuterol (Ventolin Hfa Inhaler) 2 puffs Q4H PRN INH 01/06/18 05:45 02/05/18 05:44 Atorvastatin Calcium (Lipitor Tab) 40 mg DAILY PO 01/06/18 09:00 02/05/18 08:59 01/12/18 08:11 40 MG Calcitriol (Rocaltrol Cap) 0.25 mcg MoWeFr@0900 PO 01/07/18 09:00 02/06/18 08:59 01/12/18 08:12 0.25 MCG Carvedilol (Coreg Tab) 25 mg BID PO 01/06/18 09:00 02/05/18 08:59 01/12/18 08:11 25 MG Fluticasone Propionate (Flonase Nasal [place]) 1 sprays DAILY JOE 01/06/18 09:00 02/05/18 08:59 01/12/18 08:13 1 SPRAYS Latanoprost (Xalatan Oph Soln) 1 drops HS OP 01/06/18 21:00 02/05/18 20:59 01/11/18 20:50 1 DROPS Cholecalciferol (Vitamin D Tab) 5,000 inter.unit QAM PO 01/06/18 09:00 02/05/18 08:59 01/12/18 08:12 5,000 INTER.UNIT Hydralazine HCl (Apresoline Tab) 100 mg BID PO 01/06/18 09:00 02/05/18 08:59 01/12/18 08:13 100 MG Patiromer (Veltassa) 16.8 gm BID PO 01/06/18 21:00 02/05/18 20:59 01/11/18 17:02 8.4 GM Daptomycin 300 mg/ Syringe 6 ml @ 3 mls/min Q48H IV 01/08/18 10:30 02/19/18 10:29 01/12/18 11:04 3 MLS/MIN Daptomycin (Consult) 1 ea UD PRN N/A 01/08/18 10:15 02/07/18 10:14 Polyethylene (Miralax Powder Packet) 17 gm BID PO 01/08/18 21:00 02/07/18 20:59 01/10/18 08:23 17 GM Docusate Sodium (coLACE CAP) 100 mg BID PO 01/08/18 21:00 02/07/18 20:59 01/12/18 08:11 100 MG Ferrous Gluconate (Ferrous Gluconate Tab) 324 mg BIDM PO 01/09/18 07:30 02/08/18 07:29 01/12/18 17:41 324 MG Menthol (Nice Alejandrina) 1 alejandrina PRN PRN ALEJANDRINA 01/10/18 22:00 02/09/18 21:59 Furosemide 40 mg/ Syringe 4 ml @ 4 mls/min BID@0900,1600 IV 01/12/18 16:00 02/11/18 15:59 01/12/18 15:25 4 MLS/MIN Acetaminophen/ Hydrocodone Bitart ([place] 10/325 Tab) 1 tab Q4H PRN PO 01/12/18 14:00 01/20/18 08:59 01/12/18 14:44 1 TAB
[2018-01-12] MEDS: LATANOPROST 0.005% OP SOLN 2.5 ML BTL OP SCH (21:00)
[2018-01-12] MEDS: CLONIDINE HCL 0.1 MG TAB PO PRN (23:48)
[2018-01-13 01:43] VITALS: BP 156/67; PULSE 63; O2SAT 94
[2018-01-13] MEDS: HYDROCODONE/ACETAMI 10/325 TAB PO PRN ×4 (03:30→21:40)
[2018-01-13 06:30] LABS: HEMATOCRIT 30.8 % (37-47); MEAN CELL VOLUME 92.2 fL (80-100); MEAN CORPUSCULAR HEMOGLOBIN 29.9 pg (25-34); MEAN CORPUSCULAR HGB CONC 32.5 g/dl (32-36); MEAN PLATELET VOLUME 9.3 fL (7.4-10.4); PLATELET COUNT 233 K/uL (130-400); RED CELL DISTRIBUTION WIDTH CV 14.2 % (11.5-14.5); RED CELL DISTRIBUTION WIDTH SD 47.8 fL (36.4-46.3)
[2018-01-13 07:16] LABS: CALCIUM 8.6 mg/dl (8.5-10.1); CREATININE 7.79 mg/dl (0.60-1.20)
[2018-01-13 07:44] VITALS: BP 135/65; PULSE 55; TEMP 36.6; O2SAT 95
[2018-01-13 08:00] VITALS: O2SAT 95
[2018-01-13] MEDS: FLUTICASONE PROPIONATE NA SPR 16 GM BTL NAE SCH (08:28)
[2018-01-13] MEDS: CHOLECALCIFEROL 1000 INTER.UNIT TAB PO SCH (08:29)
[2018-01-13] MEDS: FERROUS GLUCONATE 324 MG TAB PO SCH ×2 (08:29→17:02)
[2018-01-13] MEDS: DOCUSATE SODIUM 100 MG CAP PO SCH ×2 (08:29→21:37)
[2018-01-13] MEDS: CARVEDILOL 25 MG TAB PO SCH ×2 (08:29→21:36)
[2018-01-13] MEDS: POLYETHYLENE (MIRALAX) 17 GM PACK PO SCH ×2 (08:30→21:35)
[2018-01-13] MEDS: FUROSEMIDE INJ 40 MG in SYRINGE 0 ML IV SCH ×2 (08:31→15:41)
[2018-01-13] MEDS: INSULIN ASPART 100 UNITS/ML 3 ML PEN SC SCH ×4 (08:43→20:41)
[2018-01-13] MEDS: PATIROMER PO SCH ×2 (09:00→17:02)
[2018-01-13 15:36] VITALS: BP 157/71; TEMP 37; O2SAT 94
[2018-01-13 16:00] VITALS: O2SAT 94
[2018-01-13] MEDS ORDERED: NURSING VERBAL MED ORDER ONE (17:30)
--- NOTE | 2018-01-13 18:28 | Nephrology Progress Note ---
Nephrology Progress Note Date of Service: Jan 13, 2018. Subjective Patient complains of cough. She denied any shortness of breath. She has mild lower extremity edema. She started lasix yesterday, K still borderline high Objective Date Time Temp Pulse Resp B/P (MAP) Pulse Ox O2 Delivery O2 Flow Rate FiO2 01/13/18 16:00 94 Room Air 01/13/18 15:36 37.0 18 157/71 (99) 94 Room Air 01/13/18 08:00 95 Room Air 0.0 01/13/18 07:44 36.6 55 18 135/65 (88) 95 Room Air 01/13/18 01:43 63 18 156/67 (96) 94 01/12/18 23:46 64 175/65 (101) 01/12/18 22:47 36.7 69 18 187/74 (111) 95 Room Air 01/12/18 20:54 63 188/72 (110) 95 Room Air 01/12/18 20:00 Room Air Physical Exam: [id number], no acute distress Eyes-pupils equal and reactive to light ENT-throat is normal on inspection Neck-neck is supple no JVD Lungs-bilateral crackles Heart-S1 and S2 regular rate and rhythm, no murmurs Abdomen-soft nondistended bowel sounds are present Extremities-1+ edema, left forearm AV fistula with good thrill and bruit. Has bruising on left thigh. left big toe with gangrene Neuro-oriented 3, no focal neurological deficits Current Inpatient Medications Medications (Trade) Dose Ordered Sig/Ewelina Route Start Time Stop Time Status Last Admin Dose Admin Acetaminophen (Tylenol Tab) 650 mg Q4H PRN PO 01/06/18 04:45 02/05/18 04:44 01/11/18 02:02 650 MG Miscellaneous (Iv Fluids Completed) 1 ea PRN PRN N/A 01/06/18 04:45 01/06/19 04:44 Clonidine HCl (Catapres Tab) 0.1 mg Q6H PRN PO 01/06/18 05:00 02/05/18 04:59 01/12/18 23:48 0.1 MG Insulin Aspart (novoLOG ASPART) SLIDING SCALE If C... ACHS SC 01/06/18 07:00 02/05/18 06:59 01/13/18 12:47 1 UNITS Glucose (Glucose 40% Gel) 15-30 GRAMS 15 GRAMS... UD PRN PO 01/06/18 05:45 02/05/18 05:44 Glucose (Glucose Chew Tab) 4-8 Tablets 4 Tabl... UD PRN PO 01/06/18 05:45 02/05/18 05:44 Dextrose (Dextrose 50% 50ML Syringe) 25-50ML 25ML FOR ... UD PRN IV 01/06/18 05:45 02/05/18 05:44 Glucagon (Glucagon Inj) 1 mg UD PRN SQ 01/06/18 05:45 02/05/18 05:44 Carbohydrates (Carbohydrates For Hypoglycemia) 15-30 GRAMS 15 grams if BSG 54-69... UD PRN PO 01/06/18 05:45 02/05/18 05:44 Albuterol (Ventolin Hfa Inhaler) 2 puffs Q4H PRN INH 01/06/18 05:45 02/05/18 05:44 Atorvastatin Calcium (Lipitor Tab) 40 mg DAILY PO 01/06/18 09:00 02/05/18 08:59 Future Hold 01/12/18 08:11 40 MG Calcitriol (Rocaltrol Cap) 0.25 mcg MoWeFr@0900 PO 01/07/18 09:00 02/06/18 08:59 01/12/18 08:12 0.25 MCG Carvedilol (Coreg Tab) 25 mg BID PO 01/06/18 09:00 02/05/18 08:59 01/13/18 08:29 25 MG Fluticasone Propionate (Flonase Nasal [place]) 1 sprays DAILY JOE 01/06/18 09:00 02/05/18 08:59 01/13/18 08:28 1 SPRAYS Latanoprost (Xalatan Oph Soln) 1 drops HS OP 01/06/18 21:00 02/05/18 20:59 01/11/18 20:50 1 DROPS Cholecalciferol (Vitamin D Tab) 5,000 inter.unit QAM PO 01/06/18 09:00 02/05/18 08:59 01/13/18 08:29 5,000 INTER.UNIT Hydralazine HCl (Apresoline Tab) 100 mg BID PO 01/06/18 09:00 02/05/18 08:59 01/13/18 08:29 100 MG Daptomycin 300 mg/ Syringe 6 ml @ 3 mls/min Q48H IV 01/08/18 10:30 02/19/18 10:29 01/12/18 11:04 3 MLS/MIN Daptomycin (Consult) 1 ea UD PRN N/A 01/08/18 10:15 02/07/18 10:14 Polyethylene (Miralax Powder Packet) 17 gm BID PO 01/08/18 21:00 02/07/18 20:59 01/10/18 08:23 17 GM Docusate Sodium (coLACE CAP) 100 mg BID PO 01/08/18 21:00 02/07/18 20:59 01/13/18 08:29 100 MG Ferrous Gluconate (Ferrous Gluconate Tab) 324 mg BIDM PO 01/09/18 07:30 02/08/18 07:29 01/13/18 17:02 324 MG Menthol (Nice Alejandrina) 1 alejandrina PRN PRN ALEJANDRINA 01/10/18 22:00 02/09/18 21:59 Furosemide 40 mg/ Syringe 4 ml @ 4 mls/min BID@0900,1600 IV 01/12/18 16:00 02/11/18 15:59 01/13/18 15:41 4 MLS/MIN Acetaminophen/ Hydrocodone Bitart ([place] 10/325 Tab) 1 tab Q4H PRN PO 01/12/18 14:00 01/20/18 08:59 01/13/18 17:40 1 TAB Patiromer (Veltassa) 16.8 gm BID@0900,1700 PO 01/14/18 09:00 02/13/18 08:59 Last 24 Hours Test 01/12/18 20:26 01/13/18 06:18 01/13/18 07:36 01/13/18 11:49 Bedside Glucose 125 mg/dl 119 mg/dl 175 mg/dl White Blood Count 6.20 K/uL Red Blood Count 3.34 M/uL Hemoglobin 10.0 g/dL Hematocrit 30.8 % Mean Corpuscular Volume 92.2 fL Mean Corpuscular Hemoglobin 29.9 pg Mean Corpuscular Hemoglobin Concent 32.5 g/dl RDW Standard Deviation 47.8 fL RDW Coefficient of Variation 14.2 % Platelet Count 233 K/uL Mean Platelet Volume 9.3 fL Sodium Level 137 mmol/L Potassium Level 5.0 mmol/L Chloride Level 107 mmol/L Carbon Dioxide Level 20 mmol/L Anion Gap 10.0 mmol/L Blood Urea Nitrogen 122 mg/dl Creatinine 7.79 mg/dl Est Creatinine Clear Calc Drug Dose 6.5 ml/min Estimated GFR () 5.6 Estimated GFR (Non- 4.9 BUN/Creatinine Ratio 15.6 Random Glucose 114 mg/dl Calcium Level 8.6 mg/dl Test 01/13/18 17:15 Bedside Glucose 137 mg/dl Assessment & Plan This is a 67-year-old female with CKD stage V, peripheral vascular disease who was admitted with acute blood loss anemia secondary to left groin hematoma. 1. CKD stage V: Patient has a functional left forearm AV fistula but has not needed dialysis. Her renal function is worsening with a creatinine at 7.8 today. There is no indication for urgent hemodialysis but She is very close to needing dialysis. I had a lengthy discussion with the patient today about need to start HD given worsening renal function. She is planned for toe amputation and might not tolerate OR with all the metabolic derangements. She pointed out the the Vascular team had told her that the fistula is not ready for use but if it was ready she was open to starting HD I attempted to reach out to vascular team today but was not successful. I would like to have the dialysis nurse attempt cannulating the fistula if ok with vascular. I told the patient that if the fistula is not working we will have to put a catheter. Continue lasix 40mg iv bid for volume management. Monitor input/output 2. Hyperkalemia: She will continue Patiromer. 3. Anemia: Multifactorial including chronic kidney disease and acute blood loss in setting of hematoma. Monitor and transfuse as needed. She will likely need epogen as an outpatient. 4. Hypertension: Her BP is above target. Anticipate improvement with diuresis. Lasix can be up titrated if no response. Angelica Dominguez MD
--- NOTE | 2018-01-13 20:40 | Progress Note ---
Medicine Progress Note Date & Time of Visit: Jan 13, 2018 at 11:30 . Subjective CC: Follow-up visit for anemia, kidney disease, osteomyelitis, and other problems. HPI: No fever or chills. Experiencing left lateral thigh pain as well as left great toe pain. Discouraged about osteomyelitis and worsening renal function. ROS: General- no fever, no chills Resp- cough improved; no shortness of breath Cardiac- no chest pain, no edema GI- no nausea, no vomiting, no diarrhea, no constipation - no dysuria, no difficulty voiding . Objective Last 8 Hrs Date Time Temp Pulse Resp B/P (MAP) Pulse Ox O2 Delivery O2 Flow Rate FiO2 01/13/18 16:00 94 Room Air 01/13/18 15:36 37.0 18 157/71 (99) 94 Room Air Physical Exam: General- lying in bed, no distress Lungs- few basilar rales, otherwise clear to auscultation; no respiratory distress Cardiovascular- RRR; II/ systolic murmur LSB; no gallop appreciated; 1+ pretibial edema Abdomen- + bowel sounds, soft, nontender Extremities- no cyanosis; no calf tenderness; hematoma/ecchymoses extending down left lateral thigh; gangrenous changes tip of left great toe; erythema distal phalanx; capillary refill left toes 1-2 seconds Neuro- alert, oriented Skin- warm & dry . Laboratory Results: Last 24 Hours Test 01/13/18 06:18 01/13/18 07:36 01/13/18 11:49 01/13/18 17:15 White Blood Count 6.20 K/uL Red Blood Count 3.34 M/uL Hemoglobin 10.0 g/dL Hematocrit 30.8 % Mean Corpuscular Volume 92.2 fL Mean Corpuscular Hemoglobin 29.9 pg Mean Corpuscular Hemoglobin Concent 32.5 g/dl RDW Standard Deviation 47.8 fL RDW Coefficient of Variation 14.2 % Platelet Count 233 K/uL Mean Platelet Volume 9.3 fL Sodium Level 137 mmol/L Potassium Level 5.0 mmol/L Chloride Level 107 mmol/L Carbon Dioxide Level 20 mmol/L Anion Gap 10.0 mmol/L Blood Urea Nitrogen 122 mg/dl Creatinine 7.79 mg/dl Est Creatinine Clear Calc Drug Dose 6.5 ml/min Estimated GFR () 5.6 Estimated GFR (Non- 4.9 BUN/Creatinine Ratio 15.6 Random Glucose 114 mg/dl Calcium Level 8.6 mg/dl Bedside Glucose 119 mg/dl 175 mg/dl 137 mg/dl Test 01/13/18 20:19 Bedside Glucose 164 mg/dl Assessment & Plan ACUTE BLOOD LOSS ANEMIA Hemoglobin 5 at [facility]. Recent angioplasty of left lower extremity with associated hematoma/blood loss. Has received 4 units of packed RBCs thus far. Hemoglobin this morning = 10.0. ACUTE KIDNEY INJURY / CKD V CKD 5 with baseline creatinine around 5. Creatinine at time of admission was 5.4 and mesfin as high as 7.26. Nephrology consulted. Creatinine today = 7.79. Management per Nephrology. GANGRENE / OSTEOMYELITIS LEFT GREAT TOE Seen in consultation by Vascular Surgery and ID. Plain films of left foot did not show any radiographic evidence of osteomyelitis. However, MRI performed on 01/09 demonstrated suspected osteomyelitis involving the distal phalanx of the left great toe. Receiving IV daptomycin. Amputation of left great toe recommended and scheduled for Wednesday. Continue IV daptomycin until amputation performed. CORONARY ARTERY DISEASE No anginal symptoms. Aspirin and clopidogrel on hold due to left thigh hematoma; resume antiplatelet therapy when able. Currently receiving carvedilol. PERIPHERAL VASCULAR DISEASE Status post recent angioplasty left lower extremity. HYPERTENSION Continue carvedilol and hydralazine. DM TYPE 2 Hold oral agents during hospital stay. Insulin coverage as needed. FBS = 119. COUGH Chest x-ray 01/12 negative. Cough improved. VTE PROPHYLAXIS Anticoagulants contraindicated due to large hematoma left thigh. SCDs contraindicated due to severe peripheral vascular disease. Ambulate. DISPOSITION To be determined. Family Medicine follow-up with Dr. Francois. . Current Inpatient Medications: Current Inpatient Medications Medications (Trade) Dose Ordered Sig/Ewelina Route Start Time Stop Time Status Last Admin Dose Admin Acetaminophen (Tylenol Tab) 650 mg Q4H PRN PO 01/06/18 04:45 02/05/18 04:44 01/11/18 02:02 650 MG Miscellaneous (Iv Fluids Completed) 1 ea PRN PRN N/A 01/06/18 04:45 01/06/19 04:44 Clonidine HCl (Catapres Tab) 0.1 mg Q6H PRN PO 01/06/18 05:00 02/05/18 04:59 01/12/18 23:48 0.1 MG Insulin Aspart (novoLOG ASPART) SLIDING SCALE If C... ACHS SC 01/06/18 07:00 02/05/18 06:59 01/13/18 12:47 1 UNITS Glucose (Glucose 40% Gel) 15-30 GRAMS 15 GRAMS... UD PRN PO 01/06/18 05:45 02/05/18 05:44 Glucose (Glucose Chew Tab) 4-8 Tablets 4 Tabl... UD PRN PO 01/06/18 05:45 02/05/18 05:44 Dextrose (Dextrose 50% 50ML Syringe) 25-50ML 25ML FOR ... UD PRN IV 01/06/18 05:45 02/05/18 05:44 Glucagon (Glucagon Inj) 1 mg UD PRN SQ 01/06/18 05:45 02/05/18 05:44 Carbohydrates (Carbohydrates For Hypoglycemia) 15-30 GRAMS 15 grams if BSG 54-69... UD PRN PO 01/06/18 05:45 02/05/18 05:44 Albuterol (Ventolin Hfa Inhaler) 2 puffs Q4H PRN INH 01/06/18 05:45 02/05/18 05:44 Atorvastatin Calcium (Lipitor Tab) 40 mg DAILY PO 01/06/18 09:00 02/05/18 08:59 Future Hold 01/12/18 08:11 40 MG Calcitriol (Rocaltrol Cap) 0.25 mcg MoWeFr@0900 PO 01/07/18 09:00 02/06/18 08:59 01/12/18 08:12 0.25 MCG Carvedilol (Coreg Tab) 25 mg BID PO 01/06/18 09:00 02/05/18 08:59 01/13/18 08:29 25 MG Fluticasone Propionate (Flonase Nasal [place]) 1 sprays DAILY JOE 01/06/18 09:00 02/05/18 08:59 01/13/18 08:28 1 SPRAYS Latanoprost (Xalatan Oph Soln) 1 drops HS OP 01/06/18 21:00 02/05/18 20:59 01/11/18 20:50 1 DROPS Cholecalciferol (Vitamin D Tab) 5,000 inter.unit QAM PO 01/06/18 09:00 02/05/18 08:59 01/13/18 08:29 5,000 INTER.UNIT Hydralazine HCl (Apresoline Tab) 100 mg BID PO 01/06/18 09:00 02/05/18 08:59 01/13/18 08:29 100 MG Daptomycin 300 mg/ Syringe 6 ml @ 3 mls/min Q48H IV 01/08/18 10:30 02/19/18 10:29 01/12/18 11:04 3 MLS/MIN Daptomycin (Consult) 1 ea UD PRN N/A 01/08/18 10:15 02/07/18 10:14 Polyethylene (Miralax Powder Packet) 17 gm BID PO 01/08/18 21:00 02/07/18 20:59 01/10/18 08:23 17 GM Docusate Sodium (coLACE CAP) 100 mg BID PO 01/08/18 21:00 02/07/18 20:59 01/13/18 08:29 100 MG Ferrous Gluconate (Ferrous Gluconate Tab) 324 mg BIDM PO 01/09/18 07:30 02/08/18 07:29 01/13/18 17:02 324 MG Menthol (Nice Alejandrina) 1 alejandrina PRN PRN ALEJANDRINA 01/10/18 22:00 02/09/18 21:59 Furosemide 40 mg/ Syringe 4 ml @ 4 mls/min BID@0900,1600 IV 01/12/18 16:00 02/11/18 15:59 01/13/18 15:41 4 MLS/MIN Acetaminophen/ Hydrocodone Bitart ([place] 10/325 Tab) 1 tab Q4H PRN PO 01/12/18 14:00 01/20/18 08:59 01/13/18 17:40 1 TAB Patiromer ([place]elt[place]) 16.8 gm BID@0900,1700 PO 01/14/18 09:00 02/13/18 08:59
[2018-01-13] MEDS: LATANOPROST 0.005% OP SOLN 2.5 ML BTL OP SCH (21:00)
[2018-01-13 22:40] VITALS: BP 158/68; PULSE 65; TEMP 36.8; O2SAT 94
[2018-01-14] MEDS: HYDROCODONE/ACETAMI 10/325 TAB PO PRN ×4 (04:19→22:00)
[2018-01-14 06:30] LABS: HEMATOCRIT 30.1 % (37-47); HEMOGLOBIN 9.8 g/dL (12.0-16.0); MEAN CELL VOLUME 90.9 fL (80-100); MEAN CORPUSCULAR HEMOGLOBIN 29.6 pg (25-34); MEAN CORPUSCULAR HGB CONC 32.6 g/dl (32-36); MEAN PLATELET VOLUME 9.5 fL (7.4-10.4); PLATELET COUNT 247 K/uL (130-400); RED CELL DISTRIBUTION WIDTH CV 14.1 % (11.5-14.5); RED CELL DISTRIBUTION WIDTH SD 46.7 fL (36.4-46.3); WHITE BLOOD COUNT 5.76 K/uL (4.8-10.8)
[2018-01-14 06:41] LABS: PTT PATIENT 29.9 SECONDS (21.0-31.0)
[2018-01-14 07:12] LABS: CALCIUM 8.9 mg/dl (8.5-10.1); CREATININE 8.21 mg/dl (0.60-1.20); POTASSIUM 4.7 mmol/L (3.5-5.1)
[2018-01-14 07:38] VITALS: BP 144/67; PULSE 58; TEMP 36.6; O2SAT 97
[2018-01-14] MEDS: POLYETHYLENE (MIRALAX) 17 GM PACK PO SCH ×2 (08:17→20:50)
[2018-01-14] MEDS: FERROUS GLUCONATE 324 MG TAB PO SCH ×2 (08:18→17:00)
[2018-01-14] MEDS: FUROSEMIDE INJ 40 MG in SYRINGE 0 ML IV SCH ×2 (08:18→17:15)
[2018-01-14] MEDS: FLUTICASONE PROPIONATE NA SPR 16 GM BTL NAE SCH (08:18)
[2018-01-14] MEDS: PATIROMER PO SCH ×2 (08:19→17:00)
[2018-01-14] MEDS: CALCITRIOL 0.25 MCG CAP PO SCH (08:19)
[2018-01-14] MEDS: CHOLECALCIFEROL 1000 INTER.UNIT TAB PO SCH (08:19)
[2018-01-14] MEDS: INSULIN ASPART 100 UNITS/ML 3 ML PEN SC SCH ×4 (08:22→20:50)
[2018-01-14] MEDS: CARVEDILOL 25 MG TAB PO SCH ×2 (09:10→20:51)
[2018-01-14] MEDS: DOCUSATE SODIUM 100 MG CAP PO SCH ×2 (09:10→20:52)
[2018-01-14 10:14] VITALS: Ht 154.9 cm; Wt 70.4 kg
[2018-01-14] MEDS: DAPTOmycin IV 300 MG in SYRINGE 0 ML IV SCH (10:18)
[2018-01-14 15:11] VITALS: BP 156/66; PULSE 57; TEMP 36.6; O2SAT 94
--- NOTE | 2018-01-14 17:01 | Nephrology Progress Note ---
Nephrology Progress Note Date of Service: Jan 14, 2018. Subjective Patient feels better today. She has not had chance to speak to her sister about starting dialysis. She denied any shortness of breath. She has mild lower extremity edema. K better today, cr up trending Objective Date Time Temp Pulse Resp B/P (MAP) Pulse Ox O2 Delivery O2 Flow Rate FiO2 01/14/18 15:11 36.6 57 18 156/66 (96) 94 Room Air 01/14/18 08:45 Room Air 01/14/18 07:38 36.6 58 18 144/67 (92) 97 Room Air 01/14/18 00:30 Room Air 01/13/18 22:40 36.8 65 18 158/68 (98) 94 Room Air Physical Exam: [id number], no acute distress Eyes-pupils equal and reactive to light ENT-throat is normal on inspection Neck-neck is supple no JVD Lungs-bilateral crackles Heart-S1 and S2 regular rate and rhythm, no murmurs Abdomen-soft nondistended bowel sounds are present Extremities-1+ edema, left forearm AV fistula with good thrill and bruit. Has bruising on left thigh. left big toe with gangrene Neuro-oriented 3, no focal neurological deficits Current Inpatient Medications Medications (Trade) Dose Ordered Sig/Ewelina Route Start Time Stop Time Status Last Admin Dose Admin Acetaminophen (Tylenol Tab) 650 mg Q4H PRN PO 01/06/18 04:45 02/05/18 04:44 01/11/18 02:02 650 MG Miscellaneous (Iv Fluids Completed) 1 ea PRN PRN N/A 01/06/18 04:45 01/06/19 04:44 Clonidine HCl (Catapres Tab) 0.1 mg Q6H PRN PO 01/06/18 05:00 02/05/18 04:59 01/12/18 23:48 0.1 MG Insulin Aspart (novoLOG ASPART) SLIDING SCALE If C... ACHS SC 01/06/18 07:00 02/05/18 06:59 01/14/18 12:12 2 UNITS Glucose (Glucose 40% Gel) 15-30 GRAMS 15 GRAMS... UD PRN PO 01/06/18 05:45 02/05/18 05:44 Glucose (Glucose Chew Tab) 4-8 Tablets 4 Tabl... UD PRN PO 01/06/18 05:45 02/05/18 05:44 Dextrose (Dextrose 50% 50ML Syringe) 25-50ML 25ML FOR ... UD PRN IV 01/06/18 05:45 02/05/18 05:44 Glucagon (Glucagon Inj) 1 mg UD PRN SQ 01/06/18 05:45 02/05/18 05:44 Carbohydrates (Carbohydrates For Hypoglycemia) 15-30 GRAMS 15 grams if BSG 54-69... UD PRN PO 01/06/18 05:45 02/05/18 05:44 Albuterol (Ventolin Hfa Inhaler) 2 puffs Q4H PRN INH 01/06/18 05:45 02/05/18 05:44 Atorvastatin Calcium (Lipitor Tab) 40 mg DAILY PO 01/06/18 09:00 02/05/18 08:59 Future Hold 01/12/18 08:11 40 MG Calcitriol (Rocaltrol Cap) 0.25 mcg MoWeFr@0900 PO 01/07/18 09:00 02/06/18 08:59 01/14/18 08:19 0.25 MCG Carvedilol (Coreg Tab) 25 mg BID PO 01/06/18 09:00 02/05/18 08:59 01/14/18 09:10 25 MG Fluticasone Propionate (Flonase Nasal [place]) 1 sprays DAILY JOE 01/06/18 09:00 02/05/18 08:59 01/14/18 08:18 1 SPRAYS Latanoprost (Xalatan Oph Soln) 1 drops HS OP 01/06/18 21:00 02/05/18 20:59 01/11/18 20:50 1 DROPS Cholecalciferol (Vitamin D Tab) 5,000 inter.unit QAM PO 01/06/18 09:00 02/05/18 08:59 01/14/18 08:19 5,000 INTER.UNIT Hydralazine HCl (Apresoline Tab) 100 mg BID PO 01/06/18 09:00 02/05/18 08:59 01/14/18 09:11 100 MG Daptomycin 300 mg/ Syringe 6 ml @ 3 mls/min Q48H IV 01/08/18 10:30 02/19/18 10:29 7/20/18 10:18 3 MLS/MIN Daptomycin (Consult) 1 ea UD PRN N/A 01/08/18 10:15 02/07/18 10:14 Polyethylene (Miralax Powder Packet) 17 gm BID PO 01/08/18 21:00 02/07/18 20:59 01/14/18 08:17 17 GM Docusate Sodium (coLACE CAP) 100 mg BID PO 01/08/18 21:00 02/07/18 20:59 01/14/18 09:10 100 MG Ferrous Gluconate (Ferrous Gluconate Tab) 324 mg BIDM PO 01/09/18 07:30 02/08/18 07:29 01/14/18 08:18 324 MG Menthol (Nice Alejandrina) 1 alejandrina PRN PRN ALEJANDRINA 01/10/18 22:00 02/09/18 21:59 Furosemide 40 mg/ Syringe 4 ml @ 4 mls/min BID@0900,1600 IV 01/12/18 16:00 02/11/18 15:59 01/14/18 08:18 4 MLS/MIN Acetaminophen/ Hydrocodone Bitart ([place] 10/325 Tab) 1 tab Q4H PRN PO 01/12/18 14:00 01/20/18 08:59 01/14/18 15:18 1 TAB Patiromer ([place]) 16.8 gm BID@0900,1700 PO 01/14/18 09:00 02/13/18 08:59 Last 24 Hours Test 01/13/18 17:15 01/13/18 20:19 01/14/18 06:04 01/14/18 07:30 Bedside Glucose 137 mg/dl 164 mg/dl 114 mg/dl White Blood Count 5.76 K/uL Red Blood Count 3.31 M/uL Hemoglobin 9.8 g/dL Hematocrit 30.1 % Mean Corpuscular Volume 90.9 fL Mean Corpuscular Hemoglobin 29.6 pg Mean Corpuscular Hemoglobin Concent 32.6 g/dl RDW Standard Deviation 46.7 fL RDW Coefficient of Variation 14.1 % Platelet Count 247 K/uL Mean Platelet Volume 9.5 fL Prothrombin Time 10.7 SECONDS Prothromb Time International Ratio 1.0 Activated Partial Thromboplast Time 29.9 SECONDS Partial Thromboplastin Ratio 1.2 Sodium Level 134 mmol/L Potassium Level 4.7 mmol/L Chloride Level 104 mmol/L Carbon Dioxide Level 18 mmol/L Anion Gap 12.0 mmol/L Blood Urea Nitrogen 131 mg/dl Creatinine 8.21 mg/dl Est Creatinine Clear Calc Drug Dose 6.2 ml/min Estimated GFR () 5.3 Estimated GFR (Non- 4.6 BUN/Creatinine Ratio 16.0 Random Glucose 107 mg/dl Calcium Level 8.9 mg/dl Test 01/14/18 11:42 01/14/18 16:35 Bedside Glucose 150 mg/dl 130 mg/dl Assessment & Plan This is a 67-year-old female with CKD stage V, peripheral vascular disease who was admitted with acute blood loss anemia secondary to left groin hematoma, now with gangrene of left big toe 1. CKD stage V: Patient has a functional left forearm AV fistula but has not needed dialysis. Her renal function is worsening with a creatinine at 8 today. There is no indication for urgent hemodialysis but She is very close to needing dialysis. I spoke to Dr. Solorzano today about attempting to use the fistula. He expressed concern that the fistula has not matured adequately. I had a lengthy discussion with the patient today about need to start HD given worsening renal function. The Patient said she would like to talk to her sister first before agreeing to HD. Her sister will be back late wednesday afternoon. We will likely plan to start HD on Wednesday if she is agreeable. Continue lasix 40mg iv bid for volume management. Monitor input/output 2. Hyperkalemia: She will continue Patiromer. K is better 3. Anemia: Multifactorial including chronic kidney disease and acute blood loss in setting of hematoma. Monitor and transfuse as needed. She will need epogen with HD 4. Hypertension: Her BP is acceptable Angelica Dominguez MD
[2018-01-14] MEDS: ACETAMINOPHEN 325 MG TAB PO PRN (17:12)
[2018-01-14] MEDS ORDERED: CALCIUM CARBONATE 500 MG CHEWABLE PO PRN (19:30)
[2018-01-14] MEDS ORDERED: PANTOprazole INJ 40 MG in SYRINGE 0 ML IV ONE (19:30)
[2018-01-14 20:51] VITALS: BP 178/69; PULSE 57
[2018-01-14] MEDS: LATANOPROST 0.005% OP SOLN 2.5 ML BTL OP SCH (20:53)
--- NOTE | 2018-01-14 21:43 | Progress Note ---
Medicine Progress Note Date & Time of Visit: Jan 14, 2018 at 18:30 . Subjective CC: Follow-up visit for anemia, kidney disease, osteomyelitis, and other problems. HPI: No new problems. Wants to discuss dialysis with her sister who has been out of town. ROS: General- no fever, no chills Resp- no cough; no shortness of breath Cardiac- no chest pain, no edema GI- + nausea, no vomiting, no diarrhea, no constipation - no dysuria, no difficulty voiding . Objective Last 8 Hrs Date Time Temp Pulse Resp B/P (MAP) Pulse Ox O2 Delivery O2 Flow Rate FiO2 01/14/18 20:51 57 178/69 (105) 01/14/18 19:28 Room Air 01/14/18 15:11 36.6 57 18 156/66 (96) 94 Room Air Physical Exam: General- lying in bed, no distress Lungs- clear to auscultation; no respiratory distress Cardiovascular- RRR; II/ systolic murmur LSB; no gallop appreciated; 1+ pretibial edema Abdomen- + bowel sounds, soft, nontender Extremities- no cyanosis; no calf tenderness; hematoma/ecchymoses extending down left lateral thigh; gangrenous changes tip of left great toe; erythema distal phalanx Neuro- alert, oriented Skin- warm & dry . Laboratory Results: Last 24 Hours Test 01/14/18 06:04 01/14/18 07:30 01/14/18 11:42 01/14/18 16:35 White Blood Count 5.76 K/uL Red Blood Count 3.31 M/uL Hemoglobin 9.8 g/dL Hematocrit 30.1 % Mean Corpuscular Volume 90.9 fL Mean Corpuscular Hemoglobin 29.6 pg Mean Corpuscular Hemoglobin Concent 32.6 g/dl RDW Standard Deviation 46.7 fL RDW Coefficient of Variation 14.1 % Platelet Count 247 K/uL Mean Platelet Volume 9.5 fL Prothrombin Time 10.7 SECONDS Prothromb Time International Ratio 1.0 Activated Partial Thromboplast Time 29.9 SECONDS Partial Thromboplastin Ratio 1.2 Sodium Level 134 mmol/L Potassium Level 4.7 mmol/L Chloride Level 104 mmol/L Carbon Dioxide Level 18 mmol/L Anion Gap 12.0 mmol/L Blood Urea Nitrogen 131 mg/dl Creatinine 8.21 mg/dl Est Creatinine Clear Calc Drug Dose 6.2 ml/min Estimated GFR () 5.3 Estimated GFR (Non- 4.6 BUN/Creatinine Ratio 16.0 Random Glucose 107 mg/dl Calcium Level 8.9 mg/dl Bedside Glucose 114 mg/dl 150 mg/dl 130 mg/dl Test 01/14/18 19:54 Bedside Glucose 151 mg/dl Assessment & Plan ACUTE BLOOD LOSS ANEMIA Hemoglobin 5 at [facility]. Recent angioplasty of left lower extremity with associated hematoma/blood loss. Has received 4 units of packed RBCs thus far. Hemoglobin this morning = 9.8. ACUTE KIDNEY INJURY / CKD V CKD 5 with baseline creatinine around 5. Creatinine at time of admission was 5.4 and mesfin as high as 7.26. Nephrology consulted. Creatinine today = 8.21. Management per Nephrology. GANGRENE / OSTEOMYELITIS LEFT GREAT TOE Seen in consultation by Vascular Surgery and ID. Plain films of left foot did not show any radiographic evidence of osteomyelitis. However, MRI performed on 01/09 demonstrated suspected osteomyelitis involving the distal phalanx of the left great toe. Receiving IV daptomycin. Amputation of left great toe recommended and scheduled for Wednesday. Continue IV daptomycin until amputation performed. CORONARY ARTERY DISEASE No anginal symptoms. Aspirin and clopidogrel on hold due to left thigh hematoma; resume antiplatelet therapy when able. Currently receiving carvedilol. PERIPHERAL VASCULAR DISEASE Status post recent angioplasty left lower extremity. HYPERTENSION Continue carvedilol and hydralazine. DM TYPE 2 Hold oral agents during hospital stay. Insulin coverage as needed. FBS = 114. COUGH Chest x-ray 01/12 negative. Cough improved. VTE PROPHYLAXIS Anticoagulants contraindicated due to large hematoma left thigh. SCDs contraindicated due to severe peripheral vascular disease. Ambulate. DISPOSITION To be determined. Family Medicine follow-up with Dr. Francois. . Current Inpatient Medications: Current Inpatient Medications Medications (Trade) Dose Ordered Sig/Ewelina Route Start Time Stop Time Status Last Admin Dose Admin Acetaminophen (Tylenol Tab) 650 mg Q4H PRN PO 01/06/18 04:45 02/05/18 04:44 01/14/18 17:12 650 MG Miscellaneous (Iv Fluids Completed) 1 ea PRN PRN N/A 01/06/18 04:45 01/06/19 04:44 Clonidine HCl (Catapres Tab) 0.1 mg Q6H PRN PO 01/06/18 05:00 02/05/18 04:59 01/12/18 23:48 0.1 MG Insulin Aspart (novoLOG ASPART) SLIDING SCALE If C... ACHS SC 01/06/18 07:00 02/05/18 06:59 01/14/18 12:12 2 UNITS Glucose (Glucose 40% Gel) 15-30 GRAMS 15 GRAMS... UD PRN PO 01/06/18 05:45 02/05/18 05:44 Glucose (Glucose Chew Tab) 4-8 Tablets 4 Tabl... UD PRN PO 01/06/18 05:45 02/05/18 05:44 Dextrose (Dextrose 50% 50ML Syringe) 25-50ML 25ML FOR ... UD PRN IV 01/06/18 05:45 02/05/18 05:44 Glucagon (Glucagon Inj) 1 mg UD PRN SQ 01/06/18 05:45 02/05/18 05:44 Carbohydrates (Carbohydrates For Hypoglycemia) 15-30 GRAMS 15 grams if BSG 54-69... UD PRN PO 01/06/18 05:45 02/05/18 05:44 Albuterol (Ventolin Hfa Inhaler) 2 puffs Q4H PRN INH 01/06/18 05:45 02/05/18 05:44 Atorvastatin Calcium (Lipitor Tab) 40 mg DAILY PO 01/06/18 09:00 02/05/18 08:59 Future Hold 01/12/18 08:11 40 MG Calcitriol (Rocaltrol Cap) 0.25 mcg MoWeFr@0900 PO 01/07/18 09:00 02/06/18 08:59 01/14/18 08:19 0.25 MCG Carvedilol (Coreg Tab) 25 mg BID PO 01/06/18 09:00 02/05/18 08:59 01/14/18 09:10 25 MG Fluticasone Propionate (Flonase Nasal [place]) 1 sprays DAILY JOE 01/06/18 09:00 02/05/18 08:59 01/14/18 08:18 1 SPRAYS Latanoprost (Xalatan Oph Soln) 1 drops HS OP 01/06/18 21:00 02/05/18 20:59 01/11/18 20:50 1 DROPS Cholecalciferol (Vitamin D Tab) 5,000 inter.unit QAM PO 01/06/18 09:00 02/05/18 08:59 01/14/18 08:19 5,000 INTER.UNIT Hydralazine HCl (Apresoline Tab) 100 mg BID PO 01/06/18 09:00 02/05/18 08:59 01/14/18 20:53 100 MG Daptomycin 300 mg/ Syringe 6 ml @ 3 mls/min Q48H IV 01/08/18 10:30 02/19/18 10:29 01/14/18 10:18 3 MLS/MIN Daptomycin (Consult) 1 ea UD PRN N/A 01/08/18 10:15 02/07/18 10:14 Polyethylene (Miralax Powder Packet) 17 gm BID PO 01/08/18 21:00 02/07/18 20:59 01/14/18 08:17 17 GM Docusate Sodium (coLACE CAP) 100 mg BID PO 01/08/18 21:00 02/07/18 20:59 01/14/18 20:52 100 MG Menthol (Nice Alejandrina) 1 alejandrina PRN PRN ALEJANDRINA 01/10/18 22:00 02/09/18 21:59 Furosemide 40 mg/ Syringe 4 ml @ 4 mls/min BID@0900,1600 IV 01/12/18 16:00 02/11/18 15:59 01/14/18 17:15 4 MLS/MIN Acetaminophen/ Hydrocodone Bitart ([place] 10/325 Tab) 1 tab Q4H PRN PO 01/12/18 14:00 01/20/18 08:59 01/14/18 15:18 1 TAB Patiromer ([place]) 16.8 gm BID@0900,1700 PO 01/14/18 09:00 02/13/18 08:59 Calcium Carbonate (Tums Chew Tab) 500 mg Q4H PRN PO 01/14/18 19:30 02/13/18 19:29 01/14/18 20:59 500 MG Pantoprazole Sodium (Protonix Tab) 40 mg QAM PO 01/15/18 09:00 01/19/18 08:59
[2018-01-14 23:14] VITALS: BP 173/66; PULSE 69; TEMP 36.7; O2SAT 97
[2018-01-15] MEDS: HYDROCODONE/ACETAMI 10/325 TAB PO PRN ×3 (03:07→21:23)
[2018-01-15 07:20] VITALS: BP 176/77; PULSE 62; TEMP 36.5; O2SAT 96
[2018-01-15 07:20] LABS: HEMATOCRIT 30.6 % (37-47); HEMOGLOBIN 10.3 g/dL (12.0-16.0); MEAN CELL VOLUME 89.7 fL (80-100); MEAN CORPUSCULAR HEMOGLOBIN 30.2 pg (25-34); MEAN CORPUSCULAR HGB CONC 33.7 g/dl (32-36); MEAN PLATELET VOLUME 9.8 fL (7.4-10.4); PLATELET COUNT 268 K/uL (130-400); RED CELL DISTRIBUTION WIDTH CV 13.9 % (11.5-14.5); WHITE BLOOD COUNT 5.48 K/uL (4.8-10.8)
[2018-01-15] MEDS: PATIROMER PO SCH ×2 (07:58→16:52)
[2018-01-15] MEDS: POLYETHYLENE (MIRALAX) 17 GM PACK PO SCH ×2 (07:58→21:26)
[2018-01-15] MEDS: FLUTICASONE PROPIONATE NA SPR 16 GM BTL NAE SCH (08:00)
[2018-01-15] MEDS: DOCUSATE SODIUM 100 MG CAP PO SCH ×2 (08:01→21:25)
[2018-01-15] MEDS: PANTOprazole SOD 40 MG TAB PO SCH (08:01)
[2018-01-15] MEDS: CHOLECALCIFEROL 1000 INTER.UNIT TAB PO SCH (08:01)
[2018-01-15] MEDS: FUROSEMIDE INJ 40 MG in SYRINGE 0 ML IV SCH ×2 (08:02→15:51)
[2018-01-15] MEDS: CARVEDILOL 25 MG TAB PO SCH ×2 (08:02→21:30)
[2018-01-15] MEDS: HEPARIN SOD 5000 UNIT/0.5 ML CARP SQ SCH ×2 (08:03→21:32)
[2018-01-15] MEDS: INSULIN ASPART 100 UNITS/ML 3 ML PEN SC SCH ×4 (08:03→21:00)
[2018-01-15 08:06] LABS: CREATININE 8.14 mg/dl (0.60-1.20); POTASSIUM 4.3 mmol/L (3.5-5.1)
--- NOTE | 2018-01-15 09:30 | Nephrology Progress Note ---
Nephrology Progress Note Date of Service: Jan 15, 2018. Subjective Patient complain of abdominal pain. She vomited yesterday and this morning. She denied any shortness of breath. She has mild lower extremity edema. K better today, cr up trending Objective Date Time Temp Pulse Resp B/P (MAP) Pulse Ox O2 Delivery O2 Flow Rate FiO2 01/15/18 07:20 36.5 62 18 176/77 (110) 96 Room Air 01/15/18 00:30 Room Air 01/14/18 23:14 36.7 69 18 173/66 (101) 97 Room Air 01/14/18 20:51 57 178/69 (105) 01/14/18 19:28 Room Air 01/14/18 15:11 36.6 57 18 156/66 (96) 94 Room Air Physical Exam: [id number], no acute distress Eyes-pupils equal and reactive to light ENT-throat is normal on inspection Neck-neck is supple no JVD Lungs-bilateral crackles Heart-S1 and S2 regular rate and rhythm, no murmurs Abdomen-soft nondistended bowel sounds are present Extremities-1+ edema, left forearm AV fistula with good thrill and bruit, bruit is high pitched in some areas. Has bruising on left thigh. left big toe with gangrene Neuro-oriented 3, no focal neurological deficits Current Inpatient Medications Medications (Trade) Dose Ordered Sig/Ewelina Route Start Time Stop Time Status Last Admin Dose Admin Acetaminophen (Tylenol Tab) 650 mg Q4H PRN PO 01/06/18 04:45 02/05/18 04:44 01/14/18 17:12 650 MG Miscellaneous (Iv Fluids Completed) 1 ea PRN PRN N/A 01/06/18 04:45 01/06/19 04:44 Clonidine HCl (Catapres Tab) 0.1 mg Q6H PRN PO 01/06/18 05:00 02/05/18 04:59 01/12/18 23:48 0.1 MG Insulin Aspart (novoLOG ASPART) SLIDING SCALE If C... ACHS SC 01/06/18 07:00 02/05/18 06:59 01/15/18 08:03 1 UNITS Glucose (Glucose 40% Gel) 15-30 GRAMS 15 GRAMS... UD PRN PO 01/06/18 05:45 8/11/18 05:44 Glucose (Glucose Chew Tab) 4-8 Tablets 4 Tabl... UD PRN PO 01/06/18 05:45 02/05/18 05:44 Dextrose (Dextrose 50% 50ML Syringe) 25-50ML 25ML FOR ... UD PRN IV 01/06/18 05:45 02/05/18 05:44 Glucagon (Glucagon Inj) 1 mg UD PRN SQ 01/06/18 05:45 02/05/18 05:44 Carbohydrates (Carbohydrates For Hypoglycemia) 15-30 GRAMS 15 grams if BSG 54-69... UD PRN PO 01/06/18 05:45 02/05/18 05:44 Albuterol (Ventolin Hfa Inhaler) 2 puffs Q4H PRN INH 01/06/18 05:45 02/05/18 05:44 Atorvastatin Calcium (Lipitor Tab) 40 mg DAILY PO 01/06/18 09:00 02/05/18 08:59 Future Hold 01/12/18 08:11 40 MG Calcitriol (Rocaltrol Cap) 0.25 mcg MoWeFr@0900 PO 01/07/18 09:00 02/06/18 08:59 01/14/18 08:19 0.25 MCG Carvedilol (Coreg Tab) 25 mg BID PO 01/06/18 09:00 02/05/18 08:59 01/15/18 08:02 25 MG Fluticasone Propionate (Flonase Nasal [place]) 1 sprays DAILY JOE 01/06/18 09:00 02/05/18 08:59 01/15/18 08:00 1 SPRAYS Latanoprost (Xalatan Oph Soln) 1 drops HS OP 01/06/18 21:00 02/05/18 20:59 01/11/18 20:50 1 DROPS Cholecalciferol (Vitamin D Tab) 5,000 inter.unit QAM PO 01/06/18 09:00 02/05/18 08:59 01/15/18 08:01 5,000 INTER.UNIT Hydralazine HCl (Apresoline Tab) 100 mg BID PO 01/06/18 09:00 02/05/18 08:59 01/15/18 08:01 100 MG Daptomycin 300 mg/ Syringe 6 ml @ 3 mls/min Q48H IV 01/08/18 10:30 02/19/18 10:29 01/14/18 10:18 3 MLS/MIN Daptomycin (Consult) 1 ea UD PRN N/A 01/08/18 10:15 02/07/18 10:14 Polyethylene (Miralax Powder Packet) 17 gm BID PO 01/08/18 21:00 02/07/18 20:59 01/14/18 08:17 17 GM Docusate Sodium (coLACE CAP) 100 mg BID PO 01/08/18 21:00 02/07/18 20:59 01/15/18 08:01 100 MG Menthol (Nice Alejandrina) 1 alejandrina PRN PRN ALEJANDRINA 01/10/18 22:00 02/09/18 21:59 Furosemide 40 mg/ Syringe 4 ml @ 4 mls/min BID@0900,1600 IV 01/12/18 16:00 02/11/18 15:59 01/15/18 08:02 4 MLS/MIN Acetaminophen/ Hydrocodone Bitart ([place] 10/325 Tab) 1 tab Q4H PRN PO 01/12/18 14:00 01/20/18 08:59 01/15/18 03:07 1 TAB Patiromer (Veltassa) 16.8 gm BID@0900,1700 PO 01/14/18 09:00 02/13/18 08:59 Calcium Carbonate (Tums Chew Tab) 500 mg Q4H PRN PO 01/14/18 19:30 02/13/18 19:29 01/14/18 20:59 500 MG Pantoprazole Sodium (Protonix Tab) 40 mg QAM PO 01/15/18 09:00 01/19/18 08:59 01/15/18 08:01 40 MG Heparin Sodium (Porcine) (Heparin Sq 5000 Unit/0.5ml) 5,000 unit Q12 SQ 01/15/18 09:00 02/14/18 08:59 01/15/18 08:03 5,000 UNIT Last 24 Hours Test 01/14/18 11:42 01/14/18 16:35 01/14/18 19:54 01/15/18 06:23 Bedside Glucose 150 mg/dl 130 mg/dl 151 mg/dl White Blood Count 5.48 K/uL Red Blood Count 3.41 M/uL Hemoglobin 10.3 g/dL Hematocrit 30.6 % Mean Corpuscular Volume 89.7 fL Mean Corpuscular Hemoglobin 30.2 pg Mean Corpuscular Hemoglobin Concent 33.7 g/dl RDW Standard Deviation 46.0 fL RDW Coefficient of Variation 13.9 % Platelet Count 268 K/uL Mean Platelet Volume 9.8 fL Sodium Level 135 mmol/L Potassium Level 4.3 mmol/L Chloride Level 102 mmol/L Carbon Dioxide Level 20 mmol/L Anion Gap 13.0 mmol/L Blood Urea Nitrogen 131 mg/dl Creatinine 8.14 mg/dl Est Creatinine Clear Calc Drug Dose 6.2 ml/min Estimated GFR () 5.4 Estimated GFR (Non- 4.6 BUN/Creatinine Ratio 16.1 Random Glucose 101 mg/dl Calcium Level 9.0 mg/dl Test 01/15/18 06:58 Bedside Glucose 118 mg/dl Assessment & Plan This is a 67-year-old female with CKD stage V, peripheral vascular disease who was admitted with acute blood loss anemia secondary to left groin hematoma, now with gangrene of left big toe 1. CKD stage V: Patient has a functional left forearm AV fistula but has not needed dialysis. Her renal function is worsening with a creatinine at 8 today. There is no indication for urgent hemodialysis but She is very close to needing dialysis. Patient spoke with the sister and they both agree she needs to start HD but prefers for to first undergo amputation. The earliest we can possibly start HD is Wednesday after her amputation. Her AVF shows signs of stenosis. Suggest consulting Dr. Solorzano for evaluation and possibly opening up the fistula as we continue discussions with the patient about HD initiation Continue lasix 40mg iv bid for volume management. Monitor input/output 2. Hyperkalemia: She will continue Patiromer. K is better 3. Anemia: Multifactorial including chronic kidney disease and acute blood loss in setting of hematoma. Monitor and transfuse as needed. She will need epogen with HD 4. Hypertension: Her BP is acceptable Angelica Dominguez MD
[2018-01-15 15:29] VITALS: BP 153/66; PULSE 62; TEMP 36.6; O2SAT 93
--- NOTE | 2018-01-15 20:43 | Progress Note ---
Medicine Progress Note Date & Time of Visit: Jan 15, 2018 at 10:10 . Subjective CC: Follow-up visit for anemia, kidney disease, osteomyelitis, and other problems. HPI: Overwhelmed with current problems. Discussed dialysis with her sister last evening who is supportive. ROS: General- no fever, no chills Resp- no cough; no shortness of breath Cardiac- no chest pain, no edema GI- + nausea, intermittent vomiting, no diarrhea, no constipation - no dysuria, no difficulty voiding . Objective Last 8 Hrs Date Time Temp Pulse Resp B/P (MAP) Pulse Ox O2 Delivery O2 Flow Rate FiO2 01/15/18 16:45 Room Air 01/15/18 15:29 36.6 62 18 153/66 (95) 93 Room Air Physical Exam: General- lying in bed, no distress Lungs- clear to auscultation; no respiratory distress Cardiovascular- RRR; II/ systolic murmur LSB; no gallop appreciated; 1+ pretibial edema Abdomen- + bowel sounds, soft, nontender Extremities- no cyanosis; no calf tenderness; hematoma/ecchymoses extending down left lateral thigh; gangrenous changes tip of left great toe; erythema distal phalanx Neuro- alert, oriented Skin- warm & dry . Laboratory Results: Last 24 Hours Test 01/15/18 06:23 01/15/18 06:58 01/15/18 11:36 01/15/18 16:45 White Blood Count 5.48 K/uL Red Blood Count 3.41 M/uL Hemoglobin 10.3 g/dL Hematocrit 30.6 % Mean Corpuscular Volume 89.7 fL Mean Corpuscular Hemoglobin 30.2 pg Mean Corpuscular Hemoglobin Concent 33.7 g/dl RDW Standard Deviation 46.0 fL RDW Coefficient of Variation 13.9 % Platelet Count 268 K/uL Mean Platelet Volume 9.8 fL Sodium Level 135 mmol/L Potassium Level 4.3 mmol/L Chloride Level 102 mmol/L Carbon Dioxide Level 20 mmol/L Anion Gap 13.0 mmol/L Blood Urea Nitrogen 131 mg/dl Creatinine 8.14 mg/dl Est Creatinine Clear Calc Drug Dose 6.2 ml/min Estimated GFR () 5.4 Estimated GFR (Non- 4.6 BUN/Creatinine Ratio 16.1 Random Glucose 101 mg/dl Calcium Level 9.0 mg/dl Bedside Glucose 118 mg/dl 139 mg/dl 117 mg/dl Assessment & Plan ACUTE BLOOD LOSS ANEMIA Hemoglobin 5 at [facility]. Recent angioplasty of left lower extremity with associated hematoma/blood loss. Has received 4 units of packed RBCs thus far. Hemoglobin this morning = 10.3. ACUTE KIDNEY INJURY / CKD V CKD 5 with baseline creatinine around 5. Creatinine at time of admission was 5.4 and has subsequently risen. TRU probably multifactorial- IV contrast from LLL angiography, infection, blood loss. Nephrology consulted. Creatinine today = 8.14. Management per Nephrology. GANGRENE / OSTEOMYELITIS LEFT GREAT TOE Seen in consultation by Vascular Surgery and ID. Plain films of left foot did not show any radiographic evidence of osteomyelitis. However, MRI performed on 01/09 demonstrated suspected osteomyelitis involving the distal phalanx of the left great toe. Receiving IV daptomycin. Amputation of left great toe recommended and scheduled for Wednesday. Continue IV daptomycin until amputation performed. CORONARY ARTERY DISEASE No anginal symptoms. Aspirin and clopidogrel on hold due to left thigh hematoma; resume antiplatelet therapy when able. Currently receiving carvedilol. PERIPHERAL VASCULAR DISEASE Status post recent angioplasty left lower extremity. HYPERTENSION Continue carvedilol and hydralazine. DM TYPE 2 Hold oral agents during hospital stay. Insulin coverage as needed. FBS = 118. COUGH Chest x-ray 01/12 negative. Cough improved. NAUSEA & VOMITING GI symptoms could be due to uremia. PPI, anti-emetics PRN. DEPRESSION Patient not interested in antidepressants or Psych consult at this time. VTE PROPHYLAXIS Anticoagulants contraindicated at time of admission due to large hematoma left thigh. SCDs contraindicated due to severe peripheral vascular disease. Started on SQ heparin once risk of continued bleeding from left groin hematoma resolved. Ambulate. DISPOSITION To be determined. Family Medicine follow-up with Dr. Francois. . Current Inpatient Medications: Current Inpatient Medications Medications (Trade) Dose Ordered Sig/Ewelina Route Start Time Stop Time Status Last Admin Dose Admin Acetaminophen (Tylenol Tab) 650 mg Q4H PRN PO 01/06/18 04:45 02/05/18 04:44 01/14/18 17:12 650 MG Miscellaneous (Iv Fluids Completed) 1 ea PRN PRN N/A 01/06/18 04:45 01/06/19 04:44 Clonidine HCl (Catapres Tab) 0.1 mg Q6H PRN PO 01/06/18 05:00 02/05/18 04:59 01/12/18 23:48 0.1 MG Insulin Aspart (novoLOG ASPART) SLIDING SCALE If C... ACHS SC 01/06/18 07:00 02/05/18 06:59 01/15/18 17:00 1 UNITS Glucose (Glucose 40% Gel) 15-30 GRAMS 15 GRAMS... UD PRN PO 01/06/18 05:45 02/05/18 05:44 Glucose (Glucose Chew Tab) 4-8 Tablets 4 Tabl... UD PRN PO 01/06/18 05:45 02/05/18 05:44 Dextrose (Dextrose 50% 50ML Syringe) 25-50ML 25ML FOR ... UD PRN IV 01/06/18 05:45 02/05/18 05:44 Glucagon (Glucagon Inj) 1 mg UD PRN SQ 01/06/18 05:45 02/05/18 05:44 Carbohydrates (Carbohydrates For Hypoglycemia) 15-30 GRAMS 15 grams if BSG 54-69... UD PRN PO 01/06/18 05:45 02/05/18 05:44 Albuterol (Ventolin Hfa Inhaler) 2 puffs Q4H PRN INH 01/06/18 05:45 02/05/18 05:44 Atorvastatin Calcium (Lipitor Tab) 40 mg DAILY PO 01/06/18 09:00 02/05/18 08:59 Future Hold 01/12/18 08:11 40 MG Calcitriol (Rocaltrol Cap) 0.25 mcg MoWeFr@0900 PO 01/07/18 09:00 02/06/18 08:59 01/14/18 08:19 0.25 MCG Carvedilol (Coreg Tab) 25 mg BID PO 01/06/18 09:00 02/05/18 08:59 01/15/18 08:02 25 MG Fluticasone Propionate (Flonase Nasal [place]) 1 sprays DAILY JOE 01/06/18 09:00 02/05/18 08:59 01/15/18 08:00 1 SPRAYS Latanoprost (Xalatan Oph Soln) 1 drops HS OP 01/06/18 21:00 02/05/18 20:59 01/11/18 20:50 1 DROPS Cholecalciferol (Vitamin D Tab) 5,000 inter.unit QAM PO 01/06/18 09:00 02/05/18 08:59 01/15/18 08:01 5,000 INTER.UNIT Hydralazine HCl (Apresoline Tab) 100 mg BID PO 01/06/18 09:00 02/05/18 08:59 01/15/18 08:01 100 MG Daptomycin 300 mg/ Syringe 6 ml @ 3 mls/min Q48H IV 01/08/18 10:30 02/19/18 10:29 01/14/18 10:18 3 MLS/MIN Daptomycin (Consult) 1 ea UD PRN N/A 01/08/18 10:15 02/07/18 10:14 Polyethylene (Miralax Powder Packet) 17 gm BID PO 01/08/18 21:00 02/07/18 20:59 01/14/18 08:17 17 GM Docusate Sodium (coLACE CAP) 100 mg BID PO 01/08/18 21:00 02/07/18 20:59 01/15/18 08:01 100 MG Menthol (Nice Alejandrina) 1 alejandrina PRN PRN ALEJANDRINA 01/10/18 22:00 02/09/18 21:59 Furosemide 40 mg/ Syringe 4 ml @ 4 mls/min BID@0900,1600 IV 01/12/18 16:00 02/11/18 15:59 01/15/18 15:51 4 MLS/MIN Acetaminophen/ Hydrocodone Bitart ([place] 10/325 Tab) 1 tab Q4H PRN PO 01/12/18 14:00 01/20/18 08:59 01/15/18 13:13 1 TAB Patiromer (Velt[place]) 16.8 gm BID@0900,1700 PO 01/14/18 09:00 02/13/18 08:59 01/15/18 16:52 16.8 GM Calcium Carbonate (Tums Chew Tab) 500 mg Q4H PRN PO 01/14/18 19:30 02/13/18 19:29 01/14/18 20:59 500 MG Pantoprazole Sodium (Protonix Tab) 40 mg QAM PO 01/15/18 09:00 01/19/18 08:59 01/15/18 08:01 40 MG Heparin Sodium (Porcine) (Heparin Sq 5000 Unit/0.5ml) 5,000 unit Q12 SQ 01/15/18 09:00 02/14/18 08:59 01/15/18 08:03 5,000 UNIT
[2018-01-15] MEDS: LATANOPROST 0.005% OP SOLN 2.5 ML BTL OP SCH (21:24)
[2018-01-16] VITALS: BP 170/65; PULSE 66; TEMP 36.7; O2SAT 92
[2018-01-16] MEDS: HYDROCODONE/ACETAMI 10/325 TAB PO PRN ×4 (03:37→22:10)
[2018-01-16 06:38] LABS: HEMATOCRIT 29.8 % (37-47); MEAN CELL VOLUME 90.3 fL (80-100); MEAN CORPUSCULAR HEMOGLOBIN 30.3 pg (25-34); MEAN CORPUSCULAR HGB CONC 33.6 g/dl (32-36); MEAN PLATELET VOLUME 9.4 fL (7.4-10.4); PLATELET COUNT 250 K/uL (130-400); RED CELL DISTRIBUTION WIDTH CV 13.8 % (11.5-14.5); RED CELL DISTRIBUTION WIDTH SD 45.8 fL (36.4-46.3); WHITE BLOOD COUNT 5.85 K/uL (4.8-10.8)
[2018-01-16 07:16] LABS: CALCIUM 8.9 mg/dl (8.5-10.1); CREATININE 8.35 mg/dl (0.60-1.20); POTASSIUM 4.5 mmol/L (3.5-5.1)
[2018-01-16 07:28] VITALS: BP 185/71; PULSE 66; TEMP 36.7; O2SAT 92
[2018-01-16] MEDS: PATIROMER PO SCH ×2 (08:00→17:02)
[2018-01-16] MEDS: POLYETHYLENE (MIRALAX) 17 GM PACK PO SCH ×2 (08:00→21:00)
[2018-01-16] MEDS: PANTOprazole SOD 40 MG TAB PO SCH (08:02)
[2018-01-16] MEDS: DOCUSATE SODIUM 100 MG CAP PO SCH ×2 (08:02→21:04)
[2018-01-16] MEDS: FLUTICASONE PROPIONATE NA SPR 16 GM BTL NAE SCH (08:02)
[2018-01-16] MEDS: CHOLECALCIFEROL 1000 INTER.UNIT TAB PO SCH (08:02)
[2018-01-16] MEDS: CARVEDILOL 25 MG TAB PO SCH ×2 (08:03→21:00)
[2018-01-16] MEDS: HEPARIN SOD 5000 UNIT/0.5 ML CARP SQ SCH ×2 (08:06→21:00)
[2018-01-16] MEDS: INSULIN ASPART 100 UNITS/ML 3 ML PEN SC SCH ×4 (08:06→21:00)
[2018-01-16] MEDS: FUROSEMIDE INJ 40 MG in SYRINGE 0 ML IV SCH ×2 (08:31→15:42)
[2018-01-16 09:20] VITALS: BP_SYST 67; PULSE 67
[2018-01-16] MEDS: DAPTOmycin IV 300 MG in SYRINGE 0 ML IV SCH (10:17)
--- NOTE | 2018-01-16 10:25 | Nephrology Progress Note ---
Nephrology Progress Note Date of Service: Jan 16, 2018. Subjective Patient complain of abdominal pain. She was vomiting at the time of my visit. She denied any shortness of breath. She has mild lower extremity edema. K better today, cr up trending Objective Date Time Temp Pulse Resp B/P (MAP) Pulse Ox O2 Delivery O2 Flow Rate FiO2 01/16/18 09:20 67 67/ (22) 01/16/18 08:30 Room Air 01/16/18 07:28 36.7 66 20 185/71 (109) 92 Room Air 01/16/18 00:00 Room Air 01/16/18 00:00 36.7 66 18 170/65 (100) 92 Room Air 01/15/18 16:45 Room Air 01/15/18 15:29 36.6 62 18 153/66 (95) 93 Room Air Physical Exam: [id number], no acute distress Eyes-pupils equal and reactive to light ENT-throat is normal on inspection Neck-neck is supple no JVD Lungs-bilateral crackles Heart-S1 and S2 regular rate and rhythm, no murmurs Abdomen-soft nondistended bowel sounds are present Extremities-1+ edema, left forearm AV fistula with good thrill and bruit, bruit is high pitched in some areas. Has bruising on left thigh. left big toe with gangrene Neuro-oriented 3, no focal neurological deficits Current Inpatient Medications Medications (Trade) Dose Ordered Sig/Ewelina Route Start Time Stop Time Status Last Admin Dose Admin Acetaminophen (Tylenol Tab) 650 mg Q4H PRN PO 01/06/18 04:45 02/05/18 04:44 01/14/18 17:12 650 MG Miscellaneous (Iv Fluids Completed) 1 ea PRN PRN N/A 01/06/18 04:45 01/06/19 04:44 Clonidine HCl (Catapres Tab) 0.1 mg Q6H PRN PO 01/06/18 05:00 02/05/18 04:59 01/12/18 23:48 0.1 MG Insulin Aspart (novoLOG ASPART) SLIDING SCALE If C... ACHS SC 01/06/18 07:00 02/05/18 06:59 01/16/18 08:06 7 UNITS Glucose (Glucose 40% Gel) 15-30 GRAMS 15 GRAMS... UD PRN PO 01/06/18 05:45 02/05/18 05:44 Glucose (Glucose Chew Tab) 4-8 Tablets 4 Tabl... UD PRN PO 01/06/18 05:45 02/05/18 05:44 Dextrose (Dextrose 50% 50ML Syringe) 25-50ML 25ML FOR ... UD PRN IV 01/06/18 05:45 02/05/18 05:44 Glucagon (Glucagon Inj) 1 mg UD PRN SQ 01/06/18 05:45 02/05/18 05:44 Carbohydrates (Carbohydrates For Hypoglycemia) 15-30 GRAMS 15 grams if BSG 54-69... UD PRN PO 01/06/18 05:45 02/05/18 05:44 Albuterol (Ventolin Hfa Inhaler) 2 puffs Q4H PRN INH 01/06/18 05:45 02/05/18 05:44 Atorvastatin Calcium (Lipitor Tab) 40 mg DAILY PO 01/06/18 09:00 02/05/18 08:59 Future Hold 01/12/18 08:11 40 MG Calcitriol (Rocaltrol Cap) 0.25 mcg MoWeFr@0900 PO 01/07/18 09:00 02/06/18 08:59 01/14/18 08:19 0.25 MCG Carvedilol (Coreg Tab) 25 mg BID PO 01/06/18 09:00 02/05/18 08:59 01/16/18 08:03 25 MG Fluticasone Propionate (Flonase Nasal [place]) 1 sprays DAILY JOE 01/06/18 09:00 02/05/18 08:59 01/16/18 08:02 1 SPRAYS Latanoprost (Xalatan Oph Soln) 1 drops HS OP 01/06/18 21:00 02/05/18 20:59 01/15/18 21:24 1 DROPS Cholecalciferol (Vitamin D Tab) 5,000 inter.unit QAM PO 01/06/18 09:00 02/05/18 08:59 01/16/18 08:02 5,000 INTER.UNIT Hydralazine HCl (Apresoline Tab) 100 mg BID PO 01/06/18 09:00 02/05/18 08:59 01/16/18 08:02 100 MG Daptomycin 300 mg/ Syringe 6 ml @ 3 mls/min Q48H IV 01/08/18 10:30 02/19/18 10:29 01/16/18 10:17 3 MLS/MIN Daptomycin (Consult) 1 ea UD PRN N/A 01/08/18 10:15 02/07/18 10:14 Polyethylene (Miralax Powder Packet) 17 gm BID PO 01/08/18 21:00 02/07/18 20:59 01/15/18 21:26 17 GM Docusate Sodium (coLACE CAP) 100 mg BID PO 01/08/18 21:00 02/07/18 20:59 01/16/18 08:02 100 MG Menthol (Nice Alejandrina) 1 alejandrina PRN PRN ALEJANDRINA 01/10/18 22:00 02/09/18 21:59 Furosemide 40 mg/ Syringe 4 ml @ 4 mls/min BID@0900,1600 IV 01/12/18 16:00 02/11/18 15:59 01/16/18 08:31 4 MLS/MIN Acetaminophen/ Hydrocodone Bitart ([place] 10/325 Tab) 1 tab Q4H PRN PO 01/12/18 14:00 01/20/18 08:59 01/16/18 08:32 1 TAB Patiromer ([place]) 16.8 gm BID@0900,1700 PO 01/14/18 09:00 02/13/18 08:59 01/15/18 16:52 16.8 GM Calcium Carbonate (Tums Chew Tab) 500 mg Q4H PRN PO 01/14/18 19:30 02/13/18 19:29 01/14/18 20:59 500 MG Pantoprazole Sodium (Protonix Tab) 40 mg QAM PO 01/15/18 09:00 01/19/18 08:59 01/16/18 08:02 40 MG Heparin Sodium (Porcine) (Heparin Sq 5000 Unit/0.5ml) 5,000 unit Q12 SQ 01/15/18 09:00 02/14/18 08:59 01/16/18 08:06 5,000 UNIT Ondansetron HCl (Zofran Inj) 4 mg Q6H PRN IV 01/16/18 09:45 02/15/18 09:44 Last 24 Hours Test 01/15/18 11:36 01/15/18 16:45 01/15/18 20:41 01/16/18 06:26 Bedside Glucose 139 mg/dl 117 mg/dl 165 mg/dl White Blood Count 5.85 K/uL Red Blood Count 3.30 M/uL Hemoglobin 10.0 g/dL Hematocrit 29.8 % Mean Corpuscular Volume 90.3 fL Mean Corpuscular Hemoglobin 30.3 pg Mean Corpuscular Hemoglobin Concent 33.6 g/dl RDW Standard Deviation 45.8 fL RDW Coefficient of Variation 13.8 % Platelet Count 250 K/uL Mean Platelet Volume 9.4 fL Sodium Level 135 mmol/L Potassium Level 4.5 mmol/L Chloride Level 99 mmol/L Carbon Dioxide Level 23 mmol/L Anion Gap 13.0 mmol/L Blood Urea Nitrogen 129 mg/dl Creatinine 8.35 mg/dl Est Creatinine Clear Calc Drug Dose 6.1 ml/min Estimated GFR () 5.2 Estimated GFR (Non- 4.5 BUN/Creatinine Ratio 15.5 Random Glucose 112 mg/dl Calcium Level 8.9 mg/dl Test 01/16/18 07:02 Bedside Glucose 306 mg/dl Assessment & Plan This is a 67-year-old female with CKD stage V, peripheral vascular disease who was admitted with acute blood loss anemia secondary to left groin hematoma, now with gangrene of left big toe 1. CKD stage V: Patient has a functional left forearm AV fistula but has not needed dialysis. Her renal function is worsening with a creatinine at 8.3 today. There is no indication for urgent hemodialysis but She is very close to needing dialysis. Patient spoke with the sister and they both agree she needs to start HD but prefers for to first undergo amputation. The earliest we can possibly start HD is Wednesday after her amputation. Her AVF shows signs of stenosis. We will have our dialysis nurse attempted cannulating the fistula on Wednesday and see if we can get a successful run of dialysis. If not patient will need tunneled catheter likely on Wednesday or Wednesday. I discussed with the patient the above suggestions and timeframes to which she is agreeable. Suggest consulting Dr. Solorzano for evaluation and possibly opening up the fistula as we continue discussions with the patient about HD initiation Continue lasix 40mg iv bid for volume management. Monitor input/output 2. Hyperkalemia: She will continue Patiromer. K is better 3. Anemia: Multifactorial including chronic kidney disease and acute blood loss in setting of hematoma. Monitor and transfuse as needed. She will need epogen with HD 4. Hypertension: Her BP is above target today although improving after morning meds. If systolic blood pressure is persistently above 170, recommend increasing Lasix to 80 mg IV twice daily Angelica Dominguez MD
[2018-01-16] MEDS: ONDANSETRON INJ 2 MG/ML 2 ML VIAL IV PRN ×2 (10:52→22:18)
[2018-01-16] MEDS ORDERED: LORAZEPAM INJ 0.25 MG in SYRINGE 0.25 ML IV PRN (11:00)
[2018-01-16 15:01] VITALS: BP 130/66; PULSE 76; TEMP 36.5; O2SAT 96
--- NOTE | 2018-01-16 19:48 | Progress Note ---
Medicine Progress Note Date & Time of Visit: Jan 16, 2018 at 10:40 . Subjective CC: Follow-up visit for anemia, kidney disease, osteomyelitis, and other problems. HPI: Nausea and vomiting this morning. FBS high- had eaten some skye crackers. Left foot pain well-controlled with analgesics. ROS: General- no fever, no chills Resp- occasional cough; no shortness of breath Cardiac- no chest pain, no edema GI- no diarrhea, no constipation - no dysuria, no difficulty voiding . Objective Last 8 Hrs Date Time Temp Pulse Resp B/P (MAP) Pulse Ox O2 Delivery O2 Flow Rate FiO2 01/16/18 16:30 Room Air 01/16/18 15:01 36.5 76 16 130/66 (87) 96 Room Air Physical Exam: General- lying in bed, no distress Lungs- clear to auscultation; no respiratory distress Cardiovascular- RRR; II/ systolic murmur LSB; no gallop appreciated; 1+ pretibial edema Abdomen- + bowel sounds, soft, nontender Extremities- no cyanosis; no calf tenderness; hematoma/ecchymoses extending down left lateral thigh; gangrenous changes tip of left great toe; less erythema distal phalanx Neuro- alert, oriented Skin- warm & dry . Laboratory Results: Last 24 Hours Test 01/15/18 20:41 01/16/18 06:26 01/16/18 07:02 01/16/18 11:19 Bedside Glucose 165 mg/dl 306 mg/dl 98 mg/dl White Blood Count 5.85 K/uL Red Blood Count 3.30 M/uL Hemoglobin 10.0 g/dL Hematocrit 29.8 % Mean Corpuscular Volume 90.3 fL Mean Corpuscular Hemoglobin 30.3 pg Mean Corpuscular Hemoglobin Concent 33.6 g/dl RDW Standard Deviation 45.8 fL RDW Coefficient of Variation 13.8 % Platelet Count 250 K/uL Mean Platelet Volume 9.4 fL Sodium Level 135 mmol/L Potassium Level 4.5 mmol/L Chloride Level 99 mmol/L Carbon Dioxide Level 23 mmol/L Anion Gap 13.0 mmol/L Blood Urea Nitrogen 129 mg/dl Creatinine 8.35 mg/dl Est Creatinine Clear Calc Drug Dose 6.1 ml/min Estimated GFR () 5.2 Estimated GFR (Non- 4.5 BUN/Creatinine Ratio 15.5 Random Glucose 112 mg/dl Calcium Level 8.9 mg/dl Test 01/16/18 16:51 Bedside Glucose 200 mg/dl Assessment & Plan GANGRENE / OSTEOMYELITIS LEFT GREAT TOE Seen in consultation by Vascular Surgery and ID. Plain films of left foot did not show any radiographic evidence of osteomyelitis. However, MRI performed on 01/09 demonstrated suspected osteomyelitis involving the distal phalanx of the left great toe. Receiving IV daptomycin. Amputation of left great toe recommended and scheduled for Wednesday. Continue IV daptomycin until amputation performed. ACUTE KIDNEY INJURY / CKD V CKD 5 with baseline creatinine around 5. Creatinine at time of admission was 5.4 and has subsequently risen. TRU probably multifactorial- IV contrast from LLE angiography, infection, blood loss. Nephrology consulted. Creatinine today = 8.35. Management per Nephrology. ACUTE BLOOD LOSS ANEMIA Hemoglobin 5 at [facility]. Recent angioplasty of left lower extremity with associated hematoma/blood loss. Has received 4 units of packed RBCs thus far. Hemoglobin this morning = 10.0. CORONARY ARTERY DISEASE No anginal symptoms. Aspirin and clopidogrel on hold due to left thigh hematoma; resume antiplatelet therapy when able. Currently receiving carvedilol. PERIPHERAL VASCULAR DISEASE Status post recent angioplasty left lower extremity. HYPERTENSION Continue carvedilol and hydralazine. DM TYPE 2 Usually well-controlled. Hgb A1C = 5.9. Hold oral agents during hospital stay. FBS = 306 (after eating skye crackers). Continue insulin coverage as needed. COUGH Chest x-ray 01/12 negative. Cough improved. NAUSEA & VOMITING GI symptoms could be due to uremia. PPI, anti-emetics PRN. DEPRESSION Patient not interested in antidepressants or Psych consult at this time. VTE PROPHYLAXIS Anticoagulants contraindicated at time of admission due to large hematoma left thigh. SCDs contraindicated due to severe peripheral vascular disease. Started on SQ heparin once risk of continued bleeding from left groin hematoma resolved. Ambulate. DISPOSITION To be determined. Family Medicine follow-up with Dr. Francois. . Current Inpatient Medications: Current Inpatient Medications Medications (Trade) Dose Ordered Sig/Ewelina Route Start Time Stop Time Status Last Admin Dose Admin Acetaminophen (Tylenol Tab) 650 mg Q4H PRN PO 01/06/18 04:45 02/05/18 04:44 01/14/18 17:12 650 MG Miscellaneous (Iv Fluids Completed) 1 ea PRN PRN N/A 01/06/18 04:45 01/06/19 04:44 Clonidine HCl (Catapres Tab) 0.1 mg Q6H PRN PO 01/06/18 05:00 02/05/18 04:59 01/12/18 23:48 0.1 MG Insulin Aspart (novoLOG ASPART) SLIDING SCALE If C... ACHS SC 01/06/18 07:00 02/05/18 06:59 01/16/18 17:05 2 UNITS Glucose (Glucose 40% Gel) 15-30 GRAMS 15 GRAMS... UD PRN PO 01/06/18 05:45 02/05/18 05:44 Glucose (Glucose Chew Tab) 4-8 Tablets 4 Tabl... UD PRN PO 01/06/18 05:45 02/05/18 05:44 Dextrose (Dextrose 50% 50ML Syringe) 25-50ML 25ML FOR ... UD PRN IV 01/06/18 05:45 02/05/18 05:44 Glucagon (Glucagon Inj) 1 mg UD PRN SQ 01/06/18 05:45 02/05/18 05:44 Carbohydrates (Carbohydrates For Hypoglycemia) 15-30 GRAMS 15 grams if BSG 54-69... UD PRN PO 01/06/18 05:45 02/05/18 05:44 Albuterol (Ventolin Hfa Inhaler) 2 puffs Q4H PRN INH 01/06/18 05:45 02/05/18 05:44 Atorvastatin Calcium (Lipitor Tab) 40 mg DAILY PO 01/06/18 09:00 02/05/18 08:59 Future Hold 01/12/18 08:11 40 MG Calcitriol (Rocaltrol Cap) 0.25 mcg MoWeFr@0900 PO 01/07/18 09:00 02/06/18 08:59 01/14/18 08:19 0.25 MCG Carvedilol (Coreg Tab) 25 mg BID PO 01/06/18 09:00 02/05/18 08:59 01/16/18 08:03 25 MG Fluticasone Propionate (Flonase Nasal [place]) 1 sprays DAILY JOE 01/06/18 09:00 02/05/18 08:59 01/16/18 08:02 1 SPRAYS Latanoprost (Xalatan Oph Soln) 1 drops HS OP 01/06/18 21:00 02/05/18 20:59 01/15/18 21:24 1 DROPS Cholecalciferol (Vitamin D Tab) 5,000 inter.unit QAM PO 01/06/18 09:00 02/05/18 08:59 01/16/18 08:02 5,000 INTER.UNIT Hydralazine HCl (Apresoline Tab) 100 mg BID PO 01/06/18 09:00 02/05/18 08:59 01/16/18 08:02 100 MG Daptomycin 300 mg/ Syringe 6 ml @ 3 mls/min Q48H IV 01/08/18 10:30 02/19/18 10:29 01/16/18 10:17 3 MLS/MIN Daptomycin (Consult) 1 ea UD PRN N/A 01/08/18 10:15 02/07/18 10:14 Polyethylene (Miralax Powder Packet) 17 gm BID PO 01/08/18 21:00 02/07/18 20:59 01/15/18 21:26 17 GM Docusate Sodium (coLACE CAP) 100 mg BID PO 01/08/18 21:00 02/07/18 20:59 01/16/18 08:02 100 MG Menthol (Nice Alejandrina) 1 alejandrina PRN PRN ALEJANDRINA 01/10/18 22:00 02/09/18 21:59 Furosemide 40 mg/ Syringe 4 ml @ 4 mls/min BID@0900,1600 IV 01/12/18 16:00 02/11/18 15:59 01/16/18 15:42 4 MLS/MIN Acetaminophen/ Hydrocodone Bitart ([place] 10/325 Tab) 1 tab Q4H PRN PO 01/12/18 14:00 01/20/18 08:59 01/16/18 15:41 1 TAB Patiromer ([place]) 16.8 gm BID@0900,1700 PO 01/14/18 09:00 02/13/18 08:59 01/16/18 17:02 16.8 GM Calcium Carbonate (Tums Chew Tab) 500 mg Q4H PRN PO 01/14/18 19:30 02/13/18 19:29 01/14/18 20:59 500 MG Pantoprazole Sodium (Protonix Tab) 40 mg QAM PO 01/15/18 09:00 01/19/18 08:59 01/16/18 08:02 40 MG Heparin Sodium (Porcine) (Heparin Sq 5000 Unit/0.5ml) 5,000 unit Q12 SQ 01/15/18 09:00 02/14/18 08:59 01/16/18 08:06 5,000 UNIT Ondansetron HCl (Zofran Inj) 4 mg Q6H PRN IV 01/16/18 09:45 02/15/18 09:44 01/16/18 10:52 4 MG Hydromorphone HCl (Dilaudid Inj) 0.5 mg Q4H PRN IV 01/16/18 11:00 01/30/18 10:59 Lorazepam 0.25 mg/ Syringe 0.375 ml @ 0.5 mls/min Q6H PRN IV 01/16/18 11:00 02/15/18 10:59
[2018-01-16] MEDS: LATANOPROST 0.005% OP SOLN 2.5 ML BTL OP SCH (20:56)
[2018-01-16 21:03] VITALS: BP 168/72; PULSE 59; O2SAT 96
[2018-01-16 22:55] VITALS: BP 159/63; PULSE 62; TEMP 36.6; O2SAT 94
[2018-01-17] VITALS (10 sets, daily range): BP systolic 151–185; BP diastolic 55–72; PULSE 59–64; TEMP 36.3–36.7; O2SAT 90–99
[2018-01-17 04:29] LABS: HEMOGLOBIN 9.6 g/dL (12.0-16.0); MEAN CELL VOLUME 90.1 fL (80-100); MEAN CORPUSCULAR HEMOGLOBIN 29.8 pg (25-34); MEAN CORPUSCULAR HGB CONC 33.1 g/dl (32-36); MEAN PLATELET VOLUME 9.5 fL (7.4-10.4); PLATELET COUNT 252 K/uL (130-400); RED CELL DISTRIBUTION WIDTH CV 13.6 % (11.5-14.5); RED CELL DISTRIBUTION WIDTH SD 45.4 fL (36.4-46.3); WHITE BLOOD COUNT 5.05 K/uL (4.8-10.8)
[2018-01-17 04:58] LABS: CALCIUM 8.9 mg/dl (8.5-10.1); CREATININE 7.83 mg/dl (0.60-1.20); POTASSIUM 4.1 mmol/L (3.5-5.1)
[2018-01-17] MEDS ORDERED: D5W AND NSS 1,000 ML IV SCH (06:00)
[2018-01-17] MEDS: INSULIN ASPART 100 UNITS/ML 3 ML PEN SC SCH ×4 (06:07→20:59)
[2018-01-17] MEDS ORDERED: LIDOCAINE HCL 2% 2 ML VIAL (20MG/ML) ONE (06:40)
[2018-01-17] MEDS ORDERED: PROPOFOL IV EMULSION 10 MG/ML 20 ML VIAL ONE (06:40)
[2018-01-17] MEDS ORDERED: FENTANYL CITRATE INJ 50 MCG/1 ML 2 ML VIAL ONE ×2 (06:41→10:17)
[2018-01-17] MEDS ORDERED: MIDAZOLAM HCL 1 MG/ML 2ML VIAL ONE (06:41)
--- NOTE | 2018-01-17 07:54 | Progress Note ---
Medicine Progress Note Date & Time of Visit: Jan 17, 2018 at 07:49 . Subjective CC: Follow-up visit for multiple problems. HPI: No fever. Pain left great toe controlled with analgesics. Episode of chest pain early this morning without EKG changes. Patient is certain that the CP was due to GERD; symptoms were associated with waterbrash. ROS: General- no fever, no chills Resp- intermittent cough; no shortness of breath Cardiac- as noted above in HPI GI- intermittent nausea and vomiting, no diarrhea, no constipation - no dysuria . Objective Last 8 Hrs Date Time Temp Pulse Resp B/P (MAP) Pulse Ox O2 Delivery O2 Flow Rate FiO2 01/17/18 07:00 36.7 64 18 174/71 (105) 95 Room Air 01/17/18 03:20 36.6 61 18 157/64 (95) 95 Room Air 01/17/18 00:00 Room Air Physical Exam: General- lying in bed, no distress Lungs- clear to auscultation; no respiratory distress Cardiovascular- RRR; II/ systolic murmur LSB; no gallop appreciated; 1+ pretibial edema Abdomen- + bowel sounds, soft, nontender Extremities- no cyanosis; no calf tenderness; hematoma/ecchymoses extending down left lateral thigh; gangrenous changes tip of left great toe; less erythema distal phalanx Neuro- alert, oriented Skin- warm & dry . Laboratory Results: Last 24 Hours Test 01/16/18 11:19 01/16/18 16:51 01/16/18 20:55 01/17/18 04:14 Bedside Glucose 98 mg/dl 200 mg/dl 133 mg/dl White Blood Count 5.05 K/uL Red Blood Count 3.22 M/uL Hemoglobin 9.6 g/dL Hematocrit 29.0 % Mean Corpuscular Volume 90.1 fL Mean Corpuscular Hemoglobin 29.8 pg Mean Corpuscular Hemoglobin Concent 33.1 g/dl RDW Standard Deviation 45.4 fL RDW Coefficient of Variation 13.6 % Platelet Count 252 K/uL Mean Platelet Volume 9.5 fL Sodium Level 131 mmol/L Potassium Level 4.1 mmol/L Chloride Level 97 mmol/L Carbon Dioxide Level 25 mmol/L Anion Gap 9.0 mmol/L Blood Urea Nitrogen 119 mg/dl Creatinine 7.83 mg/dl Est Creatinine Clear Calc Drug Dose 6.5 ml/min Estimated GFR () 5.6 Estimated GFR (Non- 4.8 BUN/Creatinine Ratio 15.3 Random Glucose 108 mg/dl Calcium Level 8.9 mg/dl Troponin I 0.055 ng/ml Test 01/17/18 06:03 Bedside Glucose 116 mg/dl Other Studies: EKG performed at 04:04 reviewed and demonstrated NSR at 60 / minute, intraventricular conduction delay, biphasic T-waves III, aVF. . Assessment & Plan GANGRENE / OSTEOMYELITIS LEFT GREAT TOE Seen in consultation by Vascular Surgery and ID. Plain films of left foot did not show any radiographic evidence of osteomyelitis. However, MRI performed on 01/09 demonstrated suspected osteomyelitis involving the distal phalanx of the left great toe. Receiving IV daptomycin. Amputation of left great toe recommended and scheduled for today. Continue IV daptomycin until amputation performed. ACUTE KIDNEY INJURY / CKD V CKD 5 with baseline creatinine around 5. Creatinine at time of admission was 5.4 and has subsequently risen. TRU probably multifactorial- IV contrast from LLE angiography, infection, blood loss. Nephrology consulted. Creatinine today = 7.83. Management per Nephrology. ACUTE BLOOD LOSS ANEMIA Hemoglobin 5 at [facility]. Recent angioplasty of left lower extremity with associated hematoma/blood loss. Has received 4 units of packed RBCs thus far. Hemoglobin this morning = 9.6. CORONARY ARTERY DISEASE No anginal symptoms. Aspirin and clopidogrel on hold due to left thigh hematoma; resume antiplatelet therapy when able. Currently receiving carvedilol. PERIPHERAL VASCULAR DISEASE Status post recent angioplasty left lower extremity. HYPERTENSION Continue carvedilol and hydralazine. DM TYPE 2 Usually well-controlled. Hgb A1C = 5.9. Hold oral agents during hospital stay. FBS = 116 Continue insulin coverage as needed. COUGH Chest x-ray 01/12 negative. Cough improved. NAUSEA & VOMITING GI symptoms could be due to uremia. PPI, anti-emetics PRN. DEPRESSION Patient not interested in antidepressants or Psych consult at this time. CHEST PAIN Associated with GERD symptoms. No acute EKG changes. Minimal elevation of troponin not unexpected in light of kidney disease. VTE PROPHYLAXIS Anticoagulants contraindicated at time of admission due to large hematoma left thigh. SCDs contraindicated due to severe peripheral vascular disease. Started on SQ heparin once risk of continued bleeding from left groin hematoma resolved- held for surgery. Ambulate. DISPOSITION To be determined. Family Medicine follow-up with Dr. Francois. . Current Inpatient Medications: Current Inpatient Medications Medications (Trade) Dose Ordered Sig/Ewelina Route Start Time Stop Time Status Last Admin Dose Admin Acetaminophen (Tylenol Tab) 650 mg Q4H PRN PO 01/06/18 04:45 02/05/18 04:44 01/14/18 17:12 650 MG Miscellaneous (Iv Fluids Completed) 1 ea PRN PRN N/A 01/06/18 04:45 01/06/19 04:44 Clonidine HCl (Catapres Tab) 0.1 mg Q6H PRN PO 01/06/18 05:00 02/05/18 04:59 01/12/18 23:48 0.1 MG Insulin Aspart (novoLOG ASPART) SLIDING SCALE If C... ACHS SC 01/06/18 07:00 02/05/18 06:59 01/16/18 17:05 2 UNITS Glucose (Glucose 40% Gel) 15-30 GRAMS 15 GRAMS... UD PRN PO 01/06/18 05:45 02/05/18 05:44 Glucose (Glucose Chew Tab) 4-8 Tablets 4 Tabl... UD PRN PO 01/06/18 05:45 02/05/18 05:44 Dextrose (Dextrose 50% 50ML Syringe) 25-50ML 25ML FOR ... UD PRN IV 01/06/18 05:45 02/05/18 05:44 Glucagon (Glucagon Inj) 1 mg UD PRN SQ 01/06/18 05:45 02/05/18 05:44 Carbohydrates (Carbohydrates For Hypoglycemia) 15-30 GRAMS 15 grams if BSG 54-69... UD PRN PO 01/06/18 05:45 02/05/18 05:44 Albuterol (Ventolin Hfa Inhaler) 2 puffs Q4H PRN INH 01/06/18 05:45 02/05/18 05:44 Atorvastatin Calcium (Lipitor Tab) 40 mg DAILY PO 01/06/18 09:00 02/05/18 08:59 Future Hold 01/12/18 08:11 40 MG Calcitriol (Rocaltrol Cap) 0.25 mcg MoWeFr@0900 PO 01/07/18 09:00 02/06/18 08:59 7/20/18 08:19 0.25 MCG Carvedilol (Coreg Tab) 25 mg BID PO 01/06/18 09:00 02/05/18 08:59 01/16/18 08:03 25 MG Fluticasone Propionate (Flonase Nasal [place]) 1 sprays DAILY JOE 01/06/18 09:00 02/05/18 08:59 01/16/18 08:02 1 SPRAYS Latanoprost (Xalatan Oph Soln) 1 drops HS OP 01/06/18 21:00 02/05/18 20:59 01/16/18 20:56 1 DROPS Cholecalciferol (Vitamin D Tab) 5,000 inter.unit QAM PO 01/06/18 09:00 02/05/18 08:59 01/16/18 08:02 5,000 INTER.UNIT Hydralazine HCl (Apresoline Tab) 100 mg BID PO 01/06/18 09:00 02/05/18 08:59 01/16/18 21:05 100 MG Daptomycin 300 mg/ Syringe 6 ml @ 3 mls/min Q48H IV 01/08/18 10:30 02/19/18 10:29 01/16/18 10:17 3 MLS/MIN Daptomycin (Consult) 1 ea UD PRN N/A 01/08/18 10:15 02/07/18 10:14 Polyethylene (Miralax Powder Packet) 17 gm BID PO 01/08/18 21:00 02/07/18 20:59 01/15/18 21:26 17 GM Docusate Sodium (coLACE CAP) 100 mg BID PO 01/08/18 21:00 02/07/18 20:59 01/16/18 21:04 100 MG Menthol (Nice Alejandrina) 1 alejandrina PRN PRN ALEJANDRINA 01/10/18 22:00 02/09/18 21:59 Furosemide 40 mg/ Syringe 4 ml @ 4 mls/min BID@0900,1600 IV 01/12/18 16:00 02/11/18 15:59 Future Hold 01/16/18 15:42 4 MLS/MIN Acetaminophen/ Hydrocodone Bitart ([place] 10/325 Tab) 1 tab Q4H PRN PO 01/12/18 14:00 01/20/18 08:59 7/22/18 22:10 1 TAB Patiromer ([place]) 16.8 gm BID@0900,1700 PO 01/14/18 09:00 02/13/18 08:59 01/16/18 17:02 16.8 GM Calcium Carbonate (Tums Chew Tab) 500 mg Q4H PRN PO 01/14/18 19:30 02/13/18 19:29 01/14/18 20:59 500 MG Pantoprazole Sodium (Protonix Tab) 40 mg QAM PO 01/15/18 09:00 01/19/18 08:59 Future Hold 01/16/18 08:02 40 MG Heparin Sodium (Porcine) (Heparin Sq 5000 Unit/0.5ml) 5,000 unit Q12 SQ 01/15/18 09:00 02/14/18 08:59 Future Hold 01/16/18 08:06 5,000 UNIT Ondansetron HCl (Zofran Inj) 4 mg Q6H PRN IV 01/16/18 09:45 02/15/18 09:44 01/16/18 22:18 4 MG Hydromorphone HCl (Dilaudid Inj) 0.5 mg Q4H PRN IV 01/16/18 11:00 01/30/18 10:59 Lorazepam 0.25 mg/ Syringe 0.375 ml @ 0.5 mls/min Q6H PRN IV 01/16/18 11:00 02/15/18 10:59 Dextrose/Sodium Chloride 1,000 ml @ 80 mls/hr [id number] IV 01/17/18 06:00 02/16/18 05:59 01/17/18 05:36 80 MLS/HR Ranitidine HCl 50 mg/Dextrose 102 ml @ 200 mls/hr NOW STAT IV 01/17/18 07:46 01/17/18 08:16 UNV Pantoprazole Sodium 40 mg/ Syringe 10 ml @ 5 mls/min NOW ONCE IV 01/17/18 08:00 01/17/18 08:01 UNV
[2018-01-17] MEDS ORDERED: PANTOprazole INJ 40 MG in SYRINGE 0 ML IV ONE (08:00)
[2018-01-17] MEDS ORDERED: RANITIDINE IV 50 MG in DEXTROSE 5% 100ML 100 ML IV ONE (08:00)
[2018-01-17] MEDS ORDERED: LIDOCAINE HCL 1% 20 ML VIAL ONE (08:42)
[2018-01-17] MEDS ORDERED: BUPIVACAINE/EPINEPHRINE 0.5% MPF 1:200,000 30 ML VIAL ONE (08:42)
[2018-01-17] MEDS: POLYETHYLENE (MIRALAX) 17 GM PACK PO SCH ×2 (08:43→20:56)
[2018-01-17] MEDS: CARVEDILOL 25 MG TAB PO SCH ×2 (08:43→20:58)
[2018-01-17] MEDS: DOCUSATE SODIUM 100 MG CAP PO SCH ×2 (08:43→20:58)
[2018-01-17] MEDS: PATIROMER PO SCH ×2 (08:44→17:11)
[2018-01-17] MEDS: CALCITRIOL 0.25 MCG CAP PO SCH (09:00)
[2018-01-17] MEDS: CHOLECALCIFEROL 1000 INTER.UNIT TAB PO SCH (09:00)
--- NOTE | 2018-01-17 09:03 | Progress Note ---
Progress Note Date of Service Jan 17, 2018. Progress Note Patient for left great toe amp. I have discussed the risks options and benefits of the procedure with the patient. The patient understands the risks options and benefits and agrees to the procedure. I have examined the patient, reviewed the History & Physical and in the interval since the performance of the History & Physical I have noted the following changes of clinical significance: No changes noted
[2018-01-17] MEDS ORDERED: DEXAMETHASONE SOD INJ 4 MG/ML VIAL ONE (09:32)
[2018-01-17] MEDS ORDERED: ONDANSETRON INJ 2 MG/ML 2 ML VIAL ONE (09:32)
[2018-01-17] MEDS ORDERED: SUCCINYLCHOLINE CHLORIDE 20 MG/ML 10 ML VIAL IV ONE (09:32)
[2018-01-17] MEDS ORDERED: ALBUTEROL HFA INHALER 8.5 GM INH ONE (09:33)
--- NOTE | 2018-01-17 09:51 | [facility] Post Operative Brief Note ---
Immediate Operative Summary Operative Date Jan 17, 2018. Pre-Operative Diagnosis Gangrene left great toe Post-Operative Diagnosis Gangrene left great toe Procedure(s) Performed Left great toe amputation Surgeon Jeanine Poly Packer And Heat Sealer Surgeon(s) Theodora Cheung MD Estimated Blood Loss 5 Findings Consistent with Post-Op Diagnosis Specimens left great toe Anesthesia Type General Complication(s) none Disposition Accompanied Pt To Recover: no Disposition: Recovery Room / PACU
--- NOTE | 2018-01-17 09:53 | Nephrology Progress Note ---
Nephrology Progress Note Date of Service: Jan 17, 2018. Objective Date Time Temp Pulse Resp B/P (MAP) Pulse Ox O2 Delivery O2 Flow Rate FiO2 01/17/18 07:00 36.7 64 18 174/71 (105) 95 Room Air 01/17/18 03:20 36.6 61 18 157/64 (95) 95 Room Air 01/17/18 00:00 Room Air 01/16/18 22:55 36.6 62 18 159/63 (95) 94 Room Air 01/16/18 21:03 59 16 168/72 (104) 96 Room Air 01/16/18 16:30 Room Air 01/16/18 15:01 36.5 76 16 130/66 (87) 96 Room Air 01/16/18 09:20 67 67/ (22) 01/16/18 08:30 Room Air Physical Exam: General-A& 0 x 3, nad, on RA Eyes-eomi ENT-mmm Neck-supple Lungs-diminished BL bases; R sided insp wheezes as at previous exams Heart-RRR Abdomen-soft nondistended bowel sounds+ Extremities- trace -1+ edema L>RLE, left forearm AV fistula with thrill (can be thready in places) and bruit. Has resolving ecchymosis on left thigh. left big toe with gangrene Neuro-fluent speech, maneuvers readily for exam, no focal neurological deficits Current Inpatient Medications Medications (Trade) Dose Ordered Sig/Ewelina Route Start Time Stop Time Status Last Admin Dose Admin Acetaminophen (Tylenol Tab) 650 mg Q4H PRN PO 01/06/18 04:45 02/05/18 04:44 01/14/18 17:12 650 MG Miscellaneous (Iv Fluids Completed) 1 ea PRN PRN N/A 01/06/18 04:45 01/06/19 04:44 Clonidine HCl (Catapres Tab) 0.1 mg Q6H PRN PO 01/06/18 05:00 02/05/18 04:59 01/12/18 23:48 0.1 MG Insulin Aspart (novoLOG ASPART) SLIDING SCALE If C... ACHS SC 01/06/18 07:00 02/05/18 06:59 01/16/18 17:05 2 UNITS Glucose (Glucose 40% Gel) 15-30 GRAMS 15 GRAMS... UD PRN PO 01/06/18 05:45 02/05/18 05:44 Glucose (Glucose Chew Tab) 4-8 Tablets 4 Tabl... UD PRN PO 01/06/18 05:45 02/05/18 05:44 Dextrose (Dextrose 50% 50ML Syringe) 25-50ML 25ML FOR ... UD PRN IV 01/06/18 05:45 02/05/18 05:44 Glucagon (Glucagon Inj) 1 mg UD PRN SQ 01/06/18 05:45 02/05/18 05:44 Carbohydrates (Carbohydrates For Hypoglycemia) 15-30 GRAMS 15 grams if BSG 54-69... UD PRN PO 01/06/18 05:45 02/05/18 05:44 Albuterol (Ventolin Hfa Inhaler) 2 puffs Q4H PRN INH 01/06/18 05:45 02/05/18 05:44 Atorvastatin Calcium (Lipitor Tab) 40 mg DAILY PO 01/06/18 09:00 02/05/18 08:59 Future Hold 01/12/18 08:11 40 MG Calcitriol (Rocaltrol Cap) 0.25 mcg MoWeFr@0900 PO 01/07/18 09:00 02/06/18 08:59 01/14/18 08:19 0.25 MCG Carvedilol (Coreg Tab) 25 mg BID PO 01/06/18 09:00 02/05/18 08:59 01/16/18 08:03 25 MG Fluticasone Propionate (Flonase Nasal [place]) 1 sprays DAILY JOE 01/06/18 09:00 02/05/18 08:59 01/16/18 08:02 1 SPRAYS Latanoprost (Xalatan Oph Soln) 1 drops HS OP 01/06/18 21:00 02/05/18 20:59 01/16/18 20:56 1 DROPS Cholecalciferol (Vitamin D Tab) 5,000 inter.unit QAM PO 01/06/18 09:00 02/05/18 08:59 01/16/18 08:02 5,000 INTER.UNIT Hydralazine HCl (Apresoline Tab) 100 mg BID PO 01/06/18 09:00 02/05/18 08:59 01/16/18 21:05 100 MG Daptomycin 300 mg/ Syringe 6 ml @ 3 mls/min Q48H IV 01/08/18 10:30 02/19/18 10:29 01/16/18 10:17 3 MLS/MIN Daptomycin (Consult) 1 ea UD PRN N/A 01/08/18 10:15 02/07/18 10:14 Polyethylene (Miralax Powder Packet) 17 gm BID PO 01/08/18 21:00 02/07/18 20:59 01/15/18 21:26 17 GM Docusate Sodium (coLACE CAP) 100 mg BID PO 01/08/18 21:00 02/07/18 20:59 01/16/18 21:04 100 MG Menthol (Nice Alejandrina) 1 alejandrina PRN PRN ALEJANDRINA 01/10/18 22:00 02/09/18 21:59 Furosemide 40 mg/ Syringe 4 ml @ 4 mls/min BID@0900,1600 IV 01/12/18 16:00 02/11/18 15:59 01/16/18 15:42 4 MLS/MIN Acetaminophen/ Hydrocodone Bitart ([place] 10/325 Tab) 1 tab Q4H PRN PO 01/12/18 14:00 01/20/18 08:59 01/16/18 22:10 1 TAB Patiromer ([place]) 16.8 gm BID@0900,1700 PO 01/14/18 09:00 02/13/18 08:59 01/16/18 17:02 16.8 GM Calcium Carbonate (Tums Chew Tab) 500 mg Q4H PRN PO 01/14/18 19:30 02/13/18 19:29 01/14/18 20:59 500 MG Pantoprazole Sodium (Protonix Tab) 40 mg QAM PO 01/15/18 09:00 01/19/18 08:59 01/16/18 08:02 40 MG Heparin Sodium (Porcine) (Heparin Sq 5000 Unit/0.5ml) 5,000 unit Q12 SQ 01/15/18 09:00 02/14/18 08:59 Future Hold 01/16/18 08:06 5,000 UNIT Ondansetron HCl (Zofran Inj) 4 mg Q6H PRN IV 01/16/18 09:45 02/15/18 09:44 01/16/18 22:18 4 MG Hydromorphone HCl (Dilaudid Inj) 0.5 mg Q4H PRN IV 01/16/18 11:00 01/30/18 10:59 Lorazepam 0.25 mg/ Syringe 0.375 ml @ 0.5 mls/min Q6H PRN IV 01/16/18 11:00 02/15/18 10:59 Dextrose/Sodium Chloride 1,000 ml @ 80 mls/hr [id number] IV 01/17/18 06:00 02/16/18 05:59 01/17/18 05:36 80 MLS/HR Last 24 Hours Test 01/16/18 11:19 01/16/18 16:51 01/16/18 20:55 01/17/18 04:14 Bedside Glucose 98 mg/dl 200 mg/dl 133 mg/dl White Blood Count 5.05 K/uL Red Blood Count 3.22 M/uL Hemoglobin 9.6 g/dL Hematocrit 29.0 % Mean Corpuscular Volume 90.1 fL Mean Corpuscular Hemoglobin 29.8 pg Mean Corpuscular Hemoglobin Concent 33.1 g/dl RDW Standard Deviation 45.4 fL RDW Coefficient of Variation 13.6 % Platelet Count 252 K/uL Mean Platelet Volume 9.5 fL Sodium Level 131 mmol/L Potassium Level 4.1 mmol/L Chloride Level 97 mmol/L Carbon Dioxide Level 25 mmol/L Anion Gap 9.0 mmol/L Blood Urea Nitrogen 119 mg/dl Creatinine 7.83 mg/dl Est Creatinine Clear Calc Drug Dose 6.5 ml/min Estimated GFR () 5.6 Estimated GFR (Non- 4.8 BUN/Creatinine Ratio 15.3 Random Glucose 108 mg/dl Calcium Level 8.9 mg/dl Troponin I 0.055 ng/ml Test 01/17/18 06:03 Bedside Glucose 116 mg/dl Assessment & Plan 67 y/o F w/ CKD 5 not on dialysis, 01/04/18 LLE angioplasty at OSH, DM, CAD, HTN , on IV abtx for L great toe ostemyelitis transferred 01/06 from [facility] ER where she presented w/ hgb 5.2 and creatinine 5.7. She had multiple units pRBC; she has improving L groin hematoma. ESRD not on dialysis w/ recently worsened renal function>> had previously had creatinine about 5 since late 2016 Renal function mildly improved with IVF; however SBP also markedly increased on this; would change to D51/2 NS after OR at 40-50 mL/hr -attempt HD tomorrow w/ small needles; may well need TDC which has been recommended but pt refuses at this time -so far volume status acceptable though could change very suddenly; no indication for emergent dialysis; has historically refused to start -cont D3/calcitriol -chemistries currently acceptable and as below -K improved on veltassa Hyponatremia -reflects volume overload most likely; mild HTN -pls ensure her meds have hold parameters -lasix IV on hold; coreg and hydralazine being continued currently Acute anemia resolved; also w/ multifactorial chronic anemia from ESRD, from prolonged aBTX -transfuse prn -CARISSA w/ HD L toe osteomyelitis > for amputation today appreciate consult; will follow with you
[2018-01-17] MEDS: ONDANSETRON INJ 2 MG/ML 2 ML VIAL IV PRN (10:21)
[2018-01-17] MEDS ORDERED: ONDANSETRON INJ 2 MG/ML 2 ML VIAL IV PRN (10:30)
[2018-01-17] MEDS ORDERED: FENTANYL CITRATE INJ 50 MCG/1 ML 2 ML VIAL IV PRN (10:30)
[2018-01-17] MEDS ORDERED: EpHEDrine SULFATE INJ 50 MG/ML AMP IV PRN (10:30)
[2018-01-17] MEDS ORDERED: ATROPINE SULFATE 0.1 MG/ML 5ML SYR IV PRN (10:30)
--- NOTE | 2018-01-17 10:36 | Anesthesiology Progress Note ---
Anesthesia Post Op Note Date & Time Jan 17, 2018 at 10:35 Vital Signs Pain Intensity: 4 Vital Signs Past 12 Hours Date Time Temp Pulse Resp B/P (MAP) Pulse Ox O2 Delivery O2 Flow Rate FiO2 01/17/18 10:30 64 15 159/61 98 Nasal Cannula 4 Oxymask 01/17/18 10:20 62 16 179/61 100 Oxymask 10 01/17/18 10:10 62 14 154/68 100 Oxymask 10 01/17/18 10:04 36 73 16 174/72 100 Oxymask 10 01/17/18 08:00 Room Air 01/17/18 07:00 36.7 64 18 174/71 (105) 95 Room Air 01/17/18 03:20 36.6 61 18 157/64 (95) 95 Room Air 01/17/18 00:00 Room Air 01/16/18 22:55 36.6 62 18 159/63 (95) 94 Room Air Notes Mental Status: alert / awake / arousable, participated in evaluation Pt Amnestic to Procedure: Yes Nausea / Vomiting: adequately controlled Pain: adequately controlled Airway Patency, RR, SpO2: stable & adequate BP & HR: stable & adequate Hydration State: stable & adequate Anesthetic Complications: no major complications apparent
--- NOTE | 2018-01-17 11:06 | [facility] Operative Report ---
Operative Report Operative Date Jan 17, 2018. Pre-Operative Diagnosis Gangrene left great toe Post-Operative Diagnosis Gangrene left great toe Procedure(s) Performed Left great toe amputation Surgeon Jeanine Leaf Conditioner Surgeon(s) Theodora Cheung MD Estimated Blood Loss 5 Findings bone of distal phalanx soft, no blood flow. proximal phalanx healthy Specimens left great toe Anesthesia Type General Complication(s) none Disposition no Recovery Room / PACU Indications 7 month history of non-healing wound of left great toe. very painful Description of Procedure The patient was prepped and draped in a sterile fashion. Sharp dissection was used to make a fishmouth incision over the distal phalanx of the left great toe. The distal portion of the toe was then removed. Rongeurs were used to excise the soft distal phalanx and cartilaginous portion of the interphalangeal joint. The wound was irrigated and the tissue reapproximated with 3-0 nylon sutures. Local anesthesia was then instilled at the base of the great toe. The patient tolerated the procedure well. Dr. Solorzano was present throughout the case. I attest to the content of the Intraoperative Record and any orders documented therein. Any exceptions are noted below.
[2018-01-17] MEDS: FLUTICASONE PROPIONATE NA SPR 16 GM BTL NAE SCH (11:43)
[2018-01-17] MEDS: HYDROCODONE/ACETAMI 10/325 TAB PO PRN ×2 (14:46→20:59)
[2018-01-17] MEDS: CLONIDINE HCL 0.1 MG TAB PO PRN (15:57)
[2018-01-17] MEDS: HYDROmorphone INJ 0.5 MG/0.5 ML SYR IV PRN (18:46)
[2018-01-17] MEDS: LATANOPROST 0.005% OP SOLN 2.5 ML BTL OP SCH (20:58)
--- NOTE | 2018-01-17 21:58 | Infectious Disease Progress Nt ---
Progress Note Date of Service Jan 17, 2018. Subjective Pt evaluation today including: conversation w/ patient, physical exam, chart review, lab review, review of studies, conversation w/ system sales consultant, review of inpatient medication list Patient is status post amputation of left great toe. Offers no new specific complaints except for expected postop discomfort. Remains afebrile. All Other Systems: Reviewed and Negative Medications Current Inpatient Medications Medications (Trade) Dose Ordered Sig/Ewelina Route Start Time Stop Time Status Last Admin Dose Admin Acetaminophen (Tylenol Tab) 650 mg Q4H PRN PO 01/06/18 04:45 02/05/18 04:44 01/14/18 17:12 650 MG Miscellaneous (Iv Fluids Completed) 1 ea PRN PRN N/A 01/06/18 04:45 01/06/19 04:44 Clonidine HCl (Catapres Tab) 0.1 mg Q6H PRN PO 01/06/18 05:00 02/05/18 04:59 01/17/18 15:57 0.1 MG Insulin Aspart (novoLOG ASPART) SLIDING SCALE If C... ACHS SC 01/06/18 07:00 02/05/18 06:59 01/17/18 20:59 3 UNITS Glucose (Glucose 40% Gel) 15-30 GRAMS 15 GRAMS... UD PRN PO 01/06/18 05:45 02/05/18 05:44 Glucose (Glucose Chew Tab) 4-8 Tablets 4 Tabl... UD PRN PO 01/06/18 05:45 02/05/18 05:44 Dextrose (Dextrose 50% 50ML Syringe) 25-50ML 25ML FOR ... UD PRN IV 01/06/18 05:45 02/05/18 05:44 Glucagon (Glucagon Inj) 1 mg UD PRN SQ 01/06/18 05:45 02/05/18 05:44 Carbohydrates (Carbohydrates For Hypoglycemia) 15-30 GRAMS 15 grams if BSG 54-69... UD PRN PO 01/06/18 05:45 02/05/18 05:44 Albuterol (Ventolin Hfa Inhaler) 2 puffs Q4H PRN INH 01/06/18 05:45 02/05/18 05:44 Atorvastatin Calcium (Lipitor Tab) 40 mg DAILY PO 01/06/18 09:00 02/05/18 08:59 Future hold 01/12/18 08:11 40 MG Calcitriol (Rocaltrol Cap) 0.25 mcg MoWeFr@0900 PO 01/07/18 09:00 02/06/18 08:59 01/14/18 08:19 0.25 MCG Carvedilol (Coreg Tab) 25 mg BID PO 01/06/18 09:00 02/05/18 08:59 01/17/18 20:58 25 MG Fluticasone Propionate (Flonase Nasal [place]) 1 sprays DAILY JOE 01/06/18 09:00 02/05/18 08:59 01/17/18 11:43 1 SPRAYS Latanoprost (Xalatan Oph Soln) 1 drops HS OP 01/06/18 21:00 02/05/18 20:59 01/17/18 20:58 1 DROPS Cholecalciferol (Vitamin D Tab) 5,000 inter.unit QAM PO 01/06/18 09:00 02/05/18 08:59 01/16/18 08:02 5,000 INTER.UNIT Hydralazine HCl (Apresoline Tab) 100 mg BID PO 01/06/18 09:00 02/05/18 08:59 01/17/18 20:58 100 MG Daptomycin 300 mg/ Syringe 6 ml @ 3 mls/min Q48H IV 01/08/18 10:30 02/19/18 10:29 01/16/18 10:17 3 MLS/MIN Daptomycin (Consult) 1 ea UD PRN N/A 01/08/18 10:15 02/07/18 10:14 Polyethylene (Miralax Powder Packet) 17 gm BID PO 01/08/18 21:00 02/07/18 20:59 01/15/18 21:26 17 GM Docusate Sodium (coLACE CAP) 100 mg BID PO 01/08/18 21:00 02/07/18 20:59 01/17/18 20:58 100 MG Menthol (Nice Alejandrina) 1 alejandrina PRN PRN ALEJANDRINA 01/10/18 22:00 02/09/18 21:59 Furosemide 40 mg/ Syringe 4 ml @ 4 mls/min BID@0900,1600 IV 01/12/18 16:00 02/11/18 15:59 Future hold 01/16/18 15:42 4 MLS/MIN Acetaminophen/ Hydrocodone Bitart ([place] 10/325 Tab) 1 tab Q4H PRN PO 01/12/18 14:00 01/20/18 08:59 01/17/18 20:59 1 TAB Patiromer (Veltassa) 16.8 gm BID@0900,1700 PO 01/14/18 09:00 02/13/18 08:59 01/17/18 17:11 16.8 GM Calcium Carbonate (Tums Chew Tab) 500 mg Q4H PRN PO 01/14/18 19:30 02/13/18 19:29 01/14/18 20:59 500 MG Pantoprazole Sodium (Protonix Tab) 40 mg QAM PO 01/15/18 09:00 01/19/18 08:59 Future Hold 01/16/18 08:02 40 MG Heparin Sodium (Porcine) (Heparin Sq 5000 Unit/0.5ml) 5,000 unit Q12 SQ 01/15/18 09:00 02/14/18 08:59 Future hold 01/16/18 08:06 5,000 UNIT Ondansetron HCl (Zofran Inj) 4 mg Q6H PRN IV 01/16/18 09:45 02/15/18 09:44 01/17/18 10:21 4 MG Hydromorphone HCl (Dilaudid Inj) 0.5 mg Q4H PRN IV 01/16/18 11:00 01/30/18 10:59 01/17/18 18:46 0.5 MG Lorazepam 0.25 mg/ Syringe 0.375 ml @ 0.5 mls/min Q6H PRN IV 01/16/18 11:00 02/15/18 10:59 Objective Vital Signs Date Time Temp Pulse Resp B/P (MAP) Pulse Ox O2 Delivery O2 Flow Rate FiO2 01/17/18 19:48 63 18 151/70 (97) 98 Room Air 01/17/18 16:00 90 Room Air 01/17/18 15:35 36.6 61 20 185/66 (105) 90 01/17/18 14:00 36.6 64 18 170/72 (104) 98 2.0 01/17/18 13:08 36.5 59 18 176/71 (106) 98 3.0 01/17/18 12:04 36.3 60 18 172/67 (102) 99 3.0 01/17/18 11:34 36.3 59 18 154/55 (88) 99 2.0 01/17/18 11:07 36.3 63 16 173/69 (103) 99 Nasal Cannula 3.0 01/17/18 11:00 Nasal Cannula 3.0 01/17/18 10:50 36.2 63 13 147/85 97 Nasal Cannula 4 Oxymask 01/17/18 10:40 36.2 62 16 154/75 96 Nasal Cannula 4 Oxymask 01/17/18 10:30 64 15 159/61 98 Nasal Cannula 4 Oxymask 01/17/18 10:20 62 16 179/61 100 Oxymask 10 01/17/18 10:10 62 14 154/68 100 Oxymask 10 01/17/18 10:04 36 73 16 174/72 100 Oxymask 10 01/17/18 08:00 Room Air 01/17/18 07:00 36.7 64 18 174/71 (105) 95 Room Air 01/17/18 03:20 36.6 61 18 157/64 (95) 95 Room Air 01/17/18 00:00 Room Air 01/16/18 22:55 36.6 62 18 159/63 (95) 94 Room Air Physical Exam General Appearance: WD/WN, no apparent distress Eyes: normal inspection, EOMI, sclerae normal ENT: normal ENT inspection, pharynx normal Neck: supple, no adenopathy, thyroid normal, trachea midline Respiratory/Chest: chest non-tender, lungs clear, normal breath sounds, no respiratory distress Cardiovascular: regular rate, rhythm, no gallop, no murmur Abdomen: normal bowel sounds, non tender, soft, no organomegaly Extremities: non-tender, + slow capillary refill Neurologic/Psychiatric: alert, oriented x 3 Skin: normal color, no rash, + pertinent finding (Surgical dressing intact left foot) Lymphatic: no adenopathy Laboratory Results Last 24 Hours Test 01/17/18 04:14 01/17/18 06:03 01/17/18 10:11 01/17/18 11:28 White Blood Count 5.05 K/uL Red Blood Count 3.22 M/uL Hemoglobin 9.6 g/dL Hematocrit 29.0 % Mean Corpuscular Volume 90.1 fL Mean Corpuscular Hemoglobin 29.8 pg Mean Corpuscular Hemoglobin Concent 33.1 g/dl RDW Standard Deviation 45.4 fL RDW Coefficient of Variation 13.6 % Platelet Count 252 K/uL Mean Platelet Volume 9.5 fL Sodium Level 131 mmol/L Potassium Level 4.1 mmol/L Chloride Level 97 mmol/L Carbon Dioxide Level 25 mmol/L Anion Gap 9.0 mmol/L Blood Urea Nitrogen 119 mg/dl Creatinine 7.83 mg/dl Est Creatinine Clear Calc Drug Dose 6.5 ml/min Estimated GFR () 5.6 Estimated GFR (Non- 4.8 BUN/Creatinine Ratio 15.3 Random Glucose 108 mg/dl Calcium Level 8.9 mg/dl Troponin I 0.055 ng/ml Hepatitis B Surface Antigen NEG Hepatitis B Surface Antibody NEG Bedside Glucose 116 mg/dl 119 mg/dl 145 mg/dl Test 01/17/18 16:15 01/17/18 20:52 Bedside Glucose 221 mg/dl 201 mg/dl Assessment and Plan (1) Necrosis of toe Status: Acute 67-year-old female with diabetes, peripheral arterial disease, renal failure on dialysis, with chronic osteomyelitis of the left great toe previously on IV dalvabancin. Patient now status post amputation, will discuss further antibiotic therapy with all involved.
[2018-01-18] VITALS: BP 158/69; PULSE 61; TEMP 36.7; O2SAT 93
[2018-01-18] MEDS: HYDROmorphone INJ 0.5 MG/0.5 ML SYR IV PRN ×2 (00:06→15:28)
[2018-01-18 07:07] LABS: HEMATOCRIT 27.6 % (37-47); HEMOGLOBIN 9.4 g/dL (12.0-16.0); MEAN CELL VOLUME 89.6 fL (80-100); MEAN CORPUSCULAR HEMOGLOBIN 30.5 pg (25-34); MEAN CORPUSCULAR HGB CONC 34.1 g/dl (32-36); MEAN PLATELET VOLUME 9.7 fL (7.4-10.4); PLATELET COUNT 244 K/uL (130-400); RED CELL DISTRIBUTION WIDTH CV 13.5 % (11.5-14.5); RED CELL DISTRIBUTION WIDTH SD 44.1 fL (36.4-46.3); WHITE BLOOD COUNT 5.66 K/uL (4.8-10.8)
[2018-01-18 07:44] LABS: CALCIUM 8.8 mg/dl (8.5-10.1); CREATININE 7.94 mg/dl (0.60-1.20); POTASSIUM 4.1 mmol/L (3.5-5.1)
[2018-01-18 07:47] VITALS: BP 134/57; PULSE 60; TEMP 36.4; O2SAT 90
[2018-01-18] MEDS: PATIROMER PO SCH ×2 (08:22→17:05)
[2018-01-18] MEDS: FLUTICASONE PROPIONATE NA SPR 16 GM BTL NAE SCH (08:24)
[2018-01-18] MEDS: DOCUSATE SODIUM 100 MG CAP PO SCH ×2 (08:24→20:38)
[2018-01-18] MEDS: ATORVASTATIN 20 MG TAB PO SCH (08:25)
[2018-01-18] MEDS: POLYETHYLENE (MIRALAX) 17 GM PACK PO SCH ×2 (08:25→20:37)
[2018-01-18] MEDS: FUROSEMIDE INJ 40 MG in SYRINGE 0 ML IV SCH ×2 (08:26→17:05)
[2018-01-18] MEDS: INSULIN ASPART 100 UNITS/ML 3 ML PEN SC SCH ×4 (08:28→20:33)
[2018-01-18] MEDS: CHOLECALCIFEROL 1000 INTER.UNIT TAB PO SCH (08:31)
[2018-01-18] MEDS: CARVEDILOL 25 MG TAB PO SCH ×2 (08:31→20:38)
[2018-01-18] MEDS ORDERED: EPOETIN ALFA 10,000 UNITS/ML VIAL IV. ONE (09:00)
[2018-01-18 09:11] LABS: TRANSFERRIN 175 mg/dl (200-360)
--- NOTE | 2018-01-18 09:18 | Anesthesiology Progress Note ---
Anesthesia Post Op Note Date & Time Jan 18, 2018 at 09:18 Vital Signs Pain Intensity: 4.0 Vital Signs Past 12 Hours Date Time Temp Pulse Resp B/P (MAP) Pulse Ox O2 Delivery O2 Flow Rate FiO2 01/18/18 07:47 36.4 60 16 134/57 (82) 90 Room Air 01/18/18 00:00 Room Air 01/18/18 00:00 36.7 61 20 158/69 (98) 93 Room Air Notes Mental Status: alert / awake / arousable, participated in evaluation Pt Amnestic to Procedure: Yes Nausea / Vomiting: adequately controlled Pain: adequately controlled Airway Patency, RR, SpO2: stable & adequate BP & HR: stable & adequate Hydration State: stable & adequate Anesthetic Complications: no major complications apparent
--- NOTE | 2018-01-18 09:25 | Nephrology Progress Note ---
Nephrology Progress Note Date of Service: Jan 18, 2018. Subjective c/o pressure on foot at amputation site but no pain; hungry; not sob; no N. anxious to hear more details about yesterday's OR (more details than I can give) ; anxious about hd Objective Date Time Temp Pulse Resp B/P (MAP) Pulse Ox O2 Delivery O2 Flow Rate FiO2 01/18/18 07:47 36.4 60 16 134/57 (82) 90 Room Air 01/18/18 00:00 Room Air 01/18/18 00:00 36.7 61 20 158/69 (98) 93 Room Air 01/17/18 19:48 63 18 151/70 (97) 98 Room Air 01/17/18 16:00 90 Room Air 01/17/18 15:35 36.6 61 20 185/66 (105) 90 01/17/18 14:00 36.6 64 18 170/72 (104) 98 2.0 01/17/18 13:08 36.5 59 18 176/71 (106) 98 3.0 01/17/18 12:04 36.3 60 18 172/67 (102) 99 3.0 01/17/18 11:34 36.3 59 18 154/55 (88) 99 2.0 01/17/18 11:07 36.3 63 16 173/69 (103) 99 Nasal Cannula 3.0 01/17/18 11:00 Nasal Cannula 3.0 01/17/18 10:50 36.2 63 13 147/85 97 Nasal Cannula 4 Oxymask 01/17/18 10:40 36.2 62 16 154/75 96 Nasal Cannula 4 Oxymask 01/17/18 10:30 64 15 159/61 98 Nasal Cannula 4 Oxymask 01/17/18 10:20 62 16 179/61 100 Oxymask 10 01/17/18 10:10 62 14 154/68 100 Oxymask 10 01/17/18 10:04 36 73 16 174/72 100 Oxymask 10 Physical Exam: General-A& 0 x 3, nad, on RA Eyes-eomi ENT-mmm Neck-supple Lungs-diminished BL bases Heart-RRR Abdomen-soft nondistended bowel sounds+ Extremities- trace -1+ edema L>RLE, left forearm AV fistula with thrill and bruit. L great toe bandaged Neuro-fluent speech, maneuvers readily for exam, no focal neurological deficits Current Inpatient Medications Medications (Trade) Dose Ordered Sig/Ewelina Route Start Time Stop Time Status Last Admin Dose Admin Acetaminophen (Tylenol Tab) 650 mg Q4H PRN PO 01/06/18 04:45 02/05/18 04:44 01/14/18 17:12 650 MG Miscellaneous (Iv Fluids Completed) 1 ea PRN PRN N/A 01/06/18 04:45 01/06/19 04:44 Clonidine HCl (Catapres Tab) 0.1 mg Q6H PRN PO 01/06/18 05:00 02/05/18 04:59 01/17/18 15:57 0.1 MG Insulin Aspart (novoLOG ASPART) SLIDING SCALE If C... ACHS SC 01/06/18 07:00 02/05/18 06:59 01/17/18 20:59 3 UNITS Glucose (Glucose 40% Gel) 15-30 GRAMS 15 GRAMS... UD PRN PO 01/06/18 05:45 02/05/18 05:44 Glucose (Glucose Chew Tab) 4-8 Tablets 4 Tabl... UD PRN PO 01/06/18 05:45 02/05/18 05:44 Dextrose (Dextrose 50% 50ML Syringe) 25-50ML 25ML FOR ... UD PRN IV 01/06/18 05:45 02/05/18 05:44 Glucagon (Glucagon Inj) 1 mg UD PRN SQ 01/06/18 05:45 02/05/18 05:44 Carbohydrates (Carbohydrates For Hypoglycemia) 15-30 GRAMS 15 grams if BSG 54-69... UD PRN PO 01/06/18 05:45 02/05/18 05:44 Albuterol (Ventolin Hfa Inhaler) 2 puffs Q4H PRN INH 01/06/18 05:45 02/05/18 05:44 Atorvastatin Calcium (Lipitor Tab) 40 mg DAILY PO 01/06/18 09:00 02/05/18 08:59 Future hold 01/12/18 08:11 40 MG Calcitriol (Rocaltrol Cap) 0.25 mcg MoWeFr@0900 PO 01/07/18 09:00 8/12/18 08:59 01/14/18 08:19 0.25 MCG Carvedilol (Coreg Tab) 25 mg BID PO 01/06/18 09:00 02/05/18 08:59 01/17/18 20:58 25 MG Fluticasone Propionate (Flonase Nasal [place]) 1 sprays DAILY JOE 01/06/18 09:00 02/05/18 08:59 01/17/18 11:43 1 SPRAYS Latanoprost (Xalatan Oph Soln) 1 drops HS OP 01/06/18 21:00 02/05/18 20:59 01/17/18 20:58 1 DROPS Cholecalciferol (Vitamin D Tab) 5,000 inter.unit QAM PO 01/06/18 09:00 02/05/18 08:59 01/16/18 08:02 5,000 INTER.UNIT Hydralazine HCl (Apresoline Tab) 100 mg BID PO 01/06/18 09:00 02/05/18 08:59 01/17/18 20:58 100 MG Daptomycin 300 mg/ Syringe 6 ml @ 3 mls/min Q48H IV 01/08/18 10:30 02/19/18 10:29 01/16/18 10:17 3 MLS/MIN Daptomycin (Consult) 1 ea UD PRN N/A 01/08/18 10:15 02/07/18 10:14 Polyethylene (Miralax Powder Packet) 17 gm BID PO 01/08/18 21:00 02/07/18 20:59 01/15/18 21:26 17 GM Docusate Sodium (coLACE CAP) 100 mg BID PO 01/08/18 21:00 02/07/18 20:59 01/17/18 20:58 100 MG Menthol (Nice Alejandrina) 1 alejandrina PRN PRN ALEJANDRINA 01/10/18 22:00 02/09/18 21:59 Furosemide 40 mg/ Syringe 4 ml @ 4 mls/min BID@0900,1600 IV 01/12/18 16:00 02/11/18 15:59 Future hold 01/16/18 15:42 4 MLS/MIN Acetaminophen/ Hydrocodone Bitart ([place] 10/325 Tab) 1 tab Q4H PRN PO 01/12/18 14:00 7/26/18 08:59 01/17/18 20:59 1 TAB Patiromer ([place]elt[place]) 16.8 gm BID@0900,1700 PO 01/14/18 09:00 02/13/18 08:59 01/17/18 17:11 16.8 GM Calcium Carbonate (Tums Chew Tab) 500 mg Q4H PRN PO 01/14/18 19:30 02/13/18 19:29 01/14/18 20:59 500 MG Pantoprazole Sodium (Protonix Tab) 40 mg QAM PO 01/15/18 09:00 01/19/18 08:59 Future Hold 01/16/18 08:02 40 MG Heparin Sodium (Porcine) (Heparin Sq 5000 Unit/0.5ml) 5,000 unit Q12 SQ 01/15/18 09:00 02/14/18 08:59 Future hold 01/16/18 08:06 5,000 UNIT Ondansetron HCl (Zofran Inj) 4 mg Q6H PRN IV 01/16/18 09:45 02/15/18 09:44 01/17/18 10:21 4 MG Hydromorphone HCl (Dilaudid Inj) 0.5 mg Q4H PRN IV 01/16/18 11:00 01/30/18 10:59 01/18/18 00:06 0.5 MG Lorazepam 0.25 mg/ Syringe 0.375 ml @ 0.5 mls/min Q6H PRN IV 01/16/18 11:00 02/15/18 10:59 Last 24 Hours Test 01/17/18 10:11 01/17/18 11:28 01/17/18 16:15 01/17/18 20:52 Bedside Glucose 119 mg/dl 145 mg/dl 221 mg/dl 201 mg/dl Test 01/18/18 06:33 01/18/18 07:37 White Blood Count 5.66 K/uL Red Blood Count 3.08 M/uL Hemoglobin 9.4 g/dL Hematocrit 27.6 % Mean Corpuscular Volume 89.6 fL Mean Corpuscular Hemoglobin 30.5 pg Mean Corpuscular Hemoglobin Concent 34.1 g/dl RDW Standard Deviation 44.1 fL RDW Coefficient of Variation 13.5 % Platelet Count 244 K/uL Mean Platelet Volume 9.7 fL Sodium Level 133 mmol/L Potassium Level 4.1 mmol/L Chloride Level 98 mmol/L Carbon Dioxide Level 23 mmol/L Anion Gap 12.0 mmol/L Blood Urea Nitrogen 119 mg/dl Creatinine 7.94 mg/dl Est Creatinine Clear Calc Drug Dose 6.4 ml/min Estimated GFR () 5.5 Estimated GFR (Non- 4.8 BUN/Creatinine Ratio 14.9 Random Glucose 134 mg/dl Calcium Level 8.8 mg/dl Total Creatine Kinase 212 U/L Bedside Glucose 140 mg/dl Assessment & Plan 67 y/o F w/ CKD 5 not on dialysis, 01/04/18 LLE angioplasty at OSH, DM, CAD, HTN , on IV abtx for L great toe ostemyelitis transferred 01/06 from [facility] ER where she presented w/ hgb 5.2 and creatinine 5.7. She had multiple units pRBC; she has improving L groin hematoma. ESRD not on dialysis w/ recently worsened renal function>> had previously had creatinine about 5 since late 2016 Renal function mildly improved with IVF; however SBP also markedly increased on this; would change to D51/2 NS after OR at 40-50 mL/hr -attempt HD today w/ small needles; may well need TDC which has been recommended but pt refuses at this time -so far volume status acceptable but needs HD for clearance -if HD successful today w/ AVF, will plan another tx tomorrow and day after -cont D3/calcitriol -chemistries currently acceptable and as below -K improved on veltassa Hyponatremia -reflects volume overload most likely; mild HTN -pls ensure her meds have hold parameters -lasix IV on hold; coreg and hydralazine being continued currently Acute anemia resolved; also w/ multifactorial chronic anemia from ESRD, from prolonged aBTX -transfuse prn -CARISSA w/ HD L toe osteomyelitis > s/p 01/17 amputation appreciate consult; will follow with you
[2018-01-18] MEDS: HYDROCODONE/ACETAMI 10/325 TAB PO PRN ×3 (09:56→20:38)
[2018-01-18] MEDS: DAPTOmycin IV 300 MG in SYRINGE 0 ML IV SCH (09:56)
[2018-01-18] MEDS: HEPARIN SOD 5000 UNIT/0.5 ML CARP SQ SCH ×2 (09:58→20:37)
--- NOTE | 2018-01-18 11:02 | Progress Note ---
Progress Note Date of Service: Jan 18, 2018. Subjective Feeling well. States has been able to stand and pivot without concern in [facility]. Pain has been well controlled with po medications. Had questions about dialysis and FMLA paperwork. Problem List Medical Problems: (1) Asthma Status: Chronic (2) Asthmatic bronchitis Status: Acute (3) Athscl Heart Disease Of [place] Coronary Artery W/O Ang Pctrs Status: Chronic (4) Diab Neli Wo Compl, Type Ii Or Unspec Type, Not Uncntrld Status: Chronic (5) Elevated troponin Status: Acute (6) End Stage Renal Disease Status: Chronic (7) Hyperlipidemia, Unspecified Status: Chronic (8) Type 2 Diabetes Mellitus Without Complications Status: Chronic (9) Vitamin D Deficiency, Unspecified Status: Chronic Surgical Problems: (1) AV fistula Status: Chronic (2) Presence Of Aortocoronary Bypass Graft Status: Chronic Objective Vital Signs Vital Signs Past 12 Hours Date Time Temp Pulse Resp B/P (MAP) Pulse Ox O2 Delivery O2 Flow Rate FiO2 01/18/18 08:00 Room Air 01/18/18 07:47 36.4 60 16 134/57 (82) 90 Room Air 01/18/18 00:00 Room Air 01/18/18 00:00 36.7 61 20 158/69 (98) 93 Room Air Exam NCAT, chronically ill appearing LLE posterior thigh and calf with resolving hematoma. L great toe amputation site left dressed. small amount of shadowing on the dressing. stable Laboratory and Microbiology Results Past 24 Hours Test 01/17/18 11:28 01/17/18 16:15 01/17/18 20:52 01/18/18 06:33 Range/Units Bedside Glucose 145 221 201 70-90 mg/dl White Blood Count 5.66 4.8-10.8 K/uL Red Blood Count 3.08 4.2-5.4 M/uL Hemoglobin 9.4 12.0-16.0 g/dL Hematocrit 27.6 37-47 % Mean Corpuscular Volume 89.6 80-100 fL Mean Corpuscular Hemoglobin 30.5 25-34 pg Mean Corpuscular Hemoglobin Concent 34.1 32-36 g/dl RDW Standard Deviation 44.1 36.4-46.3 fL RDW Coefficient of Variation 13.5 11.5-14.5 % Platelet Count 244 130-400 K/uL Mean Platelet Volume 9.7 7.4-10.4 fL Sodium Level 133 136-145 mmol/L Potassium Level 4.1 3.5-5.1 mmol/L Chloride Level 98 98-107 mmol/L Carbon Dioxide Level 23 21-32 mmol/L Anion Gap 12.0 3-11 mmol/L Blood Urea Nitrogen 119 7-18 mg/dl Creatinine 7.94 0.60-1.20 mg/dl Est Creatinine Clear Calc Drug Dose 6.4 ml/min Estimated GFR () 5.5 Estimated GFR (Non- 4.8 BUN/Creatinine Ratio 14.9 10-20 Random Glucose 134 70-99 mg/dl Calcium Level 8.8 8.5-10.1 mg/dl Iron Level 54 35-150 mcg/dl Transferrin 175 200-360 mg/dl Transferrin % Saturation 22 15-50 % Total Creatine Kinase 212 26-192 U/L Test 01/18/18 07:37 Range/Units Bedside Glucose 140 70-90 mg/dl 67 yo F with ESRD and now POD#1 s/p L distal toe amputation. Appears to be doing well. May ambulate in [place] shoes as tolerates. Plan for dressing change tomorrow. Per patient, is going to have a dialysis trial run today. Please contact us if she does not tolerate this and needs a tunneled line placed.
[2018-01-18 15:29] VITALS: BP 167/71; PULSE 61; TEMP 36.5; O2SAT 95
[2018-01-18 16:00] VITALS: O2SAT 95
--- NOTE | 2018-01-18 16:01 | Progress Note ---
Internal Med Progress Note Date of Service: Jan 18, 2018. Provider Documentation: SUBJECTIVE: Unable to have dialysis today, as AV fistula could not be cannulated Status post amputation of left great toe yesterday for osteomyelitis Denies of any pain or discomfort No fever or chills No shortness of breath, no dizzy spell, no palpitation No chest pain OBJECTIVE: Vital Signs-as noted below Exam: General-chronically ill appearing female, no apparent distress Eyes-sclera nonicteric pupils bilateral equal reactive to light extraocular muscles intact ENT-moist oral mucosa Neck-no JVD, no carotid bruit, no thyromegaly, trachea midline Lungs-clear to auscultate, no wheeze or rales Heart-regular S1 and S2 no murmur gallop Abdomen-soft nontender Extremities-status post left great toe amputation, bandage present, no drainage noted Neuro-no focal neurological deficit Psych-alert awake oriented 3, flat affect Lymph nodes-no lymphadenopathy Lab data as noted below. ASSESSMENT & PLAN: DIABETIC FOOT/ GANGRENE/OSTEOMYELITIS OF LEFT GREAT TOE: -Status post amputation of left great toe by Dr. Solorzano yesterday 01/17/18 -Recovering well postop -Appreciate evaluation by vascular surgery TRU ON CKD stage V -CKD stage V with baseline creatinine approximately 5 Worsening of creatinine more than 7-leading to TRU Possible secondary to contrast exposure for left lower extremity angiography Appreciate input from nephrology Patient already have AV fistula Was scheduled for dialysis today Unable to cannulate AV fistula/got infiltrated even with smallest needle -Will need tunneled dialysis catheter Vascular surgery updated Patient will be n.p.o. past midnight Social service consulted To arrange outpatient dialysis ACUTE BLOOD LOSS ANEMIA Secondary to recent angioplasty of the left lower extremity leading to postop hematoma/blood loss Hemoglobin was 5 at [facility] Status post total of 4 units of PRBC transfusion Hemoglobin remained stable at 9 HISTORY OF CAD -No active anginal symptom-continue on Coreg Aspirin and Plavix on hold-secondary to left thigh hematoma/acute blood loss anemia continue to hold for-scheduled tunneled catheter placement tomorrow PERIPHERAL VASCULAR DISEASE Status post recent angioplasty of left lower extremity in [facility] Postoperative complication of left lower extremity, leading to acute blood loss anemia aspirin and Plavix on hold TYPE 2 DIABETES Hemoglobin A1c 5.9 Insulin sliding scale Hold oral agents during hospital stay HYPERTENSION BP elevated Continue on Coreg and hydralazine IV Lasix 40 mg twice daily CODE STATUS: Full code DVT PROPHYLAXIS Subcu heparin DISPOSITION Was living at home independently Was working for [employer] at [employer] PT OT evaluation requested Expected to be discharged home when medically stable Medicine follow-up at [facility] with Dr. Miguelito Padilla Patient will need to set up for outpatient dialysis Nephrology follow-up with Dr. Mica Stafford Vital Signs: Date Time Temp Pulse Resp B/P (MAP) Pulse Ox O2 Delivery O2 Flow Rate FiO2 01/18/18 15:29 36.5 61 20 167/71 (103) 95 01/18/18 08:00 Room Air 01/18/18 07:47 36.4 60 16 134/57 (82) 90 Room Air 01/18/18 00:00 Room Air 01/18/18 00:00 36.7 61 20 158/69 (98) 93 Room Air 01/17/18 19:48 63 18 151/70 (97) 98 Room Air Lab Results: Results Past 24 Hours Test 01/17/18 20:52 01/18/18 06:33 01/18/18 07:37 01/18/18 11:09 Range/Units Bedside Glucose 201 140 156 70-90 mg/dl White Blood Count 5.66 4.8-10.8 K/uL Red Blood Count 3.08 4.2-5.4 M/uL Hemoglobin 9.4 12.0-16.0 g/dL Hematocrit 27.6 37-47 % Mean Corpuscular Volume 89.6 80-100 fL Mean Corpuscular Hemoglobin 30.5 25-34 pg Mean Corpuscular Hemoglobin Concent 34.1 32-36 g/dl RDW Standard Deviation 44.1 36.4-46.3 fL RDW Coefficient of Variation 13.5 11.5-14.5 % Platelet Count 244 130-400 K/uL Mean Platelet Volume 9.7 7.4-10.4 fL Sodium Level 133 136-145 mmol/L Potassium Level 4.1 3.5-5.1 mmol/L Chloride Level 98 98-107 mmol/L Carbon Dioxide Level 23 21-32 mmol/L Anion Gap 12.0 3-11 mmol/L Blood Urea Nitrogen 119 7-18 mg/dl Creatinine 7.94 0.60-1.20 mg/dl Est Creatinine Clear Calc Drug Dose 6.4 ml/min Estimated GFR () 5.5 Estimated GFR (Non- 4.8 BUN/Creatinine Ratio 14.9 10-20 Random Glucose 134 70-99 mg/dl Calcium Level 8.8 8.5-10.1 mg/dl Iron Level 54 35-150 mcg/dl Transferrin 175 200-360 mg/dl Transferrin % Saturation 22 15-50 % Total Creatine Kinase 212 26-192 U/L Test 01/18/18 16:30 Range/Units Bedside Glucose 129 70-90 mg/dl
--- NOTE | 2018-01-18 16:34 | Progress Note ---
Progress Note Date of Service Jan 18, 2018. Progress Note ATTENDING NOTE: Updated by nephrology Dr. Mica Thomas Patient is unable to have dialysis today As dialysis nurse attempted fistula with small needle Able to cannulate, but got infiltrated quickly Recommend tunneled dialysis catheter by vascular surgery Spoke with Dr. Solorzano Patient will be kept n.p.o. past midnight For vascular procedure/tunneled dialysis catheter placement tomorrow 01/19/2018
--- NOTE | 2018-01-18 20:12 | Infectious Disease Progress Nt ---
Progress Note Date of Service Jan 18, 2018. Subjective Pt evaluation today including: conversation w/ patient, physical exam, chart review, lab review, review of studies, conversation w/ insurance healthcare consultant, review of inpatient medication list Patient offers no new complaints today. Remains afebrile. Status post amputation of left great toe. All Other Systems: Reviewed and Negative Medications Current Inpatient Medications Medications (Trade) Dose Ordered Sig/Ewelina Route Start Time Stop Time Status Last Admin Dose Admin Acetaminophen (Tylenol Tab) 650 mg Q4H PRN PO 01/06/18 04:45 02/05/18 04:44 01/14/18 17:12 650 MG Miscellaneous (Iv Fluids Completed) 1 ea PRN PRN N/A 01/06/18 04:45 01/06/19 04:44 Clonidine HCl (Catapres Tab) 0.1 mg Q6H PRN PO 01/06/18 05:00 02/05/18 04:59 01/17/18 15:57 0.1 MG Insulin Aspart (novoLOG ASPART) SLIDING SCALE If C... ACHS SC 01/06/18 07:00 02/05/18 06:59 01/18/18 17:10 1 UNITS Glucose (Glucose 40% Gel) 15-30 GRAMS 15 GRAMS... UD PRN PO 01/06/18 05:45 02/05/18 05:44 Glucose (Glucose Chew Tab) 4-8 Tablets 4 Tabl... UD PRN PO 01/06/18 05:45 02/05/18 05:44 Dextrose (Dextrose 50% 50ML Syringe) 25-50ML 25ML FOR ... UD PRN IV 01/06/18 05:45 02/05/18 05:44 Glucagon (Glucagon Inj) 1 mg UD PRN SQ 01/06/18 05:45 02/05/18 05:44 Carbohydrates (Carbohydrates For Hypoglycemia) 15-30 GRAMS 15 grams if BSG 54-69... UD PRN PO 01/06/18 05:45 02/05/18 05:44 Albuterol (Ventolin Hfa Inhaler) 2 puffs Q4H PRN INH 01/06/18 05:45 02/05/18 05:44 Atorvastatin Calcium (Lipitor Tab) 40 mg DAILY PO 01/06/18 09:00 02/05/18 08:59 Future hold 01/12/18 08:11 40 MG Calcitriol (Rocaltrol Cap) 0.25 mcg MoWeFr@0900 PO 01/07/18 09:00 02/06/18 08:59 01/14/18 08:19 0.25 MCG Carvedilol (Coreg Tab) 25 mg BID PO 01/06/18 09:00 02/05/18 08:59 01/18/18 08:31 25 MG Fluticasone Propionate (Flonase Nasal [place]) 1 sprays DAILY JOE 01/06/18 09:00 02/05/18 08:59 01/18/18 08:24 1 SPRAYS Latanoprost (Xalatan Oph Soln) 1 drops HS OP 01/06/18 21:00 02/05/18 20:59 01/17/18 20:58 1 DROPS Cholecalciferol (Vitamin D Tab) 5,000 inter.unit QAM PO 01/06/18 09:00 02/05/18 08:59 01/18/18 08:31 5,000 INTER.UNIT Hydralazine HCl (Apresoline Tab) 100 mg BID PO 01/06/18 09:00 02/05/18 08:59 01/18/18 08:31 100 MG Daptomycin 300 mg/ Syringe 6 ml @ 3 mls/min Q48H IV 01/08/18 10:30 02/19/18 10:29 01/18/18 09:56 3 MLS/MIN Daptomycin (Consult) 1 ea UD PRN N/A 01/08/18 10:15 02/07/18 10:14 Polyethylene (Miralax Powder Packet) 17 gm BID PO 01/08/18 21:00 02/07/18 20:59 01/18/18 08:25 17 GM Docusate Sodium (coLACE CAP) 100 mg BID PO 01/08/18 21:00 02/07/18 20:59 01/18/18 08:24 100 MG Menthol (Nice Alejandrina) 1 alejandrina PRN PRN ALEJANDRINA 01/10/18 22:00 02/09/18 21:59 Acetaminophen/ Hydrocodone Bitart ([place] 10/325 Tab) 1 tab Q4H PRN PO 01/12/18 14:00 01/20/18 08:59 01/18/18 14:01 1 TAB Patiromer (Veltassa) 16.8 gm BID@0900,1700 PO 01/14/18 09:00 02/13/18 08:59 01/18/18 17:05 8.4 GM Calcium Carbonate (Tums Chew Tab) 500 mg Q4H PRN PO 01/14/18 19:30 02/13/18 19:29 01/14/18 20:59 500 MG Pantoprazole Sodium (Protonix Tab) 40 mg QAM PO 01/15/18 09:00 01/19/18 08:59 Future Hold 01/16/18 08:02 40 MG Heparin Sodium (Porcine) (Heparin Sq 5000 Unit/0.5ml) 5,000 unit Q12 SQ 01/15/18 09:00 02/14/18 08:59 Future hold 01/18/18 09:58 5,000 UNIT Ondansetron HCl (Zofran Inj) 4 mg Q6H PRN IV 01/16/18 09:45 02/15/18 09:44 01/17/18 10:21 4 MG Hydromorphone HCl (Dilaudid Inj) 0.5 mg Q4H PRN IV 01/16/18 11:00 01/30/18 10:59 01/18/18 15:28 0.5 MG Lorazepam 0.25 mg/ Syringe 0.375 ml @ 0.5 mls/min Q6H PRN IV 01/16/18 11:00 02/15/18 10:59 Furosemide 40 mg/ Syringe 4 ml @ 4 mls/min BID@0900,1600 IV 01/18/18 16:00 02/17/18 15:59 01/18/18 17:05 4 MLS/MIN Objective Vital Signs Date Time Temp Pulse Resp B/P (MAP) Pulse Ox O2 Delivery O2 Flow Rate FiO2 01/18/18 16:00 95 Room Air 01/18/18 15:29 36.5 61 20 167/71 (103) 95 01/18/18 08:00 Room Air 01/18/18 07:47 36.4 60 16 134/57 (82) 90 Room Air 01/18/18 00:00 Room Air 01/18/18 00:00 36.7 61 20 158/69 (98) 93 Room Air Physical Exam General Appearance: WD/WN, no apparent distress Eyes: normal inspection, EOMI, sclerae normal ENT: normal ENT inspection, pharynx normal Neck: supple, no adenopathy, thyroid normal, trachea midline Respiratory/Chest: chest non-tender, lungs clear, normal breath sounds, no respiratory distress Cardiovascular: regular rate, rhythm, no gallop, no murmur Abdomen: normal bowel sounds, non tender, soft, no organomegaly Extremities: non-tender, no calf tenderness, + slow capillary refill Neurologic/Psychiatric: alert, oriented x 3 Skin: normal color, no rash, + pertinent finding (Surgical dressing intact) Lymphatic: no adenopathy Laboratory Results Last 24 Hours Test 01/17/18 20:52 01/18/18 06:33 01/18/18 07:37 01/18/18 11:09 Bedside Glucose 201 mg/dl 140 mg/dl 156 mg/dl White Blood Count 5.66 K/uL Red Blood Count 3.08 M/uL Hemoglobin 9.4 g/dL Hematocrit 27.6 % Mean Corpuscular Volume 89.6 fL Mean Corpuscular Hemoglobin 30.5 pg Mean Corpuscular Hemoglobin Concent 34.1 g/dl RDW Standard Deviation 44.1 fL RDW Coefficient of Variation 13.5 % Platelet Count 244 K/uL Mean Platelet Volume 9.7 fL Sodium Level 133 mmol/L Potassium Level 4.1 mmol/L Chloride Level 98 mmol/L Carbon Dioxide Level 23 mmol/L Anion Gap 12.0 mmol/L Blood Urea Nitrogen 119 mg/dl Creatinine 7.94 mg/dl Est Creatinine Clear Calc Drug Dose 6.4 ml/min Estimated GFR () 5.5 Estimated GFR (Non- 4.8 BUN/Creatinine Ratio 14.9 Random Glucose 134 mg/dl Calcium Level 8.8 mg/dl Iron Level 54 mcg/dl Transferrin 175 mg/dl Transferrin % Saturation 22 % Total Creatine Kinase 212 U/L Test 01/18/18 16:30 Bedside Glucose 129 mg/dl Assessment and Plan (1) Necrosis of toe Status: Acute 67-year-old female with diabetes, peripheral arterial disease, renal failure on dialysis, with chronic osteomyelitis of the left great toe previously on IV dalvabancin. Patient now status post amputation, to continue IV antibiotics until time of discharge when will transition to oral therapy, discussed with hospitalist service. Will follow.
[2018-01-18] MEDS: LATANOPROST 0.005% OP SOLN 2.5 ML BTL OP SCH (20:37)
[2018-01-18 22:42] VITALS: BP 169/65; PULSE 61; TEMP 36.6; O2SAT 95
[2018-01-18] MEDS ORDERED: RANITIDINE HCL 150 MG TAB PO PRN (22:45)
[2018-01-18] MEDS: MoRPHine SULFATE 4 MG/ML 1 ML CARP\\VIAL IV PRN (23:24)
[2018-01-19] VITALS (16 sets, daily range): BP systolic 119–188; BP diastolic 50–82; PULSE 58–90; TEMP 36.4–36.7; O2SAT 92–95
[2018-01-19] MEDS: MoRPHine SULFATE 4 MG/ML 1 ML CARP\\VIAL IV PRN ×5 (03:47→22:01)
[2018-01-19] MEDS ORDERED: EPOETIN ALFA 10,000 UNITS/ML VIAL IV. ONE (07:45)
[2018-01-19] MEDS: ONDANSETRON INJ 2 MG/ML 2 ML VIAL IV PRN (08:23)
[2018-01-19] MEDS: INSULIN ASPART 100 UNITS/ML 3 ML PEN SC SCH ×4 (08:25→21:00)
[2018-01-19] MEDS ORDERED: MoRPHine SULFATE 4 MG/ML 1 ML CARP\\VIAL IV STA (08:53)
[2018-01-19] MEDS: HEPARIN SOD 5000 UNIT/0.5 ML CARP SQ SCH ×2 (09:00→21:59)
[2018-01-19] MEDS: FUROSEMIDE INJ 40 MG in SYRINGE 0 ML IV SCH ×2 (09:00→16:00)
[2018-01-19] MEDS: PATIROMER PO SCH ×2 (09:00→17:00)
[2018-01-19] MEDS: FLUTICASONE PROPIONATE NA SPR 16 GM BTL NAE SCH (09:00)
[2018-01-19] MEDS: ATORVASTATIN 20 MG TAB PO SCH (09:00)
[2018-01-19] MEDS: CARVEDILOL 25 MG TAB PO SCH ×2 (09:00→21:54)
[2018-01-19] MEDS: CHOLECALCIFEROL 1000 INTER.UNIT TAB PO SCH (09:00)
[2018-01-19] MEDS: CALCITRIOL 0.25 MCG CAP PO SCH (09:00)
[2018-01-19] MEDS: DOCUSATE SODIUM 100 MG CAP PO SCH ×2 (09:00→21:54)
[2018-01-19] MEDS: POLYETHYLENE (MIRALAX) 17 GM PACK PO SCH ×2 (09:00→21:00)
[2018-01-19 09:18] LABS: CREATININE 7.85 mg/dl (0.60-1.20); POTASSIUM 3.9 mmol/L (3.5-5.1)
[2018-01-19] MEDS ORDERED: MoRPHine SULFATE 4 MG/ML 1 ML CARP\\VIAL ONE (14:40)
--- NOTE | 2018-01-19 15:31 | Progress Note ---
Progress Note Date of Service Jan 19, 2018. Progress Note Patient for a permcath insertion. I have discussed the risks options and benefits of the procedure with the patient. The patient understands the risks options and benefits and agrees to the procedure. I have examined the patient, reviewed the History & Physical and in the interval since the performance of the History & Physical I have noted the following changes of clinical significance: No changes noted
[2018-01-19] MEDS ORDERED: MIDAZOLAM HCL 1 MG/ML 2ML VIAL ONE (15:50)
[2018-01-19] MEDS ORDERED: FENTANYL CITRATE INJ 50 MCG/1 ML 2 ML VIAL ONE (15:50)
[2018-01-19] MEDS ORDERED: HEPARIN SOD (PORCINE) 5000 UNIT/ML 1 ML VIAL ONE (15:50)
--- NOTE | 2018-01-19 15:58 | Pre Sedation Assessment ---
Pre Sedation Assessment General Date of Sedation: Jan 19, 2018. Vital Signs Past 12 Hours Date Time Temp Pulse Resp B/P (MAP) Pulse Ox O2 Delivery O2 Flow Rate FiO2 01/19/18 13:45 36.4 67 18 184/69 (107) 92 Room Air 01/19/18 08:00 Room Air Pre-Sedation Airway Assessment Smoking Status: Former Smoker Hx of Sleep Apnea: No Short Thick Neck: No Thyro-mental Distance: > 3 Finger Breadths Oral Cavity: WNL Mallampati Classification: Class II ASA Classification: Class IV NPO Status Date of Last Intake of Fluids: Jan 19, 2018 Time of Last Intake of Fluids: 0001 Date of Last Intake of Solids: Jan 19, 2018 Time of Last Intake of Solids: 0001 Procedure Planning Contraindications for Sedation: None Current Medications Reviewed: Yes Notes The planned sedation has been discussed with the patient. Informed Consent was obtained. I have identified the patient, determined the appropriateness of sedation and have assessed the patient immediately prior to the procedure. All medicine(s) and interventions are by my order.
[2018-01-19] MEDS ORDERED: MIDAZOLAM HCL 1 MG/ML 2ML VIAL IV ONE (16:17)
[2018-01-19] MEDS ORDERED: FENTANYL CITRATE INJ 50 MCG/1 ML 2 ML VIAL IV ONE (16:17)
[2018-01-19] MEDS ORDERED: LIDOCAINE HCL 1% 20 ML VIAL INJ ONE (16:20)
[2018-01-19] MEDS ORDERED: HEPARIN SOD (PORCINE) 5000 UNIT/ML 1 ML VIAL IV ONE (16:46)
--- NOTE | 2018-01-19 16:54 | [facility] Post Operative Brief Note ---
Immediate Operative Summary Operative Date Jan 19, 2018. Pre-Operative Diagnosis End Stage Renal Disease Post-Operative Diagnosis End Stage Renal Disease Procedure(s) Performed Perm Catheter Insertion Right Jugular Vein Ultrasound Localization of Right Jugular Vein Fluoroscopy for Positioning Moderate Sedation [id number] Surgeon Solorzano Desktop Publisher Surgeon(s) Scarlet Carlson Estimated Blood Loss 5 Findings Consistent with Post-Op Diagnosis Specimens None Anesthesia Type IV Sedat Cons RN Only Complication(s) none Disposition Accompanied Pt To Recover: no Disposition:
--- NOTE | 2018-01-19 16:54 | Post Sedation Assessment ---
Post Sedation Assessment General Date of Sedation Jan 19, 2018. Vital Signs: Vital Signs Past 12 Hours Date Time Temp Pulse Resp B/P (MAP) Pulse Ox O2 Delivery O2 Flow Rate FiO2 01/19/18 13:45 36.4 67 18 184/69 (107) 92 Room Air 01/19/18 08:00 Room Air Post Procedure Recovery Score Activity: (2) Moves 4 extremities * Respiration: (2) Deep breath/cough Circulation: (2) +/-20% PreAnes Value Consciousness: (2) Fully Awake Oxygen Saturation: (1) O2 needed for >90% Post Anesthesia Score: 9 Discharge Sedation Level of Care: Fast Track Phase II Post Sedation Plan On clinical assessment, the patient appears to have tolerated the sedation without complications. Patient is recovering as anticipated. Patient will continue to be monitored by nursing and may be discharged when sedation discharge criteria are met per below protocol. Upon Completions of procedure and additional 15 minutes continue every 5 minute vital signs and the P.A.R. score; then discharge to a Phase I or Fast Track to Phase II per the following guidelines: * Discharge Patient to appropriate Phase II area if PAR is 8 or greater or return to pre- procedure baseline. The post - procedure orders will be as directed. * If PAR score is less than 8 or not return to pre-procedure baseline then patient will follow Phase I monitoring till PAR is reached for Phase II. The Phase I may be done in procedure room or may call to secure a Phase I area. * If naloxone or flumazenil are used for reversal, hold in Phase I for an additional 60 -120 minutes before discharge to Phase II. Please call the Sedation Physician to re-evaluate and complete post-note for discharge to Phase II area. Do NOT discharge from procedure sedation or Phase 1 until post- sedation evaluation note is complete by procedure /sedation MD Sedation Discharge Instructions to be given to the patient at discharge to home.
--- NOTE | 2018-01-19 17:04 | [facility] Operative Report ---
Operative Report Operative Date Jan 19, 2018. Pre-Operative Diagnosis End Stage Renal Disease Post-Operative Diagnosis End Stage Renal Disease Procedure(s) Performed Perm Catheter Insertion Right Jugular Vein Ultrasound Localization of Right Jugular Vein Fluoroscopy for Positioning Moderate Sedation [id number] Surgeon Solorzano Licensed Plumber Surgeon(s) Corazon Cheung, Fellow Estimated Blood Loss 5 Specimens None Anesthesia Type Local Complication(s) none Disposition no Indications Ms. Lu is a 67-year-old woman with ESRD who previously had a left arm fistula placed, however it has not yet matured and, when access was attempted, it infiltrated. She therefore needed a tunneled dialysis catheter for temporary hemodialysis. Description of Procedure The patient was taken to the angio suite and placed in the supine position. The right side of the neck and chest wall were prepped and draped in a sterile manner. Local anesthesia was then accomplished. Ultrasound-guided access to the internal jugular (IJ) vein was accomplished. A wire was advanced and under fluoroscopy noted to be in the SVC. A skin mc was made over the needle to enlarge the IJ access site. A small incision was then made on the chest wall and the metal trocar with the PermCath was advanced from the chest wall incision subcutaneously to the IJ incision. Serial dilation was done over the wire and the peel-away sheath was then inserted. The catheter was threaded through the sheath. A final fluoroscopic image was performed and showed the catheter in good position. The ports were flushed with saline and then instilled with heparin solution. The vein was patent. The port was sewn to the skin using a 3-0 nylon and the IJ access site was closed with a 3-0 Vicryl and Dermabond. The patient left the angio suite in good condition and tolerated the procedure well. Dr. Solorzano was present for all critical portions of the case. I attest to the content of the Intraoperative Record and any orders documented therein. Any exceptions are noted below.
--- NOTE | 2018-01-19 17:27 | Progress Note ---
Internal Med Progress Note Date of Service: Jan 19, 2018. Provider Documentation: SUBJECTIVE: Status post right internal jugular vein tunneled catheter placement today she denies of any pain or discomfort that area Very anxious and tearful worried about starting on dialysis Scheduled to have dialysis later this evening OBJECTIVE: Vital Signs-as noted below Exam: General-chronically ill appearing female, no apparent distress Eyes-sclera nonicteric pupils bilateral equal reactive to light extraocular muscles intact ENT-moist oral mucosa Neck-no JVD, no carotid bruit, no thyromegaly, trachea midline Lungs-clear to auscultate, no wheeze or rales Heart-regular S1 and S2 no murmur gallop Abdomen-soft nontender Extremities-dialysis catheter on right small, surrounding bleeding postoperative day no hematoma palpated status post left great toe amputation, bandage present, no drainage noted Neuro-no focal neurological deficit Psych-alert awake oriented 3, flat affect Lymph nodes-no lymphadenopathy Lab data as noted below. ASSESSMENT & PLAN: DIABETIC FOOT/ GANGRENE/OSTEOMYELITIS OF LEFT GREAT TOE: -Status post amputation of left great toe by Dr. Solorzano on 01/17/18 -Recovering well postop -Appreciate evaluation by vascular surgery TRU ON CKD stage V -CKD stage V with baseline creatinine approximately 5 Worsening of creatinine more than 7-leading to TRU Possible secondary to contrast exposure for left lower extremity angiography Appreciate input from nephrology Patient already have AV fistula Was scheduled for dialysis today Unable to cannulate AV fistula/got infiltrated even with smallest needle -Nephrology recommends tunneled dialysis catheter Vascular surgery updated S/P Perm Catheter Insertion Right Jugular Vein-followed by scheduled dialysis today Social service consulted To arrange outpatient dialysis ACUTE BLOOD LOSS ANEMIA Secondary to recent angioplasty of the left lower extremity leading to postop hematoma/blood loss Hemoglobin was 5 at [facility] Status post total of 4 units of PRBC transfusion Hemoglobin remained stable at 9 HISTORY OF CAD -No active anginal symptom-continue on Coreg Aspirin and Plavix on hold-secondary to left thigh hematoma/acute blood loss anemia continue to hold for-scheduled tunneled catheter placement tomorrow PERIPHERAL VASCULAR DISEASE Status post recent angioplasty of left lower extremity in [facility] Postoperative complication of left lower extremity, leading to acute blood loss anemia aspirin and Plavix on hold TYPE 2 DIABETES Hemoglobin A1c 5.9 Insulin sliding scale Hold oral agents during hospital stay HYPERTENSION BP elevated Continue on Coreg and hydralazine IV Lasix 40 mg twice daily CODE STATUS: Full code DVT PROPHYLAXIS Subcu heparin DISPOSITION Was living at home independently Was working for [employer] at [employer] OT evaluation requested Expected to be discharged home when medically stable Medicine follow-up at [facility] with Dr. Miguelito Padilla Patient will need to set up for outpatient dialysis Nephrology follow-up with Dr. Mica Stafford Vital Signs: Date Time Temp Pulse Resp B/P (MAP) Pulse Ox O2 Delivery O2 Flow Rate FiO2 01/21/18 07:06 36.5 64 16 155/63 (93) 95 Room Air 01/21/18 00:00 36.8 61 18 133/63 (86) 91 Room Air 01/21/18 00:00 Room Air 01/20/18 20:06 80 01/20/18 20:06 187/74 (111) 01/20/18 16:00 Room Air 01/20/18 14:52 36.6 67 20 151/70 (97) 97 01/20/18 13:42 36.7 69 154/48 (83) 01/20/18 13:22 70 150/48 01/20/18 13:15 69 124/56 01/20/18 13:00 60 132/56 01/20/18 12:45 66 127/56 01/20/18 12:30 69 147/63 01/20/18 12:15 83 141/66 01/20/18 12:00 69 133/64 01/20/18 11:30 69 147/63 01/20/18 11:30 50 147/63 01/20/18 11:15 69 145/71 01/20/18 11:15 69 141/66 01/20/18 11:00 69 145/71 01/20/18 11:00 83 141/66 01/20/18 10:45 66 117/56 01/20/18 10:30 66 141/66 01/20/18 10:15 37.0 69 148/68 (94) Lab Results: Results Past 24 Hours Test 01/20/18 14:02 01/20/18 16:08 01/20/18 20:21 01/21/18 07:35 Range/Units Hepatitis B Surface Antibody NEG Bedside Glucose 170 235 116 70-90 mg/dl Test 01/21/18 08:16 Range/Units
--- NOTE | 2018-01-19 17:47 | Nephrology Progress Note ---
Nephrology Progress Note Date of Service: Jan 19, 2018. Subjective seen on rounds this am about 10; c/o severe toe swelling/pain at amputation site ; +N no emesis; fatigued; no sob. Objective Date Time Temp Pulse Resp B/P (MAP) Pulse Ox O2 Delivery O2 Flow Rate FiO2 01/19/18 17:10 36.4 63 18 182/76 (111) 95 Room Air 01/19/18 16:54 66 15 184/75 96 Room Air 01/19/18 16:49 64 13 178/78 100 Oxymask 4 01/19/18 16:47 63 13 178/78 100 Oxymask 4 01/19/18 16:42 63 12 167/79 100 Oxymask 4 01/19/18 16:37 62 15 158/75 100 Oxymask 4 01/19/18 16:32 60 11 141/80 100 Oxymask 4 01/19/18 16:27 61 11 161/80 100 Oxymask 4 01/19/18 16:22 61 12 212/107 100 Oxymask 4 01/19/18 16:17 64 14 212/107 100 Oxymask 4 01/19/18 16:15 69 20 221/96 100 Oxymask 4 01/19/18 13:45 36.4 67 18 184/69 (107) 92 Room Air 01/19/18 08:00 Room Air 01/19/18 00:00 Room Air 01/18/18 22:42 36.6 61 16 169/65 (99) 95 Room Air Physical Exam: General-A& 0 x 3, nad, on RA Eyes-eomi ENT-mmm Neck-supple Lungs-diminished BL bases Heart-RRR Abdomen-soft nondistended bowel sounds+ Extremities- trace -1+ edema L>RLE, left forearm AV fistula with thrill and bruit. L great toe bandaged Neuro-fluent speech, maneuvers readily for exam, no focal neurological deficits Current Inpatient Medications Medications (Trade) Dose Ordered Sig/Ewelina Route Start Time Stop Time Status Last Admin Dose Admin Acetaminophen (Tylenol Tab) 650 mg Q4H PRN PO 01/06/18 04:45 02/05/18 04:44 01/14/18 17:12 650 MG Miscellaneous (Iv Fluids Completed) 1 ea PRN PRN N/A 01/06/18 04:45 01/06/19 04:44 Clonidine HCl (Catapres Tab) 0.1 mg Q6H PRN PO 01/06/18 05:00 02/05/18 04:59 01/17/18 15:57 0.1 MG Insulin Aspart (novoLOG ASPART) SLIDING SCALE If C... ACHS SC 01/06/18 07:00 02/05/18 06:59 01/18/18 17:10 1 UNITS Glucose (Glucose 40% Gel) 15-30 GRAMS 15 GRAMS... UD PRN PO 01/06/18 05:45 02/05/18 05:44 Glucose (Glucose Chew Tab) 4-8 Tablets 4 Tabl... UD PRN PO 01/06/18 05:45 02/05/18 05:44 Dextrose (Dextrose 50% 50ML Syringe) 25-50ML 25ML FOR ... UD PRN IV 01/06/18 05:45 02/05/18 05:44 Glucagon (Glucagon Inj) 1 mg UD PRN SQ 01/06/18 05:45 02/05/18 05:44 Carbohydrates (Carbohydrates For Hypoglycemia) 15-30 GRAMS 15 grams if BSG 54-69... UD PRN PO 01/06/18 05:45 02/05/18 05:44 Albuterol (Ventolin Hfa Inhaler) 2 puffs Q4H PRN INH 01/06/18 05:45 02/05/18 05:44 Atorvastatin Calcium (Lipitor Tab) 40 mg DAILY PO 01/06/18 09:00 02/05/18 08:59 Future hold 01/12/18 08:11 40 MG Calcitriol (Rocaltrol Cap) 0.25 mcg MoWeFr@0900 PO 01/07/18 09:00 02/06/18 08:59 01/14/18 08:19 0.25 MCG Carvedilol (Coreg Tab) 25 mg BID PO 01/06/18 09:00 02/05/18 08:59 01/18/18 20:38 25 MG Fluticasone Propionate (Flonase Nasal [place]) 1 sprays DAILY JOE 01/06/18 09:00 02/05/18 08:59 01/18/18 08:24 1 SPRAYS Latanoprost (Xalatan Oph Soln) 1 drops HS OP 01/06/18 21:00 02/05/18 20:59 01/17/18 20:58 1 DROPS Cholecalciferol (Vitamin D Tab) 5,000 inter.unit QAM PO 01/06/18 09:00 02/05/18 08:59 01/18/18 08:31 5,000 INTER.UNIT Hydralazine HCl (Apresoline Tab) 100 mg BID PO 01/06/18 09:00 02/05/18 08:59 01/18/18 20:37 100 MG Daptomycin 300 mg/ Syringe 6 ml @ 3 mls/min Q48H IV 01/08/18 10:30 02/19/18 10:29 01/18/18 09:56 3 MLS/MIN Daptomycin (Consult) 1 ea UD PRN N/A 01/08/18 10:15 02/07/18 10:14 Polyethylene (Miralax Powder Packet) 17 gm BID PO 01/08/18 21:00 02/07/18 20:59 01/18/18 08:25 17 GM Docusate Sodium (coLACE CAP) 100 mg BID PO 01/08/18 21:00 02/07/18 20:59 01/18/18 20:38 100 MG Menthol (Nice Alejandrina) 1 alejandrina PRN PRN ALEJANDRINA 01/10/18 22:00 02/09/18 21:59 Acetaminophen/ Hydrocodone Bitart ([place] 10/325 Tab) 1 tab Q4H PRN PO 01/12/18 14:00 01/20/18 08:59 01/18/18 20:38 1 TAB Patiromer ([place]) 16.8 gm BID@0900,1700 PO 01/14/18 09:00 02/13/18 08:59 01/18/18 17:05 8.4 GM Calcium Carbonate (Tums Chew Tab) 500 mg Q4H PRN PO 01/14/18 19:30 02/13/18 19:29 01/14/18 20:59 500 MG Heparin Sodium (Porcine) (Heparin Sq 5000 Unit/0.5ml) 5,000 unit Q12 SQ 01/15/18 09:00 02/14/18 08:59 Future hold 01/18/18 09:58 5,000 UNIT Ondansetron HCl (Zofran Inj) 4 mg Q6H PRN IV 01/16/18 09:45 02/15/18 09:44 01/19/18 08:23 4 MG Lorazepam 0.25 mg/ Syringe 0.375 ml @ 0.5 mls/min Q6H PRN IV 01/16/18 11:00 02/15/18 10:59 Furosemide 40 mg/ Syringe 4 ml @ 4 mls/min BID@0900,1600 IV 01/18/18 16:00 02/17/18 15:59 01/18/18 17:05 4 MLS/MIN Ranitidine HCl (zANTac TAB) 150 mg BID PRN PO 01/18/18 22:45 02/17/18 22:44 01/18/18 23:24 150 MG Morphine Sulfate (MoRPHine SULFATE INJ) 3 mg Q3HWA PRN IV 01/18/18 23:00 02/01/18 22:59 01/19/18 13:23 3 MG Last 24 Hours Test 01/18/18 20:23 01/19/18 07:56 01/19/18 08:10 01/19/18 11:53 Bedside Glucose 145 mg/dl 116 mg/dl 126 mg/dl Sodium Level 131 mmol/L Potassium Level 3.9 mmol/L Chloride Level 97 mmol/L Carbon Dioxide Level 23 mmol/L Anion Gap 11.0 mmol/L Blood Urea Nitrogen 122 mg/dl Creatinine 7.85 mg/dl Est Creatinine Clear Calc Drug Dose 6.4 ml/min Estimated GFR () 5.6 Estimated GFR (Non- 4.8 BUN/Creatinine Ratio 15.6 Random Glucose 111 mg/dl Calcium Level 9.0 mg/dl Test 01/19/18 17:06 Bedside Glucose 107 mg/dl Assessment & Plan 67 y/o F w/ CKD 5 not on dialysis, 01/04/18 LLE angioplasty at OSH, DM, CAD, HTN , on IV abtx for L great toe ostemyelitis transferred 01/06 from [facility] ER where she presented w/ hgb 5.2 and creatinine 5.7. She had multiple units pRBC; she has improving L groin hematoma. ESRD not on dialysis w/ recently worsened renal function>> had previously had creatinine about 5 since late 2016. has avf but not maturing well/ infiltrated -attempt HD today after TDC placement if out of OR by 4 PM -plan HD daily x 3 days -- once she actually starts ok to start admission to outpt dialysis unit -cont D3/calcitriol -chemistries currently acceptable and as below -K improved on veltassa Hyponatremia -reflects volume overload most likely; mild HTN -pls ensure her meds have hold parameters -lasix IV on hold; coreg and hydralazine being continued currently Acute anemia resolved; also w/ multifactorial chronic anemia from ESRD, from prolonged aBTX -transfuse prn -CARISSA w/ HD L toe osteomyelitis > s/p 01/17 amputation appreciate consult; will follow with you
[2018-01-19] MEDS ORDERED: CLONIDINE HCL 0.1 MG TAB PO PRN (19:45)
[2018-01-19] MEDS: LATANOPROST 0.005% OP SOLN 2.5 ML BTL OP SCH (21:00)
[2018-01-20] VITALS (18 sets, daily range): BP systolic 117–187; BP diastolic 48–74; PULSE 50–83; TEMP 36.6–37; O2SAT 95–97
[2018-01-20] MEDS: MoRPHine SULFATE 4 MG/ML 1 ML CARP\\VIAL IV PRN ×6 (01:15→23:41)
[2018-01-20] MEDS: ONDANSETRON INJ 2 MG/ML 2 ML VIAL IV PRN (06:45)
[2018-01-20 06:57] LABS: CREATININE 5.81 mg/dl (0.60-1.20)
[2018-01-20 06:58] LABS: CALCIUM 8.2 mg/dl (8.5-10.1)
[2018-01-20] MEDS: POLYETHYLENE (MIRALAX) 17 GM PACK PO SCH ×2 (08:27→20:02)
[2018-01-20] MEDS: PATIROMER PO SCH ×2 (08:28→17:00)
[2018-01-20] MEDS: FLUTICASONE PROPIONATE NA SPR 16 GM BTL NAE SCH (08:29)
[2018-01-20] MEDS: FUROSEMIDE INJ 40 MG in SYRINGE 0 ML IV SCH ×2 (08:29→16:44)
[2018-01-20] MEDS: CHOLECALCIFEROL 1000 INTER.UNIT TAB PO SCH (08:30)
[2018-01-20] MEDS: ATORVASTATIN 20 MG TAB PO SCH (08:30)
[2018-01-20] MEDS: CARVEDILOL 25 MG TAB PO SCH ×2 (08:30→20:23)
[2018-01-20] MEDS: DOCUSATE SODIUM 100 MG CAP PO SCH ×2 (08:30→20:24)
[2018-01-20] MEDS: INSULIN ASPART 100 UNITS/ML 3 ML PEN SC SCH ×4 (08:31→20:28)
[2018-01-20] MEDS: HEPARIN SOD 5000 UNIT/0.5 ML CARP SQ SCH ×2 (08:37→20:10)
[2018-01-20] MEDS: DAPTOmycin IV 300 MG in SYRINGE 0 ML IV SCH (09:41)
--- NOTE | 2018-01-20 14:29 | PROGRESS NOTE ---
DATE: 01/20/2018 DIALYSIS NOTE SUBJECTIVE: Patient was seen during dialysis earlier today at 10:00 a.m. She was complaining of severe toe pain at the amputation site. Dialysis catheter is working fine. She denied any nausea, vomiting, chest pain or shortness of breath. OBJECTIVE: VITAL SIGNS: Blood pressure 124/56, pulse rate 69 per minute. HEENT: Mucous membrane is moist. NECK: Supple. LUNGS: Diminished bilateral bases. CARDIOVASCULAR: Regular rate and rhythm. ABDOMEN: Soft, nondistended. EXTREMITIES: Show trace edema, left more than right lower extremity. Left forearm AV fistula with thrill and bruit. Left great toe bandaged. LABORATORY TESTS: From this morning reviewed. Hemoglobin 9.4, WBC count 5.66, BUN 71, creatinine 5.81. Sodium 135, potassium 4.0. ASSESSMENT AND PLAN: A 67-year-old female with chronic kidney disease V, previously was not on dialysis but has been started on chronic maintenance hemodialysis from yesterday. On 01/04/2018 she had a left lower extremity angioplasty at outside hospital and also has diabetes, coronary artery disease, hypertension, came in with great toe osteomyelitis as a transfer from [facility] emergency room where she presented with a hemoglobin of 5.2 and a creatinine of 5.7. The severe anemia was from large hematoma in the left groin where she had an angioplasty access. 1. End-stage renal disease. At this time, she has officially progressed from chronic kidney disease V to end-stage renal disease. Her renal function is not going to get better as this is end-stage renal disease and will be continued on chronic maintenance hemodialysis even as an outpatient. We will do 3 hours of dialysis today. She had 2 hours yesterday. Most likely, she will have another dialysis tomorrow and after that she will have outpatient dialysis when she is discharged. 2. Hyponatremia is a reflection of volume overload and end-stage renal disease. 3. Hypertension. Blood pressure will get better eventually now that she is on dialysis. [facility]
[2018-01-20] MEDS ORDERED: DAPTOMYCIN IV ONE (17:00)
--- NOTE | 2018-01-20 18:42 | Progress Note ---
Internal Med Progress Note Date of Service: Jan 20, 2018. Provider Documentation: SUBJECTIVE: Status post dialysis today, Overall does not feel any different Appetite remains poor, persistent generalized weakness complaints of severe toe pain at the amputation site Newly placed tunneled dialysis catheter working fine No fever or chills, OBJECTIVE: Vital Signs-as noted below Exam: General-chronically ill appearing female, no apparent distress Eyes-sclera nonicteric pupils bilateral equal reactive to light extraocular muscles intact ENT-moist oral mucosa Neck-no JVD, no carotid bruit, no thyromegaly, trachea midline Lungs-clear to auscultate, no wheeze or rales Heart-regular S1 and S2 no murmur gallop Abdomen-soft nontender Extremities-dialysis catheter on right small, surrounding bleeding postoperative day no hematoma palpated status post left great toe amputation, bandage present, no drainage noted, Left arm AV fistula with positive thrill and bruit Neuro-no focal neurological deficit Psych-alert awake oriented 3, flat affect Lymph nodes-no lymphadenopathy Lab data as noted below. ASSESSMENT & PLAN: DIABETIC FOOT/ GANGRENE/OSTEOMYELITIS OF LEFT GREAT TOE: history of chronic osteomyelitis of left great toe-previously treated on IV Dalvance -Status post amputation of left great toe by Dr. Solorzano on 01/17/18 -Recovering well postop -Appreciate input from ID On IV daptomycin Plan to transition to oral therapy before discharge TRU ON CKD stage V -CKD stage V with baseline creatinine approximately 5 Worsening of creatinine more than 7-leading to TRU Possible secondary to contrast exposure for left lower extremity angiography Appreciate input from nephrology Patient already have AV fistula S/P Perm Catheter Insertion Right Jugular Vein Patient had 2 hours of dialysis yesterday Scheduled to have 3 more hours of dialysis today Appreciate input from nephrology Plan to have 1 more treatment of dialysis tomorrow Then discharged home with arrangements of outpatient dialysis treatment Social service consulted To arrange outpatient dialysis ACUTE BLOOD LOSS ANEMIA Secondary to recent angioplasty of the left lower extremity leading to postop hematoma/blood loss Hemoglobin was [address] [facility] Status post total of 4 units of PRBC transfusion Hemoglobin remained stable at 9 HISTORY OF CAD -No active anginal symptom-continue on Coreg Aspirin and Plavix on hold-secondary to left thigh hematoma/acute blood loss anemia continue to hold for-scheduled tunneled catheter placement tomorrow PERIPHERAL VASCULAR DISEASE Status post recent angioplasty of left lower extremity in [facility] Postoperative complication of left lower extremity, leading to acute blood loss anemia aspirin and Plavix -be resumed on discharge TYPE 2 DIABETES Hemoglobin A1c 5.9 Insulin sliding scale Hold oral agents during hospital stay HYPERTENSION Blood pressure improved after dialysis Continue on Coreg and hydralazine IV Lasix 40 mg twice daily CODE STATUS: Full code DVT PROPHYLAXIS Subcu heparin DISPOSITION Was living at home independently Was working for [employer] OT evaluation requested Expected to be discharged home when medically stable Medicine follow-up at [facility] with Dr. Miguelito Padilla Patient will need to set up for outpatient dialysis Nephrology follow-up with Dr. Mica Stafford Vital Signs: Date Time Temp Pulse Resp B/P (MAP) Pulse Ox O2 Delivery O2 Flow Rate FiO2 01/21/18 16:00 Room Air 01/21/18 15:57 36.6 63 18 170/67 (101) 98 Room Air 01/21/18 12:08 36.9 65 173/67 (102) 01/21/18 12:00 64 157/70 01/21/18 11:45 64 154/69 01/21/18 11:30 64 160/65 01/21/18 11:15 66 143/65 01/21/18 11:00 62 134/84 01/21/18 10:45 68 163/65 01/21/18 10:30 65 140/63 01/21/18 10:15 71 149/65 01/21/18 10:00 71 156/65 01/21/18 09:45 64 139/58 01/21/18 09:30 64 137/64 01/21/18 09:15 65 134/60 01/21/18 09:00 36.9 65 151/61 (91) 01/21/18 08:00 Room Air 01/21/18 07:06 36.5 64 16 155/63 (93) 95 Room Air 01/21/18 00:00 36.8 61 18 133/63 (86) 91 Room Air 01/21/18 00:00 Room Air 01/20/18 20:06 80 01/20/18 20:06 187/74 (111) Lab Results: Results Past 24 Hours Test 01/20/18 20:21 01/21/18 07:35 01/21/18 08:16 01/21/18 12:19 Range/Units Bedside Glucose 235 116 116 70-90 mg/dl Sodium Level 134 136-145 mmol/L Potassium Level 3.3 3.5-5.1 mmol/L Chloride Level 98 98-107 mmol/L Carbon Dioxide Level 28 21-32 mmol/L Anion Gap 8.0 3-11 mmol/L Blood Urea Nitrogen 47 7-18 mg/dl Creatinine 4.20 0.60-1.20 mg/dl Est Creatinine Clear Calc Drug Dose 11.8 ml/min Estimated GFR () 11.9 Estimated GFR (Non- 10.3 BUN/Creatinine Ratio 11.2 10-20 Random Glucose 116 70-99 mg/dl Calcium Level 8.8 8.5-10.1 mg/dl Test 01/21/18 16:43 Range/Units Bedside Glucose 163 70-90 mg/dl
--- NOTE | 2018-01-20 20:06 | Infectious Disease Progress Nt ---
Progress Note Date of Service Jan 20, 2018. Subjective Pt evaluation today including: conversation w/ patient, physical exam, chart review, lab review, review of studies, conversation w/ systems development consultant, review of inpatient medication list Patient is status post dialysis. No new specific complaints. Remains afebrile. All Other Systems: Reviewed and Negative Medications Current Inpatient Medications Medications (Trade) Dose Ordered Sig/Ewelina Route Start Time Stop Time Status Last Admin Dose Admin Acetaminophen (Tylenol Tab) 650 mg Q4H PRN PO 01/06/18 04:45 02/05/18 04:44 01/14/18 17:12 650 MG Miscellaneous (Iv Fluids Completed) 1 ea PRN PRN N/A 01/06/18 04:45 01/06/19 04:44 Insulin Aspart (novoLOG ASPART) SLIDING SCALE If C... ACHS SC 01/06/18 07:00 02/05/18 06:59 01/18/18 17:10 1 UNITS Glucose (Glucose 40% Gel) 15-30 GRAMS 15 GRAMS... UD PRN PO 01/06/18 05:45 02/05/18 05:44 Glucose (Glucose Chew Tab) 4-8 Tablets 4 Tabl... UD PRN PO 01/06/18 05:45 02/05/18 05:44 Dextrose (Dextrose 50% 50ML Syringe) 25-50ML 25ML FOR ... UD PRN IV 01/06/18 05:45 02/05/18 05:44 Glucagon (Glucagon Inj) 1 mg UD PRN SQ 01/06/18 05:45 02/05/18 05:44 Carbohydrates (Carbohydrates For Hypoglycemia) 15-30 GRAMS 15 grams if BSG 54-69... UD PRN PO 01/06/18 05:45 02/05/18 05:44 Albuterol (Ventolin Hfa Inhaler) 2 puffs Q4H PRN INH 01/06/18 05:45 02/05/18 05:44 Atorvastatin Calcium (Lipitor Tab) 40 mg DAILY PO 01/06/18 09:00 02/05/18 08:59 Future hold 01/20/18 08:30 40 MG Calcitriol (Rocaltrol Cap) 0.25 mcg MoWeFr@0900 PO 01/07/18 09:00 02/06/18 08:59 01/14/18 08:19 0.25 MCG Carvedilol (Coreg Tab) 25 mg BID PO 01/06/18 09:00 02/05/18 08:59 01/20/18 08:30 25 MG Fluticasone Propionate (Flonase Nasal [place]) 1 sprays DAILY JOE 01/06/18 09:00 02/05/18 08:59 01/20/18 08:29 1 SPRAYS Latanoprost (Xalatan Oph Soln) 1 drops HS OP 01/06/18 21:00 02/05/18 20:59 01/17/18 20:58 1 DROPS Cholecalciferol (Vitamin D Tab) 5,000 inter.unit QAM PO 01/06/18 09:00 02/05/18 08:59 01/20/18 08:30 5,000 INTER.UNIT Hydralazine HCl (Apresoline Tab) 100 mg BID PO 01/06/18 09:00 02/05/18 08:59 01/20/18 08:29 100 MG Daptomycin (Consult) 1 ea UD PRN N/A 01/08/18 10:15 02/07/18 10:14 Polyethylene (Miralax Powder Packet) 17 gm BID PO 01/08/18 21:00 02/07/18 20:59 01/18/18 08:25 17 GM Docusate Sodium (coLACE CAP) 100 mg BID PO 01/08/18 21:00 02/07/18 20:59 01/20/18 08:30 100 MG Menthol (Nice Alejandrina) 1 alejandrina PRN PRN ALEJANDRINA 01/10/18 22:00 02/09/18 21:59 Patiromer (Veltassa) 16.8 gm BID@0900,1700 PO 01/14/18 09:00 02/13/18 08:59 01/18/18 17:05 8.4 GM Calcium Carbonate (Tums Chew Tab) 500 mg Q4H PRN PO 01/14/18 19:30 02/13/18 19:29 01/14/18 20:59 500 MG Heparin Sodium (Porcine) (Heparin Sq 5000 Unit/0.5ml) 5,000 unit Q12 SQ 01/15/18 09:00 02/14/18 08:59 Future hold 01/20/18 08:37 5,000 UNIT Ondansetron HCl (Zofran Inj) 4 mg Q6H PRN IV 01/16/18 09:45 02/15/18 09:44 01/20/18 06:45 4 MG Lorazepam 0.25 mg/ Syringe 0.375 ml @ 0.5 mls/min Q6H PRN IV 01/16/18 11:00 02/15/18 10:59 Furosemide 40 mg/ Syringe 4 ml @ 4 mls/min BID@0900,1600 IV 01/18/18 16:00 02/17/18 15:59 01/20/18 16:44 4 MLS/MIN Ranitidine HCl (zANTac TAB) 150 mg BID PRN PO 01/18/18 22:45 02/17/18 22:44 01/18/18 23:24 150 MG Morphine Sulfate (MoRPHine SULFATE INJ) 3 mg Q3HWA PRN IV 01/18/18 23:00 02/01/18 22:59 01/20/18 16:44 3 MG Clonidine HCl (Catapres Tab) 0.1 mg Q8H PRN PO 01/19/18 19:45 02/18/18 19:44 Daptomycin 300 mg/ Syringe 6 ml @ 3 mls/min Q2D@1600 IV 01/22/18 16:00 03/05/18 15:59 Objective Vital Signs Date Time Temp Pulse Resp B/P (MAP) Pulse Ox O2 Delivery O2 Flow Rate FiO2 01/20/18 16:00 Room Air 01/20/18 14:52 36.6 67 20 151/70 (97) 97 01/20/18 13:42 36.7 69 154/48 (83) 01/20/18 13:22 70 150/48 01/20/18 13:15 69 124/56 01/20/18 13:00 60 132/56 01/20/18 12:45 66 127/56 01/20/18 12:30 69 147/63 01/20/18 12:15 83 141/66 01/20/18 12:00 69 133/64 01/20/18 11:30 69 147/63 01/20/18 11:30 50 147/63 01/20/18 11:15 69 145/71 01/20/18 11:15 69 141/66 01/20/18 11:00 69 145/71 01/20/18 11:00 83 141/66 01/20/18 10:45 66 117/56 01/20/18 10:30 66 141/66 01/20/18 10:15 37.0 69 148/68 (94) 01/20/18 07:40 Room Air 01/20/18 07:27 36.7 71 20 176/71 (106) 96 Room Air 01/20/18 00:15 36.7 69 20 168/66 (100) 95 Room Air 01/20/18 00:00 Room Air 01/19/18 21:50 90 176/82 (113) 01/19/18 21:40 36.7 65 153/65 (94) 01/19/18 21:15 65 131/55 01/19/18 21:00 65 119/50 01/19/18 20:45 65 126/54 01/19/18 20:30 66 142/60 01/19/18 20:15 63 134/57 Physical Exam General Appearance: WD/WN, no apparent distress Eyes: normal inspection, EOMI, sclerae normal ENT: normal ENT inspection, pharynx normal Neck: supple, no adenopathy, thyroid normal, trachea midline Respiratory/Chest: chest non-tender, lungs clear, normal breath sounds, no respiratory distress Cardiovascular: regular rate, rhythm, no gallop, + systolic murmur Abdomen: normal bowel sounds, non tender, soft, no organomegaly Extremities: non-tender, no calf tenderness Neurologic/Psychiatric: alert, oriented x 3 Skin: normal color, no rash, + pertinent finding (surgical dressing dry) Lymphatic: no adenopathy Laboratory Results Last 24 Hours Test 01/19/18 21:51 01/20/18 05:49 01/20/18 07:18 01/20/18 14:02 Bedside Glucose 158 mg/dl 111 mg/dl Sodium Level 135 mmol/L Potassium Level 4.0 mmol/L Chloride Level 100 mmol/L Carbon Dioxide Level 27 mmol/L Anion Gap 8.0 mmol/L Blood Urea Nitrogen 78 mg/dl Creatinine 5.81 mg/dl Est Creatinine Clear Calc Drug Dose 8.8 ml/min Estimated GFR () 8.0 Estimated GFR (Non- 6.9 BUN/Creatinine Ratio 13.4 Random Glucose 102 mg/dl Calcium Level 8.2 mg/dl Hepatitis B Surface Antibody NEG Test 01/20/18 16:08 Bedside Glucose 170 mg/dl Assessment and Plan (1) Necrosis of toe Status: Acute 67-year-old female with diabetes, peripheral arterial disease, renal failure on dialysis, with chronic osteomyelitis of the left great toe previously on IV dalvabancin. Patient now status post amputation, to continue IV antibiotics until time of discharge when will transition to oral therapy, discussed with hospitalist service. Will follow.
[2018-01-20] MEDS: LATANOPROST 0.005% OP SOLN 2.5 ML BTL OP SCH (20:10)
[2018-01-21] VITALS (19 sets, daily range): BP systolic 133–173; BP diastolic 58–84; PULSE 61–71; TEMP 36.5–37; O2SAT 91–99
[2018-01-21] MEDS: MoRPHine SULFATE 4 MG/ML 1 ML CARP\\VIAL IV PRN ×4 (04:51→23:02)
[2018-01-21] MEDS: INSULIN ASPART 100 UNITS/ML 3 ML PEN SC SCH ×4 (08:23→20:23)
--- NOTE | 2018-01-21 09:05 | Progress Note ---
Progress Note Date of Service: Jan 21, 2018. Subjective 67 yo f with multiple medical problems, seen today in f/u for L great toe amputation and LUE AVF. Pt states pain in L toe is improving. Ambulating with post op shoe. Started HD yesterday through permcath. 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 L great toe amputation site C/D/I with sutures. + local edema, faint erythema, tenderness. Laboratory and Microbiology Results Past 24 Hours Test 01/20/18 14:02 01/20/18 16:08 01/20/18 20:21 01/21/18 07:35 Range/Units Hepatitis B Surface Antibody NEG Bedside Glucose 170 235 116 70-90 mg/dl Test 01/21/18 08:16 Range/Units ASSESSMENT and PLAN: s/p L great toe amputation L great toe gangrene/osteomyelitis ESRD Pt L great toe amp site healing well. Will see 1-2 wks for suture removal. L forearm AVF not matured for use, will plan on eval with fistulagram as outpt. Pt agreeable. Please call if needed.
[2018-01-21 09:11] LABS: CALCIUM 8.8 mg/dl (8.5-10.1); CREATININE 4.2 mg/dl (0.60-1.20); POTASSIUM 3.3 mmol/L (3.5-5.1)
--- NOTE | 2018-01-21 10:15 | PROGRESS NOTE ---
DATE: 01/21/2018 NEPHROLOGY DIALYSIS NOTE SUBJECTIVE: Patient was seen during dialysis, earlier today at around 9:30 a.m. She was complaining of severe toe pain at the amputation site despite getting pain medicine. She is also extremely anxious and jittery and feels almost like in a panic attack. Dialysis catheter is working fine and is able to support blood flow as high as 400. She denies any nausea, vomiting, chest pain or shortness of breath but she does have lower extremity edema. OBJECTIVE: VITAL SIGNS: Blood pressure most recently 155/63, 95% on room air, pulse rate 64, temperature 36.5. HEENT: Mucous membrane is moist. NECK: Supple. No jugular venous distention. CHEST: Diminished bilateral bases, poor inspiratory effort, so poor quality exam. CARDIOVASCULAR: Regular rate and rhythm, 2/6 systolic murmur heard. ABDOMEN: Soft, nondistended. EXTREMITIES: Show trace to 1+ edema, left side more than the right. Left forearm AV fistula does have bruit and thrill. Left great toe bandaged. LABORATORY TESTS: From this morning shows hemoglobin of 9.4, WBC count of 5.6. Platelet 244. Sodium 134, potassium 3.3, BUN 47, creatinine 4.2. ASSESSMENT AND PLAN: A 67-year-old female with chronic kidney disease stage V previously but has been newly started on chronic maintenance hemodialysis during this admission: 1. End-stage renal disease. At this time, she has officially progressed from chronic kidney disease V to end-stage renal disease. She will have to be arranged for outpatient dialysis and will defer this to disability case manager. do 3 hrs, No heparin and do 3K bath and take 1.3 kilo off. Most likely she will get at the [facility] as that is the closest unit to her home and Dr. Mica Thomas will be following her as an outpatient. LANEY
[2018-01-21] MEDS: POLYETHYLENE (MIRALAX) 17 GM PACK PO SCH ×2 (12:28→20:10)
[2018-01-21] MEDS: PATIROMER PO SCH ×2 (12:29→17:03)
[2018-01-21] MEDS: DOCUSATE SODIUM 100 MG CAP PO SCH ×2 (12:31→20:15)
[2018-01-21] MEDS: FLUTICASONE PROPIONATE NA SPR 16 GM BTL NAE SCH (13:01)
[2018-01-21] MEDS: FUROSEMIDE INJ 40 MG in SYRINGE 0 ML IV SCH ×2 (13:01→16:16)
[2018-01-21] MEDS: CHOLECALCIFEROL 1000 INTER.UNIT TAB PO SCH (13:03)
[2018-01-21] MEDS: ATORVASTATIN 20 MG TAB PO SCH (13:03)
[2018-01-21] MEDS: CALCITRIOL 0.25 MCG CAP PO SCH (13:03)
[2018-01-21] MEDS: HEPARIN SOD 5000 UNIT/0.5 ML CARP SQ SCH ×2 (13:07→20:24)
[2018-01-21] MEDS: CARVEDILOL 25 MG TAB PO SCH ×2 (13:09→20:16)
[2018-01-21] MEDS ORDERED: DAPTOMYCIN IV ONE (16:00)
[2018-01-21] MEDS ORDERED: POTASSIUM CHLORIDE 10 MEQ TABCR PO ONE (18:30)
--- NOTE | 2018-01-21 19:10 | Discharge Instructions ---
Discharge Instructions Date of Service Jan 21, 2018. Admission Reason for Admission: Anemia Discharge Discharge Diagnosis / Problem: DIABETIC FOOT INFECTION/END-STAGE RENAL DISEASE ON DIALYSIS Discharge Goals Goal(s): Decrease discomfort, Improve function, Increase independence, Improve disease control, Therapeutic intervention Activity Recommendations Activity Limitations: as noted below (As tolerated , need to be off loading on left foot till evaluated by Dr Gudino) . Instructions / Follow-Up Instructions / Follow-Up HOSPITAL FOLLOW-UP on 02/01/2018 @10:[address] Alan Francois MD Internal Medicine [facility] VASCULAR SURGERY FOLLOW UP WITH DR GUDINO IN 2 WEEKS FOR SUTURE REMOVAL Continue dialysis at [place] [id number] WEDNESDAY/WEDNESDAY /SAT AT 11: 50 AM you next dialysis in on Wednesday01/25/18 please arrive to clinic at 1100 AM Current Hospital Diet Patient's current hospital diet: Renal Diet, Diabetes Type 2 Diet Discharge Diet Recommended Diet: Diabetes Type 2 Diet, Renal Diet Procedures Procedures Performed: Perm Catheter Insertion Right Jugular Vein Ultrasound Localization of Right Jugular Vein Fluoroscopy for Positioning Moderate Sedation 1617- 1654 Pending Studies Studies pending at discharge: no Laboratory Results Hemoglobin A1c Test 01/06/18 05:39 Range/Units Estimated Average Glucose 123 mg/dl Hemoglobin A1c 5.9 H 4.5-5.6 % Work Instructions Additional Instructions: Tayla Lu was admitted to [facility] to 01[facility]22/2018 Had multiple procedures and surgeries Patient will need to be on chronic dialysis 3 times a week: Wednesday//Wednesday Underwent amputation of left great toe for osteomyelitis/diabetic foot wound Will need continued wound care at the amputation site Patient will need at least 2 weeks to established with dialysis treatments and wound care 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 Who to Call and When: Medical Emergencies: If at any time you feel your situation is an emergency, please call 911 immediately. . Non-Emergent Contact Non-Emergency issues call your: Primary Care Provider . . "Provider Documentation" section prepared by Lisa Patel. .
--- NOTE | 2018-01-21 19:26 | Progress Note ---
Internal Med Progress Note Date of Service: Jan 21, 2018. Provider Documentation: SUBJECTIVE: Had dialysis today Feels much better, appetite has improved Continued to complain of pain on the left great toe amputations Evaluated by vascular surgery Surgical wound at left great to appears to be healing well Discussed with ID Patient does not need any continued antibiotic treatment IV daptomycin discontinued OBJECTIVE: Vital Signs-as noted below Exam: General-chronically ill appearing female, no apparent distress Eyes-sclera nonicteric pupils bilateral equal reactive to light extraocular muscles intact ENT-moist oral mucosa Neck-no JVD, no carotid bruit, no thyromegaly, trachea midline Lungs-clear to auscultate, no wheeze or rales Heart-regular S1 and S2 no murmur gallop Abdomen-soft nontender Extremities-dialysis catheter on right chest wall / status post left great toe amputation, bandage present, no drainage noted, Left arm AV fistula with positive thrill and bruit Neuro-no focal neurological deficit Psych-alert awake oriented 3, flat affect Lymph nodes-no lymphadenopathy Lab data as noted below. ASSESSMENT & PLAN: DIABETIC FOOT/ GANGRENE/OSTEOMYELITIS OF LEFT GREAT TOE: history of chronic osteomyelitis of left great toe-previously treated on IV Dalvance -Status post amputation of left great toe by Dr. Solorzano on 01/17/18 -Recovering well postop -Appreciate input from ID Does not need any more antibiotic treatment Follow-up with Dr. Solorzano in 2-3 weeks, suture removal TRU ON CKD stage V -CKD stage V with baseline creatinine approximately 5 Worsening of creatinine more than 7-leading to TRU Possible secondary to contrast exposure for left lower extremity angiography Appreciate input from nephrology Patient already have AV fistula S/P Perm Catheter Insertion Right Jugular Vein Patient had 3 dialysis treatment in hospital Arrangements made for outpatient dialysis-at [facility]- Wednesday//Wednesday-11 AM Plan to discharge home tomorrow ACUTE BLOOD LOSS ANEMIA Secondary to recent angioplasty of the left lower extremity leading to postop hematoma/blood loss Hemoglobin was 5 at [facility] Status post total of 4 units of PRBC transfusion Hemoglobin remained stable at 9 HISTORY OF CAD -No active anginal symptom-continue on Coreg Aspirin and Plavix was on hold-secondary to left thigh hematoma/acute blood loss anemia No bleeding complication, H&H has been stable Aspirin and Plavix will be resumed on discharge PERIPHERAL VASCULAR DISEASE Status post recent angioplasty of left lower extremity in [facility] Postoperative complication of left lower extremity, leading to acute blood loss anemia aspirin and Plavix -will be resumed on discharge TYPE 2 DIABETES Hemoglobin A1c 5.9 Insulin sliding scale Hold oral agents during hospital stay Will be resumed on discharge HYPERTENSION Blood pressure improved after dialysis Continue on Coreg and hydralazine Will DC IV Lasix CODE STATUS: Full code DVT PROPHYLAXIS Subcu heparin DISPOSITION Plan to discharge home tomorrow Medicine follow-up at [facility] with Dr. Miguelito Padilla Arrangements made for outpatient dialysis Nephrology follow-up with Dr. Mica Stafford Vital Signs: Date Time Temp Pulse Resp B/P (MAP) Pulse Ox O2 Delivery O2 Flow Rate FiO2 01/21/18 16:00 Room Air 01/21/18 15:57 36.6 63 18 170/67 (101) 98 Room Air 01/21/18 12:08 36.9 65 173/67 (102) 01/21/18 12:00 64 157/70 01/21/18 11:45 64 154/69 01/21/18 11:30 64 160/65 01/21/18 11:15 66 143/65 01/21/18 11:00 62 134/84 01/21/18 10:45 68 163/65 01/21/18 10:30 65 140/63 01/21/18 10:15 71 149/65 01/21/18 10:00 71 156/65 01/21/18 09:45 64 139/58 01/21/18 09:30 64 137/64 01/21/18 09:15 65 134/60 01/21/18 09:00 36.9 65 151/61 (91) 01/21/18 08:00 Room Air 01/21/18 07:06 36.5 64 16 155/63 (93) 95 Room Air 01/21/18 00:00 36.8 61 18 133/63 (86) 91 Room Air 01/21/18 00:00 Room Air 01/20/18 20:06 80 01/20/18 20:06 187/74 (111) Lab Results: Results Past 24 Hours Test 01/20/18 20:21 01/21/18 07:35 01/21/18 08:16 01/21/18 12:19 Range/Units Bedside Glucose 235 116 116 70-90 mg/dl Sodium Level 134 136-145 mmol/L Potassium Level 3.3 3.5-5.1 mmol/L Chloride Level 98 98-107 mmol/L Carbon Dioxide Level 28 21-32 mmol/L Anion Gap 8.0 3-11 mmol/L Blood Urea Nitrogen 47 7-18 mg/dl Creatinine 4.20 0.60-1.20 mg/dl Est Creatinine Clear Calc Drug Dose 11.8 ml/min Estimated GFR () 11.9 Estimated GFR (Non- 10.3 BUN/Creatinine Ratio 11.2 10-20 Random Glucose 116 70-99 mg/dl Calcium Level 8.8 8.5-10.1 mg/dl Test 01/21/18 16:43 Range/Units Bedside Glucose 163 70-90 mg/dl
[2018-01-21] MEDS: LATANOPROST 0.005% OP SOLN 2.5 ML BTL OP SCH (20:18)
[2018-01-22] MEDS: MoRPHine SULFATE 4 MG/ML 1 ML CARP\\VIAL IV PRN ×2 (05:50→10:12)
[2018-01-22 07:08] LABS: CALCIUM 8.4 mg/dl (8.5-10.1); CREATININE 3.75 mg/dl (0.60-1.20); POTASSIUM 3.4 mmol/L (3.5-5.1)
[2018-01-22 07:39] VITALS: BP 172/67; PULSE 64; TEMP 36.8; O2SAT 93
[2018-01-22] MEDS: CHOLECALCIFEROL 1000 INTER.UNIT TAB PO SCH (08:07)
[2018-01-22] MEDS: FLUTICASONE PROPIONATE NA SPR 16 GM BTL NAE SCH (08:07)
[2018-01-22] MEDS: CARVEDILOL 25 MG TAB PO SCH (08:08)
[2018-01-22] MEDS: DOCUSATE SODIUM 100 MG CAP PO SCH (08:08)
[2018-01-22] MEDS: POLYETHYLENE (MIRALAX) 17 GM PACK PO SCH (08:09)
[2018-01-22] MEDS: PATIROMER PO SCH (08:11)
[2018-01-22] MEDS: INSULIN ASPART 100 UNITS/ML 3 ML PEN SC SCH ×2 (08:13→12:30)
[2018-01-22] MEDS: HEPARIN SOD 5000 UNIT/0.5 ML CARP SQ SCH (08:15)
[2018-01-22] MEDS: ATORVASTATIN 20 MG TAB PO SCH (10:12)
[2018-01-22 13:37] VITALS: BP 172/67; PULSE 64; TEMP 36.8; O2SAT 93
--- NOTE | 2018-01-22 14:00 | Discharge Summary ---
Discharge Summary Date of Service Jan 22, 2018. Discharge Summary Admission Date: Jan 06, 2018 at 07:31 Discharge Date: Jan 22, 2018 Discharge Disposition: Home with services Principal Diagnosis: DIABETIC FOOT INFECTION/END-STAGE RENAL DISEASE ON DIALYSIS Procedures: Procedures Performed: Perm Catheter Insertion Right Jugular Vein Ultrasound Localization of Right Jugular Vein Fluoroscopy for Positioning Moderate Sedation [id number] Consultations: Nephrology ID Vascular surgery Medication Reconciliation Changed Medications: Hydrocodone/Acetaminophen ([place] 10/325 Tab) 1 Tab Tab 1 TAB PO Q8 PRN for Pain, #20 TAB (Changed from: Q12) Continued Medications: Acetaminophen (Tylenol Extra Strength) 500 Mg Tab 1 TAB PO Q6 PRN for Pain Albuterol Hfa (Ventolin Hfa) 200 Puffs/01492 Mcg Aers 2 PUFFS INH Q4H PRN for Wheezing, #1 INHALER Albuterol Sulfate (Proair Respiclick) 108 Mcg/Act Aer 90 MCG INH Q4H Aspirin (Aspirin Ec) 81 Mg Tab 81 MG PO QAM Atorvastatin (Lipitor) 40 Mg Tab 40 MG PO DAILY, TAB Calcitriol (Rocaltrol Cap) 0.25 Mcg Cap 0.25 MCG PO MWF, CAP Carvedilol (Carvedilol) 25 Mg Tab PO DAILY Cholecalciferol (Vitamin D) 5,000 Unit Tab 1 TAB PO QAM Clopidogrel (Plavix) 75 Mg Tab 75 MG PO DAILY, TAB Fluticasone Propionate (Nasal) (Allergy Nasal [place] 24 Ho) 50 Mcg/Act Spr 2 SPRAY JOE DAILY for 30 Days, #1 Glimepiride (Glimepiride) 4 Mg Tab 1 TAB PO QAM, TAB 3 Refills Glipizide (Glucotrol) 5 Mg Tab 5 MG PO BID, TAB Hydralazine HCl (Hydralazine HCl) 100 Mg Tab PO BID Latanoprost (Xalatan 0.005% Oph Samanta) 0.005 % Samanta 1 DROPS OP HS, #7.5 ML 3 Refills Patiromer Sorbitex Calcium (Veltassa) 8.4 Gm Pow 8.4 GM PO BID Referrals At Discharge Follow up Referrals: Physician Referral - Within 1-2 Weeks with Bradley Gudino M.D. Admission Information HPI (per Admitting provider): Patient is a very pleasant 67-year-old female with history of coronary artery disease/CABG, diabetes type 2, hypertension, dyslipidemia, CKD stage V, Peripheral artery disease, glaucoma and diabetic retinopathy presenting with elevated creatinine and anemia based on lab work done in [facility]. Patient follows with Dr. Peter and management clinic for nephrology. She follows with wound care center and bioinformatics specialist at [facility], Vascular surgery with [facility]. Patient follows with Dr. Peralta for CKD stage V, and AV fistula has been placed on the left upper extremity last year. A week ago, patient was found to have osteomyelitis of the left great toe by the wound care center/bioinformatics specialist in [facility] and has been started on IV antibiotic prescribed once a week, name of which is not recalled by patient at this time (will obtain records [facility]). She also underwent a left lower extremity angioplasty for peripheral artery disease January 04, [address] [facility]. Hematoma of the left thigh and tenderness on the left groin was noted after the procedure. Also patient reports dizziness on discharge day. Yesterday January 05, 2018 patient supposed to receive her second dose of IV antibiotic for the left great toe osteomyelitis but upon evaluation of blood work, Hemoglobin was found to be 5.2 and creatinine was found to be 5.7. Patient was then referred to [place] emergency room for evaluation and treatment. Patient also reports intermittent melena for the past few weeks and apparently had an episode of black tarry stools in [facility] yesterday. Yesterday. She received 2 units of packed RBCs with [place] emergency room and was given Lasix IV as well. She was then transferred to [facility] after discussion with [facility] professor of psychology Dr. Stafford for further evaluation and management of acute and chronic kidney disease. On my exam the patient is sitting up in bed, not in distress, comfortable. States she feels less dizzy when standing after blood transfusion. Denies active chest pain, shortness of breath, palpitations headache. Denies pain on the left thigh, tenderness of the left groin improving. Denies abdominal pain or back pain No other symptoms. Physical Exam (per Admitting): General Appearance: WD/WN, no apparent distress Head: normocephalic, atraumatic Eyes: normal inspection, PERRL, EOMI, sclerae normal, + pertinent finding ( Pale conjunctivae) ENT: normal ENT inspection, hearing grossly normal, pharynx normal Neck: supple, no adenopathy, thyroid normal, no JVD, trachea midline Respiratory/Chest: chest non-tender, lungs clear, normal breath sounds, no respiratory distress, no accessory muscle use Cardiovascular: regular rate, rhythm, no edema, no JVD, no murmur Abdomen/GI: normal bowel sounds, non tender, soft, + pertinent finding ( Positive tenderness on the left groin, mild edema of the left groin, no active bleeding in the insertion site of the catheter) Back: normal inspection, no CVA tenderness Extremities/Musculoskelatal: + pertinent finding (Positive for significant ecchymosis on the left thigh region extending to the lateral aspect of the left buttock) 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-XII nml as tested, no motor/sensory deficits, alert , normal mood/affect, normal reflexes, oriented x 3 Skin: normal color, warm/dry, no rash Lymphatic: no adenopathy Hospital Course Denies any of any pain or discomfort Shortness of breath or dyspnea on exertion Feels fine To be discharged home today Physical exam: General-chronically ill appearing female, no apparent distress Eyes-sclera nonicteric pupils bilateral equal reactive to light extraocular muscles intact ENT-moist oral mucosa Neck-no JVD, no carotid bruit, no thyromegaly, trachea midline Lungs-clear to auscultate, no wheeze or rales Heart-regular S1 and S2 no murmur gallop Abdomen-soft nontender Extremities-dialysis catheter on right chest wall / status post left great toe amputation, bandage present, no drainage noted, Left arm AV fistula with positive thrill and bruit Neuro-no focal neurological deficit Psych-alert awake oriented 3, flat affect Lymph nodes-no lymphadenopathy DIABETIC FOOT/ GANGRENE/OSTEOMYELITIS OF LEFT GREAT TOE: history of chronic osteomyelitis of left great toe-previously treated on IV Dalvance -Status post amputation of left great toe by Dr. Gudino on 01/17/18 -Recovering well postop -Appreciate input from ID Does not need any more antibiotic treatment Follow-up with Dr. Gudino in 2-3 weeks, suture removal TRU ON CKD stage V -CKD stage V with baseline creatinine approximately 5 Worsening of creatinine more than 7-leading to TRU Possible secondary to contrast exposure for left lower extremity angiography Appreciate input from nephrology Patient already have AV fistula S/P Perm Catheter Insertion Right Jugular Vein Patient had 3 dialysis treatment in hospital Arrangements made for outpatient dialysis-at [facility]- Wednesday//Wednesday-11 AM Stable to be discharged home today ACUTE BLOOD LOSS ANEMIA Secondary to recent angioplasty of the left lower extremity leading to postop hematoma/blood loss Hemoglobin was 5 at [facility] Status post total of 4 units of PRBC transfusion Hemoglobin remained stable at 9 HISTORY OF CAD -No active anginal symptom-continue on Coreg Aspirin and Plavix was on hold-secondary to left thigh hematoma/acute blood loss anemia No bleeding complication, H&H has been stable Aspirin and Plavix will be resumed on discharge PERIPHERAL VASCULAR DISEASE Status post recent angioplasty of left lower extremity in [facility] Postoperative complication of left lower extremity, leading to acute blood loss anemia aspirin and Plavix -resumed TYPE 2 DIABETES Hemoglobin A1c 5.9 Insulin sliding scale Hold oral agents during hospital stay Will be resumed on discharge HYPERTENSION Blood pressure improved after dialysis Continue on Coreg and hydralazine CODE STATUS: Full code DVT PROPHYLAXIS Subcu heparin DISPOSITION Stable to be discharged home today Medicine follow-up at [facility] with Dr. Miguelito Padilla Arrangements made for outpatient dialysis Nephrology follow-up with Dr. Mica Stafford Total time spent on discharge = 40 mins This includes examination of the patient, discharge planning, medication reconciliation, and communication with other providers. Discharge Instructions Discharge Instructions Date of Service Jan 21, 2018. Admission Reason for Admission: Anemia Discharge Discharge Diagnosis / Problem: DIABETIC FOOT INFECTION/END-STAGE RENAL DISEASE ON DIALYSIS Discharge Goals Goal(s): Decrease discomfort, Improve function, Increase independence, Improve disease control, Therapeutic intervention Activity Recommendations Activity Limitations: as noted below (As tolerated , need to be off loading on left foot till evaluated by Dr Gudino) . Instructions / Follow-Up Instructions / Follow-Up HOSPITAL FOLLOW-UP on 02/01/2018 @10:[address] Alan Francois MD Internal Medicine [facility] VASCULAR SURGERY FOLLOW UP WITH DR GUDINO IN 2 WEEKS FOR SUTURE REMOVAL Continue dialysis at [facility] [address] [address] WEDNESDAY/WEDNESDAY /SAT AT 11: 50 AM you next dialysis in on Wednesday01/25/18 please arrive to clinic at 1100 AM Current Hospital Diet Patient's current hospital diet: Renal Diet, Diabetes Type 2 Diet Discharge Diet Recommended Diet: Diabetes Type 2 Diet, Renal Diet Procedures Procedures Performed: Perm Catheter Insertion Right Jugular Vein Ultrasound Localization of Right Jugular Vein Fluoroscopy for Positioning Moderate Sedation [id number] Pending Studies Studies pending at discharge: no Laboratory Results Hemoglobin A1c Test 01/06/18 05:39 Range/Units Estimated Average Glucose 123 mg/dl Hemoglobin A1c 5.9 H 4.5-5.6 % Work Instructions Additional Instructions: Tayla Lu was admitted to [facility] form Admitted to [facility] from 01/06/2018 to 01/22/2018 Had multiple procedures and surgeries Patient will need to be on chronic dialysis 3 times a week: Wednesday//Wednesday Underwent amputation of left great toe for osteomyelitis/diabetic foot wound Will need continued wound care at the amputation site Patient will need at least 2 weeks to established with dialysis treatments and wound care Needs to be on piece hand duty Hospital follow-up/appointment scheduled with family physician patient may need to be off work for extended time beyond 2 weeks, after evaluation with family physician and nephrology Medical Emergencies . Who to Call and When: Medical Emergencies: If at any time you feel your situation is an emergency, please call 911 immediately. . Non-Emergent Contact Non-Emergency issues call your: Primary Care Provider . . "Provider Documentation" section prepared by Lisa Patel. .
[2018-01-22] MEDS ORDERED: HYDR-4383 PO (14:02)
[2018-01-22] MEDS ORDERED: DAPTOmycin IV 300 MG in SYRINGE 0 ML IV SCH (16:00)
== END 2018-01-22 14:31 | disposition home or self-care (01) | DRG 907 ==
LOC: INTOOBSV 01-06 03:47 → C.2T 01-06 03:47 → OBSVTOIN 01-06 07:31 → ENRESERV 01-11 16:55 → C.MS2W 01-11 18:08
PROVIDERS: ADMIT Internal Medicine; ATTEND Hospitalist
PROC: 0DJ08ZZ Inspection of Upper Intestinal Tract, Via Natural or Artificial Opening Endoscopic (ICD-10-PCS; 2018-01-06)
PROC: 0Y6Q0Z1 Detachment at Left 1st Toe, High, Open Approach (ICD-10-PCS; principal; 2018-01-17 08:45)
PROC: 0JH60XZ Insertion of Tunneled Vascular Access Device into Chest Subcutaneous Tissue and Fascia, Open Approach (ICD-10-PCS; 2018-01-19)
PROC: 02HV33Z Insertion of Infusion Device into Superior Vena Cava, Percutaneous Approach (ICD-10-PCS; 2018-01-19)
DX: M96.841 Postprocedural hematoma of a musculoskeletal structure following other procedure (principal); N18.6 End stage renal disease; E11.52 Type 2 diabetes mellitus with diabetic peripheral angiopathy with gangrene; M86.672 Other chronic osteomyelitis, left ankle and foot; I96 Gangrene, not elsewhere classified; D62 Acute posthemorrhagic anemia; I13.11 Hypertensive heart and chronic kidney disease without heart failure, with stage 5 chronic kidney disease, or end stage renal disease; N17.9 Acute kidney failure, unspecified; N18.5 Chronic kidney disease, stage 5; K92.1 Melena; E87.1 Hypo-osmolality and hyponatremia; E11.69 Type 2 diabetes mellitus with other specified complication; E11.22 Type 2 diabetes mellitus with diabetic chronic kidney disease; D63.1 Anemia in chronic kidney disease; E87.5 Hyperkalemia; K29.70 Gastritis, unspecified, without bleeding; D50.9 Iron deficiency anemia, unspecified; E11.319 Type 2 diabetes mellitus with unspecified diabetic retinopathy without macular edema; I25.10 Atherosclerotic heart disease of native coronary artery without angina pectoris; E78.5 Hyperlipidemia, unspecified; H40.9 Unspecified glaucoma; M81.0 Age-related osteoporosis without current pathological fracture; E55.9 Vitamin D deficiency, unspecified; E66.9 Obesity, unspecified; Z79.899 Other long term (current) drug therapy; Z79.84 Long term (current) use of oral hypoglycemic drugs; Z79.82 Long term (current) use of aspirin; Z79.02 Long term (current) use of antithrombotics/antiplatelets; Z99.2 Dependence on renal dialysis; Z95.1 Presence of aortocoronary bypass graft; Z68.29 Body mass index [BMI] 29.0-29.9, adult; Z87.891 Personal history of nicotine dependence; Z88.0 Allergy status to penicillin; Z88.8 Allergy status to other drugs, medicaments and biological substances; Z83.3 Family history of diabetes mellitus; Z82.49 Family history of ischemic heart disease and other diseases of the circulatory system; Y83.8 Other surgical procedures as the cause of abnormal reaction of the patient, or of later complication, without mention of misadventure at the time of the procedure